=== PATIENT | female | born 1945 | race Caucasian/White ===

== ENCOUNTER → 2019-12-22 | Outpatient (CLI) | payer MEDICARE, OTHER, SELFPAY ==
[2019-12-15 10:25] VITALS: BMI 43.4
[2019-12-22 12:20] LABS: Albumin, Serum 3.8 g/dL (3.2-5.0); BUN 42 mg/dL (7-18); Calcium,Total 9.7 mg/dL (8.5-10.1); Chloride 101 mmol/L (98-107); Creatinine, Serum 1.45 mg/dL (0.55-1.02); EST Glomerular Filtration Rate 38 mL/min (>60); Est Glom Filt Rate - Afr Amer 46 mL/min (>60); Glucose 180 mg/dL (74-106); Phosphorus 2.7 mg/dL (2.5-4.9); Potassium 4.8 mmol/L (3.5-5.1); Sodium Level 133 mmol/L (136-145)
[2019-12-22 12:22] LABS: Vitamin D,25 Hydroxy 38.3 ng/mL
[2019-12-22 13:29] LABS: Microalbumin,Random Urine 14.3 mg/L (NO RANGE EST.); Microalbumin:Creatinine Ratio 23.9 mg/g CRE (<30 mg/g CRE)
[2019-12-26 16:21] LABS: Vitamin D 1,25-Dihydroxy 30.6 pg/mL (19.9-79.3)
== END | disposition home or self-care (01) ==
PROVIDERS: PCP Family Medicine; Visit Provider Internal Medicine Nephrology
DX: E83.52 Hypercalcemia (principal); N17.9 Acute kidney failure, unspecified; E11.9 Type 2 diabetes mellitus without complications
CPT/HCPCS: 36415; 80069; 82043; 82306; 82570; 82652

== ENCOUNTER → 2020-01-02 | Outpatient (CLI) | payer MEDICARE, OTHER, SELFPAY ==
[2019-12-15 10:25] VITALS: BMI 43.4
--- NOTE | 2020-01-02 10:55 | US_ITS ---
STUDY: RENAL ULTRASOUND - COMPLETE REASON FOR EXAM: Female, 74 years old. KATHY TECHNIQUE: Ultrasound evaluation of the kidneys was performed with real-time and static mena-scale imaging. COMPARISON: None. FINDINGS: RIGHT KIDNEY: Normal location of the right kidney, which is normal in size. The right kidney measures 10.9 cm. There is a normal cortex of the right kidney. The renal cortex measures 1.8 cm. There is no right renal mass or cyst. There are no right renal calculi. There is no right hydronephrosis. DISTAL RIGHT URETER: There is non-visualization of the distal right ureter. There is no demonstrated right ureterovesical junction calculus. There is a visualized right ureteral jet. LEFT KIDNEY: Normal location of the left kidney, which is normal in size. The left kidney measures 10.1 cm. There is a normal cortex of the left kidney. The renal cortex measures 1.8 cm. There is no left renal mass or cyst. There are no left renal calculi. There is no left hydronephrosis. DISTAL LEFT URETER: There is non-visualization of the distal left ureter. There is no demonstrated left ureterovesical junction calculus. There is a visualized left ureteral jet. BLADDER: The distended urinary bladder has a volume of 102 ml. The empty urinary bladder has a volume of ml. There is a normal wall thickness of the distended urinary bladder. There is no demonstrated mass within the urinary bladder. There are no demonstrated bladder calculi. US/Kidney and Bladder IMPRESSION: Normal ultrasound of the kidneys and urinary bladder. Electronically Signed: Ishan London MD at 13:25 EDT Tel , Service support ,
== END | disposition home or self-care (01) ==
LOC: OPUS 10:53
PROVIDERS: PCP Family Medicine; Visit Provider Internal Medicine Nephrology
DX: N17.9 Acute kidney failure, unspecified (principal)
CPT/HCPCS: 76770

== ENCOUNTER 2020-08-16 07:12 | Outpatient (RCR) | payer MEDICARE, OTHER, SELFPAY ==
[2020-04-18 14:42] VITALS: BMI 41.8
[2020-08-16] MEDS: COVID-19 VACC, MRNA(PFIZER)/PF 30 MCG/0.3 ML SYRINGE IM (13:43)
[2020-09-06] MEDS: COVID-19 VACC, MRNA(PFIZER)/PF 30 MCG/0.3 ML SYRINGE IM (13:39)
== END 2020-11-13 23:59 ==
LOC: IMMUN 07:12
PROVIDERS: PCP Family Medicine; Visit Provider Family Medicine
DX: Z23 Encounter for immunization (principal)
CPT/HCPCS: 0001A; 0002A; 91300

== ENCOUNTER → 2020-11-27 13:26 | Outpatient (CLI) | payer MEDICARE, OTHER, SELFPAY ==
[2020-09-25 10:21] VITALS: BMI 43.0
== END ==
PROVIDERS: PCP Family Medicine; Referring Provider Internal Medicine Nephrology; Visit Provider Internal Medicine Nephrology
DX: Z00.00 Encounter for general adult medical examination without abnormal findings (principal)

== ENCOUNTER 2021-08-14 10:21 | Outpatient (CLI) | payer MEDICARE, OTHER, SELFPAY ==
--- NOTE | 2021-08-14 10:25 | BI_ITS ---
MAMMOGRAPHY - BILATERAL SCREENING REASON FOR EXAM: Female, 75 years old. Routine annual screening examination. PERTINENT HISTORY: Non-contributory. TECHNIQUE: Digital bilateral breast gilberto (3D mammographic acquisition) in the CC and MLO projections. 2-D mediolateral oblique (MLO) and craniocaudad (CC) views of both breasts were obtained. CAD: Full Field Digital Mammography with Computer Added Detection was performed. COMPARISON: Comparison is made with prior outside examination dated 12/20/2018. FINDINGS: Breast Composition: The breasts are heterogeneously dense, which may obscure small masses. There are no dominant masses or suspicious calcifications. Stable scattered calcifications in both breasts. No other significant abnormalities are identified. There has been no significant change since the prior study. BI/SCRN MAMM (CAD)W/GILBERTO BILAT IMPRESSION: Stable bilateral screening mammogram. Yearly follow-up mammogram recommended. (A) ASSESSMENT CATEGORY: BIRADS Category 2: Benign. A letter regarding these results will be sent to the patient by the facility within 30 days. Approximately 10% of breast cancers are not detected by mammography. A normal mammogram should not delay biopsy of a clinically suspicious abnormality. [id number] Electronically Signed: Fabio Hunter MD at 12:01 EST ,
== END 2021-08-14 23:59 | disposition home or self-care (01) ==
LOC: OPBI 10:22
PROVIDERS: PCP Family Medicine; Visit Provider Internal Medicine Hematology & Oncology
DX: Z12.31 Encounter for screening mammogram for malignant neoplasm of breast (principal)
CPT/HCPCS: 77063; 77067

== ENCOUNTER 2021-09-21 16:04 | Inpatient (IN) | payer MEDICARE, OTHER, SELFPAY ==
[2021-09-21] VITALS (12 sets, daily range): BP systolic 92–155; BP diastolic 63–99; PULSE 86–134; RESP 16–22; TEMP 36.4–37.3; O2SAT 93–98; BMI 43.5; BMI 37.3
--- NOTE | 2021-09-21 16:09 | EKG12_ITS ---
Test Reason : STROKE TEAM Blood Pressure : / mmHG Vent. Rate : 119 BPM Atrial Rate : 375 BPM P-R Int : 000 ms QRS Dur : 086 ms QT Int : 310 ms P-R-T Axes : 000 -18 099 degrees QTc Int : 436 ms Atrial fibrillation Nonspecific ST and T wave abnormality Abnormal ECG Confirmed by ZACKARY KAUFMAN, WALLY ([id number]), fan mail editor DIAN PAN ([id number]) on 09/23/2021 12:50:15 PM Referred By: DAVDIE Confirmed By:WALLY RAYMUNDO MD
--- NOTE | 2021-09-21 16:09 | CT_ITS ---
We are attempting to reach an attending provider to discuss findings. An addendum with communication details will be sent when the communication is complete. STUDY: CT HEAD STROKE PROTOCOL W/O CONTRAST INJECTION REASON FOR EXAM: Female, 76 years old. Neuro deficit, acute, stroke suspected RADIATION DOSAGE (If Supplied By Facility): CTDIvol = ( ) mGy, DLP = ( ) mGycm TECHNIQUE: Transaxial CT imaging of the brain was performed without administration of intravenous contrast material. Individualized dose optimization techniques were used for this CT. COMPARISON: No relevant priors. FINDINGS: Normal soft tissue structures. Normal calvarium. Central parenchymal volume loss. White matter changes that are nonspecific but most commonly associated with chronic small vessel ischemic disease. Normal basal ganglia and thalami. Normal brainstem. Normal cerebellum. There is no intracranial hemorrhage. There are no findings of an acute ischemic infarction. Normal visualized paranasal sinuses. ASPECT score: 10 CT/STROKE Brain/Head without Cont IMPRESSION: No acute intracranial hemorrhage or mass effect. Electronically Signed: Rolan Tsang MD (Brooks) at 16:36 EDT Reading Location ID and State: [facility] / [place] , Service support ,
--- NOTE | 2021-09-21 16:10 | CT_ITS ---
EXAM: CT ANGIOGRAPHY HEAD AND NECK WITH INTRAVENOUS CONTRAST CLINICAL INDICATION: Neuro deficit, acute, stroke suspected TECHNIQUE: [facility]/head and neck CT angiography protocol performed with intravenous contrast. This CT exam was performed using one or more of the following dose reduction techniques: automated exposure control, adjustment of the mA and/or kV according to patient size, and/or use of iterative reconstruction technique. This report was created using [employer] report generation technology. MIP reconstructed images were created and reviewed. CONTRAST: IV 100mL [id number] RADIATION DOSE: CTDIvol = 42.62 mGy, DLP = 670.68 mGy-cm COMPARISON: PET scan 12/13/201901/2020 FINDINGS: HEAD: RIGHT ANTERIOR CEREBRAL ARTERY: Unremarkable. No significant stenosis at the visualized segments. Anterior communicating artery is present. No aneurysm. RIGHT MIDDLE CEREBRAL ARTERY: Unremarkable. No significant stenosis at the visualized segments. No aneurysm. RIGHT POSTERIOR CEREBRAL ARTERY: Unremarkable. No occlusion or significant stenosis. No aneurysm. RIGHT INTRACRANIAL INTERNAL CAROTID ARTERY: See below. RIGHT INTRACRANIAL VERTEBRAL ARTERY: Unremarkable. No significant stenosis. No dissection or occlusion. LEFT ANTERIOR CEREBRAL ARTERY: Unremarkable. No significant stenosis at the visualized segments. No aneurysm. LEFT MIDDLE CEREBRAL ARTERY: Unremarkable. No significant stenosis at the visualized segments. No aneurysm. LEFT POSTERIOR CEREBRAL ARTERY: Unremarkable. No occlusion or significant stenosis. No aneurysm. LEFT INTRACRANIAL INTERNAL CAROTID ARTERY: See below. LEFT INTRACRANIAL VERTEBRAL ARTERY: Unremarkable. No significant stenosis. No dissection or occlusion. BASILAR ARTERY: Unremarkable. No significant stenosis. No aneurysm. GREAT VESSELS OF AORTIC ARCH: Atherosclerosis of the aortic arch. OTHER VASCULATURE: Calcific atherosclerosis of the left proximal ICA (30% stenosis). Calcific atherosclerosis of the right proximal ICA (20% stenosis). No vascular malformation. NECK: RIGHT COMMON CAROTID ARTERY: Unremarkable. No significant stenosis. No dissection or occlusion. RIGHT EXTRACRANIAL INTERNAL CAROTID ARTERY: See above. RIGHT EXTERNAL CAROTID ARTERY: Unremarkable. No occlusion. RIGHT EXTRACRANIAL VERTEBRAL ARTERY: Unremarkable. No significant stenosis. No dissection or occlusion. LEFT COMMON CAROTID ARTERY: Unremarkable. No significant stenosis. No dissection or occlusion. LEFT EXTRACRANIAL INTERNAL CAROTID ARTERY: See above. LEFT EXTERNAL CAROTID ARTERY: Unremarkable. No occlusion. LEFT EXTRACRANIAL VERTEBRAL ARTERY: Unremarkable. No significant stenosis. No dissection or occlusion. LUNG APICES: Unremarkable as visualized. MEDIASTINUM: There are enlarged lymph nodes of the upper mediastinum which are partially visualized. For instance, paratracheal lymph node on the first image measures 1.0 x 1.9 cm. The azygos vein appears to be unopacified. HEAD and NECK: BONES/JOINTS: Unremarkable. No discrete lytic or blastic abnormalities. SOFT TISSUES: Unremarkable. TUBES, LINES AND DEVICES: Sternal wires are present. CAROTID STENOSIS REFERENCE USING NASCET CRITERIA: % ICA stenosis = (1 - narrowest ICA diameter/diameter of distal cervical ICA) x 100. Mild - <50% stenosis. Moderate - 50-69% stenosis. Severe - 70-94% stenosis. Near occlusion - 95-99% stenosis. Occluded - 100% stenosis. CT/STROKE CTA Head AND Neck W/Con IMPRESSION: 1. No large vessel occlusion or intracranial aneurysm. No carotid or vertebral artery dissection. 2. Mediastinal adenopathy, incompletely visualized. N.B. : The above Results were Read Back by Rolan Tsang MD (Brooks) to Pacheco Lua and understanding confirmed on 09/21/2021 17:02:52 (ET). Electronically Signed: Rolan Tsang MD (Brooks) at 17:06 EDT ,
--- NOTE | 2021-09-21 16:12 | NURSING ---
NO OLD EKGS
[2021-09-21 16:21] LABS: Absolute Lymphocyte Count 1.69 X10^3/uL (0.83-4.51); Absolute Neutrophil Count 7.2 X10^3/uL (2.0-7.7); Basophil# 0.09 X10^3/uL; Basophil% 0.8 % (0-1); Eosinophil# 0.24 X10^3/uL; Eosinophils% 2.2 % (0-5); Hematocrit 40.7 % (37-47); Hemoglobin 13.3 g/dL (12.0-15.0); Lymphocyte # 1.69 X10^3/ul (0.83-4.51); Lymphocyte % 15.7 % (19-41); Mean Corp Hgb Conc 32.7 g/dL (32-36); Mean Corpuscular Hgb 30.2 pg (27.0-32.0); Mean Corpuscular Volume 92.3 fL (81-99); Mean Platelet Vol. 11.6 fl (6.2-12.0); Monocyte# 1.44 X10^3/uL; Monocyte% 13.4 % (0-10); NRBC Flagged by Analyzer 0 % (0-5); Neutrophil # 7.24 X10^3/uL (2.7-7.7); Neutrophil % 67.4 % (47-70); Platelet Count 192 K/mm3 (150-450); RBC Distribution Width CV 14.8 % (11.6-14.6); RBC Distribution Width SD 50.5 fl (35.1-43.9); Red Blood Count 4.41 M/mm3 (4.2-5.4); White Blood Count 10.8 K/mm3 (4.4-11.0)
[2021-09-21 16:29] LABS: International Normalized Ratio 1.2; Prothrombin Time (Protime)PT. 14.9 SECONDS (11.7-14.9)
[2021-09-21 16:30] LABS: Partial Thromboplast Time 27.3 Seconds (24.1-36.2)
--- NOTE | 2021-09-21 16:33 | ED.VIS.STROK ---
HPI History of Present Illness Chief Complaint: Neuro S/Sx Informant: EMS Limited: other (Aphasia) Onset/Context/Timing Onset: Today Context: Sudden Onset Timing: Continuous Quality and Location: Positive for Left Arm Weakness, Right Leg Weakness, Left Leg Weakness, Expressive Aphasia and Receptive Aphasia Onset: Last known well was 9 AM today, approximately 7 hours prior to arrival Narrative Narrative: Patient presents with stroke symptoms that was noticed today. Patient's last known well was 9 AM today. This was approximately 7 hours prior to arrival. Patient has difficulty speaking and following commands. EMS reports that the patient's left side appears to be weaker than her right. EMS reports the patient continues to fall asleep but will awaken easily during their transport. Patient does not give me any history herself. Patient is nonverbal. [facility] Medical History Acute combined systolic (congestive) and diastolic (congestive) heart failure Diabetes mellitus type II, controlled Essential hypertension Fibromyalgia GERD (gastroesophageal reflux disease) HFrEF (heart failure with reduced ejection fraction) Hypercalcemia Hyperlipidemia Lipoma of left upper extremity Lupus Monoclonal gammopathy Morbid obesity Non-ischemic cardiomyopathy Nonalcoholic fatty liver disease Nonrheumatic mitral valve stenosis with insufficiency KAROLINA (obstructive sleep apnea) Osteoarthritis Osteoporosis Rheumatoid arthritis Home Medications apixaban 5 mg PO BID 05/24/19 [History Last Taken Unknown] aspirin 81 mg PO DAILY 05/24/19 [History Last Taken Unknown] metoprolol succinate 100 mg PO BID 05/24/19 [History Last Taken Unknown] ropinirole 0.5 mg PO DAILY 05/24/19 [History Last Taken Unknown] loratadine 10 mg PO DAILY 06/02/19 [History Last Taken Unknown] atorvastatin 40 mg PO QHS 06/22/19 [History Last Taken Unknown] cyanocobalamin (vitamin B-12) 1,000 mcg PO DAILY 06/22/19 [History Last Taken Unknown] vitamin E 400 unit PO DAILY 06/22/19 [History Last Taken Unknown] sacubitril 24 mg-valsartan 26 mg tablet 1 tab PO BID 07/16/21 [History Last Taken Unknown] acetaminophen 325 mg tablet 650 mg PO Q6H PRN tab 09/04/21 [History Last Taken Unknown] albuterol sulfate 90 mcg/actuation aerosol inhaler 2 puff INHALATION .QID PRN g 09/04/21 [History Last Taken Unknown] diltiazem HCl 120 mg capsule,extended release 24 hr 120 mg PO DAILY 09/04/21 [History Last Taken Unknown] dulaglutide 1.5 mg/0.5 mL subcutaneous pen injector 1.5 mg SUBCUT QWEEK 09/04/21 [History Last Taken Unknown] gabapentin 100 mg capsule 200 mg PO TID cap 09/04/21 [History Last Taken Unknown] insulin aspart U-100 100 unit/mL (3 mL) subcutaneous pen 25 unit SUBCUT .COMPLEX ml 09/04/21 [History Last Taken Unknown] insulin degludec 200 unit/mL (3 mL) subcutaneous pen 68 unit SUBCUT QHS ml 09/04/21 [History Last Taken Unknown] leflunomide 10 mg tablet 20 mg PO DAILY tab 09/04/21 [History Last Taken Unknown] levothyroxine 100 mcg tablet 100 mcg PO .COMPLEX 09/04/21 [History Last Taken Unknown] melatonin 3 mg tablet 3 mg PO HS PRN 09/04/21 [History Last Taken Unknown] miconazole nitrate 2 % topical powder 1 applic TOPICAL BID 09/04/21 [History Last Taken Unknown] pantoprazole 40 mg tablet,delayed release 40 mg PO DAILY 09/04/21 [History Last Taken Unknown] prednisone 5 mg tablet 5 mg PO DAILY tab 09/18/21 [History Last Taken Unknown] torsemide 20 mg tablet 20 mg PO BID tab 09/18/21 [History Last Taken Unknown] Allergy/AdvReac Type Severity Reaction Status Date / Time hydroxychloroquine Allergy Severe Shortness Verified 09/18/21 09:53 of breath metformin AdvReac Severe Diarrhea Verified 09/18/21 09:53 methotrexate AdvReac Severe Other Verified 09/18/21 09:53 Sulfa (Sulfonamide AdvReac Intermediate Other Verified 09/18/21 09:53 Antibiotics) Family History Father Diabetes Heart disease Hypertension CVA (cerebral vascular accident) Hyperlipidemia CAD (coronary artery disease) Brother Hypertension Hyperlipidemia Sister THYROID Mother Uterine cancer Surgical History History of appendectomy History of back surgery History of cardioversion (01/15/18) History of left heart catheterization History of mitral valve replacement with bioprosthetic valve (04/23/17) History of radiofrequency ablation (RFA) for complex left atrial arrhythmia (04/25/17) History of right and left heart catheterization (02/25/17) History of total left knee replacement History of total right knee replacement History of transesophageal echocardiography (NEELA) (01/15/18) Social History Smoking Status: Smoker, status unknown tobacco type: cigarettes ROS ROS ED Review of Systems ROS Unobtainable: due to mental status EXAM Physical Exam Const Vital Signs: 09/21/21 16:05 09/21/21 16:09 09/21/21 16:39 Temperature 97.6 F L 97.8 F 98.4 F Temperature Source Temporal Temporal Temporal Pulse Rate 128 H 127 H 124 H Respiratory Rate 18 22 H 18 Blood Pressure 116/66 112/99 H 124/63 H Blood Pressure Mean 82 103 83 Pulse Ox 93 98 98 Oxygen Delivery Method Room Air Nasal Cannula Nasal Cannula Oxygen Flow Rate (L/min) 2 2 09/21/21 17:09 09/21/21 17:30 Temperature 97.9 F 98.4 F Temperature Source Temporal Temporal Pulse Rate 112 H 124 H Respiratory Rate 18 18 Blood Pressure 145/94 H 137/91 H Blood Pressure Mean 111 106 Pulse Ox 97 98 Oxygen Delivery Method Nasal Cannula Room Air Oxygen Flow Rate (L/min) 2 Positive well nourished, well developed and obese General Appearance ED: well developed and NAD Nutritional Appearance: obese HEENT Reports moist mucous membranes Neck supple and no JVD Resp normal respiratory effort and clear to auscultation bilaterally Cardio Rate: regular rate Rhythm: abnormal rhythm irregularly irregular GI soft to palpation and non-tender Extremity General Extremety ED: Negative for deformity or tenderness General Extremity: Negative for deformity Neuro [place] Coma Scale: document GCS findings Spontaneous Localizes to Pain None 10 Motor Exam: strength abnormal flexion STROKE Vital Signs/Narrative: Vital Signs Temp Pulse Resp BP Pulse Ox 09/21/21 17:30 98.4 F 124 H 18 137/91 H 98 09/21/21 17:09 97.9 F 112 H 18 145/94 H 97 09/21/21 16:39 98.4 F 124 H 18 124/63 H 98 09/21/21 16:09 97.8 F 127 H 22 H 112/99 H 98 09/21/21 16:05 97.6 F L 128 H 18 116/66 93 Inital Vital Signs reviewed: Yes NIHSS Initial: 1a Level of Consciousness: 1 1b LOC Questions (Score 2 if aphasic/stupor): 2 2 Best Gaze (If aphasic, use reflexive mvmts.): 0 4 Facial Palsy: 0 5 Motor Arm Right (UN = amputation/fusion): 1 5 Motor Arm Left: 2 6 Motor Leg Right: 3 6 Motor Leg Left: 3 8 Sensory (Aphasia/stupor=0 or 1, coma=2): 1 9 Best Language: 2 10 Dysarthria (mute, coma=2, intubated=UN): 2 Total Score: 17 MDM MDM MDM Narrative Medical decision making narrative: CT scan of the brain was obtained. There is no acute intracranial abnormality. This was interpreted by the radiologist and reviewed by myself. CTA of the head and neck was obtained. There is no evidence of large vessel occlusion. This was also interpreted by the radiologist and reviewed by myself. EKG was obtained. On my interpretation it shows atrial fibrillation with a rate of 119. There are nonspecific ST-T wave changes. There are no acute changes. QRS interval, QTc interval, and axis are within normal limits. CBC was within normal limits. PT with INR and PTT were essentially within normal limits. Basic metabolic profile showed a glucose of 200. The remainder was within normal limits. High-sensitivity troponin was normal at 14. Case was discussed with the stroke neurologist at [facility]. Patient is not a candidate for thrombolytics therapy at this time. Patient is on Eliquis and her last known well was 7 hours prior to arrival. On reevaluation, the patient is more awake and alert but still having some difficulty speaking. Patient is able to hold both arms out in front of her for 10 seconds. Patient is able to lift her right leg off of the bed but is unable to hold it for 5 seconds. Patient is unable to lift her left leg off of the bed. Case was discussed with the hospitalist. She will admit the patient to her service. Family understood and was agreeable with the plan. All questions were answered. Lab Data Attestation: I reviewed the patient's lab results. Labs: Laboratory Results - last 24 hr 09/21/21 09/21/21 09/21/21 16:12 16:12 16:12 WBC 10.8 RBC 4.41 Hgb 13.3 Hct 40.7 MCV 92.3 MCH 30.2 MCHC 32.7 RDW Std Deviation 50.5 H RDW Coeff of Gisela 14.8 H Plt Count 192 MPV 11.6 Immature Gran % (Auto) 0.500 Neut % (Auto) 67.4 Lymph % (Auto) 15.7 L [place] % (Auto) 13.4 H Eos % (Auto) 2.2 Baso % (Auto) 0.8 Absolute Neuts (auto) 7.2 Absolute Lymphs (auto) 1.69 Nucleated RBC % 0 PT 14.9 INR 1.2 APTT 27.3 Sodium 137 Potassium 3.6 Chloride 101 Carbon Dioxide 30.0 Anion Gap 6 BUN 13 Creatinine 0.94 Estim Creat Clear Calc 37.71 Est GFR (MDRD) Af Amer 74 Est GFR (MDRD) Non-Af 62 BUN/Creatinine Ratio 13.8 Glucose 200 H Calcium 10.0 Troponin I High Sens 14 Radiography Diagnostic Testing: Clinical Impression(s) from Imaging Studies Brain CT 09/21/21 16:09 IMPRESSION: No acute intracranial hemorrhage or mass effect. Electronically Signed: Rolan Tsang MD (Brooks) at 16:36 EDT , ADDENDUM: 09/21/21 1649 IMPRESSION: No acute intracranial hemorrhage or mass effect. N.B. : The above Results were Read Back by Rolan Tsang MD (Brooks) to Dr. Chanell MD, and understanding confirmed on 09/21/2021 16:42:12 (ET). Electronically Signed: Rolan Tsang MD (Brooks) at 16:36 EDT , Head/Neck CTA 09/21/21 16:10 IMPRESSION: 1. No large vessel occlusion or intracranial aneurysm. No carotid or vertebral artery dissection. 2. Mediastinal adenopathy, incompletely visualized. N.B. : The above Results were Read Back by Rolan Tsang MD (Brooks) to Pacheco Lua and understanding confirmed on 09/21/2021 17:02:52 (ET). Electronically Signed: Rolan Tsang MD (Brooks) at 17:06 EDT , ADDENDUM: 09/21/21 1713 IMPRESSION: 1. No large vessel occlusion or intracranial aneurysm. No carotid or vertebral artery dissection. 2. Mediastinal adenopathy, incompletely visualized. N.B. : The above Results were Read Back by Rolan Tsang MD (Brooks) to Pacheco Lua and understanding confirmed on 09/21/2021 17:02:52 (ET). Electronically Signed: Rolan Tsang MD (Brooks) at 17:06 EDT , Chest X-Ray 09/21/21 17:01 IMPRESSION: Nonacute portable x-ray examination of the chest. Electronically Signed: Rolan Tsang MD (Brooks) at 17:32 EDT , EKG Initial EKG: Attestation: I personally reviewed and interpreted this EKG as follows: Interpretation: Atrial Fibrillation (119) and Non-Specific ST Changes Prior EKG tracings: not available for review Stroke Documentation Questions Stroke Team Activated: Yes Reviewed Inclusion/Exclusion criteria: Yes Was Patient considered for Endovascular Intervention?: No-CTA negative, determined not to be an endovascular candidate IV Alteplase (t-PA) Administered: No No contraindications for IV Alteplase (t-PA) administration.: No Discharge Plan Dx/Rx/DC Orders Clinical Impression: Stroke, Expressive aphasia Disposition Disposition: Acute Care [facility]
[2021-09-21 16:38] LABS: Anion Gap 6 (5-15); BUN 13 mg/dL (7-18); BUN/Creat Ratio 13.8 RATIO (10-20); Chloride 101 mmol/L (98-107); Creatinine, Serum 0.94 mg/dL (0.55-1.02); EST Glomerular Filtration Rate 62 mL/min (>60); Est Glom Filt Rate - Afr Amer 74 mL/min (>60); Estimated Creatinine Clearance 37.71 ml/min; Glucose 200 mg/dL (74-106); Potassium 3.6 mmol/L (3.5-5.1); Sodium Level 137 mmol/L (136-145); Troponin-I HS 14 pg/mL (3.0-54.0)
--- NOTE | 2021-09-21 16:38 | NURSING ---
STROKE ALERT CALLED 340, PRIOR TO ARRIVAL
--- NOTE | 2021-09-21 17:01 | RAD_ITS ---
STUDY: X-RAY CHEST REASON FOR EXAM: Female, 76 years old. squad called for hypoglycemia. when arrived pt. had left sided weakness. blood sugar 173. squad states pt. was sleepy but arousable. last known well 0900 TECHNIQUE: AP COMPARISON: None. FINDINGS: Sternal wires. The lungs are clear and expanded. There is no demonstrated pleural abnormality. There is mild cardiac enlargement. Normal mediastinum and blanca. Normal visualized pulmonary arteries. Normal visualized aortic arch and descending thoracic aorta. Normal visualized thoracic spine. Normal visualized ribs, clavicles, and shoulders. There is no demonstrated abnormality of the visualized soft tissue structures of the upper abdomen. RAD/Chest 1 View IMPRESSION: Nonacute portable x-ray examination of the chest. Electronically Signed: Rolan Tsang MD (Brooks) at 17:32 EDT ,
--- NOTE | 2021-09-21 17:50 | NURSING ---
PCU OBS NAUMAH STROKE, EXPRESSIVE APHASIA
--- NOTE | 2021-09-21 17:51 | PCM.HP.STD ---
HPI - General General Date of Admission: 09/21/21 Date of Service: 09/21/21 Chief Complaint: Altered mental status - 1 day HPI Narrative MARIA ISABEL LOPEZ, is a 76 F who presents with the above. Patient was last known normal at around 9 AM. His son had called her on phone and she was able to speak and converse normally. They arrived to pick her up around 3 PM and found her to be very confused, unable to speak. She had trouble finding her words. She was helped to also arouse. She continues to fall asleep easily. The EMS reported the patient's left side appeared to be weaker than her right. Patient has history of chronic atrial fibrillation, status post left atrial appendage clipping as well as radiofrequency ablation, status post DC cardioversion. Patient is on Eliquis. Patient has chronic back pain and is not mobile at baseline. CT of the brain was negative for any acute intracranial hemorrhage. CTA of th. e her head and neck was unremarkable for any large vessel occlusion. Her admitting EKG shows atrial fibrillation, heart rate of 119. WBC is 10.8, hemoglobin 13.3, platelet count is 192, INR is 1.2, BMP is unremarkable, blood sugar is 200 [facility] Medical History Acute combined systolic (congestive) and diastolic (congestive) heart failure Diabetes mellitus type II, controlled Essential hypertension Fibromyalgia GERD (gastroesophageal reflux disease) HFrEF (heart failure with reduced ejection fraction) Hypercalcemia Hyperlipidemia Lipoma of left upper extremity Lupus Monoclonal gammopathy Morbid obesity Non-ischemic cardiomyopathy Nonalcoholic fatty liver disease Nonrheumatic mitral valve stenosis with insufficiency KAROLINA (obstructive sleep apnea) Osteoarthritis Osteoporosis Rheumatoid arthritis Home Medications apixaban 5 mg PO BID 05/24/19 [History Last Taken Unknown] aspirin 81 mg PO DAILY 05/24/19 [History Last Taken Unknown] metoprolol succinate 100 mg PO BID 05/24/19 [History Last Taken Unknown] ropinirole 0.5 mg PO DAILY 05/24/19 [History Last Taken Unknown] loratadine 10 mg PO DAILY 06/02/19 [History Last Taken Unknown] atorvastatin 40 mg PO QHS 06/22/19 [History Last Taken Unknown] cyanocobalamin (vitamin B-12) 1,000 mcg PO DAILY 06/22/19 [History Last Taken Unknown] vitamin E 400 unit PO DAILY 06/22/19 [History Last Taken Unknown] sacubitril 24 mg-valsartan 26 mg tablet 1 tab PO BID 07/16/21 [History Last Taken Unknown] acetaminophen 325 mg tablet 650 mg PO Q6H PRN tab 09/04/21 [History Last Taken Unknown] albuterol sulfate 90 mcg/actuation aerosol inhaler 2 puff INHALATION .QID PRN g 09/04/21 [History Last Taken Unknown] diltiazem HCl 120 mg capsule,extended release 24 hr 120 mg PO DAILY 09/04/21 [History Last Taken Unknown] dulaglutide 1.5 mg/0.5 mL subcutaneous pen injector 1.5 mg SUBCUT QWEEK 09/04/21 [History Last Taken Unknown] gabapentin 100 mg capsule 200 mg PO TID cap 09/04/21 [History Last Taken Unknown] insulin aspart U-100 100 unit/mL (3 mL) subcutaneous pen 25 unit SUBCUT .COMPLEX ml 09/04/21 [History Last Taken Unknown] insulin degludec 200 unit/mL (3 mL) subcutaneous pen 68 unit SUBCUT QHS ml 09/04/21 [History Last Taken Unknown] leflunomide 10 mg tablet 20 mg PO DAILY tab 09/04/21 [History Last Taken Unknown] levothyroxine 100 mcg tablet 100 mcg PO .COMPLEX 09/04/21 [History Last Taken Unknown] melatonin 3 mg tablet 3 mg PO HS PRN 09/04/21 [History Last Taken Unknown] miconazole nitrate 2 % topical powder 1 applic TOPICAL BID 09/04/21 [History Last Taken Unknown] pantoprazole 40 mg tablet,delayed release 40 mg PO DAILY 09/04/21 [History Last Taken Unknown] prednisone 5 mg tablet 5 mg PO DAILY tab 09/18/21 [History Last Taken Unknown] torsemide 20 mg tablet 20 mg PO BID tab 09/18/21 [History Last Taken Unknown] Allergy/AdvReac Type Severity Reaction Status Date / Time hydroxychloroquine Allergy Severe Shortness Verified 09/18/21 09:53 of breath metformin AdvReac Severe Diarrhea Verified 09/18/21 09:53 methotrexate AdvReac Severe Other Verified 09/18/21 09:53 Sulfa (Sulfonamide AdvReac Intermediate Other Verified 09/18/21 09:53 Antibiotics) Family History Father Diabetes Heart disease Hypertension CVA (cerebral vascular accident) Hyperlipidemia CAD (coronary artery disease) Brother Hypertension Hyperlipidemia Sister THYROID Mother Uterine cancer Surgical History History of appendectomy History of back surgery History of cardioversion (01/15/18) History of left heart catheterization History of mitral valve replacement with bioprosthetic valve (04/23/17) History of radiofrequency ablation (RFA) for complex left atrial arrhythmia (04/25/17) History of right and left heart catheterization (02/25/17) History of total left knee replacement History of total right knee replacement History of transesophageal echocardiography (NEELA) (01/15/18) Social History (Updated 09/21/21 @ 18:[address] Candis Bull MD) Smoking Status: Smoker, status unknown tobacco type: cigarettes alcohol intake: never substance use type: does not use ROS Review of Systems ROS Unobtainable: due to encephalopathy Vital Signs Vital Signs Vital Signs: 09/21/21 16:05 09/21/21 16:09 09/21/21 16:39 Temperature 97.6 F L 97.8 F 98.4 F Temperature Source Temporal Temporal Temporal Pulse Rate 128 H 127 H 124 H Respiratory Rate 18 22 H 18 Blood Pressure 116/66 112/99 H 124/63 H Blood Pressure Mean 82 103 83 Pulse Ox 93 98 98 Oxygen Delivery Method Room Air Nasal Cannula Nasal Cannula Oxygen Flow Rate (L/min) 2 2 09/21/21 17:09 09/21/21 17:30 Temperature 97.9 F 98.4 F Temperature Source Temporal Temporal Pulse Rate 112 H 124 H Respiratory Rate 18 18 Blood Pressure 145/94 H 137/91 H Blood Pressure Mean 111 106 Pulse Ox 97 98 Oxygen Delivery Method Nasal Cannula Room Air Oxygen Flow Rate (L/min) 2 Weight Weight: 101.1 kg Body Mass Index (BMI) 43.5 Physical Exam Narrative Physical exam: General: Alert, appears confused, cooperative, no apparent distress HEENT: Atraumatic Oral: Moist Mucosa Neck: Supple Lungs: Diminished to auscultation Cardiovascular: HS I+II, regular, no murmurs Abdomen: Bowel Sounds Present, Soft, Non Tender Extremities: Bilateral leg edema +1 Skin: No rashes, No breakdown Neurological: Alert, expressive aphasia, no facial droop, unable to fully extend upper extremities or legs on account of pain Psych/Mental Status:confused Results Lab / Micro Data Result Diagrams: 09/21/21 16:12 09/21/21 16:12 Labs: Laboratory Results - last 24 hr 09/21/21 16:12: WBC 10.8, RBC 4.41, Hgb 13.3, Hct 40.7, MCV 92.3, MCH 30.2, MCHC 32.7, RDW Std Deviation 50.5 H, RDW Coeff of Gisela 14.8 H, Plt Count 192, MPV 11.6, Immature Gran % (Auto) 0.500, Neut % (Auto) 67.4, Lymph % (Auto) 15.7 L, [place] % (Auto) 13.4 H, Eos % (Auto) 2.2, Baso % (Auto) 0.8, Absolute Neuts (auto) 7.2, Absolute Lymphs (auto) 1.69, Nucleated RBC % 0 09/21/21 16:12: PT 14.9, INR 1.2, APTT 27.3 09/21/21 16:12: Sodium 137, Potassium 3.6, Chloride 101, Carbon Dioxide 30.0, Anion Gap 6, BUN 13, Creatinine 0.94, Estim Creat Clear Calc 37.71, Est GFR (MDRD) Af Amer 74, Est GFR (MDRD) Non-Af 62, BUN/Creatinine Ratio 13.8, Glucose 200 H, Calcium 10.0, Troponin I High Sens [address] 09/21/21 16:09 IMPRESSION: No acute intracranial hemorrhage or mass effect. Electronically Signed: oRlan Tsang MD (Brooks) at 16:36 EDT Reading Location ID and State: [facility] / [place] , Service support , ADDENDUM: 09/21/21 1132 IMPRESSION: No acute intracranial hemorrhage or mass effect. N.B. : The above Results were Read Back by Rolan Tsang MD (Brooks) to Dr. Chanell MD, and understanding confirmed on 09/21/2021 16:42:12 (ET). Electronically Signed: Rolan Tsang MD (Brooks) at 16:36 EDT , Head/Neck CTA 09/21/21 16:10 IMPRESSION: 1. No large vessel occlusion or intracranial aneurysm. No carotid or vertebral artery dissection. 2. Mediastinal adenopathy, incompletely visualized. N.B. : The above Results were Read Back by Rolan Tsang MD (Brooks) to Pacheco Lua and understanding confirmed on 09/21/2021 17:02:52 (ET). Electronically Signed: Rolan Tsang MD (Brooks) at 17:06 EDT , ADDENDUM: 09/21/21 1713 IMPRESSION: 1. No large vessel occlusion or intracranial aneurysm. No carotid or vertebral artery dissection. 2. Mediastinal adenopathy, incompletely visualized. N.B. : The above Results were Read Back by Rolan Tsang MD (Brooks) to Pacheco Lua and understanding confirmed on 09/21/2021 17:02:52 (ET). Electronically Signed: Rolan Tsang MD (Brooks) at 17:06 EDT , Chest X-Ray 09/21/21 17:01 IMPRESSION: Nonacute portable x-ray examination of the chest. Electronically Signed: Rolan Tsang MD (Brooks) at 17:32 EDT , Assessment & Plan Assessment/Plan (1) Stroke: QUALIFIERS: CVA mechanism: unspecified Qualified Code(s): I63.9 - Cerebral infarction, unspecified (2) Expressive aphasia: (3) HFrEF (heart failure with reduced ejection fraction): PLAN: 1. Acute metabolic encephalopathy likely secondary to acute stroke Patient has expressive aphasia History of multiple comorbidities including chronic atrial fibrillation, on Eliquis We will continue to monitor 2. Acute stroke, patient noted with expressive aphasia, admitting NIHSS score was 5 Patient is not a TPA candidate; on Eliquis also Admit to PCU, monitor on telemetry, Per son, patient has history of plating to the right upper extremities, and rods in her back She however stated she has had a recent MRI done in an outside hospital We will obtain records 2D echo, neurology consult after MRI brain Lipid profile in am, HbA1c 3. A. fib with RVR, heart rate slightly elevated Patient with chronic atrial fibrillation, status post left atrial appendage clipping, status post radiofrequency ablation status post cardioversion Resume on patient's home Cardizem, metoprolol, continue Eliquis 4. Type II DM, on insulin, Continue with insulin sliding scale with blood glucose checks 5. Acute combined CHF, recent EF of 29% Continue with Entresto, torsemide 6. Hypothyroidism, continue Synthroid 7. DVT prophylaxis?on Eliquis 8. I discussed and explained in details the various types of CODE STATUS-full code, DNR CCA, DNR CC. Per patient's son, patient had always voiced that she wants to be full code. Patient appeared to be not in agreement. Time spent discussing CODE STATUS 17 minutes Charges/Coding Visit Charges Inpatient E&M: 81323 Init Hosp L3 Procedures Hospitalists Procedures: 58389 Advncd Care Plan 30 Min
[2021-09-21] MEDS: dilTIAZem 60 MG Tablet PO (18:48)
--- NOTE | 2021-09-21 19:09 | ECHOD_ITS ---
Reason For Study: TIA/CVA Procedure This was a 2D Doppler, Color Flow transthoracic echocardiogram. The exam was of adequate technical quality. Exam performed portable in patient room. Left Ventricle Normal LV size. Mild global left ventricular systolic dysfunction. The estimated ejection fraction is 40 %. There is evidence of diastolic dysfunction. Right Ventricle Normal RV size. Normal systolic function. Atria The left atrium is moderately enlarged. The right atrium is mildly enlarged. No doppler evidence for ASD. Bubble contrast study negative for right to left interatrial shunt. Mitral Valve Stable appearing bioprosthetic mitral valve apparatus. MIld (1+) transvalvular insufficiency of the mitral valve. Tricuspid Valve Normal tricuspid valve. Moderate (2+) tricuspid valve insufficiency. Right ventricular systolic pressure estimated to be 34 mmHg. Aortic Valve Trisinus/trileaflet aortic valve. Mild focal aortic valve calcification. Pulmonic Valve The pulmonic valve is not well visualized. Trivial pulmonic valve insufficiency. Great Vessels Normal sized aortic root. Pericardium/Pleural No pericardial effusion. Medication Performed a rapid injection of agitated mix of 9 cc saline and 1cc air to assess for atrial septal defect. MMode/2D Measurements & Calculations LVIDd: 3.7 cm IVSd: 1.2 cm Ao root diam: 3.6 cm LVIDs: 3.3 cm LVPWd: 1.2 cm RVDd: 4.4 cm FS: 12.0 % LAV(MOD-sp4): 94.0 ml LVAd ap4: 24.4 cm2 LVAd ap2: 25.3 cm2 LVLd ap4: 7.6 cm LVLd ap2: 6.6 cm EDV(MOD-sp4): 66.7 ml EDV(MOD-sp2): 80.3 ml EDV(sp4-el): 66.2 ml EDV(sp2-el): 81.9 ml LVAs ap4: 18.4 cm2 LVAs ap2: 18.0 cm2 LVLs ap4: 7.3 cm LVLs ap2: 5.9 cm ESV(MOD-sp4): 40.9 ml ESV(MOD-sp2): 44.4 ml ESV(sp4-el): 39.5 ml ESV(sp2-el): 46.9 ml EF(MOD-sp4): 38.7 % EF(MOD-sp2): 44.8 % EF(sp4-el): 40.4 % SV(MOD-sp4): 25.8 ml SV(MOD-sp2): 35.9 ml SV(sp4-el): 26.8 ml LA A4 area: 27.8 cm2 LA dimension(2D): 5.2 cm RA A4 area: 17.9 cm2 Doppler Measurements & Calculations MV E max dileep: 206.8 cm/sec Lat Peak E' Dileep: 7.3 cm/sec Med Peak E' Dileep: 5.1 cm/sec E/E' lat: 28.4 E/E' med: 40.6 Ao V2 max: 188.9 cm/sec LV V1 max: 104.1 cm/sec PA V2 max: 111.5 cm/sec Ao max P.3 mmHg LV V1 max P.4 mmHg Ao V2 mean: 130.9 cm/sec LV V1 mean P.3 mmHg Ao mean P.7 mmHg LV V1 mean: 68.8 cm/sec Ao V2 VTI: 33.9 cm LV V1 VTI: 18.5 cm TR max dileep: 278.7 cm/sec TR max P.1 mmHg ECHO/Echo Complete Interpretation Summary Mild global left ventricular systolic dysfunction. The estimated ejection fraction is 40 %. The left atrium is moderately enlarged. The right atrium is mildly enlarged. Stable appearing bioprosthetic mitral valve apparatus. MIld (1+) transvalvular insufficiency of the mitral valve. Moderate (2+) tricuspid valve insufficiency. Mild focal aortic valve calcification. Trivial pulmonic valve insufficiency. Right ventricular systolic pressure estimated to be 34 mmHg. There is evidence of diastolic dysfunction. Bubble contrast study negative for right to left interatrial shunt. Ordering Physician: Candis Bull Performed By: Leticia Whaley RCS
[2021-09-21] MEDS: 0.9% Normal Saline 1,000 ML 75 ML IV (19:33)
[2021-09-21 19:54] LABS: Hemoglobin A1c 10.2 % (3.8-5.6)
[2021-09-21 20:18] LABS: Troponin-I HS 17 pg/mL (3.0-54.0)
--- NOTE | 2021-09-21 21:19 | ED.RN ---
laura uriarte son of the patient.
[2021-09-21] MEDS: Insulin Lispro 100 UNIT/ML INSULN.PEN SC (22:25)
[2021-09-21] MEDS: Pramipexole Di-HCl 0.25 MG Tablet PO (22:25)
[2021-09-21] MEDS: Insulin Glargine-YFGN 100 UNIT/ML Pen 68 UNIT SC (22:25)
[2021-09-21] MEDS: Atorvastatin Calcium 80 MG Tablet PO (22:25)
[2021-09-21] MEDS: APIXABAN 5 MG TABLET PO (22:25)
[2021-09-21] MEDS: Nystatin Powder 15gm Bottle 1 APPLIC TOPICAL (22:27)
[2021-09-21 22:46] LABS: Bedside Glucose 200 mg/dL (74-106)
[2021-09-21 23:07] LABS: Troponin-I HS 16 pg/mL (3.0-54.0)
[2021-09-22] VITALS (14 sets, daily range): BP systolic 106–141; BP diastolic 59–99; PULSE 79–130; RESP 12–18; TEMP 36.4–37; O2SAT 94–97; BMI 37.3
[2021-09-22] MEDS: Acetaminophen 325 MG Tablet 650 MG PO ×2 (03:17→14:32)
[2021-09-22 03:26] LABS: Bedside Glucose 168 mg/dL (74-106)
[2021-09-22 05:48] LABS: Absolute Lymphocyte Count 1.73 X10^3/uL (0.83-4.51); Absolute Neutrophil Count 5.6 X10^3/uL (2.0-7.7); Basophil# 0.07 X10^3/uL; Basophil% 0.8 % (0-1); Eosinophil# 0.19 X10^3/uL; Eosinophils% 2.2 % (0-5); Hematocrit 32.1 % (37-47); Hemoglobin 10.6 g/dL (12.0-15.0); Lymphocyte # 1.73 X10^3/ul (0.83-4.51); Lymphocyte % 19.6 % (19-41); Mean Corpuscular Hgb 29.9 pg (27.0-32.0); Mean Corpuscular Volume 90.7 fL (81-99); Mean Platelet Vol. 11.5 fl (6.2-12.0); Monocyte# 1.17 X10^3/uL; Monocyte% 13.3 % (0-10); NRBC Flagged by Analyzer 0 % (0-5); Neutrophil # 5.63 X10^3/uL (2.7-7.7); Neutrophil % 63.6 % (47-70); Platelet Count 146 K/mm3 (150-450); RBC Distribution Width CV 14.9 % (11.6-14.6); RBC Distribution Width SD 49.5 fl (35.1-43.9); Red Blood Count 3.54 M/mm3 (4.2-5.4); White Blood Count 8.8 K/mm3 (4.4-11.0)
[2021-09-22] MEDS: Levothyroxine 150 MCG Tablet PO (05:52)
[2021-09-22 06:29] LABS: ALB/GLOB Ratio 0.6 RATIO (0.9-2.4); AST(SGOT) 24 U/L (15-37); Alanine Aminotransfer ALT/SGPT 22 U/L (13-56); Albumin, Serum 2.2 g/dL (3.2-5.0); Alkaline Phosphatase 96 U/L (45-117); Anion Gap 6 (5-15); BUN 14 mg/dL (7-18); BUN/Creat Ratio 20.1 RATIO (10-20); Calcium,Total 8.8 mg/dL (8.5-10.1); Chloride 103 mmol/L (98-107); Cholesterol 96 mg/dL (200); EST Glomerular Filtration Rate 87 mL/min (>60); Est Glom Filt Rate - Afr Amer 106 mL/min (>60); Estimated Creatinine Clearance 42.62 ml/min; Globulin 3.7 g/dL (2.2-4.2); Glucose 130 mg/dL (74-106); High Density Lipoprotein 31 mg/dL; Potassium 2.9 mmol/L (3.5-5.1); Protein, Total 5.9 g/dL (6.4-8.2); Sodium Level 137 mmol/L (136-145); Triglycerides 133 mg/dL; Very Low Density Lipoprotein 27 mg/dL (5-40)
[2021-09-22 06:51] LABS: Magnesium 1.3 mg/dL (1.6-2.6)
[2021-09-22] MEDS: Potassium Chloride 10mEq/100mL 10 MEQ/100 ML IV.SOLN. 100 MEQ IV BOLUS ×4 (07:04→10:09)
[2021-09-22] MEDS: Magnesium Sulfate 4gm/100mL 4 GM/100 ML IV.SOLN. IV (07:11)
--- NOTE | 2021-09-22 07:30 | PN.HOSP_ITS ---
Subjective Subjective Follow-up on acute metabolic encephalopathy/suspected acute stroke: Patient was seen in his room. She is much awake alert, oriented x3, she is able to converse. She cannot remember what happened yesterday. Objective Data Objective Data Vital Signs: Vital Signs Temp Pulse Resp BP Pulse Ox 98.0 F 90 18 106/79 95 09/22/21 06:20 09/22/21 06:20 09/22/21 06:20 09/22/21 06:20 09/22/21 06:20 Oxygen Flow Rate (L/min) 2 Oxygen Delivery Method Nasal Cannula Weight: 99.3 kg Body Mass Index (BMI) 37.3 Intake & Output: Intake and Output for Last 24 Hours 09/20/21 09/21/21 09/22/21 23:59 23:59 23:59 Intake Total 360 / 360 240 / 240 Output Total 400 / 400 200 / 200 Balance -40 / -40 40 / 40 Lab / Micro Data Result Diagrams: 09/22/21 05:14 09/22/21 05:14 Labs: Laboratory Results - last 24 hr 09/21/21 16:12: WBC 10.8, RBC 4.41, Hgb 13.3, Hct 40.7, MCV 92.3, MCH 30.2, MCHC 32.7, RDW Std Deviation 50.5 H, RDW Coeff of Gisela 14.8 H, Plt Count 192, MPV 11.6, Immature Gran % (Auto) 0.500, Neut % (Auto) 67.4, Lymph % (Auto) 15.7 L, [place] % (Auto) 13.4 H, Eos % (Auto) 2.2, Baso % (Auto) 0.8, Absolute Neuts (auto) 7.2, Absolute Lymphs (auto) 1.69, Nucleated RBC % 0 09/21/21 16:12: PT 14.9, INR 1.2, APTT 27.3 09/21/21 16:12: Sodium 137, Potassium 3.6, Chloride 101, Carbon Dioxide 30.0, Anion Gap 6, BUN 13, Creatinine 0.94, Estim Creat Clear Calc 37.71, Est GFR (MDRD) Af Amer 74, Est GFR (MDRD) Non-Af 62, BUN/Creatinine Ratio 13.8, Glucose 200 H, Calcium 10.0, Troponin I High Sens 14 09/21/21 16:12: Hemoglobin A1c 10.2 H 09/21/21 19:53: Troponin I High Sens 17 09/21/21 22:19: POC Glucose 200 H 09/21/21 22:43: Troponin I High Sens 16 09/22/21 03:06: POC Glucose 168 H 09/22/21 05:14: WBC 8.8, RBC 3.54 L, Hgb 10.6 L, Hct 32.1 L, MCV 90.7, MCH 29.9, MCHC 33.0, RDW Std Deviation 49.5 H, RDW Coeff of Gisela 14.9 H, Plt Count 146 L, MPV 11.5, Immature Gran % (Auto) 0.500, Neut % (Auto) 63.6, Lymph % (Auto) 19.6, [place] % (Auto) 13.3 H, Eos % (Auto) 2.2, Baso % (Auto) 0.8, Absolute Neuts (auto) 5.6, Absolute Lymphs (auto) 1.73, Nucleated RBC % 0 09/22/21 05:14: Sodium 137, Potassium 2.9 L, Chloride 103, Carbon Dioxide 28.0, Anion Gap 6, BUN 14, Creatinine 0.70, Estim Creat Clear Calc 42.62, Est GFR (MDRD) Af Amer 106, Est GFR (MDRD) Non-Af 87, BUN/Creatinine Ratio 20.1 H, Gluco se 130 H, Calcium 8.8, Total Bilirubin 0.70, AST 24, ALT 22, Alkaline Phosphatase 96, Total Protein 5.9 L, Albumin 2.2 L, Globulin 3.7, Albumin/Globulin Ratio 0.6 L, Triglycerides 133, Cholesterol 96, LDL Cholesterol 38, VLDL Cholesterol 27, HDL Cholesterol 31 L 09/22/21 05:14: Magnesium 1.3 L Radiography Diagnostic Testing: Radiology Impression Brain CT 09/21/21 16:09 IMPRESSION: No acute intracranial hemorrhage or mass effect. Electronically Signed: Rolan Tsang MD (Brooks) at 16:36 EDT Reading Location ID and State: [facility] / [place] , Service support , ADDENDUM: 04/16/22 1649 IMPRESSION: No acute intracranial hemorrhage or mass effect. N.B. : The above Results were Read Back by Rolan Tsang MD (Brooks) to Dr. Chanell MD, and understanding confirmed on 09/21/2021 16:42:12 (ET). Electronically Signed: Rolan Tsang MD (Brooks) at 16:36 EDT , Head/Neck CTA 09/21/21 16:10 IMPRESSION: 1. No large vessel occlusion or intracranial aneurysm. No carotid or vertebral artery dissection. 2. Mediastinal adenopathy, incompletely visualized. N.B. : The above Results were Read Back by Rolan Tsang MD (Brooks) to Pacheco Lua and understanding confirmed on 09/21/2021 17:02:52 (ET). Electronically Signed: Rolan sTang MD (Brooks) at 17:06 EDT , ADDENDUM: 09/21/21 1713 IMPRESSION: 1. No large vessel occlusion or intracranial aneurysm. No carotid or vertebral artery dissection. 2. Mediastinal adenopathy, incompletely visualized. N.B. : The above Results were Read Back by Rolan Tsang MD (Brooks) to Pacheco Lua and understanding confirmed on 09/21/2021 17:02:52 (ET). Electronically Signed: Rolan Tsang MD (Brooks) at 17:06 EDT , Chest X-Ray 09/21/21 17:01 IMPRESSION: Nonacute portable x-ray examination of the chest. Electronically Signed: Rolan Tsang MD (Brooks) at 17:32 EDT , Physical Exam Narrative Physical exam: General: Alert, appears confused, cooperative, no apparent distress HEENT: Atraumatic Oral: Moist Mucosa Neck: Supple Lungs: Diminished to auscultation Cardiovascular: HS I+II, regular, no murmurs Abdomen: Bowel Sounds Present, Soft, Non Tender Extremities: Bilateral leg edema +1 Skin: No rashes, No breakdown Neurological: Alert, expressive aphasia, no facial droop, unable to fully extend upper extremities or legs on account of pain Psych/Mental Status:confused Assessment & Plan Assessment/Plan (1) Stroke: QUALIFIERS: CVA mechanism: unspecified Qualified Code(s): I63.9 - Cerebral infarction, unspecified (2) Expressive aphasia: (3) HFrEF (heart failure with reduced ejection fraction): PLAN: 1. Acute metabolic encephalopathy, appears to be resolved Her expressive aphasia has resolved We will continue to monitor 2. Suspected Acute stroke, MRI brain is pending Patient is not a TPA candidate HgbA1c 10.2, triglycerides 133, total cholesterol 96, LDL 38, HDL 31 Continue patient's home statins, Eliquis, aspirin SOC consult after MRI brain 3. A. fib with RVR, rate controlled Home cardizem and metoprolol on hold on account of relative hypotension in the setting of acute stroke workup Patient has chronic atrial fibrillation, status post left atrial appendage clipping, status post radiofrequency ablation status post cardioversion Continue on Eliquis 4. Severe hypokalemia/hypomagnesemia, replaced, recheck in a.m. 5. Type II DM, on insulin, BS are controlled Continue on home insulin, insulin sliding scale with blood glucose checks 6. Chronic combined CHF, recent EF of 29%, not in acute exacerbation. Acute CHF ruled Continue on Lasix Hold Entresto until MRI is ruled out 7. Hypothyroidism, continue Synthroid 8. DVT prophylaxis?on Eliquis Charges/Coding Visit Charges Inpatient E&M: 93247 Subs Hosp L2
[2021-09-22 08:15] LABS: Bedside Glucose 104 mg/dL (74-106)
[2021-09-22] MEDS: Potassium Chloride Oral Tablet 20 MEQ 40 MEQ PO (08:15)
[2021-09-22] MEDS: Aspirin 81 MG TAB.CHEW PO (08:16)
[2021-09-22] MEDS: predniSONE 5 MG Tablet 7.5 MG PO (08:17)
[2021-09-22] MEDS: Pantoprazole Sodium 40 MG Tablet PO (08:18)
[2021-09-22] MEDS: Furosemide 40 MG Tablet PO ×2 (08:18→17:16)
[2021-09-22] MEDS: APIXABAN 5 MG TABLET PO ×2 (08:19→22:02)
[2021-09-22] MEDS: Loratadine 10 MG Tablet PO (08:19)
[2021-09-22] MEDS: Cyanocobalamin 500 MCG Tablet 1000 MCG PO (08:19)
[2021-09-22] MEDS: Vitamin E 400 UNITS Capsule PO (08:20)
[2021-09-22] MEDS: Leflunomide 10 MG TABLET 20 MG PO (08:22)
[2021-09-22] MEDS: 0.9% Normal Saline 1,000 ML 75 ML IV (08:40)
[2021-09-22] MEDS: Insulin Lispro 100 UNIT/ML INSULN.PEN 20 UNIT SC ×3 (09:39→17:15)
[2021-09-22] MEDS: Nystatin Powder 15gm Bottle 1 APPLIC TOPICAL ×2 (09:40→21:58)
--- NOTE | 2021-09-22 10:17 | RAD_ITS ---
STUDY: X-RAY - RIGHT SHOULDER REASON FOR EXAM: Female, 76 years old. Right shoulder pain. TECHNIQUE: 4 view(s) of the shoulder. COMPARISON: None. FINDINGS: Osteopenia. Normal glenohumeral articulation. Mild arthrosis of the AC joint. Normal acromion. Normal humeral head and visualized proximal humerus. The soft tissue structures are unremarkable. Normal visualized pulmonary apex. RAD/Shoulder min 2 Views IMPRESSION: Osteopenia with mild arthrosis of the AC joint. No acute osseous abnormality. Electronically Signed: Tomas Romero MD at 16:45 EDT ,
--- NOTE | 2021-09-22 10:19 | MRI_ITS ---
We are attempting to reach an attending provider to discuss findings. An addendum with communication details will be sent when the communication is complete. STUDY: MRI BRAIN WITHOUT CONTRAST REASON FOR EXAM: Female, 76 years old. Neuro deficit acute stroke TECHNIQUE: Standardized multiplanar fat and water weighted pulse sequences were obtained. COMPARISON: 21 September 2021 FINDINGS: There is an acute 1 cm infarct in the right parietal subcortical white matter and minimal volume of overlying cortex. There is no territorial infarction. Ventricles and extra parenchymal fluid spaces are normal. Major vascular flow structures are preserved. MRI/Brain without Contrast IMPRESSION: 1. Acute right parietal subcortical white matter infarct. Electronically Signed: Priscila Pedraza MD at 13:35 EDT ,
[2021-09-22 11:31] LABS: Bedside Glucose 182 mg/dL (74-106)
--- NOTE | 2021-09-22 13:53 | TELEMED_ITS ---
[facility] Telemed has confirmed receipt of a request for visit. This document confirms receipt of the order initiating the consult. To find the results of the consultation, please view the patient's reports for the scanned Telemed Consult.
[2021-09-22] MEDS: Insulin Lispro 100 UNIT/ML INSULN.PEN SC ×3 (14:14→22:01)
[2021-09-22 14:16] LABS: Bedside Glucose 241 mg/dL (74-106)
[2021-09-22 16:31] LABS: Bedside Glucose 313 mg/dL (74-106)
[2021-09-22] MEDS: dilTIAZem CD 120 MG Capsule PO (17:16)
--- NOTE | 2021-09-22 19:55 | NURSING ---
with student nurse Domenica Gamino with meds and assessment agree with documentation
[2021-09-22] MEDS: Insulin Glargine-YFGN 100 UNIT/ML Pen 68 UNIT SC (21:59)
[2021-09-22] MEDS: MELATONIN 3 MG TABLET PO (22:02)
[2021-09-22] MEDS: Pramipexole Di-HCl 0.25 MG Tablet PO (22:03)
[2021-09-22] MEDS: Atorvastatin Calcium 80 MG Tablet PO (22:03)
[2021-09-22 23:30] LABS: Bedside Glucose 216 mg/dL (74-106)
[2021-09-23] VITALS (16 sets, daily range): BP systolic 107–150; BP diastolic 73–104; PULSE 99–129; RESP 16–18; TEMP 36.6–36.9; O2SAT 93–96; BMI 37.3
[2021-09-23] MEDS: Acetaminophen 325 MG Tablet 650 MG PO ×2 (02:12→10:25)
[2021-09-23] MEDS: 0.9% Saline Lock 10 ML Syringe IV (04:54)
[2021-09-23] MEDS: dilTIAZem CD 120 MG Capsule PO (05:17)
[2021-09-23] MEDS: Metoprolol(XL)Succ 50 MG Tablet PO ×2 (05:17→21:55)
[2021-09-23] MEDS: Levothyroxine 100 MCG Tablet PO (05:20)
[2021-09-23 06:27] LABS: Absolute Lymphocyte Count 1.51 X10^3/uL (0.83-4.51); Absolute Neutrophil Count 4.9 X10^3/uL (2.0-7.7); Basophil# 0.05 X10^3/uL; Basophil% 0.7 % (0-1); Eosinophil# 0.12 X10^3/uL; Eosinophils% 1.6 % (0-5); Hemoglobin 11.4 g/dL (12.0-15.0); Lymphocyte # 1.51 X10^3/ul (0.83-4.51); Lymphocyte % 20.3 % (19-41); Mean Corp Hgb Conc 32.6 g/dL (32-36); Mean Corpuscular Hgb 29.6 pg (27.0-32.0); Mean Corpuscular Volume 90.9 fL (81-99); Mean Platelet Vol. 11.9 fl (6.2-12.0); Monocyte# 0.82 X10^3/uL; NRBC Flagged by Analyzer 0 % (0-5); Neutrophil # 4.91 X10^3/uL (2.7-7.7); Platelet Count 161 K/mm3 (150-450); RBC Distribution Width CV 14.7 % (11.6-14.6); RBC Distribution Width SD 48.8 fl (35.1-43.9); Red Blood Count 3.85 M/mm3 (4.2-5.4); White Blood Count 7.4 K/mm3 (4.4-11.0)
[2021-09-23 06:52] LABS: ALB/GLOB Ratio 0.6 RATIO (0.9-2.4); AST(SGOT) 46 U/L (15-37); Alanine Aminotransfer ALT/SGPT 39 U/L (13-56); Albumin, Serum 2.5 g/dL (3.2-5.0); Alkaline Phosphatase 123 U/L (45-117); Anion Gap 5 (5-15); BUN 10 mg/dL (7-18); BUN/Creat Ratio 14.6 RATIO (10-20); Calcium,Total 9.4 mg/dL (8.5-10.1); Chloride 104 mmol/L (98-107); Creatinine, Serum 0.68 mg/dL (0.55-1.02); EST Glomerular Filtration Rate 89 mL/min (>60); Est Glom Filt Rate - Afr Amer 108 mL/min (>60); Estimated Creatinine Clearance 42.62 ml/min; Globulin 4.1 g/dL (2.2-4.2); Glucose 157 mg/dL (74-106); Potassium 3.1 mmol/L (3.5-5.1); Protein, Total 6.6 g/dL (6.4-8.2); Sodium Level 138 mmol/L (136-145)
[2021-09-23] MEDS: predniSONE 5 MG Tablet 7.5 MG PO (08:31)
[2021-09-23] MEDS: Potassium Chloride Oral Tablet 20 MEQ 40 MEQ PO (08:31)
[2021-09-23] MEDS: Insulin Lispro 100 UNIT/ML INSULN.PEN 20 UNIT SC ×2 (08:31→17:05)
[2021-09-23] MEDS: Aspirin 81 MG TAB.CHEW PO (08:31)
[2021-09-23 08:55] LABS: Bedside Glucose 109 mg/dL (74-106)
[2021-09-23] MEDS: Nystatin Powder 15gm Bottle 1 APPLIC TOPICAL ×2 (10:24→21:55)
[2021-09-23] MEDS: Loratadine 10 MG Tablet PO (10:25)
[2021-09-23] MEDS: Cyanocobalamin 500 MCG Tablet 1000 MCG PO (10:25)
[2021-09-23] MEDS: Vitamin E 400 UNITS Capsule PO (10:25)
[2021-09-23] MEDS: Leflunomide 10 MG TABLET 20 MG PO (10:25)
[2021-09-23] MEDS: Furosemide 40 MG Tablet PO ×2 (10:25→17:07)
[2021-09-23] MEDS: Pantoprazole Sodium 40 MG Tablet PO (10:25)
[2021-09-23] MEDS: APIXABAN 5 MG TABLET PO ×2 (10:25→21:53)
--- NOTE | 2021-09-23 10:53 | CASEMGMT ---
SW met with patient. Introduced self and role at [facility]. SW explained the PHQ 9 to patient and she was agreeable. SW completed the PHQ 9 since patient did have a Stroke. Patient scored a 5 which indicates mild depression. Patient denies being depressed. Patient has always had problems with sleeping which causes her to be tired. Patient also does not feel her lack of appetite is from depression. SW then spoke with patient about going somewhere for rehab. Patient is interested in [facility] 4th floor Rehab Unit. SW let patient know SW will work on referral. Patient also asked that SW talk with her son Denis. SW called Madie and left a message letting her know about referral for Rehab. SW will call patient's son. Karuna FERRARI
--- NOTE | 2021-09-23 11:07 | CASEMGMT ---
Addendum entered by Karuna Banegas 09/23/21 11:15: SW received a return call from patient's son Denis. SW updated him that SW and patient spoke with patient about going to [facility] 4th floor rehab unit. SW let Denis know patient is in agreement with this plan. Denis said that is a great idea and he is definitely on board with the plan. [facility] is awaiting approval from Inpatient Rehab Physician. Karuna FERRARI Original Note: [facility] called patient's son Denis and left him a message requesting a return call. Karuna FERRARI
[2021-09-23 12:05] LABS: Bedside Glucose 108 mg/dL (74-106)
--- NOTE | 2021-09-23 13:36 | PN.HOSP_ITS ---
Subjective Subjective Patient seen and examined. She complained of a headache today. She denied any weakness or numbness. Review of systems is otherwise negative. She is awaiting neurology review. Objective Data Objective Data Vital Signs: Vital Signs Temp Pulse Resp BP Pulse Ox 97.9 F 103 H 16 118/87 H 95 09/23/21 10:16 09/23/21 10:16 09/23/21 10:16 09/23/21 10:16 09/23/21 10:39 Oxygen Flow Rate (L/min) 2 Oxygen Delivery Method Room Air Weight: 214 lb 15.211 oz Body Mass Index (BMI) 37.3 Intake & Output: Intake and Output for Last 24 Hours 09/21/21 09/22/21 09/23/21 23:59 23:59 23:59 Intake Total 360 / 360 3025.00 / 3025.00 723 / 723 Output Total 400 / 400 3100 / 3100 3225 / 3225 Balance -40 / -40 -75.00 / -75.00 -2502 / -2502 Lab / Micro Data Result Diagrams: 09/23/21 05:10 09/23/21 05:10 Labs: Laboratory Results - last 24 hr 09/22/21 14:10: POC Glucose 241 H 09/22/21 16:21: POC Glucose 313 H 09/22/21 21:57: POC Glucose 216 H 09/23/21 05:10: WBC 7.4, RBC 3.85 L, Hgb 11.4 L, Hct 35.0 L, MCV 90.9, MCH 29.6, MCHC 32.6, RDW Std Deviation 48.8 H, RDW Coeff of Gisela 14.7 H, Plt Count 161, MPV 11.9, Immature Gran % (Auto) 0.400, Neut % (Auto) 66.0, Lymph % (Auto) 20.3, [place] % (Auto) 11.0 H, Eos % (Auto) 1.6, Baso % (Auto) 0.7, Absolute Neuts (auto) 4.9, Absolute Lymphs (auto) 1.51, Nucleated RBC % 0 09/23/21 05:10: Sodium 138, Potassium 3.1 L, Chloride 104, Carbon Dioxide 29.0, Anion Gap 5, BUN 10, Creatinine 0.68, Estim Creat Clear Calc 42.62, Est GFR (MDRD) Af Amer 108, Est GFR (MDRD) Non-Af 89, BUN/Creatinine Ratio 14.6, Glucose 157 H, Calcium 9.4, Total Bilirubin 0.60, AST 46 H, ALT 39, Alkaline Phosphatase 123 H, Total Protein 6.6, Albumin 2.5 L, Globulin 4.1, Albumin/Globulin Ratio 0.6 L 09/23/21 08:20: POC Glucose 109 H 09/23/21 12:00: POC Glucose 108 H Radiography Diagnostic Testing: Radiology Impression Echocardiogram 09/21/21 19:09 Interpretation Summary Mild global left ventricular systolic dysfunction. The estimated ejection fraction is 40 %. The left atrium is moderately enlarged. The right atrium is mildly enlarged. Stable appearing bioprosthetic mitral valve apparatus. MIld (1+) transvalvular insufficiency of the mitral valve. Moderate (2+) tricuspid valve insufficiency. Mild focal aortic valve calcification. Trivial pulmonic valve insufficiency. Right ventricular systolic pressure estimated to be 34 mmHg. There is evidence of diastolic dysfunction. Bubble contrast study negative for right to left interatrial shunt. __ Ordering Physician: Candis Bull Performed By: Leticia Whaley RCS Shoulder X-Ray 09/22/21 10:17 IMPRESSION: Osteopenia with mild arthrosis of the AC joint. No acute osseous abnormality. Electronically Signed: Tomas Romero MD at 16:45 EDT , Brain MRI 09/22/21 10:19 IMPRESSION: 1. Acute right parietal subcortical white matter infarct. Electronically Signed: Priscila Pedraza MD at 13:35 EDT , ADDENDUM: 09/22/21 1358 IMPRESSION: 1. Acute right parietal subcortical white matter infarct. N.B. : The above Results were Read Back by Priscila Pedraza MD to Greer Angel RN, and understanding confirmed on 09/22/2021 13:51:27 (ET). Electronically Signed: Priscila Pedraza MD at 13:35 EDT , Physical Exam Const alert, oriented x3 and no apparent distress Exam Limitations: no limitations HEENT head/scalp atraumatic and moist oral mucous membranes Head and Scalp: normocephalic Eyes PERRL, EOMs intact bilaterally and conjunctivae normal Neck no lymphadenopathy, supple and no JVD Resp normal respiratory effort, no retractions, no use of accessory muscles and clear to auscultation bilaterally Cardio regular rate, regular rhythm, S1 normal heart sound, S2 normal heart sound and no murmurs GI normal to inspection, nondistended, normoactive bowel sounds, soft to palpation, non-tender and non-distended Extremity normal to inspection, full ROM and no clubbing, cyanosis or edema Peripheral Pulses: Yes pulses 2+ throughout Skin no rashes or lesions noted Neuro oriented x3, CN's II-XII intact bilaterally and moves all extremities Sensorium / Orientation: awake and alert Psych affect normal Assessment & Plan Assessment/Plan (1) Stroke: QUALIFIERS: CVA mechanism: unspecified Qualified Code(s): I63.9 - Cerebral infarction, unspecified PLAN: #Acute CVA * MRI of the brain showed acute right parietal subcortical white matter infarct * on aspirin. On eliquis for afib * neurology consulted; awaiting rec's * PT.OT on board. Fall precautions * on high intensity statin * #Afib * rate controlled. * cardizem and metoprolol on hold * 2D echo ordered. * s/p left atrial appendage clipping, and s/p radiofrequency ablation s/p cardioversion * on eliquis. * #Severe hypokalemia and hypomagnesemia: resolved #Type 2 diabetes mellitus * on lantus. on ISS. Accuchecks ACHS * #HFrEF * EF is 40%, from 2D echo done on 09/12/21. there is also evidence of diastolic dysfunction. Left atrium moderately enlarged. Bubble study negative. RVSP of 34mmhg. Moderate tricuspid valve insufficiency. Not in acute exacerbation * on lasix. * on entresto * #Type 2 diabetes mellitus * on insulin. ISS. Accuchecks ACHS * A1C is 10.2 * #Hypothyroidism: on synthroid DVT prophylaxis: on eliquis Charges/Coding Visit Charges Inpatient E&M: 68126 Subs Hosp L2
--- NOTE | 2021-09-23 13:48 | CASEMGMT ---
Patient was accepted in the Inpatient Rehab Unit at [facility]. Plan: [facility] 4th floor rehab unit. Karuna FERRARI
[2021-09-23 17:36] LABS: Bedside Glucose 129 mg/dL (74-106)
[2021-09-23] MEDS: Insulin Lispro 100 UNIT/ML INSULN.PEN SC (21:53)
[2021-09-23] MEDS: Insulin Glargine-YFGN 100 UNIT/ML Pen 68 UNIT SC (21:53)
[2021-09-23] MEDS: Atorvastatin Calcium 80 MG Tablet PO (21:54)
[2021-09-23] MEDS: MELATONIN 3 MG TABLET PO (21:54)
[2021-09-23] MEDS: Pramipexole Di-HCl 0.25 MG Tablet PO (21:55)
[2021-09-23 22:10] LABS: Bedside Glucose 235 mg/dL (74-106)
[2021-09-24] VITALS (20 sets, daily range): BP systolic 90–140; BP diastolic 60–112; PULSE 99–138; RESP 16–20; TEMP 36.4–37; O2SAT 92–96; BMI 37.3
[2021-09-24] MEDS: Metoprolol Tartrate 5 MG/5 ML Vial IV (01:06)
[2021-09-24] MEDS: 0.9% Saline Lock 10 ML Syringe IV ×2 (01:07→18:27)
[2021-09-24] MEDS: Acetaminophen 325 MG Tablet 650 MG PO (04:24)
[2021-09-24] MEDS: Levothyroxine 100 MCG Tablet PO (04:25)
[2021-09-24 06:09] LABS: Absolute Lymphocyte Count 2.18 X10^3/uL (0.83-4.51); Absolute Neutrophil Count 5.4 X10^3/uL (2.0-7.7); Basophil# 0.06 X10^3/uL; Basophil% 0.7 % (0-1); Eosinophil# 0.17 X10^3/uL; Eosinophils% 1.9 % (0-5); Hematocrit 35.6 % (37-47); Hemoglobin 11.6 g/dL (12.0-15.0); Lymphocyte # 2.18 X10^3/ul (0.83-4.51); Lymphocyte % 24.7 % (19-41); Mean Corp Hgb Conc 32.6 g/dL (32-36); Mean Corpuscular Hgb 29.6 pg (27.0-32.0); Mean Corpuscular Volume 90.8 fL (81-99); Mean Platelet Vol. 11.8 fl (6.2-12.0); Monocyte# 1.03 X10^3/uL; Monocyte% 11.7 % (0-10); NRBC Flagged by Analyzer 0 % (0-5); Neutrophil # 5.35 X10^3/uL (2.7-7.7); Neutrophil % 60.8 % (47-70); Platelet Count 188 K/mm3 (150-450); RBC Distribution Width CV 14.6 % (11.6-14.6); RBC Distribution Width SD 48.4 fl (35.1-43.9); Red Blood Count 3.92 M/mm3 (4.2-5.4); White Blood Count 8.8 K/mm3 (4.4-11.0)
[2021-09-24 06:47] LABS: Anion Gap 9 (5-15); BUN 10 mg/dL (7-18); BUN/Creat Ratio 15.8 RATIO (10-20); Calcium,Total 9.6 mg/dL (8.5-10.1); Chloride 100 mmol/L (98-107); Creatinine, Serum 0.63 mg/dL (0.55-1.02); EST Glomerular Filtration Rate 98 mL/min (>60); Est Glom Filt Rate - Afr Amer 118 mL/min (>60); Estimated Creatinine Clearance 42.62 ml/min; Glucose 102 mg/dL (74-106); Sodium Level 136 mmol/L (136-145)
[2021-09-24 08:30] LABS: Bedside Glucose 93 mg/dL (74-106)
[2021-09-24] MEDS: Insulin Lispro 100 UNIT/ML INSULN.PEN 20 UNIT SC ×3 (09:02→18:07)
[2021-09-24] MEDS: Pantoprazole Sodium 40 MG Tablet PO (09:05)
[2021-09-24] MEDS: Vitamin E 400 UNITS Capsule PO (09:05)
[2021-09-24] MEDS: Furosemide 40 MG Tablet PO ×2 (09:05→18:08)
[2021-09-24] MEDS: dilTIAZem CD 120 MG Capsule PO (09:06)
[2021-09-24] MEDS: Aspirin 81 MG TAB.CHEW PO (09:06)
[2021-09-24] MEDS: predniSONE 5 MG Tablet 7.5 MG PO (09:06)
[2021-09-24] MEDS: Loratadine 10 MG Tablet PO (09:06)
[2021-09-24] MEDS: Cyanocobalamin 500 MCG Tablet 1000 MCG PO (09:06)
[2021-09-24] MEDS: APIXABAN 5 MG TABLET PO ×2 (09:06→20:54)
[2021-09-24] MEDS: Leflunomide 10 MG TABLET 20 MG PO (09:06)
[2021-09-24] MEDS: Metoprolol(XL)Succ 50 MG Tablet PO ×2 (09:06→11:26)
[2021-09-24] MEDS: Nystatin Powder 15gm Bottle 1 APPLIC TOPICAL ×2 (09:07→21:01)
--- NOTE | 2021-09-24 10:07 | CASEMGMT ---
Per Madie, Dr Cochran will not accept patient today as her Potassium is low and her heart rate is uncontrolled. SW notified physician. Karuna Banegas [employer]
--- NOTE | 2021-09-24 10:29 | PN.HOSP_ITS ---
Subjective Subjective Patient seen and examined. She had an uneventful night and had no active complaints. She is still awaiting review by teleneurology. Her heart rate has remained poorly controlled and she received a bolus of amiodarone overnight. Potassium is also low at 3 today. Objective Data Objective Data Vital Signs: Vital Signs Temp Pulse Resp BP Pulse Ox 97.5 F L 111 H 18 107/87 H 95 09/24/21 10:10 09/24/21 10:10 09/24/21 10:10 09/24/21 10:10 09/24/21 10:10 Oxygen Flow Rate (L/min) 95 Oxygen Delivery Method Room Air Weight: 212 lb 15.465 oz Body Mass Index (BMI) 37.3 Intake & Output: Intake and Output for Last 24 Hours 09/22/21 09/23/21 09/24/21 23:59 23:59 23:59 Intake Total 3025.00 / 3025.00 1443 / 1683 583 / 583 Output Total 3100 / 3100 4625 / 5575 1999 Balance -75.00 / -75.00 -3182 / -3892 -1417 / -1417 Lab / Micro Data Result Diagrams: 09/24/21 05:25 09/24/21 05:25 Labs: Laboratory Results - last 24 hr 09/23/21 12:00: POC Glucose 108 H 09/23/21 17:04: POC Glucose 129 H 09/23/21 21:52: POC Glucose 235 H 09/24/21 05:25: WBC 8.8, RBC 3.92 L, Hgb 11.6 L, Hct 35.6 L, MCV 90.8, MCH 29.6, MCHC 32.6, RDW Std Deviation 48.4 H, RDW Coeff of Gisela 14.6, Plt Count 188, MPV 11.8, Immature Gran % (Auto) 0.200, Neut % (Auto) 60.8, Lymph % (Auto) 24.7, [place] % (Auto) 11.7 H, Eos % (Auto) 1.9, Baso % (Auto) 0.7, Absolute Neuts (auto) 5.4, Absolute Lymphs (auto) 2.18, Nucleated RBC % 0 09/24/21 05:25: Sodium 136, Potassium 3.0 L, Chloride 100, Carbon Dioxide 27.0, Anion Gap 9, BUN 10, Creatinine 0.63, Estim Creat Clear Calc 42.62, Est GFR (MDRD) Af Amer 118, Est GFR (MDRD) Non-Af 98, BUN/Creatinine Ratio 15.8, Glucose 102, Calcium 9.6 09/24/21 07:45: POC Glucose 93 Radiography Diagnostic Testing: Radiology Impression Echocardiogram 09/21/21 19:09 Interpretation Summary Mild global left ventricular systolic dysfunction. The estimated ejection fraction is 40 %. The left atrium is moderately enlarged. The right atrium is mildly enlarged. Stable appearing bioprosthetic mitral valve apparatus. MIld (1+) transvalvular insufficiency of the mitral valve. Moderate (2+) tricuspid valve insufficiency. Mild focal aortic valve calcification. Trivial pulmonic valve insufficiency. Right ventricular systolic pressure estimated to be 34 mmHg. There is evidence of diastolic dysfunction. Bubble contrast study negative for right to left interatrial shunt. Ordering Physician: Candis Bull Performed By: Leticia Whaley RCS Physical Exam Const alert, oriented x3 and no apparent distress Exam Limitations: no limitations HEENT head/scalp atraumatic and moist oral mucous membranes Head and Scalp: normocephalic Eyes PERRL, EOMs intact bilaterally and conjunctivae normal Neck no lymphadenopathy, supple and no JVD Resp normal respiratory effort, no retractions, no use of accessory muscles and clear to auscultation bilaterally Cardio S1 normal heart sound, S2 normal heart sound and no murmurs Cardio Narrative: afib, rate poorly controlled. GI normal to inspection, nondistended, normoactive bowel sounds, soft to palpation, non-tender and non-distended Extremity normal to inspection, full ROM and no clubbing, cyanosis or edema Peripheral Pulses: Yes pulses 2+ throughout Skin no rashes or lesions noted Neuro oriented x3, CN's II-XII intact bilaterally and moves all extremities Sensorium / Orientation: awake and alert Psych affect normal Assessment & Plan Assessment/Plan (1) Stroke: QUALIFIERS: CVA mechanism: unspecified Qualified Code(s): I63.9 - Cerebral infarction, unspecified PLAN: #Acute CVA * MRI of the brain showed acute right parietal subcortical white matter infarct * on aspirin. On eliquis for afib * neurology consulted; per neurologist, patient admitted to her that she tends to take Eliquis once daily instead of twice daily. Therefore per neurology to continue taking Eliquis twice daily and stressed on importance of compliance with twice daily dosing. * PT.OT on board. Fall precautions * on high intensity statin * #Afib * rate poorly controlled. * on cardizem and metoprolol. Metoprolol increased to 100mg bid today * 2D echo as below * s/p left atrial appendage clipping, and s/p radiofrequency ablation s/p cardioversion * on eliquis * #Hypokalemia; K is 3 today. Will replace and trend. Mg is pending. #Type 2 diabetes mellitus * on lantus 68 units qhs. on ISS. Accuchecks ACHS * A1C is 10.2 * #HFrEF * EF is 40%, from 2D echo done on 09/12/21. there is also evidence of diastolic dysfunction. Left atrium moderately enlarged. Bubble study negative. RVSP of 34mmhg. Moderate tricuspid valve insufficiency. Not in acute exacerbation * on lasix. * on entresto * #Type 2 diabetes mellitus * on insulin. ISS. Accuchecks ACHS * A1C is 10.2 * #Hypothyroidism: on synthroid DVT prophylaxis: on eliquis Disposition: awaiting placement to acute rehab unit once heart rate is better controlled. Charges/Coding Visit Charges Inpatient E&M: 66786 Subs Hosp L2
[2021-09-24 10:33] LABS: Magnesium 1.7 mg/dL (1.6-2.6)
[2021-09-24 11:26] LABS: Bedside Glucose 160 mg/dL (74-106)
[2021-09-24] MEDS: Potassium Chloride Oral Tablet 20 MEQ 60 MEQ PO (11:26)
[2021-09-24 12:40] LABS: Bedside Glucose 132 mg/dL (74-106)
[2021-09-24 17:01] LABS: Bedside Glucose 120 mg/dL (74-106)
[2021-09-24] MEDS: Insulin Lispro 100 UNIT/ML INSULN.PEN SC (20:56)
[2021-09-24] MEDS: Insulin Glargine-YFGN 100 UNIT/ML Pen 68 UNIT SC (20:57)
[2021-09-24] MEDS: MELATONIN 3 MG TABLET PO (21:00)
[2021-09-24] MEDS: Atorvastatin Calcium 80 MG Tablet PO (21:00)
[2021-09-24] MEDS: Pramipexole Di-HCl 0.25 MG Tablet PO (21:01)
[2021-09-24] MEDS: Metoprolol(XL)Succ 100 MG Tablet PO (21:02)
[2021-09-24 22:55] LABS: Bedside Glucose 163 mg/dL (74-106)
[2021-09-25] VITALS (10 sets, daily range): BP systolic 118–149; BP diastolic 84–108; PULSE 108–114; RESP 16–18; TEMP 36.5–36.8; O2SAT 94–98
[2021-09-25 05:10] LABS: Absolute Lymphocyte Count 2.31 X10^3/uL (0.83-4.51); Absolute Neutrophil Count 4.4 X10^3/uL (2.0-7.7); Basophil# 0.07 X10^3/uL; Basophil% 0.9 % (0-1); Eosinophils% 2.5 % (0-5); Hematocrit 41.2 % (37-47); Hemoglobin 13.1 g/dL (12.0-15.0); Lymphocyte # 2.31 X10^3/ul (0.83-4.51); Mean Corp Hgb Conc 31.8 g/dL (32-36); Mean Corpuscular Hgb 30.3 pg (27.0-32.0); Mean Corpuscular Volume 95.2 fL (81-99); Mean Platelet Vol. 11.1 fl (6.2-12.0); Monocyte# 0.91 X10^3/uL; Monocyte% 11.4 % (0-10); NRBC Flagged by Analyzer 0 % (0-5); Neutrophil # 4.42 X10^3/uL (2.7-7.7); Neutrophil % 55.6 % (47-70); Platelet Count 189 K/mm3 (150-450); RBC Distribution Width CV 14.7 % (11.6-14.6); RBC Distribution Width SD 51.9 fl (35.1-43.9); Red Blood Count 4.33 M/mm3 (4.2-5.4)
[2021-09-25] MEDS: Acetaminophen 325 MG Tablet 650 MG PO (05:26)
[2021-09-25 05:27] LABS: Anion Gap 6 (5-15); BUN 13 mg/dL (7-18); BUN/Creat Ratio 19.9 RATIO (10-20); Chloride 102 mmol/L (98-107); Creatinine, Serum 0.65 mg/dL (0.55-1.02); EST Glomerular Filtration Rate 94 mL/min (>60); Est Glom Filt Rate - Afr Amer 114 mL/min (>60); Estimated Creatinine Clearance 42.62 ml/min; Glucose 86 mg/dL (74-106); Potassium 3.6 mmol/L (3.5-5.1); Sodium Level 136 mmol/L (136-145)
[2021-09-25] MEDS: Levothyroxine 100 MCG Tablet PO (05:27)
[2021-09-25 08:01] LABS: Bedside Glucose 114 mg/dL (74-106)
[2021-09-25] MEDS: predniSONE 5 MG Tablet 7.5 MG PO (09:11)
[2021-09-25] MEDS: Metoprolol(XL)Succ 50 MG Tablet PO (09:13)
[2021-09-25] MEDS: APIXABAN 5 MG TABLET PO (09:13)
[2021-09-25] MEDS: Pantoprazole Sodium 40 MG Tablet PO (09:13)
[2021-09-25] MEDS: Leflunomide 10 MG TABLET 20 MG PO (09:14)
[2021-09-25] MEDS: Metoprolol(XL)Succ 100 MG Tablet PO (09:14)
[2021-09-25] MEDS: Furosemide 40 MG Tablet PO (09:14)
[2021-09-25] MEDS: Aspirin 81 MG TAB.CHEW PO (09:14)
[2021-09-25] MEDS: Vitamin E 400 UNITS Capsule PO (09:14)
[2021-09-25] MEDS: Cyanocobalamin 500 MCG Tablet 1000 MCG PO (09:14)
[2021-09-25] MEDS: Loratadine 10 MG Tablet PO (09:14)
[2021-09-25] MEDS: Insulin Lispro 100 UNIT/ML INSULN.PEN 20 UNIT SC ×2 (09:15→12:25)
[2021-09-25] MEDS: dilTIAZem CD 120 MG Capsule PO (09:15)
[2021-09-25] MEDS: Nystatin Powder 15gm Bottle 1 APPLIC TOPICAL (09:20)
--- NOTE | 2021-09-25 10:32 | CASEMGMT ---
Patient can go to [facility] 4th floor rehab unit today. SW notified physician. Karuna FERRARI
[2021-09-25 10:51] LABS: Bedside Glucose 174 mg/dL (74-106)
--- NOTE | 2021-09-25 11:32 | DS.PCM_ITS ---
Providers Date of Admission: 09/22/21 Primary Care Physician: Ssuanna Heath Reason For Visit: AMS Diagnosis Discharge Diagnosis (1) Stroke: Status: Acute Code(s): I63.9 - Cerebral infarction, unspecified Qualifiers: CVA mechanism: unspecified Qualified Code(s): I63.9 - Cerebral infarction, unspecified Medications at Discharge Home Medications apixaban 5 mg PO BID 05/24/19 aspirin 81 mg PO DAILY 05/24/19 ropinirole 0.5 mg PO DAILY 05/24/19 loratadine 10 mg PO DAILY 06/02/19 atorvastatin 40 mg PO QHS 06/22/19 vitamin E 400 unit PO DAILY 06/22/19 acetaminophen 325 mg tablet 650 mg PO Q6H PRN tab 09/04/21 albuterol sulfate 90 mcg/actuation aerosol inhaler 2 puff INHALATION .QID PRN g 09/04/21 diltiazem HCl 120 mg capsule,extended release 24 hr 120 mg PO DAILY 09/04/21 dulaglutide 1.5 mg/0.5 mL subcutaneous pen injector 1.5 mg SUBCUT QWEEK 09/04/21 insulin aspart U-100 100 unit/mL (3 mL) subcutaneous pen 25 unit SUBCUT TIDCM ml 09/04/21 insulin degludec 200 unit/mL (3 mL) subcutaneous pen 68 unit SUBCUT QHS ml 09/04/21 leflunomide 10 mg tablet 20 mg PO DAILY tab 09/04/21 levothyroxine 100 mcg tablet 100 mcg PO .COMPLEX 09/04/21 melatonin 3 mg tablet 3 mg PO HS 09/04/21 pantoprazole 40 mg tablet,delayed release 40 mg PO DAILY 09/04/21 prednisone 5 mg tablet 7.5 mg PO DAILY tab 09/18/21 torsemide 20 mg tablet 20 mg PO DAILY tab 09/18/21 coenzyme Q10 [CoQ-10] 100 mg PO DAILY 09/21/21 cyanocobalamin (vitamin B-12) 1,000 mcg PO DAILY 09/21/21 gabapentin 300 mg PO TID 09/21/21 hydrocodone-acetaminophen 1 tab PO Q6H PRN PRN 09/21/21 lisinopril 10 mg PO BID 09/21/21 zinc 50 mg PO DAILY 09/21/21 metoprolol succinate 100 mg PO BID #60 tab 09/25/21 Hospital Course Operations None Procedures 2-D Echocardiogram Summary of Care Provided Minutes Spent on Discharge: 45 Hospital Course: Patient is a 76-year-old female with past medical history as outlined who was admitted through the ED on 09/21/2021 for altered mental status. Her last known well was about 9 AM on the day of presentation. She had been able to talk to her son on the phone. Family arrived at her house around 3 PM and found her to be very confused and unable to speak. She was also quite lethargic and she was noted to have mild weakness on her left side relative to the right. CT of the brain was negative for any acute intracranial pathology and CTA of the head and neck was negative for any large vessel occlusion. EKG showed atrial fibrillation. She was admitted and managed for acute metabolic encephalopathy to rule out a stroke. She was not deemed a tPA candidate. She had an MRI of the brain which showed acute right parietal subcortical white matter infarct. Patient initially says she had been taking her Eliquis as scheduled vitals reviewed by [facility] neurology, patient admitted to not being very compliant with her Eliquis and sometimes taking Eliquis only once daily. Her stroke was therefore thought to be likely due to an embolic stroke from noncompliance with Eliquis. She was counseled about the importance of compliant with Eliquis as prescribed. She had a 2D echo which showed EF of 40% and moder ately enlarged left atrium with mild global left ventricular systolic dysfunction and stable appearing bioprosthetic mitral valve apparatus with bubble study negative for [id number] interatrial shunt. She was discharged to the acute rehab unit on 09/25/2021. Of note, her heart rate had not been very well controlled during admission so her metoprolol was increased 200 mg twice daily from 50 mg twice daily. Patient seen and examined prior to discharge. She had no active complaints and had an uneventful night. Review of systems otherwise negative. Labs and vitals reviewed. Home medication reviewed and reconciled. Physical Exam Narrative Const alert, oriented x3 and no apparent distress General Appearance: cooperative, comfortable and well kempt Exam Limitations: no limitations HEENT normocephalic, head/scalp atraumatic and moist oral mucous membranes Eyes PERRL, EOMs intact bilaterally and conjunctivae normal Neck no lymphadenopathy, supple and no JVD Resp normal respiratory effort, no retractions, no use of accessory muscles and clear to auscultation bilaterally Cardio S1 normal heart sound, S2 normal heart sound and no murmurs Cardio Narrative: afib, rate poorly controlled. GI normal to inspection, nondistended, normoactive bowel sounds, soft to palpation, non-tender and non-distended Extremity normal to inspection, full ROM and no clubbing, cyanosis or edema Skin no rashes or lesions noted Neuro oriented x3, CN's II-XII intact bilaterally and moves all extremities Sensorium / Orientation: awake and alert Psych affect normal Weight / BMI Weight Weight: 206 lb 2.115 oz Body Mass Index (BMI) 37.3 ABG / Lab / Microbiology Data Result Diagrams: 09/25/21 05:05 09/25/21 05:05 Laboratory: Laboratory Results - last 24 hr 09/21/21 16:06: POC Glucose 174 H 09/24/21 11:30: POC Glucose 132 H 09/24/21 16:52: POC Glucose 120 H 09/24/21 20:53: POC Glucose 163 H 09/25/21 05:05: WBC 8.0, RBC 4.33, Hgb 13.1, Hct 41.2, MCV 95.2, MCH 30.3, MCHC 31.8 L, RDW Std Deviation 51.9 H, RDW Coeff of Gisela 14.7 H, Plt Count 189, MPV 11.1, Immature Gran % (Auto) 0.600, Neut % (Auto) 55.6, Lymph % (Auto) 29.0, [place] % (Auto) 11.4 H, Eos % (Auto) 2.5, Baso % (Auto) 0.9, Absolute Neuts (auto) 4.4, Absolute Lymphs (auto) 2.31, Nucleated RBC % 0 09/25/21 05:05: Sodium 136, Potassium 3.6, Chloride 102, Carbon Dioxide 28.0, Anion Gap 6, BUN 13, Creatinine 0.65, Estim Creat Clear Calc 42.62, Est GFR (MDRD) Af Amer 114, Est GFR (MDRD) Non-Af 94, BUN/Creatinine Ratio 19.9, Glucose 86, Calcium 10.0 09/25/21 07:48: POC Glucose 114 H D/C Instructions Discharge Diet: Low fat / Low cholesterol Discharge Activity: Return to Normal Activity Weight Bearing Status: Weight bearing as tolerated Call your doctor if you observe: Fever of 101 or Higher, Shortness of breath, Dizziness, Fainting spells, Swelling in the ankles, Chest pain and Increased pal pitations (irregular heartbeat) Meaningful Use Info Meaningful Use Diagnoses (Choose all that apply): None applicable Discharge Plan Admission Admit Date/Time: 09/22/21 21:36 Primary Reason for Your Visit: acute CVA Attending Provider: Zarina Stringer Primary Care Provider: Susanna Heath Instructions Patient Instructions: Discharge Instructions for Stroke Discharge Orders/Prescriptions Prescriptions: New metoprolol succinate 100 mg Tablet Extended Release 24 Hr 100 mg PO BID Qty: 60 RF: 2 Continued acetaminophen 325 mg tablet 650 mg PO Q6H PRN (Reason: Pain) RF: 0 pantoprazole 40 mg tablet,delayed release (DR/EC) 40 mg PO DAILY RF: 0 diltiazem HCl 120 mg capsule,extended release 24hr 120 mg PO DAILY RF: 0 levothyroxine 100 mcg tablet 100 mcg PO .COMPLEX RF: 0 albuterol sulfate 90 mcg/actuation HFA aerosol inhaler 2 puff inhalation .QID PRN (Reason: Shortness Of Breath) RF: 0 dulaglutide 1.5 mg/0.5 mL pen injector 1.5 mg subcut QWEEK RF: 0 melatonin 3 mg tablet 3 mg PO HS RF: 0 torsemide 20 mg tablet 20 mg PO DAILY RF: 0 aspirin 81 MG tablet,delayed release (DR/EC) 81 mg PO DAILY RF: 0 ropinirole 0.5 MG tablet 0.5 mg PO DAILY RF: 0 apixaban 5 MG tablet 5 mg PO BID RF: 0 loratadine 10 MG tablet 10 mg PO DAILY RF: 0 atorvastatin 40 MG tablet 40 mg PO QHS RF: 0 vitamin E 400 UNIT capsule 400 unit PO DAILY RF: 0 insulin degludec 200 unit/mL (3 mL) insulin pen 68 unit subcut QHS RF: 0 insulin aspart U-100 100 unit/mL (3 mL) insulin pen 25 unit subcut TIDCM RF: 0 leflunomide 10 mg tablet 20 mg PO DAILY RF: 0 prednisone 5 mg tablet 7.5 mg PO DAILY RF: 0 cyanocobalamin (vitamin B-12) 1,000 mcg Tablet 1,000 mcg PO DAILY RF: 0 gabapentin 300 mg Capsule 300 mg PO TID RF: 0 lisinopril 10 mg Tablet 10 mg PO BID RF: 0 coenzyme Q10 [CoQ-10] 100 mg Capsule 100 mg PO DAILY RF: 0 zinc 50 mg Tablet 50 mg PO DAILY RF: 0 hydrocodone-acetaminophen 5-325 mg tablet 1 tab PO Q6H PRN PRN (Reason: Pain) RF: 0 Discontinued metoprolol succinate 100 MG tablet extended release 24 hr 100 mg PO BID RF: 0 Referrals / Follow Up: Anthony Belcher MD [STAFF PHYSICIAN] - Within 2 Weeks Susanna Heath [Primary Care Provider] - Within 2 Weeks Disposition Disposition (needs filled in before D/C Order can be placed): [facility] Charges/Coding Visit Charges Inpatient E&M: 67032 Disch Hosp
--- NOTE | 2021-09-25 11:41 | PCM.TXEXTCAR ---
Diet 09/22/21 12:09 Diet: Consistent Carb - Calorie Controlled Dietary Modifications:: Cardiac / Heart Healthy Sodium Restricted Is pt able to select menu?: Yes How many daily calories?: 1800 calorie Routine Orders/Code Status Enema Type: Fleetz Enema Frequency: Daily PRN Suppository Type: Dulcolax 10mg Suppository Frequency: Daily PRN O2 Frequency: PRN Keep PO Greater than or Equal to (%): 90 Therapies Weight Bearing: Weight bearing as tolerated Physical Therapy: Eval and Treat Occupational Therapy: Eval and Treat Problem/Diagnosis (1) Stroke: Status: Acute Allergies/Procedures Done in Hospital Allergies hydroxychloroquine Allergy (Severe, Verified 09/18/21 09:53) Shortness of breath metformin Adverse Reaction (Severe, Verified 09/18/21 09:53) Diarrhea methotrexate Adverse Reaction (Severe, Verified 09/18/21 09:53) Other PASSES OUT Sulfa (Sulfonamide Antibiotics) Adverse Reaction (Intermediate, Verified 09/18/21 09:53) Other BLISTERS Type of Care/Length of Stay Estimated LOS: Convalescent Care Less Than 30 days Type of Care Needed: Skilled Rehab Potential: Fair Prognosis: Fair Additional Orders/Day of Discharge Day of Discharge: 09/25/21 Dietary and Speech Recommendations Dietitian Recommendations/Changes: Will adjust diet to 1800 calorie/consistent carbohydrate; cardiac/sodium-restricted with fluid restriction as per physician order. ONS if PO fails at meals, will defer for now. Diet education as needed prior to d/c. Speech Linguistic Eval Summary: Pt fully oriented to self, , date, location, and reason for hospital admission. Pt admits to having difficulty with speaking yesterday and claimed that her name was [place] when talking with the EMT. Pt reports symptoms have resolved. Speech is 100% intelligible. Pt able to name 19 animals in 1 minute. Pt followed all 1 and 2 step directions. Pt recalled facts from short story read to her unprompted with 100% accuracy. Pt demonstrated appropriate problem solving skills with use of call button and phone in her room. Pt it believed to have returned to her cognitive-linguistic baseline. Discharge Plan Admission Admit Date/Time: 09/22/21 21:36 Primary Reason for Your Visit: acute CVA Attending Provider: Zarina Stringer Primary Care Provider: Susanna Heath Instructions Patient Instructions: Discharge Instructions for Stroke Discharge Orders/Prescriptions Prescriptions: New metoprolol succinate 100 mg Tablet Extended Release 24 Hr 100 mg PO BID Qty: 60 RF: 2 Continued acetaminophen 325 mg tablet 650 mg PO Q6H PRN (Reason: Pain) RF: 0 pantoprazole 40 mg tablet,delayed release (DR/EC) 40 mg PO DAILY RF: 0 diltiazem HCl 120 mg capsule,extended release 24hr 120 mg PO DAILY RF: 0 levothyroxine 100 mcg tablet 100 mcg PO .COMPLEX RF: 0 albuterol sulfate 90 mcg/actuation HFA aerosol inhaler 2 puff inhalation .QID PRN (Reason: Shortness Of Breath) RF: 0 dulaglutide 1.5 mg/0.5 mL pen injector 1.5 mg subcut QWEEK RF: 0 melatonin 3 mg tablet 3 mg PO HS RF: 0 torsemide 20 mg tablet 20 mg PO DAILY RF: 0 aspirin 81 MG tablet,delayed release (DR/EC) 81 mg PO DAILY RF: 0 ropinirole 0.5 MG tablet 0.5 mg PO DAILY RF: 0 apixaban 5 MG tablet 5 mg PO BID RF: 0 loratadine 10 MG tablet 10 mg PO DAILY RF: 0 atorvastatin 40 MG tablet 40 mg PO QHS RF: 0 vitamin E 400 UNIT capsule 400 unit PO DAILY RF: 0 insulin degludec 200 unit/mL (3 mL) insulin pen 68 unit subcut QHS RF: 0 insulin aspart U-100 100 unit/mL (3 mL) insulin pen 25 unit subcut TIDCM RF: 0 leflunomide 10 mg tablet 20 mg PO DAILY RF: 0 prednisone 5 mg tablet 7.5 mg PO DAILY RF: 0 cyanocobalamin (vitamin B-12) 1,000 mcg Tablet 1,000 mcg PO DAILY RF: 0 gabapentin 300 mg Capsule 300 mg PO TID RF: 0 lisinopril 10 mg Tablet 10 mg PO BID RF: 0 coenzyme Q10 [CoQ-10] 100 mg Capsule 100 mg PO DAILY RF: 0 zinc 50 mg Tablet 50 mg PO DAILY RF: 0 hydrocodone-acetaminophen 5-325 mg tablet 1 tab PO Q6H PRN PRN (Reason: Pain) RF: 0 Discontinued metoprolol succinate 100 MG tablet extended release 24 hr 100 mg PO BID RF: 0 Referrals / Follow Up: Anthony Belcher MD [STAFF PHYSICIAN] - Within 2 Weeks Susanna Heath [Primary Care Provider] - Within 2 Weeks Disposition Disposition (needs filled in before D/C Order can be placed): Group Home Facility
[2021-09-25 11:51] LABS: Bedside Glucose 153 mg/dL (74-106)
[2021-09-25] MEDS: Insulin Lispro 100 UNIT/ML INSULN.PEN SC (12:26)
--- NOTE | 2021-09-25 13:42 | NURSING ---
Report called to Filipe in rehab, will assume care of pt at this time.
--- NOTE | 2021-09-25 14:12 | NURSING ---
Reviewed charting with Kellie Espino RN
== END 2021-09-25 13:57 | disposition skilled nursing facility (03) | DRG 64 ==
LOC: ED 17:57 → PCU 18:05
PROVIDERS: Hospitalist; Admitting Provider Internal Medicine; Emergency Provider Emergency Medicine; PCP Family Medicine; Visit Provider Student in an Organized Health Care Education/Training Program
DX: I63.411 Cerebral infarction due to embolism of right middle cerebral artery (principal); G93.41 Metabolic encephalopathy; I42.8 Other cardiomyopathies; I48.20 Chronic atrial fibrillation, unspecified; I50.22 Chronic systolic (congestive) heart failure; Z68.41 Body mass index [BMI] 40.0-44.9, adult; R47.01 Aphasia; D47.2 Monoclonal gammopathy; I11.0 Hypertensive heart disease with heart failure; E03.9 Hypothyroidism, unspecified; E11.9 Type 2 diabetes mellitus without complications; Z79.4 Long term (current) use of insulin; E66.01 Morbid (severe) obesity due to excess calories; M32.9 Systemic lupus erythematosus, unspecified; M06.9 Rheumatoid arthritis, unspecified; E87.6 Hypokalemia; M79.7 Fibromyalgia; E78.5 Hyperlipidemia, unspecified; F17.210 Nicotine dependence, cigarettes, uncomplicated; G47.33 Obstructive sleep apnea (adult) (pediatric); Z79.01 Long term (current) use of anticoagulants; Z79.82 Long term (current) use of aspirin; Z79.899 Other long term (current) drug therapy; Z79.52 Long term (current) use of systemic steroids; Z79.890 Hormone replacement therapy; R53.1 Weakness; R29.717 NIHSS score 17
CPT/HCPCS: 36415; 70450; 70496; 70498; 70551; 71045; 73030; 80048; 80053; 80061; 82962; 83036; 83735; 84484; 85025; 85610; 85730; 92523; 92610; 93005; 93306; 94762; 97110; 97162; 97166; 97530; 97535; 97802; 99285; J7030; Q9957; Q9967; A4216

== ENCOUNTER 2021-09-25 14:00 | Inpatient (IN) | payer MEDICARE, OTHER, SELFPAY ==
[2021-09-25 14:25] VITALS: BP 133/103; PULSE 110; RESP 18; TEMP 36.5; O2SAT 96; BMI 35.2
[2021-09-25 16:35] LABS: Bedside Glucose 76 mg/dL (74-106)
[2021-09-25 16:51] LABS: Bedside Glucose 87 mg/dL (74-106)
--- NOTE | 2021-09-25 17:37 | NURSING ---
pt noted to be falling asleep while this RN was talking to patient and pt was signing paperwork for admission. This notes pt to be diaphoretic. blood glucose taken at 1629 and noted to be 76. pt given orange juice. pts blood glucose rechecked per protocol 15 mins later to be 87. pt states that she is no longer sleepy or diaphoretic. snack of PB and crackers given while waiting on dinner to arrive. dr barlow notified at this time and orders obtained for humalog. pt states that her blood glucose drops very fast and she gets very tired with low blood glucose. will continue to monitor for further signs or symptoms of hypoglycemia. call light within reach, pt denies further needs.
--- NOTE | 2021-09-25 18:08 | NURSING ---
per telephone orders from dr barlow, dinner time insulin held since pt did not eat her supper. pts glucose checked and it is 150 at this time.
[2021-09-25 18:21] LABS: Bedside Glucose 150 mg/dL (74-106)
[2021-09-25 19:30] VITALS: BP 90/58; PULSE 98; RESP 18; TEMP 36.5; O2SAT 97
[2021-09-25 21:00] VITALS: BP 136/91; PULSE 99; RESP 20; O2SAT 95
[2021-09-25] MEDS: Atorvastatin Calcium 40 MG Tablet PO (21:51)
[2021-09-25] MEDS: APIXABAN 5 MG TABLET PO (21:51)
[2021-09-25] MEDS: MELATONIN 3 MG TABLET PO (21:52)
[2021-09-25] MEDS: Gabapentin 300 MG Capsule PO (21:52)
[2021-09-25] MEDS: Senna/Docusate Sodium 1 Tablet 2 TABLET PO (21:52)
[2021-09-25 21:53] VITALS: BP 136/91; PULSE 99
[2021-09-25] MEDS: Metoprolol(XL)Succ 100 MG Tablet PO (21:53)
[2021-09-25] MEDS: Lisinopril 10 MG Tablet PO (21:53)
[2021-09-25 22:01] LABS: Bedside Glucose 292 mg/dL (74-106)
[2021-09-25] MEDS: Insulin Glargine-YFGN 100 UNIT/ML Pen 68 UNIT SC (22:13)
[2021-09-25 22:21] VITALS: PULSE 99; RESP 20; O2SAT 97
[2021-09-26 01:01] LABS: Bedside Glucose 232 mg/dL (74-106)
--- NOTE | 2021-09-26 01:12 | NURSING ---
Reviewed and agree with ILLUMINATOR assessment.
[2021-09-26 02:38] VITALS: BMI 35.2
[2021-09-26] MEDS: Gabapentin 300 MG Capsule PO ×3 (06:28→20:46)
[2021-09-26] MEDS: Levothyroxine 100 MCG Tablet PO (06:28)
[2021-09-26 07:01] LABS: Bedside Glucose 147 mg/dL (74-106)
[2021-09-26 07:52] VITALS: BP 126/74; PULSE 89; RESP 18; TEMP 36.6; O2SAT 95
[2021-09-26] MEDS: Insulin Lispro 100 UNIT/ML INSULN.PEN 25 UNIT SC ×2 (08:04→12:04)
[2021-09-26] MEDS: predniSONE 5 MG Tablet 7.5 MG PO (08:05)
[2021-09-26] MEDS: Potassium Chloride Oral Tablet 20 MEQ PO (08:05)
[2021-09-26] MEDS: Aspirin E.C. 81 MG Tablet PO (08:05)
[2021-09-26] MEDS: APIXABAN 5 MG TABLET PO ×2 (08:06→20:46)
[2021-09-26] MEDS: dilTIAZem CD 120 MG Capsule PO (08:06)
[2021-09-26] MEDS: Furosemide 40 MG Tablet PO (08:06)
[2021-09-26] MEDS: Loratadine 10 MG Tablet PO (08:06)
[2021-09-26] MEDS: Vitamin E 400 UNITS Capsule PO (08:06)
[2021-09-26] MEDS: Magnesium Chloride 64 MG Delay Rel.Tablet 128 MG PO (08:07)
[2021-09-26] MEDS: Senna/Docusate Sodium 1 Tablet 2 TABLET PO (08:07)
[2021-09-26] MEDS: Leflunomide 10 MG TABLET 20 MG PO (08:07)
[2021-09-26] MEDS: Pantoprazole Sodium 40 MG Tablet PO (08:07)
[2021-09-26] MEDS: Pramipexole Di-HCl 0.25 MG Tablet PO (08:07)
[2021-09-26 08:08] VITALS: BP 126/74; PULSE 89
[2021-09-26] MEDS: Metoprolol(XL)Succ 100 MG Tablet PO ×2 (08:08→20:43)
[2021-09-26] MEDS: Cyanocobalamin 500 MCG Tablet 1000 MCG PO (08:08)
[2021-09-26] MEDS: Lisinopril 10 MG Tablet PO ×2 (08:08→20:43)
--- NOTE | 2021-09-26 09:16 | EX.PCM.HP.RE ---
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 on 09/21/2021 with L side weakness and aphasia that had been present for approximately 7 hours prior to arriving in the ER. Noncontrast CT brain showed no findings of an acute ischemic infarction and no intracranial hemorrhage. CTA of the head and showed no large vessel occlusion or intracranial aneurysm. There were enlarged lymph nodes in the mediastinum. Significant lab included an elevated calcium of 10.8 when corrected for hypoalbuminemia. Hemoglobin A1c was 10.2. She was admitted to the hospitalist service with a Dx of acute ischemic CVA. She was not a candidate for TPA due to chronic anticoagulation and she was outside the window. Echocardiogram showed global left ventricular systolic dysfunction with an estimated EF of 40%. The left atrium was moderately enlarged and the right atrium was mildly enlarged. The bubble contrast study was negative for right to left interatrial shunt. She has a bioprosthetic mitral valve and it appeared stable. The PA systolic was estimated at 34. MRI showed an acute 1 cm infarct in the right parietal subcortical white matter. She was seen by PT/OT/ST while in the hospital and acute inpatient rehab was recommended. She was transferred to the acute inpt rehab unit at [facility] on 09/25/21 for 3 hours of therapy daily to restore function/independence at or near her prior level of function. At the time she arrived on rehab she was taking 25 medications and she had admitted to taking Eliquis once a day rather than BID. Lab on the day of admission to rehab included an unremarkable CBC, a potassium of 3.6 and a creatinine of 0.65 with a BUN of 13. Magnesium was low on 09/22/2021 at 1.3 but following supplementation magnesium on 09/24/2021 was 1.7. Vital signs are currently temp 97.9, heart rate 89, blood pressure 126/74, respiratory rate of 18 and she is 95 to 97% saturated on room air. 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 She follows with Dr. Cuello for nephrology and with Dr. Middleton for cardiology. PCP is Susanna Heath. She sees Dr. Chavez for rheumatology. I think she sees Dr. Barajas for pain management but, she mangled the name and I am not sure. she tells me that she gets epidurals. She tells me that she checks her blood sugars at home and that the highest is 180 and the lowest is 160 but, her HGBA1c is 10.2? She insists that the stroke has caused weakness on her R side but, the weakness was on the left side. She admits to me that sometimes she forgets to take her medications. She has a pill box and she sets it up. Each day she dumps the pills for the day into 2 bottles, 1 for the AM meds and 1 for the PM meds. She also tells me that she does not like sweets and eats a good diet. She does not wear CPAP but has a CPAP unit.....she thinks her last sleep study was a few years ago and some doctor told her she did not have to wear the CPAP any longer? [facility] Medical History (Updated 09/26/21 @ 17:[address] Cynthia Cochran, ) Chronic combined systolic and diastolic CHF (congestive heart failure) Diabetes mellitus type 2, uncontrolled Essential hypertension Fibromyalgia GERD (gastroesophageal reflux disease) Hypercalcemia Hyperlipidemia Lipoma of left upper extremity Lupus Morbid obesity Non-ischemic cardiomyopathy Nonalcoholic fatty liver disease Nonrheumatic mitral valve stenosis with insufficiency KAROLINA (obstructive sleep apnea) Osteoarthritis Osteoporosis Radicular pain of left lower extremity Rheumatoid arthritis RLS (restless legs syndrome) Stroke Home Medications apixaban 5 mg PO BID 05/24/19 [History Last Taken Unknown] aspirin 81 mg PO DAILY 05/24/19 [History Last Taken Unknown] ropinirole 0.5 mg PO DAILY 05/24/19 [History Last Taken Unknown] loratadine 10 mg PO DAILY 06/02/19 [History Last Taken Unknown] atorvastatin 40 mg PO QHS 06/22/19 [History Last Taken Unknown] vitamin E 400 unit PO DAILY 06/22/19 [History Last Taken Unknown] acetaminophen 325 mg tablet 650 mg PO Q6H PRN tab 09/04/21 [History Last Taken Unknown] albuterol sulfate 90 mcg/actuation aerosol inhaler 2 puff INHALATION .QID PRN g 09/04/21 [History Last Taken Unknown] diltiazem HCl 120 mg capsule,extended release 24 hr 120 mg PO DAILY 09/04/21 [History Last Taken Unknown] dulaglutide 1.5 mg/0.5 mL subcutaneous pen injector 1.5 mg SUBCUT QWEEK 09/04/21 [History Last Taken Unknown] insulin aspart U-100 100 unit/mL (3 mL) subcutaneous pen 20 unit SUBCUT TIDCM ml 09/04/21 [History Last Taken Unknown] insulin degludec 200 unit/mL (3 mL) subcutaneous pen 68 unit SUBCUT QHS ml 09/04/21 [History Last Taken Unknown] leflunomide 10 mg tablet 20 mg PO DAILY tab 09/04/21 [History Last Taken Unknown] levothyroxine 100 mcg tablet 100 mcg PO .COMPLEX 09/04/21 [History Last Taken Unknown] melatonin 3 mg tablet 3 mg PO HS 09/04/21 [History Last Taken Unknown] pantoprazole 40 mg tablet,delayed release 40 mg PO DAILY 09/04/21 [History Last Taken Unknown] prednisone 5 mg tablet 7.5 mg PO DAILY tab 09/18/21 [History Last Taken Unknown] torsemide 20 mg tablet 20 mg PO DAILY tab 09/18/21 [History Last Taken Unknown] coenzyme Q10 [CoQ-10] 100 mg PO DAILY 09/21/21 [History Last Taken Unknown] cyanocobalamin (vitamin B-12) 1,000 mcg PO DAILY 09/21/21 [History Last Taken Unknown] gabapentin 300 mg PO TID 09/21/21 [History Last Taken Unknown] hydrocodone-acetaminophen 1 tab PO Q6H PRN PRN 09/21/21 [History Last Taken Unknown] lisinopril 10 mg PO BID 09/21/21 [History Last Taken Unknown] zinc 50 mg PO DAILY 09/21/21 [History Last Taken Unknown] metoprolol succinate 100 mg PO BID 09/25/21 [History Last Taken Unknown] Allergy/AdvReac Type Severity Reaction Status Date / Time hydroxychloroquine Allergy Severe Shortness Verified 09/18/21 09:53 of breath metformin AdvReac Severe Diarrhea Verified 09/18/21 09:53 methotrexate AdvReac Severe Other Verified 09/18/21 09:53 Sulfa (Sulfonamide AdvReac Intermediate Other Verified 09/18/21 09:53 Antibiotics) Family History Father Diabetes Heart disease Hypertension CVA (cerebral vascular accident) Hyperlipidemia CAD (coronary artery disease) Brother Hypertension Hyperlipidemia Sister THYROID Mother Uterine cancer Surgical History History of appendectomy History of back surgery History of cardioversion (01/15/18) History of left heart catheterization History of mitral valve replacement with bioprosthetic valve (04/23/17) History of radiofrequency ablation (RFA) for complex left atrial arrhythmia (04/25/17) History of right and left heart catheterization (02/25/17) History of total left knee replacement History of total right knee replacement History of transesophageal echocardiography (NEELA) (01/15/18) Social History (Updated 09/26/21 @ 17:[address] Cynthia Cochran DO) adopted: No household members: other details: is in a fdc and she is currently living alone housing: house number of children: 2 current occupational status: retired Smoking Status: Former smoker quit date: 06/08/01 Tobacco: How many years used: 5 how long ago did patient quit smokin years ago- about 2006? alcohol intake: current details: rare occasions substance use type: does not use ROS Review of Systems ROS Unobtainable: other Details: She is confused and I do not know how reliable the hx is because she contradicts herself. Constitutional Constitutional: Reports fatigue and weakness; Denies change in weight, fever(s) or night sweats Eyes Eyes: Denies change in vision, discharge from eye(s) or double vision ENT HEENT: Reports headache(s); Denies abnormal hearing, loss taste/smell, nasal congestion or nasal discharge Cardiovascular Cardiovascular: Reports edema; Denies chest pain, orthopnea, palpitations, paroxysmal nocturnal dyspnea or syncope Respiratory/Chest Respiratory/Chest: Reports shortness of breath with exertion; Denies cough, hemoptysis or shortness of breath at rest Gastrointestinal Gastrointestinal: Denies abdominal pain, constipation, diarrhea, dyspepsia, nausea or vomiting Genitourinary Genitourinary: Denies dysuria Musculoskeletal Musculoskeletal: Reports back pain, extremity pain and joint pain Integumentary Integumentary: Reports dry skin and other Details: She has a lipoma on the L arm distal to the elbow.......she saw a surgeon who she says was going to remove the mass but, she can not recall the name of the surgeon. ; Denies jaundice, rash or wounds Neurologic Neurologic: Reports confusion, focal weakness, headache(s), numbness and other Details: Radicular pain L anterior thigh ; Denies seizures Psychiatric Psychiatric: Denies homicidal ideation or suicidal ideation Endocrine Endocrinology: Denies change in body appearance Hematologic/Lymphatic Hematologic/Lymphatic: Reports easy bleeding and easy bruising Vital Signs Vital Signs Vital Signs: 09/25/21 14:25 09/25/21 19:30 09/25/21 21:00 Temperature 97.7 F L 97.7 F L Temperature Source Oral Oral Pulse Rate 110 H 98 99 Respiratory Rate 18 18 20 H Respiratory Effort Respiratory Depth Respiratory Pattern Blood Pressure 133/103 H 90/58 L 136/91 H Blood Pressure Mean 113 68 106 Blood Pressure Source Monitor Monitor Monitor Blood Pressure Position Sitting Semi-Fowlers Blood Pressure Location Left Arm Left Arm Pulse Ox 96 97 95 Oxygen Delivery Method Room Air Room Air Room Air 09/25/21 21:53 09/25/21 22:21 09/26/21 07:52 Temperature 97.9 F Temperature Source Oral Pulse Rate 99 99 89 Respiratory Rate 20 H 18 Respiratory Effort Normal Non-Labored Respiratory Depth Normal Respiratory Pattern Tachypnea Blood Pressure 136/91 H 126/74 H Blood Pressure Mean 91 Blood Pressure Source Monitor Blood Pressure Position Supine Blood Pressure Location Right Arm Pulse Ox 97 95 Oxygen Delivery Method Room Air Room Air 09/26/21 08:08 09/26/21 08:10 Temperature Temperature Source Pulse Rate 89 Respiratory Rate Respiratory Effort Respiratory Depth Respiratory Pattern Blood Pressure 126/74 H Blood Pressure Mean Blood Pressure Source Blood Pressure Position Blood Pressure Location Pulse Ox Oxygen Delivery Method Room Air Weight Weight: 206 lb 2.115 oz Body Mass Index (BMI) 35.2 Indicators for Scoring Admitted with or Primary Diagnosis of CVA/Stroke: Yes Hx of CVA/Stroke: Yes Modified Orange Score MRS Score at time of Evaluation: 4-Moderate/severe disability NIHSS NIHSS 1a. Level of Consciousness: Alert; keenly responsive 1b. LOC Questions: Answers one question correctly. (told me that she was 66 and she is 76. She did get the month correct. ) 1c. LOC Commands: Performs both tasks correctly. 2. Best Gaze: Normal 3. Visual: No visual loss 4. Facial Palsy: Normal symmetrical movements 5a. Left Arm: Drift; arm drifts downward but doesn?t hit the bed 5b. Right Arm: No drift; arm holds 90 (or 45) degrees for full 10 seconds 6a. Left Leg: No drift; leg holds 30-degree position for full 5 seconds 6b. Right Leg: No drift; leg holds 30-degree position for full 5 seconds 7. Limb Ataxia: Absent 8. Sensory: [id number] sensory loss; (she has a loss of sensation in the Left leg.......I do not know if this is due to the stroke or to the neuropathy from the back ) 9. Best Language: No aphasia; normal 10. Dysarthria: Normal 11. Extinction and Inattention: Visual, tactile, auditory, spatial, or personal inattention (neglect of the left leg with simultaneous touching of both lower legs at the same time) Total: 4 Stroke Questions Stroke Team Activated: No Physical Exam Const alert and oriented x3 Constitutional Narrative: obese General Appearance: cooperative Orientation / Consciousness: confused HEENT normocephalic, head/scalp atraumatic and oropharynx normal HEENT Narrative: hearing is grossly intact Mouth: dry mucous membranes Neck supple and no carotid bruits General: trachea midline; Negative for lymphadenopathy Lymph Lymphatic: no lymphedema noted Chest Chest Narrative: Pendulous breasts. She has a triangular shaped mass in the upper left chest adjacent to the manubrium that she tells me is the xiphoid? She says it broke off and migrated to that spot and has stayed there? Resp normal respiratory effort Resp Narrative: She has crackles in both bases that persist after several deep breaths. Good air exchange. Able to speak in complete sentences. No tachypneic and no conversational dyspnea. Cardio regular rate, regular rhythm, S1 normal heart sound, S2 normal heart sound, no murmurs and no gallops Cardio Narrative: Heart sounds are distant and this may be on the basis of her body habitus and pendulous breasts. Symmetrical chest rise. GI normal to inspection, nondistended, normoactive bowel sounds and soft to palpation GI Narrative: obese, no guarding with palpation. Back/Spine Back/Spine Narrative: localized tenderness to palpation along the R iliac crest. No erythema, no openings in the skin, no masses and no swelling. General Back: Negative for CVA tenderness Extremity Extremity Narrative: She has some pitting edema of the R leg distal to the knee and the R leg is bigger than the left and she tells me this is her normal. The left is soft distal to the knee with no pitting edema. Skin Skin Narrative: Lipoma of the L arm just distal to the elbow on the extensor surface. General Skin Exam: no breakdown Rashes: no rashes Neuro oriented x3 and CN's II-XII intact bilaterally Neuro Narrative: Weak on the left side, confusion and contradictory statements being made by the patient. Psych cooperative, affect normal and activity/motor behavior normal Appearance: grossly normal and appropriate Attitude: calm Activity / Motor Behavior: appropriate eye contact Speech: normal speech Mood & Affect: euthymic mood; Negative for tearful Thought Process: confused Thought Content: No suicidality, No homicidality, No delusion(s), No hallucination(s) and No depersonalization Attention / Concentration: other easily distracted. Insight: limited Judgement: limited Results Lab / Micro Data Labs: Laboratory Results - last 24 hr 09/25/21 16:29: POC Glucose 76 09/25/21 16:45: POC Glucose 87 09/25/21 18:01: POC Glucose 150 H 09/25/21 21:12: POC Glucose 292 H 09/26/21 00:57: POC Glucose 232 H 09/26/21 06:35: POC Glucose 147 H Assessment & Plan Assessment/Plan (1) Physical debility: (2) Right basal ganglia embolic stroke: (3) Encephalopathy: (4) Hypercalcemia: (5) Non compliance w medication regimen: (6) KAROLINA (obstructive sleep apnea): (7) Non-compliant behavior: (8) Diabetes mellitus type 2, uncontrolled: (9) Non-ischemic cardiomyopathy: (10) Chronic combined systolic and diastolic CHF (congestive heart failure): (11) Longstanding persistent atrial fibrillation: (12) History of mitral valve replacement with bioprosthetic valve: (13) Rheumatoid arthritis: (14) Essential hypertension: (15) Hyperlipidemia: (16) Morbid obesity: (17) Smoldering multiple myeloma (SMM): (18) Radicular pain of left lower extremity: (19) GERD (gastroesophageal reflux disease): (20) Lupus: (21) RLS (restless legs syndrome): (22) Hypothyroidism: PLAN: PLAN PT for gait stability OT for ADL's ST for evaluation Analgesics as needed Bowel protocol Fall precautions Assess for Anxiety/Depression GI prophylaxis with pantoprazole DVT prophylaxis-she is on full dose Eliquis for atrial fibrillation with history of recent stroke Follow up with Neurology, Dr. Chavez, Dr. Middleton, Dr. Dockery, Dr. Heath following DC from IP Rehab AM lab including BMP, MAG, Vitamin D, PTH she has been started on a magnesium and potassium supplement....maintain the K at 4 or greater and the mag a 2 or greater. HR is normal today.....continue the current doses of Metoprolol and Cardizem. Orthostatic VS's in the AM Adjust the insulin regimen to get all BS's less than 180 with no hypoglycemia Consult with the materials management manager Obtain records from Dr. Heath, Dr. Chavez and Dr. Barajas Follow up with Dr. Stratton post DC. The encephalopathy is likely multifactorial.....due to stroke, hypercalcemia, polypharmacy, untreated sleep apnea, Gabapentin 300 mg TID. At this point in time I dod not see her being able to go home without 24/7 supervision. Overnight trending pulse ox Get the report from the most recent sleep study Eliminate Zinc, Vitamin B12, Mirapex, Claritin, melatonin, Vitamin E and decrease the dose of the Gabapentin during the day time hours to 100 mg. Need to simplify this drug regimen and eliminate what is not necessary. Use neuropathic cream TID to the Left anterior thigh Charges/Coding Visit Charges Inpatient E&M: 63896 Init Hosp L3
--- NOTE | 2021-09-26 10:44 | REHABEVAL_ITS ---
Admission Information Primary Diagnosis:: Post stroke debility. Status Changes from Prescreening?: No changes Identified Actual Problem List:: Pain, ALteration in Cmfrt, Cognitve Impr/Memory Loss, Bladder Incontinence, Alteration in Sleep, Mobility Impaired, Self Care Deficit, Know.Dfct/Disease Process, Know.Dfct of Medicaitons, Diabetes, Hypoglycemia, BP, Hypertension and Alteration-Leisure Activ. Potential Problem List:: DVT, Bleeding, Infection, UTI, Aspiration, Falls, Skin Integrity and Depression Risk of Complications DVT: LIZ Hose and - (Eliquis 5 mg p.o. twice daily for atrial fibrillation) Bleeding: Monitor Lab Values, Nursing to Teach Precautions for anti-coagulation therapy., Wound, if applicable, to be assessed every shift. and Stroke patients assessed for lethargy or change in status. Infection: Clinical Staff to Monitor for S/S of infection: and S/S of infection include fever, redness, warmth, etc. Urinary Tract Infection: Monitor for frequency, burning, discomfort, or incontinence. and Nursing will obtain urine sample for urinalysis and C&S when ordered. Aspiration: Clinical staff will monitor for coughing, drooling, congestion., Speech will evaluate swallowing and dsyphasia. and Nursing will monitor patient swallowing during meals. Falls: Patient will be evaluated for Fall Precautions and Patient will be placed on Fall Precautions as indicated per protocol. Skin Breakdown: Nursing will assess skin daily using assessment tool. and Nursing will place on Skin Breakdown Precautions as indicated. Pain: Clinical staff will assess patient's pain level per protocol., Medications will be given, if needed, and the pain level reassessed. and Other methods: Massage, distraction, decrease stimulus, etc. used PRN. Plan of Care Patient requires physician specializing in physical medicine and rehab oversight to provide close medical supervision of rehab issues including: Pain Management, Sleep Problems, Bowel and Bladder, Medical and co-morbidity Management, DVT prophylaxis, Rehabilitation Leadership and Coordination of treatment team Patient needs Physical Therapy: For a minimum of 1 hour and At least 5 out of 7 days Patient needs Physical Therapy to improve:: Mobility, Strengthening, Transfers, Stretching, ROM, Endurance, Stairs, Gait and Balance Patient needs Occupational Therapy: For a minimum of 1 hour and At least 5 out of 7 days Patient needs Occupational Therapy to improve ADL's incl.: Eating, Grooming, Bathing, Dressing, Toileting, Toilet transfers, Community Reintegration, Higher functioning activities, Household tasks, Adaptive Equipment, Splinting and Other activities as determined Patient requires speech therapy: For a minimum of 1 hour and At least 5 out of 7 days Patient requires speech therapy for: Swallowing, Cognition, Language Skills and Compensatory Strategies Patient requires 24/7 Rehabilitation Nursing for: Pain Issues, Identifying and preventing risk factors, Monitoring and reporting current medical conditions, Assisting with ambulation, transfer, and all ADL's, Teaching patients about disease process and medications, Family teaching, Providing safe environment, Bowel and Bladder Issues, Skin integrity and Medication Management Patient needs Integrity Director/ Case Management for: Discharge Planning, Arranging Home Equipment or Services and Family Interventions Patient needs Dietary and Nutrition Services for: Adequate Nutrition, Nutritional Supplements and Nutritional Education Goals Patient will remain: free from falls and or injury at time of discharge. Patient will perform bed mobility at: MOD I level of assist. Patient will complete transfers from bed to chair at: MOD I level of assist. Patient will ambulate: 100 feet, with LRD and - (100 feet with a wheeled walker and standby assist on various surfaces) Patient will complete upper body dressing at: MOD I level of assist. Patient will complete lower body dressing at: MOD I level of assist. Patient will complete toileting at: MOD I level of assist. Patient will perform bathing at: - (Distant supervision) Patient will complete grooming at: MOD I level of assist. Patient will complete home management skills at: MOD I level of assist. Patient will achieve: - (1 curb step at SBA with a WW) Patient will have pain level of: of 3 or less Patient's skin will: remain intact Patient will receive: adequate nutrition. Discharge Planning Estimated Length of stay (days): 28 Anticipated D/C Destination: TBD (It will be contigent on having 24/7 supervision if she goes home.....and cognition does not significantly improve. ) Was Preadmission Assessment Accurate?: Yes
[2021-09-26 11:06] LABS: Bedside Glucose 122 mg/dL (74-106)
[2021-09-26 14:09] VITALS: BMI 35.2
--- NOTE | 2021-09-26 16:44 | CASEMGMT ---
Addendum entered by Malissa Bell 09/27/21 10:08: Left message with the phone number provided for son. Left message with phone number provided for sister. SW to continue to follow. Original Note: Social Work Met with patient to complete initial assessment. Introduced self and role. Explained Medicare benefit. Discussed code status. Pt confirmed full code. Inquired about contacts to notify during stay, pt stated her is in [facility] and has been for the last 3 weeks. Pt states her son, Jerel, is the next listed on her HCPOA. Pt attempted to provide his phone number and agreed for SW to speak with him. Pt also agreed to speak with other son Ken and sister Cynthia. Completed assessment, but pt not consistent with answers, inattentive, and was drowsy. SW to attempt to contact son or family to confirm information. SW did complete BIMS () and PHQ-9 (03/04). SW to continue to follow. QUANG JoW
[2021-09-26 16:46] LABS: Bedside Glucose 99 mg/dL (74-106)
[2021-09-26] MEDS: Insulin Lispro 100 UNIT/ML INSULN.PEN 20 UNIT SC (17:08)
[2021-09-26 19:15] VITALS: BP 143/84; PULSE 87; RESP 16; TEMP 36.1; O2SAT 93
[2021-09-26 20:43] VITALS: BP 143/84; PULSE 87
[2021-09-26] MEDS: Atorvastatin Calcium 40 MG Tablet PO (20:44)
[2021-09-26] MEDS: Insulin Glargine-YFGN 100 UNIT/ML Pen 60 UNIT SC (20:44)
[2021-09-26] MEDS: Menthol/Lanolin/Calamine/Znox 113 GM Tube 1 APPLIC TOPICAL (20:53)
[2021-09-26 21:40] LABS: Bedside Glucose 109 mg/dL (74-106)
[2021-09-26 21:43] VITALS: PULSE 79; O2SAT 97
[2021-09-27 05:08] VITALS: BP 103/77; BP 113/79; BP 142/108; PULSE 116; PULSE 82; PULSE 84
[2021-09-27 06:18] LABS: Albumin, Serum 3.1 g/dL (3.2-5.0); BUN 30 mg/dL (7-18); Estimated Creatinine Clearance 47.36 ml/min; Glucose 89 mg/dL (74-106); T4 Free Direct 1.31 ng/dL (0.76-1.46)
[2021-09-27 06:19] LABS: Anion Gap 6 (5-15); BUN/Creat Ratio 33.3 RATIO (10-20); Chloride 102 mmol/L (98-107); EST Glomerular Filtration Rate 65 mL/min (>60); Est Glom Filt Rate - Afr Amer 79 mL/min (>60); Magnesium 2.1 mg/dL (1.6-2.6); Potassium 4.5 mmol/L (3.5-5.1); Sodium Level 135 mmol/L (136-145)
[2021-09-27] MEDS: Levothyroxine 100 MCG Tablet PO (06:20)
[2021-09-27] MEDS: HYDROcodone Bitartrate/Apap 5/325 Tablet PO (06:22)
[2021-09-27 06:46] LABS: Bedside Glucose 99 mg/dL (74-106)
[2021-09-27 06:46] LABS: Bedside Glucose 93 mg/dL (74-106)
[2021-09-27 07:26] VITALS: BP 103/77; PULSE 84; RESP 16; TEMP 35.9; O2SAT 96
[2021-09-27 07:44] LABS: PTHIN 143.6 pg/mL (18.4-80.1)
[2021-09-27 07:48] LABS: Vitamin D,25 Hydroxy 43.4 ng/mL
[2021-09-27 08:01] LABS: Bedside Glucose 116 mg/dL (74-106)
[2021-09-27] MEDS: Potassium Chloride Oral Tablet 20 MEQ PO (08:14)
[2021-09-27] MEDS: Gabapentin 100 MG Capsule PO ×2 (08:14→17:38)
[2021-09-27] MEDS: Aspirin E.C. 81 MG Tablet PO (08:14)
[2021-09-27] MEDS: predniSONE 5 MG Tablet 7.5 MG PO (08:14)
[2021-09-27] MEDS: APIXABAN 5 MG TABLET PO ×2 (08:15→20:47)
[2021-09-27] MEDS: Furosemide 40 MG Tablet PO (08:15)
[2021-09-27] MEDS: Insulin Lispro 100 UNIT/ML INSULN.PEN 15 UNIT SC ×2 (08:15→17:38)
[2021-09-27] MEDS: Leflunomide 10 MG TABLET 20 MG PO (08:15)
[2021-09-27] MEDS: dilTIAZem CD 120 MG Capsule PO (08:15)
[2021-09-27 08:16] VITALS: PULSE 84
[2021-09-27] MEDS: Magnesium Chloride 64 MG Delay Rel.Tablet 128 MG PO (08:16)
[2021-09-27] MEDS: Metoprolol(XL)Succ 100 MG Tablet PO ×2 (08:16→20:45)
[2021-09-27] MEDS: Pantoprazole Sodium 40 MG Tablet PO (08:16)
[2021-09-27] MEDS: Lisinopril 10 MG Tablet PO ×2 (08:17→20:45)
[2021-09-27] MEDS: Menthol/Lanolin/Calamine/Znox 113 GM Tube 1 APPLIC TOPICAL ×2 (08:21→20:47)
[2021-09-27 11:11] LABS: Bedside Glucose 86 mg/dL (74-106)
[2021-09-27 16:11] LABS: Bedside Glucose 232 mg/dL (74-106)
[2021-09-27 16:44] VITALS: BMI 35.2
[2021-09-27 19:27] VITALS: BP 117/68; PULSE 68; RESP 18; TEMP 36.4; O2SAT 97
[2021-09-27 20:45] VITALS: BP 117/68; PULSE 68
[2021-09-27] MEDS: Insulin Glargine-YFGN 100 UNIT/ML Pen 55 UNIT SC (20:45)
[2021-09-27] MEDS: Atorvastatin Calcium 40 MG Tablet PO (20:45)
[2021-09-27] MEDS: Gabapentin 300 MG Capsule PO (20:47)
[2021-09-27 21:55] LABS: Bedside Glucose 217 mg/dL (74-106)
[2021-09-28] VITALS (8 sets, daily range): BP systolic 101–128; BP diastolic 63–74; PULSE 63–80; RESP 14–17; TEMP 36.1–36.6; O2SAT 95–98; BMI 35.2
[2021-09-28] MEDS: Levothyroxine 100 MCG Tablet PO (06:16)
[2021-09-28] MEDS: HYDROcodone Bitartrate/Apap 5/325 Tablet PO (06:26)
[2021-09-28 06:40] LABS: Bedside Glucose 134 mg/dL (74-106)
[2021-09-28] MEDS: Potassium Chloride Oral Tablet 20 MEQ PO (08:10)
[2021-09-28] MEDS: Aspirin E.C. 81 MG Tablet PO (08:10)
[2021-09-28] MEDS: Gabapentin 100 MG Capsule PO ×2 (08:12→17:19)
[2021-09-28] MEDS: predniSONE 5 MG Tablet 7.5 MG PO (08:13)
[2021-09-28] MEDS: Menthol/Lanolin/Calamine/Znox 113 GM Tube 1 APPLIC TOPICAL ×2 (08:16→21:30)
[2021-09-28] MEDS: Nystatin Powder 15gm Bottle 1 APPLIC TOPICAL ×2 (08:18→21:29)
[2021-09-28] MEDS: dilTIAZem CD 120 MG Capsule PO (08:19)
[2021-09-28] MEDS: APIXABAN 5 MG TABLET PO ×2 (08:20→21:17)
[2021-09-28] MEDS: Furosemide 40 MG Tablet PO (08:21)
[2021-09-28] MEDS: Leflunomide 10 MG TABLET 20 MG PO (08:22)
[2021-09-28] MEDS: Magnesium Chloride 64 MG Delay Rel.Tablet 128 MG PO (08:23)
[2021-09-28] MEDS: Pantoprazole Sodium 40 MG Tablet PO (08:25)
[2021-09-28] MEDS: Metoprolol(XL)Succ 100 MG Tablet PO ×2 (08:26→21:21)
[2021-09-28] MEDS: Lisinopril 10 MG Tablet PO ×2 (08:27→21:16)
[2021-09-28] MEDS: Insulin Lispro 100 UNIT/ML INSULN.PEN 20 UNIT SC (08:29)
[2021-09-28 11:20] LABS: Bedside Glucose 122 mg/dL (74-106)
[2021-09-28] MEDS: Insulin Lispro 100 UNIT/ML INSULN.PEN 18 UNIT SC (12:05)
[2021-09-28] MEDS: Insulin Lispro 100 UNIT/ML INSULN.PEN 15 UNIT SC (17:20)
[2021-09-28 18:06] LABS: Bedside Glucose 89 mg/dL (74-106)
[2021-09-28] MEDS: Atorvastatin Calcium 40 MG Tablet PO (21:16)
[2021-09-28] MEDS: Gabapentin 300 MG Capsule PO (21:17)
[2021-09-28] MEDS: Insulin Glargine-YFGN 100 UNIT/ML Pen 55 UNIT SC (21:18)
[2021-09-28 22:05] LABS: Bedside Glucose 205 mg/dL (74-106)
[2021-09-29] MEDS: Levothyroxine 150 MCG Tablet PO (06:03)
[2021-09-29] MEDS: Nystatin Powder 15gm Bottle 1 APPLIC TOPICAL ×2 (06:05→20:48)
[2021-09-29] MEDS: Menthol/Lanolin/Calamine/Znox 113 GM Tube 1 APPLIC TOPICAL ×2 (06:06→20:48)
[2021-09-29 06:20] LABS: Bedside Glucose 127 mg/dL (74-106)
[2021-09-29 07:47] VITALS: PULSE 66
[2021-09-29] MEDS: Furosemide 40 MG Tablet PO (07:47)
[2021-09-29] MEDS: Gabapentin 100 MG Capsule PO ×2 (07:47→17:02)
[2021-09-29] MEDS: APIXABAN 5 MG TABLET PO ×2 (07:47→20:43)
[2021-09-29] MEDS: Magnesium Chloride 64 MG Delay Rel.Tablet 128 MG PO (07:47)
[2021-09-29] MEDS: Metoprolol(XL)Succ 100 MG Tablet PO ×2 (07:47→20:41)
[2021-09-29] MEDS: Lisinopril 10 MG Tablet PO ×2 (07:47→20:43)
[2021-09-29] MEDS: Leflunomide 10 MG TABLET 20 MG PO (07:47)
[2021-09-29] MEDS: predniSONE 5 MG Tablet 7.5 MG PO (07:48)
[2021-09-29] MEDS: Aspirin E.C. 81 MG Tablet PO (07:50)
[2021-09-29] MEDS: Pantoprazole Sodium 40 MG Tablet PO (07:50)
[2021-09-29] MEDS: Potassium Chloride Oral Tablet 20 MEQ PO (07:50)
[2021-09-29] MEDS: dilTIAZem CD 120 MG Capsule PO (07:51)
[2021-09-29] MEDS: Insulin Lispro 100 UNIT/ML INSULN.PEN 20 UNIT SC (07:53)
[2021-09-29 08:00] VITALS: BP 120/79; PULSE 78; RESP 17; TEMP 36.4; O2SAT 97
[2021-09-29] MEDS: DULAGLUTIDE 1.5 MG/0.5 ML PEN.INJCTR SC (10:38)
[2021-09-29] MEDS: Insulin Lispro 100 UNIT/ML INSULN.PEN 18 UNIT SC (12:01)
[2021-09-29 12:05] LABS: Bedside Glucose 107 mg/dL (74-106)
[2021-09-29 15:16] VITALS: BMI 35.2
[2021-09-29] MEDS: Insulin Lispro 100 UNIT/ML INSULN.PEN 15 UNIT SC (17:01)
[2021-09-29 17:11] LABS: Bedside Glucose 148 mg/dL (74-106)
[2021-09-29 19:00] VITALS: BP 112/60; PULSE 65; RESP 17; TEMP 36.1; O2SAT 97
[2021-09-29 20:41] VITALS: BP 112/60; PULSE 80
[2021-09-29] MEDS: Gabapentin 300 MG Capsule PO (20:41)
[2021-09-29] MEDS: Atorvastatin Calcium 40 MG Tablet PO (20:44)
[2021-09-29] MEDS: Insulin Glargine-YFGN 100 UNIT/ML Pen 55 UNIT SC (20:46)
[2021-09-29 21:26] LABS: Bedside Glucose 120 mg/dL (74-106)
[2021-09-29 23:00] VITALS: BMI 35.2
[2021-09-30] MEDS: Levothyroxine 100 MCG Tablet PO (05:33)
[2021-09-30] MEDS: Nystatin Powder 15gm Bottle 1 APPLIC TOPICAL ×2 (05:34→21:06)
[2021-09-30 06:40] LABS: Bedside Glucose 115 mg/dL (74-106)
[2021-09-30 07:15] VITALS: BP 146/91; PULSE 98; RESP 16; TEMP 36.4; O2SAT 96
[2021-09-30] MEDS: Magnesium Chloride 64 MG Delay Rel.Tablet 128 MG PO (08:02)
[2021-09-30] MEDS: Potassium Chloride Oral Tablet 20 MEQ PO (08:02)
[2021-09-30] MEDS: Furosemide 40 MG Tablet PO (08:02)
[2021-09-30] MEDS: Gabapentin 100 MG Capsule PO ×2 (08:02→17:19)
[2021-09-30] MEDS: Pantoprazole Sodium 40 MG Tablet PO (08:02)
[2021-09-30] MEDS: APIXABAN 5 MG TABLET PO ×2 (08:02→21:06)
[2021-09-30] MEDS: Insulin Lispro 100 UNIT/ML INSULN.PEN 20 UNIT SC (08:02)
[2021-09-30 08:03] VITALS: BP 146/91; PULSE 98
[2021-09-30] MEDS: Leflunomide 10 MG TABLET 20 MG PO (08:03)
[2021-09-30] MEDS: Lisinopril 10 MG Tablet PO ×2 (08:03→21:06)
[2021-09-30] MEDS: dilTIAZem CD 120 MG Capsule PO (08:03)
[2021-09-30] MEDS: predniSONE 5 MG Tablet 7.5 MG PO (08:03)
[2021-09-30] MEDS: Metoprolol(XL)Succ 100 MG Tablet PO ×2 (08:03→21:06)
[2021-09-30] MEDS: Aspirin E.C. 81 MG Tablet PO (09:09)
[2021-09-30 10:02] VITALS: BP 132/78
--- NOTE | 2021-09-30 10:44 | PCM.PROGNOTE ---
Subjective Subjective Sharon was seen on team rounds today. No family was present in the room and no one was available to participate in a phone call. Afebrile VSS - BP's have been good however this AM the BP is 146/91? Maintaining appropriate oxygen saturation on RA Oral intake is good Remains incontinent of urine. Bowel movements are regular. Discussed with nursing - no problems that need addressed Reviewed the PT/OT/ST notes Medication list reviewed. The blood sugar record was reviewed. Blood sugars are well controlled with no hypoglycemia. Calcium was high at 11 on 09/27. The albumin was 3.1. Calcium corrected for hypoalbuminemia is 11.8. She is still somewhat confused and I wonder if this was contributing to the medication non-compliance? the PTH is high at 143.6. She sometimes c/o back pain. She has had several back surgeries. Still having some problem with flight of ideas and inattention. She tells me that she was letting her demented manage the bills and the finances and everything is a mess. She apparently has several bills at home that need paid. I told her to have her son bring the bills and the checkbook in and ST can hell her with these tasks as part of her therapy. Objective Data Objective Data Vital Signs: Vital Signs Temp Pulse Resp BP Pulse Ox 97.6 F L 98 16 146/91 H 96 09/30/21 07:15 09/30/21 08:03 09/30/21 07:15 09/30/21 08:03 09/30/21 07:15 Oxygen Delivery Method Room Air Weight: 207 lb 10.807 oz Body Mass Index (BMI) 35.2 Intake & Output: Intake and Output for Last 24 Hours 09/28/21 09/29/21 09/30/21 23:59 23:59 23:59 Intake Total 1260 / 1260 2100 / 2100 560 / 560 Balance 1260 / 1260 2100 / 2100 560 / 560 Lab / Micro Data Result Diagrams: 09/27/21 05:44 09/27/21 05:44 Labs: Laboratory Results - last 24 hr 09/29/21 12:01: POC Glucose 107 H 09/29/21 16:57: POC Glucose 148 H 09/29/21 20:46: POC Glucose 120 H 09/30/21 06:34: POC Glucose 115 H Physical Exam Const alert, oriented x3 and no apparent distress General Appearance: cooperative, well kempt and well developed Eyes conjunctivae normal and no scleral icterus Resp normal respiratory effort and normal air movement Resp Narrative: Persistent crackles in the bases that persist despite several deep breaths. No wheezing. Denies orthopnea. Effort and Inspection: able to speak in complete sentences Cardio regular rate, regular rhythm, S1 normal heart sound, S2 normal heart sound, no murmurs, no rub and no gallops Cardio Narrative: no ectopy GI normal to inspection, nondistended, normoactive bowel sounds, soft to palpation and non-tender Extremity no calf tenderness Extremity Narrative: the legs are wrapped with TAMMIE wraps and I did not unwrap......will try and examine in the AM tomorrow prior to nursing applying the compression. The R ankle appears to be bigger than the left. Skin General Skin Exam: no breakdown Rashes: no rashes Psych cooperative Appearance: grossly normal Attitude: calm Activity / Motor Behavior: appropriate eye contact Speech: excessive and No slurred Mood & Affect: euphoric Thought Process: flight of ideas Thought Content: No delusion(s) and No hallucination(s) Attention / Concentration: attention grossly impaired and concentration grossly impaired Memory / Cognition: cognition impaired Insight: poor Judgement: limited Assessment & Plan Assessment/Plan (1) Right basal ganglia embolic stroke: PLAN: Continue therapy. Continue Eliquis, ASA, Atorvastatin She will likely NOT be able to go home unless she has 24/7 supervision. (2) Non compliance w medication regimen: PLAN: This is likely what lead to the CVA....non-compliance with Eliquis dosing. (3) Encephalopathy: PLAN: Multifactorial. The SW has set up a family meeting for later this week to discuss need for a medical and financial POA and plans for DC. (4) Hypercalcemia: PLAN: She has been placed on a low calcium diet. Zipper Setter Chainstitch was consulted for instruction in a low calcium diet. She needs a bone density study after DC. Aredia today She is already on Lasix. (5) Hyperparathyroidism: PLAN: Will need follow up with endocrinology post DC. Will schedule an appt with Dr. Stratton.....who can also help with diabetic control. We have been having to decrease the insulin due to low blood sugars since she is now on an appropriate diet. (6) KAROLINA (obstructive sleep apnea): PLAN: She is non-compliant with CPAP and this contributes to cognitive dysfunction. (7) Diabetes mellitus type 2, uncontrolled: PLAN: Blood sugar control is very good now that she is on a appropriate carb control diet. We have had to decrease medications. (8) Longstanding persistent atrial fibrillation: PLAN: Good rate control now. She is back in SR since the second day in rehab. Continue dual ties him and metoprolol (9) Steroid dependence: PLAN: She does not have a medic alert bracelet on and she should. Definitely needs someone to help her manage her meds. Charges/Coding Visit Charges Inpatient E&M: 28402 Subs Hosp L2
[2021-09-30 11:00] LABS: Bedside Glucose 170 mg/dL (74-106)
[2021-09-30] MEDS: Insulin Lispro 100 UNIT/ML INSULN.PEN 18 UNIT SC (12:08)
--- NOTE | 2021-09-30 13:18 | CASEMGMT ---
Social Work IDT met with patient for Team meeting. Discussed patient's progress in PT/OT/ST and nursing. Pt making progress. Currently, pt is not safe to DC home alone. Her cognitive deficits require supervision. Pt is inattentive and impulsive and was not taking medications properly prior to stroke. is in a SNF. SW have not received a return phone call from son or sister. Explained Medicare approved 14 days with DC 10/09. Pt will need assistance at home or need short term SNF placement. Will ReTeam next week. IDT agrees family needs to be involved to assist with making decisions. Attempted to contact sister again. Successful. She provided SW with two phone numbers for son, Denis. Entered in chart. Sister states she lives in town and helps pt as needed, but says the son needs to be involved in the DC decisions. Contacted son. Spoke with him about the above information. Inquired about SNF vs assistance at home. Son explains he lives 3 houses down from pt; he, his and dtr visit multiple times a day, cook meals, etc. Extended family is involved and can help out to ensure pt returns home. SW suggested speaking directly with family to make a concrete schedule of whom can assist pt, at least for the first two weeks at home, to ensure she is safe and getting taken care of. Explained skilled and nonskilled HHC. Son explained everyone has jobs, but will talk with family to see what can be done. Offered for son to come in for therapy family training and speak with . Son agreed and can attend 10/02 at 9 am. Encouraged to contact this worker with outcome, questions or concerns. Son appreciative. Notified IDT. SW to continue to follow. QUANG JoW
[2021-09-30 14:07] VITALS: BMI 35.2
[2021-09-30 16:11] LABS: Bedside Glucose 115 mg/dL (74-106)
[2021-09-30] MEDS: Insulin Lispro 100 UNIT/ML INSULN.PEN 15 UNIT SC (17:18)
[2021-09-30 19:10] VITALS: BP 139/82; PULSE 83; RESP 16; TEMP 36.7; O2SAT 98
[2021-09-30 19:57] VITALS: BMI 35.2
[2021-09-30] MEDS: Gabapentin 300 MG Capsule PO (20:12)
[2021-09-30] MEDS: 0.9% Saline Lock 10 ML Syringe IV (20:52)
[2021-09-30 21:06] VITALS: PULSE 60
[2021-09-30] MEDS: Menthol/Lanolin/Calamine/Znox 113 GM Tube 1 APPLIC TOPICAL (21:06)
[2021-09-30] MEDS: Atorvastatin Calcium 40 MG Tablet PO (21:06)
[2021-09-30] MEDS: Insulin Glargine-YFGN 100 UNIT/ML Pen 55 UNIT SC (21:23)
[2021-09-30 21:56] VITALS: PULSE 60; RESP 16; O2SAT 96
[2021-09-30 22:30] LABS: Bedside Glucose 167 mg/dL (74-106)
[2021-10-01] MEDS: Nystatin Powder 15gm Bottle 1 APPLIC TOPICAL ×2 (06:07→21:56)
[2021-10-01] MEDS: Levothyroxine 100 MCG Tablet PO (06:07)
[2021-10-01] MEDS: Menthol/Lanolin/Calamine/Znox 113 GM Tube 1 APPLIC TOPICAL ×2 (06:08→21:52)
[2021-10-01 06:56] LABS: Bedside Glucose 106 mg/dL (74-106)
[2021-10-01 07:16] VITALS: BP 132/69; PULSE 86; RESP 16; TEMP 35.8; O2SAT 97
[2021-10-01] MEDS: Insulin Lispro 100 UNIT/ML INSULN.PEN 20 UNIT SC (07:40)
[2021-10-01] MEDS: Lisinopril 10 MG Tablet PO ×2 (07:41→21:57)
[2021-10-01] MEDS: Potassium Chloride Oral Tablet 20 MEQ PO (07:41)
[2021-10-01 07:42] VITALS: BP 132/69; PULSE 86
[2021-10-01] MEDS: Leflunomide 10 MG TABLET 20 MG PO (07:42)
[2021-10-01] MEDS: Furosemide 40 MG Tablet PO (07:42)
[2021-10-01] MEDS: Metoprolol(XL)Succ 100 MG Tablet PO ×2 (07:42→21:56)
[2021-10-01] MEDS: Magnesium Chloride 64 MG Delay Rel.Tablet 128 MG PO (07:42)
[2021-10-01] MEDS: APIXABAN 5 MG TABLET PO ×2 (07:42→21:52)
[2021-10-01] MEDS: dilTIAZem CD 120 MG Capsule PO (07:43)
[2021-10-01] MEDS: Aspirin E.C. 81 MG Tablet PO (07:43)
[2021-10-01] MEDS: Pantoprazole Sodium 40 MG Tablet PO (07:43)
[2021-10-01] MEDS: Gabapentin 100 MG Capsule PO ×2 (07:43→16:59)
[2021-10-01] MEDS: predniSONE 5 MG Tablet 7.5 MG PO (07:43)
--- NOTE | 2021-10-01 09:43 | PN_ITS ---
Subjective Subjective Afebrile VSS VR is well controlled and the BP is very close to goal of < 130/80 Maintaining appropriate oxygen saturation on RA Oral intake is good She is sometimes incontinent of urine....more so at night and she was incontinent of stool also yesterday. She is having regular BM's with no diarrhea. Discussed with nursing - no problems that need addressed Reviewed the PT/OT/ST notes Medication list reviewed. She received 30 mg of Aredia last night. The blood sugar record was reviewed. At bedtime blood sugar was 167 and the fasting today is 106. Blood sugars are well controlled. No hypoglycemia. I spoke to the clinical resource nurse today and she will be up to rehab today to begin instruction with Sharon on a calcium restricted diet. All previous lab done at [facility] was removed and the calcium has been elevated since June of 2019.......it has been intermittent and I think presumed to be due to smoldering MM. PTH was never checked prior to this visit. She had not been on a calcium restricted diet. Vitamin D level is normal. Denies nephrolithiasis. GFR is 65 but the creatinine clearance is 47.36. She is on Lasix which increases calcium loss in the Kidney. Calcium corrected for hypoalbuminemia recently 11.8. A PET scan in December of 2019 was negative for any identified malignancy. US of the kidneys and bladder in December of 2019 was normal and there were no stones within either kidney. She has not had a DEXA at this facility and in fact she tells me she has never had a bone density test (But she is confused and I do not know how reliable her history is. Objective Data Objective Data Vital Signs: Vital Signs Temp Pulse Resp BP Pulse Ox 96.5 F L 86 16 132/69 H 97 10/01/21 07:16 10/01/21 07:42 10/01/21 07:16 10/01/21 07:42 10/01/21 07:16 Oxygen Delivery Method Room Air Weight: 207 lb 10.807 oz Body Mass Index (BMI) 35.2 Intake & Output: Intake and Output for Last 24 Hours 09/29/21 09/30/21 10/01/21 23:59 23:59 23:59 Intake Total 2099 1540 / 1540 540 / 540 Balance 2099 1540 / 1540 540 / 540 Lab / Micro Data Result Diagrams: 09/27/21 05:44 09/27/21 05:44 Labs: Laboratory Results - last 24 hr 09/30/21 10:55: POC Glucose 170 H 09/30/21 16:02: POC Glucose 115 H 09/30/21 21:20: POC Glucose 167 H 10/01/21 06:46: POC Glucose 106 Physical Exam Const alert, oriented x3 and no apparent distress Constitutional Narrative: slight having flight of ideas and trouble paying attention and focusing. General Appearance: cooperative, well kempt and well developed Eyes PERRL, EOMs intact bilaterally, conjunctivae normal and no scleral icterus Resp normal respiratory effort and clear to auscultation bilaterally Resp Narrative: diminished Effort and Inspection: able to speak in complete sentences Cardio Cardio Narrative: irreg irreg with controlled VR.....HR increases at night when she is sleeping and she does not have her CPAP unit with her.......I suspect the HR goes up because is is obstructing. GI normal to inspection, nondistended, normoactive bowel sounds, soft to palpation and non-tender Extremity no calf tenderness Extremity Narrative: Edema in both distal LE's but, it is non-pitting. Skin no wounds General Skin Exam: no breakdown Rashes: no rashes Neuro Neuro Narrative: Strength is improving with therapy. Assessment & Plan Assessment/Plan (1) Right basal ganglia embolic stroke: PLAN: Continue therapy. Her son Denis is coming in for family training later this week and we will meet with him to discuss plans for DC. continue Eliquis and I stressed the importance of taking her medication as instructed. she actually did very well when doing a pill box with the ST but, had to be reminded to pay attention and focus. ST showed her how to set her alarm on her cell phone so she gets a reminder when she is supposed to be taking her meds. (2) Non compliance w medication regimen: PLAN: I suspect the reason for this is due to encephalopathy which is multifactorial due to hypercalcemia, non-compliance with CPAP, multiple medications, CVA, sedating medications/polypharmacy. (3) Longstanding persistent atrial fibrillation: PLAN: Currently rate controlled with Diltiazem and Metoprolol. I suspect she was not taking the Metoprolol as directed at home and she even admits to missing doses. (4) Encephalopathy: PLAN: Received Aredia last night. Will recheck the calcium later in the week. I suspect normalizing the calcium is going to help with encephalopathy. She has a good memory actually but, she can not focus long enough to actually take her medications and then she moves on to other things. (5) RLS (restless legs syndrome): PLAN: We discontinued the Mirapex and decreased the Gabapentin and she is not c/o RLS. Will continue to try and simplify her drug regimen and get rid of medications she does not actually need. (6) KAROLINA (obstructive sleep apnea): PLAN: Will ask Denis to bring in her CPAP unit so we can try it on her. W ill have the RT work with her to find a Mask she can tolerate. (7) Diabetes mellitus type 2, uncontrolled: PLAN: Continue to adjust the insulin to achieve good BS control without hypoglycemia. Oil Refinery Process Technician is instructing her in a heart healthy diet with con sistent carbs and limited calcium. (8) Radicular pain of left lower extremity: PLAN: No complaints since admission (9) Essential hypertension: PLAN: Systolic is still above goal. Will increase the diltiazem to 180mg daily and continue to monitor BP's and HR. 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 Stratton has agreed to accept Sharon as a pt and will follow up with her post DC. She needs a DEXA if she has has not had one in the past 1-2 years. We have not received any requested records from her PCP. I requested labs and results of sleep study and DEXA. Charges/Coding Visit Charges Inpatient E&M: 79909 Subs Hosp L2
[2021-10-01] MEDS: HYDROcodone Bitartrate/Apap 5/325 Tablet PO (10:31)
[2021-10-01] MEDS: Insulin Lispro 100 UNIT/ML INSULN.PEN 18 UNIT SC (12:05)
[2021-10-01 12:16] LABS: Bedside Glucose 95 mg/dL (74-106)
[2021-10-01 14:10] VITALS: BMI 35.2
[2021-10-01 16:10] LABS: Bedside Glucose 92 mg/dL (74-106)
[2021-10-01] MEDS: Insulin Lispro 100 UNIT/ML INSULN.PEN 12 UNIT SC (18:21)
[2021-10-01 18:26] LABS: Bedside Glucose 195 mg/dL (74-106)
[2021-10-01 19:15] VITALS: BP 122/59; PULSE 56; RESP 16; TEMP 36.9; O2SAT 98
[2021-10-01 21:31] LABS: Bedside Glucose 148 mg/dL (74-106)
[2021-10-01] MEDS: Insulin Glargine-YFGN 100 UNIT/ML Pen 55 UNIT SC (21:53)
[2021-10-01 21:56] VITALS: PULSE 63
[2021-10-01] MEDS: Atorvastatin Calcium 40 MG Tablet PO (21:56)
[2021-10-01] MEDS: Gabapentin 300 MG Capsule PO (21:57)
[2021-10-01 22:00] VITALS: PULSE 63; RESP 17; O2SAT 96
[2021-10-01 22:05] VITALS: BMI 35.2
[2021-10-01] MEDS: 0.9% Saline Lock 10 ML Syringe IV (22:25)
[2021-10-02 06:30] LABS: Phosphorus 3.1 mg/dL (2.5-4.9)
[2021-10-02 06:45] LABS: Bedside Glucose 79 mg/dL (74-106)
[2021-10-02] MEDS: Levothyroxine 100 MCG Tablet PO (07:22)
[2021-10-02 07:23] VITALS: BP 143/60; PULSE 80; RESP 16; TEMP 36.3; O2SAT 99
[2021-10-02] MEDS: Menthol/Lanolin/Calamine/Znox 113 GM Tube 1 APPLIC TOPICAL ×2 (07:23→21:48)
[2021-10-02] MEDS: Nystatin Powder 15gm Bottle 1 APPLIC TOPICAL ×2 (07:23→21:49)
[2021-10-02 08:03] VITALS: BP 143/60; PULSE 80
[2021-10-02] MEDS: Leflunomide 10 MG TABLET 20 MG PO (08:03)
[2021-10-02] MEDS: Metoprolol(XL)Succ 100 MG Tablet PO ×2 (08:03→21:49)
[2021-10-02] MEDS: predniSONE 5 MG Tablet 7.5 MG PO (08:03)
[2021-10-02] MEDS: Magnesium Chloride 64 MG Delay Rel.Tablet 128 MG PO (08:03)
[2021-10-02] MEDS: Furosemide 40 MG Tablet PO (08:03)
[2021-10-02] MEDS: APIXABAN 5 MG TABLET PO ×2 (08:03→21:49)
[2021-10-02] MEDS: Lisinopril 10 MG Tablet PO ×2 (08:03→21:49)
[2021-10-02] MEDS: Pantoprazole Sodium 40 MG Tablet PO (08:03)
[2021-10-02] MEDS: Insulin Lispro 100 UNIT/ML INSULN.PEN 20 UNIT SC (08:04)
[2021-10-02] MEDS: Aspirin E.C. 81 MG Tablet PO (08:04)
[2021-10-02] MEDS: Gabapentin 100 MG Capsule PO ×2 (08:04→17:16)
[2021-10-02] MEDS: Potassium Chloride Oral Tablet 20 MEQ PO (08:04)
[2021-10-02] MEDS: dilTIAZem CD 120 MG Capsule PO (08:04)
[2021-10-02 08:10] LABS: Bedside Glucose 137 mg/dL (74-106)
[2021-10-02 11:05] LABS: Bedside Glucose 98 mg/dL (74-106)
--- NOTE | 2021-10-02 12:59 | PN_ITS ---
Progress Note Afebrile VSS-systolic blood pressure is consistently mildly above goal. Diastolic is at goal. Heart rate is within normal limits. Maintaining appropriate oxygen saturation on RA Oral intake is good Remains incontinent of urine Weight is stable....She lost weight while she was in the hospital due to diuresis. Discussed with nursing - no problems that need addressed Reviewed the PT/OT/ST notes Medication list reviewed. She is c/o some back pain today but, it improves when she gets up and moving. BS was 79 fasting this morning and 98 at lunchtime. She had no hypoglycemic symptoms. The at bedtime blood sugar was 148. We have been steadily decreasing her insulin since she is now on a heart healthy, carbohydrate consistent diet with low calcium. She states she slept well last night. She denies dysuria. She also denies chest pain, shortness of breath, lightheadedness, palpitations. Her son Denis and his Jamee came in today for training and I spent 35 minutes with them and Sharon educating them on why she was likely non-compliant with her medications and what can be done to improve the situation. Denis will be bringing in her CPAP machine and will have the RT find a mask that fits and that she is happy with. She agrees to follow up with pulmonary post NH. She also wants to follow up with Dr. Stratton for the hyperparathyroidism and would like a PCP to follow up with who will be able to coordinate care between the many consultants she sees. She likes the care she is getting here and likes how everything is explained in a way she can understand. She would like to follow up going forward with physicians in [place] and with [facility]. She already sees Dr. Middleton. Denis tells me that he has been managing the bills for his parents for quite some time and he manages their rental properties. He only lives a few houses away and they feel that they will be able to manage the supervision Sharon will need at NH. HE also has noticed this week that the flight of ideas she has had at home for quite a while is better and she is better able to stay on topic. Lab to recheck the calcium has been ordered for Thursday AM. Dr. Stratton has agreed to see her and will make a spot for her in her schedule. Phos was normal today. She is making prgress with therapy and is better able to focus on the instructions given her without having to get multiple voice cues to focus. Physical Exam Const alert, oriented x3 and no apparent distress General Appearance: cooperative, well kempt and well developed HEENT normocephalic Eyes PERRL, EOMs intact bilaterally, conjunctivae normal and no scleral icterus Resp Resp Narrative: persistent crackles in the bases......I suspect she may have fibrosis/ILD related to the RA? Will need PFT's with Pulmonary. Effort and Inspection: able to speak in complete sentences Cardio regular rate, regular rhythm and no gallops Cardio Narrative: Distant heart sounds.....may be due to body habitus. GI normal to inspection, nondistended, normoactive bowel sounds, soft to palpation and non-tender Extremity no calf tenderness General Extremity: edema bilateral (mild) lower extremity; Negative for clubbing or cyanosis Skin Rashes: no rashes Psych Psych Narrative: Pleasant, outgoing, appropriate, upbeat attitude. Making good eye contact. Activity / Motor Behavior: appropriate eye contact Speech: No pressured and other flight of ideas has improved since the Aredia was given Thought Process: flight of ideas Attention / Concentration: attention grossly impaired and concentration grossly impaired Assessment & Plan Assessment/Plan (1) Right basal ganglia embolic stroke: PLAN: Continue therapy. She is on Eliquis BID now and also ASA 81 mg daily. She is also on a Statin. Multifactorial and due to the combined effects of untreated sleep apnea due to non-compliance with CPAP, hypercalcemia, uncontrolled DM (2) Encephalopathy: PLAN: This is better with the decrease in the Gabapentin, discontinuation of the Mirapex and the dose of Aredia to decrease the calcium that she receive on 09/30/21. Her son has noticed this as well. (3) Hypercalcemia: PLAN: recheck later this week (4) Hyperparathyroidism: PLAN: Follow up with Dr. Stratton as an OP (5) RLS (restless legs syndrome): PLAN: no complaints (6) Non-compliant behavior: PLAN: I think this has more to do with encephalopathy than anything else. (7) KAROLINA (obstructive sleep apnea): PLAN: Denis will bring her CPAP unit it tonight or tomorrow. (8) Radicular pain of left lower extremity: PLAN: No complaints of this since admission......she is getting a reduced dose of Gabapentin but she is getting it TID and not missing doses. Will decrease the HS dose of Gabapentin and she how she does. The lower the effective dose the better it will be for her mentation. (9) Diabetes mellitus type 2, uncontrolled: PLAN: we are still needing to decrease the amount of insulin she has been getting. (10) Essential hypertension: PLAN: diltiazem increased to 180mg of CD once a day. Continue to monitor the BP with no additional changes to dosing in the next 4-5 days. (11) Hyperlipidemia: Visit Charges Inpatient E&M: 52791 Subs Hosp L2
[2021-10-02] MEDS: Insulin Lispro 100 UNIT/ML INSULN.PEN 18 UNIT SC (13:04)
[2021-10-02 14:59] VITALS: BMI 35.2
[2021-10-02 16:11] LABS: Bedside Glucose 155 mg/dL (74-106)
[2021-10-02] MEDS: Insulin Lispro 100 UNIT/ML INSULN.PEN 12 UNIT SC (17:16)
[2021-10-02 19:05] VITALS: BP 124/73; PULSE 74; RESP 18; TEMP 36.5; O2SAT 96
[2021-10-02 21:21] LABS: Bedside Glucose 154 mg/dL (74-106)
[2021-10-02 21:49] VITALS: PULSE 78
[2021-10-02] MEDS: Atorvastatin Calcium 40 MG Tablet PO (21:49)
[2021-10-02] MEDS: 0.9% Saline Lock 10 ML Syringe IV (21:58)
[2021-10-02] MEDS: Gabapentin 100 MG Capsule 200 MG PO (21:59)
[2021-10-02 22:00] VITALS: PULSE 74; RESP 17; O2SAT 96
[2021-10-02] MEDS: Insulin Glargine-YFGN 100 UNIT/ML Pen 50 UNIT SC (22:01)
[2021-10-02 22:40] VITALS: BMI 35.2
--- NOTE | 2021-10-02 23:18 | NURSING ---
22:20 RT set up Pt's CPAP at bedside. Distilled water added and mask fit ensured. RT asked Pt about mask fit and if replacement may be needed. Pt stated that she would give the mask a try that was with the CPAP from home. RT said that if needed, RT could try a replacement tomorrow night. CPAP is operating at this time
--- NOTE | 2021-10-03 01:01 | NURSING ---
RT in room to make adjustments to CPAP and mask to ensure compliance. Adjustments rectified noisiness and pt resting comfortably.
[2021-10-03] MEDS: Levothyroxine 100 MCG Tablet PO (06:39)
[2021-10-03] MEDS: Nystatin Powder 15gm Bottle 1 APPLIC TOPICAL ×2 (06:39→21:48)
[2021-10-03] MEDS: Menthol/Lanolin/Calamine/Znox 113 GM Tube 1 APPLIC TOPICAL ×2 (06:42→21:49)
[2021-10-03 07:00] LABS: Bedside Glucose 129 mg/dL (74-106)
[2021-10-03 07:42] VITALS: BP 142/86; PULSE 80; RESP 17; TEMP 35.7; O2SAT 98
[2021-10-03] MEDS: Gabapentin 100 MG Capsule PO ×2 (07:55→17:07)
[2021-10-03] MEDS: dilTIAZem CD 180 MG Capsule PO (07:55)
[2021-10-03] MEDS: Potassium Chloride Oral Tablet 20 MEQ PO (07:55)
[2021-10-03] MEDS: predniSONE 5 MG Tablet 7.5 MG PO (07:55)
[2021-10-03] MEDS: Magnesium Chloride 64 MG Delay Rel.Tablet 128 MG PO (07:56)
[2021-10-03] MEDS: Leflunomide 10 MG TABLET 20 MG PO (07:56)
[2021-10-03] MEDS: Pantoprazole Sodium 40 MG Tablet PO (07:56)
[2021-10-03] MEDS: Insulin Lispro 100 UNIT/ML INSULN.PEN 20 UNIT SC (07:56)
[2021-10-03] MEDS: Furosemide 40 MG Tablet PO (07:56)
[2021-10-03] MEDS: APIXABAN 5 MG TABLET PO ×2 (07:56→21:45)
[2021-10-03] MEDS: Aspirin E.C. 81 MG Tablet PO (07:56)
[2021-10-03 07:59] VITALS: BP 149/121; PULSE 69
[2021-10-03] MEDS: Metoprolol(XL)Succ 100 MG Tablet PO ×2 (07:59→21:47)
[2021-10-03] MEDS: Lisinopril 10 MG Tablet PO ×2 (08:01→21:48)
[2021-10-03 08:27] VITALS: BP 115/65; PULSE 70
[2021-10-03 08:50] VITALS: PULSE 80; RESP 18; O2SAT 98
--- NOTE | 2021-10-03 10:54 | NURSING ---
Left message for Dr. Newton's office to return call to schedule new pt appt within the next month per Dr. Cochran.
[2021-10-03] MEDS: Insulin Lispro 100 UNIT/ML INSULN.PEN 18 UNIT SC (12:10)
[2021-10-03 12:41] LABS: Bedside Glucose 97 mg/dL (74-106)
--- NOTE | 2021-10-03 13:52 | NURSING ---
Spoke with Helen with Dr. Newton's office, pt has appt for October 18 at 9am. Helen to fax new patient paperwork to Rehab.
[2021-10-03] MEDS: Arthritis Pain Compound 60 CLICK TUBE TOPICAL ×2 (13:53→21:45)
--- NOTE | 2021-10-03 14:11 | NURSING ---
Left message for Dr. Startton's office requesting appt.
[2021-10-03 16:45] LABS: Bedside Glucose 98 mg/dL (74-106)
[2021-10-03] MEDS: Insulin Lispro 100 UNIT/ML INSULN.PEN 12 UNIT SC (17:08)
[2021-10-03] MEDS: 0.9% Saline Lock 10 ML Syringe IV (17:09)
[2021-10-03 21:03] VITALS: BP 119/76; PULSE 73; RESP 16; TEMP 36.6; O2SAT 97
[2021-10-03] MEDS: Gabapentin 100 MG Capsule 200 MG PO (21:45)
[2021-10-03] MEDS: Insulin Glargine-YFGN 100 UNIT/ML Pen 50 UNIT SC (21:46)
[2021-10-03 21:47] VITALS: BP 119/76; PULSE 73
[2021-10-03] MEDS: Atorvastatin Calcium 40 MG Tablet PO (21:48)
[2021-10-03 21:50] LABS: Bedside Glucose 175 mg/dL (74-106)
[2021-10-04 02:54] VITALS: BMI 35.2
[2021-10-04] MEDS: Nystatin Powder 15gm Bottle 1 APPLIC TOPICAL ×2 (05:19→22:14)
[2021-10-04] MEDS: Levothyroxine 100 MCG Tablet PO (05:20)
[2021-10-04] MEDS: Arthritis Pain Compound 60 CLICK TUBE TOPICAL ×3 (05:20→22:12)
[2021-10-04] MEDS: 0.9% Saline Lock 10 ML Syringe IV ×3 (05:21→16:01)
[2021-10-04] MEDS: Menthol/Lanolin/Calamine/Znox 113 GM Tube 1 APPLIC TOPICAL ×2 (05:22→22:13)
[2021-10-04 06:00] LABS: Hematocrit 37.3 % (37-47)
[2021-10-04 06:30] LABS: Bedside Glucose 135 mg/dL (74-106)
[2021-10-04 06:59] LABS: Anion Gap 6 (5-15); BUN 35 mg/dL (7-18); Calcium,Total 9.9 mg/dL (8.5-10.1); Chloride 107 mmol/L (98-107); Glucose 132 mg/dL (74-106); Magnesium 1.8 mg/dL (1.6-2.6); Potassium 4.4 mmol/L (3.5-5.1); Sodium Level 136 mmol/L (136-145)
[2021-10-04 07:26] VITALS: BP 142/74; PULSE 71; RESP 20; TEMP 36; O2SAT 97
[2021-10-04] MEDS: Aspirin E.C. 81 MG Tablet PO (09:00)
[2021-10-04] MEDS: Insulin Lispro 100 UNIT/ML INSULN.PEN 20 UNIT SC (09:01)
[2021-10-04] MEDS: Potassium Chloride Oral Tablet 20 MEQ PO (09:02)
[2021-10-04] MEDS: Gabapentin 100 MG Capsule PO ×2 (09:03→17:55)
[2021-10-04] MEDS: predniSONE 5 MG Tablet 7.5 MG PO (09:04)
[2021-10-04] MEDS: dilTIAZem CD 180 MG Capsule PO (09:05)
[2021-10-04] MEDS: Furosemide 40 MG Tablet PO (09:05)
[2021-10-04] MEDS: APIXABAN 5 MG TABLET PO ×2 (09:05→22:13)
[2021-10-04] MEDS: Magnesium Chloride 64 MG Delay Rel.Tablet 128 MG PO (09:06)
[2021-10-04] MEDS: Leflunomide 10 MG TABLET 20 MG PO (09:06)
[2021-10-04 09:07] VITALS: PULSE 71
[2021-10-04] MEDS: Pantoprazole Sodium 40 MG Tablet PO (09:07)
[2021-10-04] MEDS: Metoprolol(XL)Succ 100 MG Tablet PO ×2 (09:07→22:25)
[2021-10-04] MEDS: Lisinopril 10 MG Tablet PO ×2 (09:07→22:14)
[2021-10-04] MEDS: HYDROcodone Bitartrate/Apap 5/325 Tablet PO (09:13)
[2021-10-04 11:16] LABS: Bedside Glucose 181 mg/dL (74-106)
[2021-10-04] MEDS: Insulin Lispro 100 UNIT/ML INSULN.PEN 18 UNIT SC (12:04)
[2021-10-04 13:26] LABS: Albumin, Serum 3.1 g/dL (3.2-5.0)
[2021-10-04 14:31] VITALS: BMI 35.2
[2021-10-04 15:34] LABS: BUN/Creat Ratio 15.1 RATIO (10-20); Creatinine, Serum 2.32 mg/dL (0.55-1.02); EST Glomerular Filtration Rate 22 mL/min (>60); Est Glom Filt Rate - Afr Amer 27 mL/min (>60); Estimated Creatinine Clearance 18.37 ml/min
[2021-10-04 17:16] LABS: Bedside Glucose 194 mg/dL (74-106)
[2021-10-04] MEDS: Insulin Lispro 100 UNIT/ML INSULN.PEN 12 UNIT SC (17:55)
[2021-10-04 22:00] VITALS: BP 121/71; PULSE 66; RESP 17; TEMP 36.2; O2SAT 95
[2021-10-04] MEDS: Gabapentin 100 MG Capsule 200 MG PO (22:10)
[2021-10-04] MEDS: Atorvastatin Calcium 40 MG Tablet PO (22:13)
[2021-10-04 22:25] VITALS: BP 121/71; PULSE 66
[2021-10-04] MEDS: Insulin Glargine-YFGN 100 UNIT/ML Pen 50 UNIT SC (22:26)
[2021-10-04 22:41] LABS: Bedside Glucose 200 mg/dL (74-106)
[2021-10-05] MEDS: 0.9% Saline Lock 10 ML Syringe IV ×2 (01:56→17:03)
[2021-10-05 02:21] VITALS: BMI 35.2
--- NOTE | 2021-10-05 05:21 | NURSING ---
Assisted Pt with CPAP at 2230. Pt wore most of night. CPAP was on at 0400 rounds. When SN checked on Pt at 0500- SN notes CPAP mask laying next to Pt in the bed. Pt woke up at this time and AM care was provided.
[2021-10-05] MEDS: Arthritis Pain Compound 60 CLICK TUBE TOPICAL ×3 (05:43→21:34)
[2021-10-05] MEDS: Nystatin Powder 15gm Bottle 1 APPLIC TOPICAL ×2 (05:44→21:35)
[2021-10-05] MEDS: Levothyroxine 100 MCG Tablet PO (05:44)
[2021-10-05] MEDS: Menthol/Lanolin/Calamine/Znox 113 GM Tube 1 APPLIC TOPICAL ×2 (05:45→21:34)
[2021-10-05 06:46] LABS: Bedside Glucose 137 mg/dL (74-106)
[2021-10-05 08:00] VITALS: BP 136/85; PULSE 88; RESP 19; TEMP 36.6; O2SAT 98
[2021-10-05] MEDS: Aspirin E.C. 81 MG Tablet PO (08:03)
[2021-10-05] MEDS: Potassium Chloride Oral Tablet 20 MEQ PO (08:03)
[2021-10-05] MEDS: APIXABAN 5 MG TABLET PO ×2 (08:03→21:35)
[2021-10-05] MEDS: Gabapentin 100 MG Capsule PO ×2 (08:03→16:56)
[2021-10-05] MEDS: Pantoprazole Sodium 40 MG Tablet PO (08:03)
[2021-10-05] MEDS: Magnesium Chloride 64 MG Delay Rel.Tablet 128 MG PO (08:03)
[2021-10-05 08:04] VITALS: PULSE 66
[2021-10-05] MEDS: Metoprolol(XL)Succ 100 MG Tablet PO ×2 (08:04→21:35)
[2021-10-05] MEDS: Lisinopril 10 MG Tablet PO ×2 (08:04→21:37)
[2021-10-05] MEDS: predniSONE 5 MG Tablet 7.5 MG PO (08:05)
[2021-10-05] MEDS: Furosemide 40 MG Tablet PO (08:07)
[2021-10-05] MEDS: Leflunomide 10 MG TABLET 20 MG PO (08:07)
[2021-10-05] MEDS: dilTIAZem CD 180 MG Capsule PO (08:07)
[2021-10-05] MEDS: Insulin Lispro 100 UNIT/ML INSULN.PEN 20 UNIT SC (08:12)
[2021-10-05] MEDS: Insulin Lispro 100 UNIT/ML INSULN.PEN 18 UNIT SC (12:42)
[2021-10-05 12:46] LABS: Bedside Glucose 132 mg/dL (74-106)
[2021-10-05 15:40] VITALS: BMI 35.2
[2021-10-05] MEDS: Insulin Lispro 100 UNIT/ML INSULN.PEN 12 UNIT SC (16:57)
[2021-10-05 17:11] LABS: Bedside Glucose 162 mg/dL (74-106)
[2021-10-05 21:21] VITALS: BP 140/66; PULSE 56; RESP 14; TEMP 36.6; O2SAT 95
[2021-10-05] MEDS: Gabapentin 100 MG Capsule 200 MG PO (21:31)
[2021-10-05 21:35] VITALS: BP 140/66; PULSE 76
[2021-10-05] MEDS: Atorvastatin Calcium 40 MG Tablet PO (21:35)
[2021-10-05] MEDS: Insulin Glargine-YFGN 100 UNIT/ML Pen 50 UNIT SC (21:48)
[2021-10-05 23:06] LABS: Bedside Glucose 173 mg/dL (74-106)
[2021-10-06 02:43] VITALS: BMI 35.2
--- NOTE | 2021-10-06 04:08 | NURSING ---
REVIEWED AND AGREE WITH STENCIL INSPECTOR' FUNCTIONAL ASSESSMENT AND HANDOFF CHARTING.
[2021-10-06] MEDS: Arthritis Pain Compound 60 CLICK TUBE TOPICAL ×2 (07:05→22:18)
[2021-10-06] MEDS: Menthol/Lanolin/Calamine/Znox 113 GM Tube 1 APPLIC TOPICAL ×2 (07:07→22:19)
[2021-10-06] MEDS: Nystatin Powder 15gm Bottle 1 APPLIC TOPICAL ×2 (07:07→22:21)
[2021-10-06] MEDS: Levothyroxine 100 MCG Tablet PO (07:08)
[2021-10-06] MEDS: 0.9% Saline Lock 10 ML Syringe IV ×2 (07:11→17:25)
[2021-10-06 07:21] LABS: Bedside Glucose 104 mg/dL (74-106)
[2021-10-06 07:38] VITALS: PULSE 66
[2021-10-06] MEDS: Lisinopril 10 MG Tablet PO ×2 (07:38→22:29)
[2021-10-06] MEDS: Gabapentin 100 MG Capsule PO ×2 (07:38→17:24)
[2021-10-06] MEDS: Metoprolol(XL)Succ 100 MG Tablet PO ×2 (07:38→22:22)
[2021-10-06] MEDS: Magnesium Chloride 64 MG Delay Rel.Tablet 128 MG PO (07:38)
[2021-10-06] MEDS: Aspirin E.C. 81 MG Tablet PO (07:38)
[2021-10-06] MEDS: Potassium Chloride Oral Tablet 20 MEQ PO (07:39)
[2021-10-06] MEDS: APIXABAN 5 MG TABLET PO ×2 (07:39→22:19)
[2021-10-06] MEDS: predniSONE 5 MG Tablet 7.5 MG PO (07:39)
[2021-10-06] MEDS: Furosemide 40 MG Tablet PO (07:39)
[2021-10-06] MEDS: Insulin Lispro 100 UNIT/ML INSULN.PEN 20 UNIT SC (07:42)
[2021-10-06] MEDS: Leflunomide 10 MG TABLET 20 MG PO (07:43)
[2021-10-06] MEDS: dilTIAZem CD 180 MG Capsule PO (07:43)
[2021-10-06] MEDS: Pantoprazole Sodium 40 MG Tablet PO (07:44)
[2021-10-06 08:30] VITALS: BP 137/83; PULSE 86; RESP 20; TEMP 36.1; O2SAT 97
[2021-10-06] MEDS: DULAGLUTIDE 1.5 MG/0.5 ML PEN.INJCTR SC (11:58)
[2021-10-06] MEDS: Insulin Lispro 100 UNIT/ML INSULN.PEN 18 UNIT SC (12:00)
[2021-10-06 12:06] LABS: Bedside Glucose 139 mg/dL (74-106)
[2021-10-06 15:08] VITALS: BMI 35.2
[2021-10-06 17:06] LABS: Bedside Glucose 173 mg/dL (74-106)
[2021-10-06] MEDS: Insulin Lispro 100 UNIT/ML INSULN.PEN 12 UNIT SC (17:24)
[2021-10-06 22:10] VITALS: BP 136/48; PULSE 65; RESP 14; TEMP 36.6; O2SAT 97
[2021-10-06] MEDS: Gabapentin 100 MG Capsule 200 MG PO (22:18)
[2021-10-06] MEDS: Atorvastatin Calcium 40 MG Tablet PO (22:21)
[2021-10-06 22:22] VITALS: BP 122/77; PULSE 60
[2021-10-06 22:50] LABS: Bedside Glucose 153 mg/dL (74-106)
[2021-10-06] MEDS: Insulin Glargine-YFGN 100 UNIT/ML Pen 50 UNIT SC ×2 (22:51→22:53)
[2021-10-07] MEDS: Arthritis Pain Compound 60 CLICK TUBE TOPICAL ×3 (06:22→21:33)
[2021-10-07] MEDS: Levothyroxine 100 MCG Tablet PO (06:22)
[2021-10-07] MEDS: Menthol/Lanolin/Calamine/Znox 113 GM Tube 1 APPLIC TOPICAL ×2 (06:22→21:34)
[2021-10-07] MEDS: Nystatin Powder 15gm Bottle 1 APPLIC TOPICAL ×2 (06:23→21:35)
[2021-10-07 06:25] LABS: Bedside Glucose 106 mg/dL (74-106)
[2021-10-07] MEDS: 0.9% Saline Lock 10 ML Syringe IV (06:26)
[2021-10-07 07:30] VITALS: BP 125/71; PULSE 83; RESP 20; TEMP 36.3; O2SAT 94
[2021-10-07] MEDS: Insulin Lispro 100 UNIT/ML INSULN.PEN 20 UNIT SC (07:51)
[2021-10-07] MEDS: Furosemide 40 MG Tablet PO (07:51)
[2021-10-07] MEDS: Gabapentin 100 MG Capsule PO ×2 (07:51→17:38)
[2021-10-07] MEDS: Magnesium Chloride 64 MG Delay Rel.Tablet 128 MG PO (07:51)
[2021-10-07] MEDS: Pantoprazole Sodium 40 MG Tablet PO (07:51)
[2021-10-07] MEDS: Aspirin E.C. 81 MG Tablet PO (07:51)
[2021-10-07] MEDS: dilTIAZem CD 180 MG Capsule PO (07:51)
[2021-10-07] MEDS: Lisinopril 10 MG Tablet PO ×2 (07:51→21:35)
[2021-10-07] MEDS: HYDROcodone Bitartrate/Apap 5/325 Tablet PO ×2 (07:52→15:15)
[2021-10-07 07:53] VITALS: PULSE 68
[2021-10-07] MEDS: Metoprolol(XL)Succ 100 MG Tablet PO ×2 (07:53→21:35)
[2021-10-07] MEDS: Potassium Chloride Oral Tablet 20 MEQ PO (07:53)
[2021-10-07] MEDS: APIXABAN 5 MG TABLET PO ×2 (07:53→21:33)
[2021-10-07] MEDS: predniSONE 5 MG Tablet 7.5 MG PO (07:54)
--- NOTE | 2021-10-07 10:20 | PN_ITS ---
Subjective Subjective Afebrile VSS Maintaining appropriate oxygen saturation on RA Oral intake is good Discussed with nursing - no problems that need addressed Reviewed the PT/OT/ST notes Medication list reviewed. Calcium was 10.7 when corrected for hypoalbuminemia on Thursday and she was given another dose of Aredia 30 mg. The creat was increased at 2.32 (up from 0.9 on the )? BUN was 35, up from 13 on the . She is on Furosemide. Prior to admission for the acute stroke she was on Entresto and now she is on Lisinopril BID and not Entresto. She was also on Torsemide and not Lasix prior to admission to the hospital. Sharon tells me she is sleeping well. Her appetite is good and she has had good oral intake. She is not complaining of pain today. She denies palpitations, lightheadedness, chest pain, shortness of breath, nausea/vomiting/abdominal pain. She is having regular bowel movements. She is still taking 7.5 mg of Prednisone daily. It was increased from 5 mg daily while she was on the acute side of the hospital due to increased stress from the stroke. Will need to start tapering this down to 5 mg daily again. She is still quite talkative but, not as easily distracted. She also tends to r epeat herself and can perseverate at times. Objective Data Objective Data Vital Signs: Vital Signs Temp Pulse Resp BP Pulse Ox 97.3 F L 68 20 H 125/71 H 94 10/07/21 07:30 10/07/21 07:53 10/07/21 07:30 10/07/21 07:30 10/07/21 07:30 Oxygen Delivery Method Room Air Weight: 211 lb 3.245 oz Body Mass Index (BMI) 35.2 Intake & Output: Intake and Output for Last 24 Hours 10/05/21 10/06/21 10/07/21 23:59 23:59 23:59 Intake Total 540 / 540 780 / 780 Balance 540 / 540 780 / 780 Lab / Micro Data Result Diagrams: 10/04/21 05:46 10/07/21 10:56 Labs: Laboratory Results - last 24 hr 10/06/21 12:02: POC Glucose 139 H 10/06/21 16:56: POC Glucose 173 H 10/06/21 22:14: POC Glucose 153 H 10/07/21 06:21: POC Glucose 106 Physical Exam Const alert, oriented x3 and no apparent distress General Appearance: cooperative HEENT normocephalic and moist oral mucous membranes Eyes PERRL and EOMs intact bilaterally Neck supple Cardio no gallops Cardio Narrative: Irreg with controlled VR GI normal to inspection, nondistended, normoactive bowel sounds, soft to palpation and non-tender Extremity no calf tenderness Skin General Skin Exam: no breakdown Wounds: Negative for wounds noted Neuro CN's II-XII intact bilaterally Neuro Narrative: Less drift with the LUE. Still with decreased sensation in the left leg.......this may be due to radiculopathy related to back problems.......she has not been c/o L thigh pain even with tapering the G abapentin dose. Psych denies suicidal ideation Appearance: appropriate Assessment & Plan Assessment/Plan (1) Right basal ganglia embolic stroke: (2) Acute renal failure: PLAN: Stat renal profile and an Albumin UA Hold the Lasix She could be dehydrated but, Aredia can also cause elevated serum creat. Perhaps the combination of the diuretics and the hypercalcemia has lead to the elevated serum CREAT due to increased diuresis? Start an IV of NS. (3) Hyperparathyroidism: (4) Hypercalcemia: (5) Diabetes mellitus type 2, uncontrolled: PLAN: Blood sugars are controlled with no hypoglycemia. Charges/Coding Visit Charges Inpatient E&M: 16468 Subs Hosp L2
[2021-10-07 11:21] LABS: Albumin, Serum 3.1 g/dL (3.2-5.0); BUN 29 mg/dL (7-18); BUN/Creat Ratio 30.8 RATIO (10-20); Chloride 108 mmol/L (98-107); Creatinine, Serum 0.94 mg/dL (0.55-1.02); EST Glomerular Filtration Rate 62 mL/min (>60); Est Glom Filt Rate - Afr Amer 75 mL/min (>60); Estimated Creatinine Clearance 45.34 ml/min; Glucose 121 mg/dL (74-106); Phosphorus 2.8 mg/dL (2.5-4.9); Potassium 4.6 mmol/L (3.5-5.1); Sodium Level 137 mmol/L (136-145)
[2021-10-07] MEDS: Leflunomide 10 MG TABLET 20 MG PO (11:37)
[2021-10-07 11:40] LABS: Bedside Glucose 101 mg/dL (74-106)
[2021-10-07 11:56] LABS: Albumin, Serum 3.1 g/dL (3.2-5.0)
[2021-10-07] MEDS: Insulin Lispro 100 UNIT/ML INSULN.PEN 18 UNIT SC (12:02)
[2021-10-07 13:06] VITALS: BMI 35.2
--- NOTE | 2021-10-07 14:22 | CASEMGMT ---
Social Work IDT met with patient for Team meeting. Discussed patient's progress in PT/OT/ST and nursing. Pt making progress. Per Medicare, pt will DC home 5 alone. However, son and family will be there to assist her and supervise with medications/finances. Pt does need any DME. Pt agreeable to C. Provided skilled HHC list with Medicare and quality resource data. Pt prefers [facility]. Referral made for PT/OT/ST/SN. Son to transport at [place]. Plan: DC home alone 10/09, [facility] PT/OT/ST/SN QUANG JoW
[2021-10-07 16:26] LABS: Bedside Glucose 139 mg/dL (74-106)
[2021-10-07] MEDS: Insulin Lispro 100 UNIT/ML INSULN.PEN 12 UNIT SC (17:38)
[2021-10-07 21:25] VITALS: BMI 35.2
[2021-10-07] MEDS: Gabapentin 100 MG Capsule 200 MG PO (21:33)
[2021-10-07] MEDS: Insulin Glargine-YFGN 100 UNIT/ML Pen 50 UNIT SC (21:34)
[2021-10-07 21:35] VITALS: PULSE 71
[2021-10-07] MEDS: Atorvastatin Calcium 40 MG Tablet PO (21:36)
[2021-10-07 22:11] LABS: Bedside Glucose 142 mg/dL (74-106)
[2021-10-07 22:31] VITALS: BP 106/52; PULSE 62; RESP 15; TEMP 36.5; O2SAT 98
--- NOTE | 2021-10-07 22:56 | NURSING ---
CPAP on at 2100.
[2021-10-08] MEDS: Arthritis Pain Compound 60 CLICK TUBE TOPICAL ×3 (06:00→20:53)
[2021-10-08] MEDS: Levothyroxine 100 MCG Tablet PO (06:00)
[2021-10-08] MEDS: Nystatin Powder 15gm Bottle 1 APPLIC TOPICAL ×2 (06:02→21:01)
[2021-10-08] MEDS: Menthol/Lanolin/Calamine/Znox 113 GM Tube 1 APPLIC TOPICAL ×2 (06:02→20:56)
[2021-10-08 06:51] LABS: Bedside Glucose 99 mg/dL (74-106)
[2021-10-08 07:33] VITALS: BP 134/93; PULSE 71; RESP 16; TEMP 35.9; O2SAT 95
[2021-10-08] MEDS: Insulin Lispro 100 UNIT/ML INSULN.PEN 20 UNIT SC (07:52)
[2021-10-08] MEDS: Potassium Chloride Oral Tablet 20 MEQ PO (07:53)
[2021-10-08] MEDS: predniSONE 5 MG Tablet 7.5 MG PO (07:53)
[2021-10-08] MEDS: Aspirin E.C. 81 MG Tablet PO (07:53)
[2021-10-08] MEDS: Gabapentin 100 MG Capsule PO ×2 (07:53→18:04)
[2021-10-08 07:54] VITALS: BP 134/93; PULSE 71
[2021-10-08] MEDS: dilTIAZem CD 180 MG Capsule PO (07:54)
[2021-10-08] MEDS: Leflunomide 10 MG TABLET 20 MG PO (07:54)
[2021-10-08] MEDS: APIXABAN 5 MG TABLET PO ×2 (07:54→20:55)
[2021-10-08] MEDS: Metoprolol(XL)Succ 100 MG Tablet PO ×2 (07:54→20:54)
[2021-10-08] MEDS: Lisinopril 10 MG Tablet PO ×2 (07:55→20:55)
[2021-10-08] MEDS: Magnesium Chloride 64 MG Delay Rel.Tablet 128 MG PO (07:55)
[2021-10-08] MEDS: Pantoprazole Sodium 40 MG Tablet PO (07:55)
[2021-10-08] MEDS: HYDROcodone Bitartrate/Apap 5/325 Tablet PO ×2 (08:03→20:54)
[2021-10-08 08:13] VITALS: O2SAT 97
[2021-10-08 09:35] VITALS: BMI 35.2
--- NOTE | 2021-10-08 11:21 | NURSING ---
receive a call form sleep lab. they suggest that the patient go home with current CPAP sating and f/u with pulmonary after dc
[2021-10-08 11:36] LABS: Bedside Glucose 99 mg/dL (74-106)
[2021-10-08] MEDS: Insulin Lispro 100 UNIT/ML INSULN.PEN 18 UNIT SC (12:59)
--- NOTE | 2021-10-08 15:38 | PCM.PN.BLA ---
Progress Note Afebrile VSS Maintaining appropriate oxygen saturation on RA Oral intake has picked up over the past 24H due to encouragement from nursing to increase fluid intake. Last BM was 10/05 Discussed with nursing - no problems that need addressed Reviewed the PT/OT/ST notes Medication list reviewed. Blood sugar record was reviewed. Blood sugar at at bedtime was 142 and the blood sugar this morning is 99. No hypoglycemia. Lab from yesterday was personally reviewed. The creat was 0.94? Lab error on the ? Serum bicarb is normal and the potassium is 4.6. BUN is still high at 29. I suspect this will be improving since she has had excellent fluid intake today and we held the Lasix. The urine ordered yesterday was never collected. No complaints today and she does not appear to be in any distress. She denies vaginal DC and vaginal itching and she also denies having a bad taste in her mouth. She is sleeping well. She continues to perseverate about her and even turned her phone off because he was calling every 30 minutes and causing her to be anxious and upset. He has PD and dementia and will likely not be coming home.......she would not be able to care for him at home and she does not want to try. He needs to stay in an ECF. Physical Exam Const alert, oriented x3 and no apparent distress General Appearance: cooperative, comfortable and well kempt Resp clear to auscultation bilaterally Cardio Cardio Narrative: Regular today. Was in AF yesterday. Rate is controlled when she is in AF with diltiazem and Metoprolol. BP is better with the increase in the Diltiazem dose. GI normal to inspection, nondistended, normoactive bowel sounds, soft to palpation and non-tender GI Narrative: no guarding with palaption. Extremity Extremity Narrative: TAMMIE wraps are in place. She has no calf tenderness and the swelling in the feet is minimal.....and there is no pitting. Skin General Skin Exam: no breakdown Rashes: no rashes Assessment & Plan Assessment/Plan (1) Right basal ganglia embolic stroke: PLAN: Plan to DC home tomorrow and family is going to provide 24/7 supervision. They will monitor her when she fills her pill boxes and make sure that she is taking her medications properly. she was not taking Eliquis BID and this is the likely cause of the recent embolic CVA. Will have [facility] for PT/OT/ST/SN. No DME needed at DC. (2) Physical debility: PLAN: She has become much stronger since she has been in rehab and cognitive function has improved. The calcium was still high at 10.7 when corrected for hypoalbuminemia yesterday despite having a total of 60 mg of Aredia IV while in rehab, a low calcium diet and Lasix. (3) Encephalopathy: PLAN: Better but, I suspect she will get even better when the calcium is better controlled........she was dehydrated yesterday with a Increased BUN/CREAT ratio and this is likely contributing to the persistent increase in the calcium. (4) Hypercalcemia: PLAN: recheck a calcium and an albumin in the AM since she will be better hydrated. (5) Hyperparathyroidism: PLAN: She is going to follow up with Dr. Stratton for this post DC. (6) Steroid dependence: PLAN: Start to taper the Prednisone. Decrease the dose to 5 mg in the AM and 1 mg at [address] Stratton can taper back down to 5 mg daily as an OP. She is not wearing a medic alert bracelet and she should be since she is steroid dependent. (7) Rheumatoid arthritis: QUALIFIERS: Rheumatoid arthritis location: multiple sites Rheumatoid factor presence: with rheumatoid factor Qualified Code(s): M05.79 - Rheumatoid arthritis with rheumatoid factor of multiple sites without organ or systems involvement PLAN: Follow up with Dr. Chavez as previously arranged. (8) KAROLINA (obstructive sleep apnea): PLAN: She has been compliant with the CPAP since her son brought it in and will have her continue to wear at home. We never received any records from her PCP and the sleep lab could not locate the results of a previous test so will have her follow up with pulmonary as an OP. I stressed to her son Denis that the CPAP is essential if her mentation is to be good. (9) Radicular pain of left lower extremity: PLAN: The Gabapentin dose was tapered during her stay in rehab because of the encephalopathy and she has not c/o Left anterior thigh pain even once. I would consider tapering this more post DC........she may only need it at bedtime. (10) Diabetes mellitus type 2, uncontrolled: QUALIFIERS: Glycemic state: with hyperglycemia Qualified Code(s): E11.65 - Type 2 diabetes mellitus with hyperglycemia PLAN: Very well controlled now on a diabetic diet and less insulin than she was taking at admission. The FBS was 99 today and I would prefer to avoid BS's < 100 due to risk for hypoglycemia but, I suspect she is not going to be as good with her diet at home and so I am not going to decrease the insulin any further since she is being discharged tomorrow. (11) Non-ischemic cardiomyopathy: PLAN: May need to cut back on the lasix to Q 48H to prevent dehydration for now because that will tend to keep the calcium higher but, What would be ideal is if she commits to 2 liters of fluid a day and takes the Lasix daily since it increases calcium excretion in the urine......will need to discuss this with her son tomorrow. she will take the large mug with her home and she will need to finish at least 1 a day. Will also encourage daily weights since she has a reduced EF. (12) Longstanding persistent atrial fibrillation: PLAN: Continue the current dose of diltiazem and metoprolol. 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 Montes as an OP. the last PET scan was negative for active disease. Visit Charges Inpatient E&M: 05923 Subs Hosp L2
--- NOTE | 2021-10-08 16:27 | DCINST_ITS ---
Discharge Instructions Diet Discharge Diet: - (1600 calorie carb consistent diet with low salt and low fat. MUST drink at least 2 liters of a non-caffeine containing liquid daily.) Activity Discharge Activity: May Not Drive, May Shower and Use Walker Weight Bearing Status: Full weight bearing Lifting Restrictions: 5 - 10 lbs Keep extremity elevated above heart level: Legs Additional Activity Instructions:: Weigh yourself every morning after urinating and keep a record of the weights. If your weight increases by 5 lbs or more in 1 week call your doctor for instructions because you are probably retaining fluid. Dressing / Incision Call your doctor if you observe: Fever of 101 or Higher, Shortness of breath, Dizziness, Fainting spells, Chest pain, Uncontrolled pain and - (If your weight increases by 5 lbs or more in 1 week. If you have shortness of breath when lying flat in bed. ) Follow Up Care Please Follow Up With: Grayson Newton MD When: An appt was made for her prior to DC to see Dr. Newton. She will also follow up with Dr. Stratton for treatment of hyperparathyroidism. She will also need to follow up with cardiology and pulmonary medicine. The stroke was due to non-compliance with medications and it was small so may not need follow up with neurology. Will discuss with her family. Test Results: Test results from this visit will be discussed in further detail at your follow-up appointment, if applicable. Pending Tests Upon Discharge: none Discharge Plan Admission Admit Date/Time: 09/25/21 14:00 Primary Reason for Your Visit: Post stroke debility. Attending Provider: Cynthia Cochran Primary Care Provider: Susanna Heath Instructions Patient Instructions: Hypercalcemia Dc, MyPlate Worksheet: 1,600 Calories, ED Sleep Apnea, Obstructive Additional Instructions / Restrictions: 1. It is very important to wear the CPAP every night so that you are getting good sleep. If you don't wear the CPAP then your brain will wake you up frequently just enough to take a deep breath. You often will not even be aware of this. this is no restful sleep and it will cause sleep deprivation which leads to confusion, depression, atrial fibrillation, strokes, loss of memory and so forth. Wear the CPAP. I recommend you follow up with the pulmonary dept at the hospital here to make sure your on on an appropriate pressure to keep your airways from obstructing while you are sleeping. 2. You have a problem with the parathyroid glands. they are located in your neck and there are 4 of them. The parathyroid glands control calcium metabolism. Your parathyroid glands are overactive and this is causing your calcium in your blood to be elevated which can cause confusion, reflux, osteoporosis and even kidney stones. Currently you are on a low calcium diet and you will need to continue this when you go home. Drinking a lot of water helps to flush the calcium out of your body. Lasix helps this BUT you must drink enough fluid to keep yourself from getting dehydrated. this could be hard to manage for you since you also have a weak heart. You should weigh yourself every morning after using the bathroom with no clothes on and keep a record. If your weight goes up by 5 lbs or more in 1 week then you are likely retaining fluid and you should call your doctor for instructions on what to do. If your weight is going down by 5 lbs or more in a week or your urine is dark yellow or orange then you are getting dehydrated and you should skip 1 days of Lasix and increase your water intake. You will be seeing Dr. Stratton, who is an nuclear weapons specialist (she specializes in diabetes and other gland problems) and she will treat you for the hyperparathyroidism. 3. I think it is always a good idea to follow up with 1 institution if possible for all your health problems. We have scheduled an appt with the cardiology group at the hospital here to manage your AFIB and the weak heart. You will still need to follow up with Dr. Chavez for the arthritis. You are a very complicated lady with many health issues and you need a captain of the ship to coordinate care between all the doctors you see. We have made you an appt to follow up with Dr. Newton as your PCP in the future. this way all your phys icians will have access to your records and be up to speed on your history if you ever have to come to the hospital again. 4. You are NOT physically able to care for your . It is very unfor tunate that he has dementia but, Alzheimer's is a progressive disease and things are not going to get better for him. He is where he should be to get the care he needs. You can visit but, you will never be able to care for him at home again. It is what is best for you and him at this time in your lives. 5. Buy a good digital scale......the numbers are big and easier to read. 6. Exercise helps to decrease calcium. When you are sedentary the calcium increases. Exercise keeps you more functional and helps to maintain independence. It helps to decrease the risk for strokes and heart disease also. USE IT OR LOSE IT MARTI! 7. You were on medications you do not need to be taking. Too many meds leads to drug interactions and adverse side effects. 1 multivitamin a day is all you need. You do not have to take over the counter supplements......just eat a healthy diet. I decreased the dose of the Gabapentin because it causes brain fog and leads to falls. You have not complained about left thigh pain since we decreased the dose.....you may only need it at night. Dr. Newton will probably taper some more of the medications going forward. You also do not need to take Mirapex or ropinirole for restless leg. Gabapentin treats restless leg and restless leg is also caused by sleep apnea so wearing the CPAP has helped. You and your family should go through ALL of the medications you have a home and get rid of the medications you are no longer taking.......that way you will not take them by mistake. Get some pill boxes and you fill them......have your family watch you. Remember to check your work and always pay attention to what you are doing. Don't be talking while you are trying to do this. You need to focus on the task at hand. We encourage you to do as much for yourself as you can so you stay functional and independent. 8. It has been a pleasure meeting you and we all appreciated your great attitude and daily smiles. Take care of yourself. you have a very supportive family....let them help you with your meds and appts. If you or your family has any questions after you leave please call me. Office: [phone] or [phone] Discharge Orders/Prescriptions Prescriptions: New insulin lispro [Humalog KwikPen Insulin] 100 unit/mL Insulin Pen See Rx Instructions .ROUTE .COMPLEX Qty: 15 RF: 0 insulin glargine-yfgn 100 unit/mL (3 mL) Insulin Pen 50 unit subcut QHS Qty: 15 RF: 0 levothyroxine 100 mcg Tablet 100 mcg PO DAILY@0600 Qty: 30 RF: 0 prednisone 5 mg tablet 5 mg PO DAILY Qty: 30 RF: 0 prednisone 1 mg tablet 1 mg PO DAILY Qty: 30 RF: 0 Arthritis Pain Compound 2 click topical TID Qty: 0 RF: 0 gabapentin 100 mg Capsule See Rx Instructions .ROUTE .COMPLEX Qty: 120 RF: 0 potassium chloride [Klor-Con M20] 20 mEq Tablet,Er Particles/Crystals 20 meq PO DAILYCM Qty: 30 RF: 0 Mag 64 64 mg Tablet,Delayed Release (Dr/Ec) 128 mg PO DAILY Qty: 60 RF: 0 diltiazem HCl 120 mg capsule,extended release 24hr 120 mg PO BID Qty: 60 RF: 0 Continued acetaminophen 325 mg tablet 650 mg PO Q6H PRN (Reason: Pain) RF: 0 pantoprazole 40 mg tablet,delayed release (DR/EC) 40 mg PO DAILY RF: 0 albuterol sulfate 90 mcg/actuation HFA aerosol inhaler 2 puff inhalation .QID PRN (Reason: Shortness Of Breath) RF: 0 dulaglutide 1.5 mg/0.5 mL pen injector 1.5 mg subcut QWEEK RF: 0 aspirin 81 MG tablet,delayed release (DR/EC) 81 mg PO DAILY RF: 0 atorvastatin 40 MG tablet 40 mg PO QHS RF: 0 leflunomide 10 mg tablet 20 mg PO DAILY RF: 0 lisinopril 10 mg Tablet 10 mg PO BID RF: 0 hydrocodone-acetaminophen 5-325 mg tablet 1 tab PO Q6H PRN PRN (Reason: Pain) 7 Days Qty: 28 RF: 0 metoprolol succinate 100 mg tablet extended release 24 hr 100 mg PO BID Qty: 60 RF: 0 apixaban 5 MG tablet 5 mg PO BID Qty: 60 RF: 0 Discontinued diltiazem HCl 120 mg capsule,extended release 24hr 120 mg PO DAILY RF: 0 levothyroxine 100 mcg tablet 100 mcg PO .COMPLEX RF: 0 melatonin 3 mg tablet 3 mg PO HS RF: 0 torsemide 20 mg tablet 20 mg PO DAILY RF: 0 ropinirole 0.5 MG tablet 0.5 mg PO DAILY RF: 0 loratadine 10 MG tablet 10 mg PO DAILY RF: 0 vitamin E 400 UNIT capsule 400 unit PO DAILY RF: 0 insulin aspart U-100 100 unit/mL (3 mL) insulin pen 20 unit subcut TIDCM RF: 0 prednisone 5 mg tablet 7.5 mg PO DAILY RF: 0 cyanocobalamin (vitamin B-12) 1,000 mcg Tablet 1,000 mcg PO DAILY RF: 0 gabapentin 300 mg Capsule 300 mg PO TID RF: 0 coenzyme Q10 [CoQ-10] 100 mg Capsule 100 mg PO DAILY RF: 0 zinc 50 mg Tablet 50 mg PO DAILY RF: 0 No Action insulin degludec 200 unit/mL (3 mL) insulin pen 68 unit subcut QHS RF: 0 Other Ambulatory Orders: Renal Profile (Routine) Timeframe: 1 Week Facility: [facility] - Location: Laboratory Ordered By: Dr. Cynthia Cochran Referrals / Follow Up: Mathieu Way MD [STAFF PHYSICIAN] - Gage Middleton MD [STAFF PHYSICIAN] - 01/23/22 9:30 am Grayson Newton MD [STAFF PHYSICIAN] - 10/18/21 9:00 am Kamlesh Stratton MD [STAFF PHYSICIAN] - 10/15/21 1:00 pm Disposition Disposition (needs filled in before D/C Order can be placed): Home Health Service
[2021-10-08 17:30] LABS: Bedside Glucose 76 mg/dL (74-106)
--- NOTE | 2021-10-08 17:50 | EX.DISCHREH ---
Providers Date of Admission: 09/25/21 Date of Discharge: 10/09/21 Primary Care Physician: Dr. Grayson Newton (new PCP) has appt for 10/18/21. Reason For Visit: STROKE Diagnosis Discharge Diagnosis (1) Right basal ganglia embolic stroke: Status: Acute Code(s): I63.9 - Cerebral infarction, unspecified (2) Physical debility: Status: Acute Code(s): R53.81 - Other malaise (3) Encephalopathy: Status: Resolved Code(s): G93.40 - Encephalopathy, unspecified (4) Hypercalcemia: Status: Acute Code(s): E83.52 - Hypercalcemia (5) Hyperparathyroidism: Status: Acute Code(s): E21.3 - Hyperparathyroidism, unspecified (6) Steroid dependence: Status: Acute Code(s): F19.20 - Other psychoactive substance dependence, uncomplicated (7) Rheumatoid arthritis: Status: Acute Code(s): M06.9 - Rheumatoid arthritis, unspecified Qualifiers: Rheumatoid arthritis location: multiple sites Rheumatoid factor presence: with rheumatoid factor Qualified Code(s): M05.79 - Rheumatoid arthritis with rheumatoid factor of multiple sites without organ or systems involvement (8) KAROLINA (obstructive sleep apnea): Status: Chronic Code(s): G47.33 - Obstructive sleep apnea (adult) (pediatric) (9) Radicular pain of left lower extremity: Status: Acute Code(s): M54.10 - Radiculopathy, site unspecified (10) Diabetes mellitus type 2, uncontrolled: Status: Acute Qualifiers: Glycemic state: with hyperglycemia Qualified Code(s): E11.65 - Type 2 diabetes mellitus with hyperglycemia (11) Non-ischemic cardiomyopathy: Status: Chronic Code(s): I42.8 - Other cardiomyopathies (12) Longstanding persistent atrial fibrillation: Status: Chronic Code(s): I48.11 - Longstanding persistent atrial fibrillation (13) Essential hypertension: Status: Acute Code(s): I10 - Essential (primary) hypertension (14) Smoldering multiple myeloma (SMM): Status: Chronic Code(s): C90.00 - Multiple myeloma not having achieved remission Plan: 1. Home with [facility] for PT/OT/ST/SN 2. Follow up with Dr. Newton to establish care 3. Follow up with pulmonary medicine for KAROLINA 4. Follow up with Dr. Gage Middleton to establish care for non-ischemic CM, persistent AF, hx of MV replacement 5. Follow up with Dr. Kamlesh Stratton for Hyperparathyroidism and DM II 6. renal profile in 1 week 7. Follow up with Dr. Sotelo for smoldering MM as previously instructed 8. No DME needed at DC 9. family will provide 29/12 supervision at home Medications at Discharge Home Medications aspirin 81 mg PO DAILY 05/24/19 atorvastatin 40 mg PO QHS 06/22/19 acetaminophen 325 mg tablet 650 mg PO Q6H PRN tab 09/04/21 albuterol sulfate 90 mcg/actuation aerosol inhaler 2 puff INHALATION .QID PRN g 09/04/21 dulaglutide 1.5 mg/0.5 mL subcutaneous pen injector 1.5 mg SUBCUT QWEEK 09/04/21 leflunomide 10 mg tablet 20 mg PO DAILY tab 09/04/21 pantoprazole 40 mg tablet,delayed release 40 mg PO DAILY 09/04/21 lisinopril 10 mg PO BID 09/21/21 Arthritis Pain Compound 2 click TOPICAL TID #0 10/08/21 diltiazem HCl 120 mg PO BID #60 cap 10/09/21 furosemide [Lasix] 40 mg PO DAILY #30 tab 10/09/21 gabapentin See Rx Instructions .ROUTE .COMPLEX #120 cap 10/09/21 hydrocodone-acetaminophen 1 tab PO Q6H PRN 7 Days #28 tab 10/09/21 insulin aspart U-100 [Novolog Flexpen U-100 Insulin] See Rx Instructions .ROUTE .COMPLEX #18 ml 10/09/21 insulin degludec 50 unit SUBCUT QHS #15 ml 10/09/21 levothyroxine [Synthroid] 100 mcg PO DAILY #30 tab 10/09/21 magnesium chloride [Mag 64] 128 mg PO DAILY #60 tab 10/09/21 potassium chloride 20 meq PO BID #60 tab 10/09/21 prednisone 1 mg PO DAILY #14 tab 10/09/21 prednisone 5 mg PO DAILY #30 tab 10/09/21 Hospital Course Operations None Procedures 2-D Echocardiogram (09/22/21Interpretation Summary Mild global left ventricular systolic dysfunction. The estimated ejection fraction is 40 %. The left atrium is moderately enlarged. The right atrium is mildly enlarged. Stable appearing bioprosthetic mitral valve apparatus. 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 Noncontrast CT brain showed no findings of an acute ischemic infarction and no intracranial hemorrhage. CTA of the head and showed no large vessel occlusion or intracranial aneurysm. There were enlarged lymph nodes in the mediastinum. Significant lab included an elevated calcium of 10.8 when corrected for hypoalbuminemia. Hemoglobin A1c was 10.2. She was admitted to the hospitalist service with a Dx of acute ischemic CVA. She was not a candidate for TPA due to chronic anticoagulation and she was outside the window. Echocardiogram showed global left ventricular systolic dysfunction with an estimated EF of 40%. The left atrium was moderately enlarged and the right atrium was mildly enlarged. The bubble contrast study was negative for right to left interatrial shunt. She has a bioprosthetic mitral valve and it appeared stable. The PA systolic was estimated at 34. MRI showed an acute 1 cm infarct in the right parietal subcortical white matter. She was seen by PT/OT/ST while in the hospital and acute inpatient rehab was recommended. She was transferred to the acute inpt rehab unit at [facility] on 09/25/21 for 3 hours of therapy daily to restore function/independence at or near her prior level of function. When she first presented to rehab she had flight of ideas, poor attention, inability to focus and stay on task. There were many reasons for this including but not limited to dehydration, polypharmacy, CVA, hypercalcemia and non-compliance with CPAP with sleep deprivation. She had a CPAP machine at home but, could not recall when or where she had her last sleep study. It turns out she has purchased her last 2 CPAP machines from friends second hand and she does not know what her pressure should be. Because of the aforementioned problems she had not been taking her medications properly and admitted to missing doses of he medications. She was non-compliant with diet and although she had been told in the past to decrease her consumption of calcium containing foods and beverages she was not doing this. Old charts were reviewed and she has had a high PTH in the past. We repeated a PTH and it is still elevated at 143.6. She also has hypothyroidism and the levothyroxine is appropriately dose......if she is taking what is ordered. She was placed on a low calcium diet and the beaming machine operator instructed her in a low calcium diet. She received a total of 60 mg IV of Aredia while in rehab and on the discharge the calcium corrected for hypoalbuminemia was 10.1 which is the highest normal. She is chronically on Lasix for a reduced EF and hx of CHF. It is difficult finding a balance between hydrating her to keep the calcium low and yet keep her out of heart failure. She is going to follow up with Dr. Stratton to address the hyperparathyroidism. Her last PET scan in late 2020 was negative for any active multiple myeloma so this is not the cause of the high calciums at this time. She was on both Gabapentin and ropinirole for restless leg syndrome at admission to rehab. In an attempt to de-escalate her drug regimen ropinirole was discontinued. Gabapentin was changed from 300 mg 3 times daily to 200 mg at bedtime and 100 mg twice daily. Melatonin was discontinued. She is sleeping fine and has not complained of restless legs or radicular pain in her left thigh since admission to rehab. Many of the OTC supplements were discontinued and the medications now are pretty much all essential. While she was on the acute side of the hospital post stroke her daily dose of prednisone was increased from 5 mg to 7.5 mg. Prior to discharge we have decreased the dose to 6 mg daily for the next 2 weeks and then she will go back to 5 mg daily. She was non-compliant with a carb controlled diet as an OP and the HGBA1C at admission was 10.2. We have had to decrease her insulin doses while she has been in rehab on a 1600 calorie carb consistent diet with low salt and low fat. The beaming machine operator instructed her once again on foods to avoid. Marti did well in rehab and is doing much better than at admission. Since the calcium is now controlled and she is hydrated and some of the sedating medications have been discontinued or reduced she is able to focus better and no longer has flight of ideas. Her son noticed a significant difference in her ability to attend when he was speaking to her. she is still verbose but she stays on the same topic. She perseverates on her who has PD and dementia and is currently in an [facility] dementia kimbrough. He wants to go home and she is unable to care for him. At the time of discharge she could do 6 sit to stands in 30 seconds with no assistance. She has done 5 steps of various heights with 2 handrails and 1 curb step using a front wheeled walker at standby assist/contact-guard assist. She has ambulated up to 125 feet with a front wheel walker at standby assist. She is independent with eating, grooming and upper body dressing. She is standby assist for lower body dressing, bathing and tub and shower transfer. She has participated in 2 weeks of skilled speech therapy intervention targeting executive functions including attention and med management. She is progressing toward her goals but is not quite there yet. She is requiring less cues to redirect her to the task at hand. ST recommended family supervision of medications and assistance for management of household finances upon discharge. I was able to meet with her son Denis and his and Denis has been doing the finances and paying the bills for some time now. Family came in for training to learn how best to assist Marti at home and they understand that she needs / supervision and they are agree to provide this supervision. Marti was discharged from in rehab on 10/09/21 and will have [facility] for PT/OT/ST/SN. Marti has decided that the best thing for her to do at this point is to have all her physicians in [place] and use [facility] if she needs to be admitted to the hospital again. She feels this will give her better continuity of care. She is going to follow up with Dr. Newton for primary care, Dr. Stratton for endocrinology, Dr. Dockery to continue follow up for ongoing surveillance for smoldering MM, Dr. Middleton for AF and CM management and she was referred to Dr. Way from pulmonary medicine to address the appropriate tx for KAROLINA. She will consult with Dr. Newton about a REFERRAL to surgery for removal of a Lipoma on the L proximal forearm/elbow. She will need a DEXA to evaluate for osteoporosis. She tells me she has never had a bone density study and she is on chronic steroids and has hyperparathyroidism. She will also need to get a medical alert bracelet stating that she is steroid dependent. Physical Exam Const alert, oriented x3 and no apparent distress Constitutional Narrative: Flight of ideas has resolved but, she is still verbose and repeats herself from day to day. Better able to stay on task but, she needs voice cues at times to pay attention and to check her work. General Appearance: cooperative, comfortable, well kempt and well developed Orientation / Consciousness: oriented to person, oriented to place and oriented to time HEENT normocephalic, head/scalp atraumatic, moist oral mucous membranes and oropharynx normal Head and Scalp: normocephalic and atraumatic Mouth: tongue normal Eyes PERRL, EOMs intact bilaterally, conjunctivae normal and no scleral icterus General Eye: normal appearance of both eyes Neck supple, No nodes and no carotid bruits General: trachea midline; Negative for lymphadenopathy Lymph Lymphatic: no lymphedema noted Chest Chest Narrative: Pendulous breasts. She has a triangular shaped mass in the upper left chest adjacent to the manubrium that she tells me is the xiphoid? She says it broke off and migrated to that spot and has stayed there? Resp normal respiratory effort, normal air movement and clear to auscultation bilaterally Resp Narrative: Diminished, servando in the bases, and this is likely due to body habitus. Effort and Inspection: able to speak in complete sentences Cardio regular rate, regular rhythm, S1 normal heart sound, S2 normal heart sound, no murmurs, no rub and no gallops Cardio Narrative: Regular today. Was in AF yesterday. Rate is controlled when she is in AF with diltiazem and Metoprolol. BP is better with the increase in the Diltiazem dose but is still above goal in the AM and she has had no hypotension or bradycardia. Ciltiazem CD was changed from 180 daily to 120 mg BID at DC to better control the AM BP without end of dose failure. GI normal to inspection, nondistended, normoactive bowel sounds, soft to palpation and non-tender GI Narrative: no guarding with palaption. Back/Spine Back/Spine Narrative: localized tenderness to palpation along the R iliac crest. No erythema, no openings in the skin, no masses and no swelling. General Back: Negative for CVA tenderness Extremity no calf tenderness Extremity Narrative: TAMMIE wraps are in place. She has no calf tenderness and the swelling in the feet is minimal.....and there is no pitting. General Extremity: edema bilateral (mild and non-pitting) lower extremity; Negative for clubbing or cyanosis Skin no wounds Skin Narrative: Lipoma of the L arm just distal to the elbow on the extensor surface. General Skin Exam: no breakdown Rashes: no rashes Wounds: Negative for wounds noted Neuro oriented x3 and CN's II-XII intact bilaterally Neuro Narrative: No drift of the RUE at this time. Still with decreased sensation in the left leg.......this may be due to radiculopathy related to back problems.......she has not been c/o L thigh pain even with tapering the Gabapentin dose. The shoulder limits motion of the L shoulder and this is unchanged since admission. No drift with either leg. No ataxia. No dysarthria. trace of R facial droop. Psych cooperative, affect normal, activity/motor behavior normal and denies suicidal ideation Psych Narrative: Pleasant, outgoing, appropriate, upbeat attitude. Making good eye contact. Appearance: grossly normal and appropriate Attitude: calm Activity / Motor Behavior: appropriate eye contact Speech: normal speech, excessive, No pressured, No slurred and other flight of ideas has improved since the Aredia was given Mood & Affect: euthymic mood and euphoric; Negative for tearful Thought Process: perseverating Thought Content: No suicidality, No homicidality, No delusion(s), No hallucination(s) and No depersonalization Attention / Concentration: other Memory is impaired somewhat and she repeats her stories about her multiple times a day everyday, this may be because this is making her anxious. At one point she even turned off her cell phone so he could not call her. She is actually pretty good with memory when she is able to pay attention and focus. Memory / Cognition: cognition impaired Insight: limited Judgement: limited Weight / BMI Weight Weight: 216 lb 4.375 oz Body Mass Index (BMI) 35.2 ABG / Lab / Microbiology Data Result Diagrams: 10/04/21 05:46 10/09/21 05:34 Laboratory: Laboratory Results - last 24 hr 10/07/21 21:30: POC Glucose 142 H 10/08/21 06:34: POC Glucose 99 10/08/21 11:31: POC Glucose 99 10/08/21 17:07: POC Glucose 76 Indicators for Scoring Admitted with or Primary Diagnosis of CVA/Stroke: Yes Hx of CVA/Stroke: Yes Modified Dundee Score MRS Score at time of Evaluation: 3-Moderate disability NIHSS NIHSS 1a. Level of Consciousness: Alert; keenly responsive 1b. LOC Questions: Answers BOTH questions correctly. 1c. LOC Commands: Performs both tasks correctly. 2. Best Gaze: Normal 3. Visual: No visual loss 4. Facial Palsy: Normal symmetrical movements 5a. Left Arm: Drift; arm drifts downward but doesn?t hit the bed (This is due to the frozen shoulder and not the stroke) 5b. Right Arm: No drift; arm holds 90 (or 45) degrees for full 10 seconds 6a. Left Leg: No drift; leg holds 30-degree position for full 5 seconds 6b. Right Leg: No drift; leg holds 30-degree position for full 5 seconds 7. Limb Ataxia: Absent 8. Sensory: [id number] sensory loss; (left leg....may be due to radiculopathy from prior back surgery and this is not due to the recent stroke) 9. Best Language: No aphasia; normal 10. Dysarthria: Normal 11. Extinction and Inattention: No abnormality Total: 2 Stroke Questions Stroke Team Activated: No D/C Instructions Discharge Diet: - (1600 calorie carb consistent diet with low salt and low fat. MUST drink at least 2 liters of a non-caffeine containing liquid daily.) Weight Bearing Status: Full weight bearing Keep extremity elevated above heart level: Legs Additional Activity Instructions: Weigh yourself every morning after urinating and keep a record of the weights. If your weight increases by 5 lbs or more in 1 week call your doctor for instructions because you are probably retaining fluid. Call your doctor if you observe: Fever of 101 or Higher, Shortness of breath, Dizziness, Fainting spells, Chest pain, Uncontrolled pain and - (If your weight increases by 5 lbs or more in 1 week. If you have shortness of breath when lying flat in bed. ) Pending Tests Upon Discharge: none Please Follow Up With: Grayson Newton MD When: An appt was made for her prior to DC to see Dr. Newton. She will also follow up with Dr. Stratton for treatment of hyperparathyroidism. She will also need to follow up with cardiology and pulmonary medicine. The stroke was due to non-compliance with medications and it was small so may not need follow up with neurology. Will discuss with her family. Meaningful Use Info Meaningful Use Diagnoses (Choose all that apply): Ischemic CVA (embolic due to AF and non-compliance with Eliquis dosing) CVA Therapy Assessed for PT,OT and/or ST?: Yes Ischemic Stroke Antithrombotic order at d/c?: Yes Dx of Atrial fib/flutter?: Yes Anticoagulant at discharge?: Yes Statins at discharge?: Yes Primary Dx Acute Ischemic CVA?: Yes IV tPA ordered during stay?: No Reason IV t-PA not ordered: Treatment not Indicated (she was in rehab after the stroke was completed) Discharge Plan Admission Admit Date/Time: 09/25/21 14:00 Primary Reason for Your Visit: Post stroke debility. Attending Provider: Cynthia Cochran Primary Care Provider: Susanna Heath Instructions Patient Instructions: Hypercalcemia Dc, MyPlate Worksheet: 1,600 Calories, ED Sleep Apnea, Obstructive Additional Instructions / Restrictions: 1. It is very important to wear the CPAP every night so that you are getting good sleep. If you don't wear the CPAP then your brain will wake you up frequently just enough to take a deep breath. You often will not even be aware of this. this is no restful sleep and it will cause sleep deprivation which leads to confusion, depression, atrial fibrillation, strokes, loss of memory and so forth. Wear the CPAP. I recommend you follow up with the pulmonary dept at the hospital here to make sure your on on an appropriate pressure to keep your airways from obstructing while you are sleeping. 2. You have a problem with the parathyroid glands. they are located in your neck and there are 4 of them. The parathyroid glands control calcium metabolism. Your parathyroid glands are overactive and this is causing your calcium in your blood to be elevated which can cause confusion, reflux, osteoporosis and even kidney stones. Currently you are on a low calcium diet and you will need to continue this when you go home. Drinking a lot of water helps to flush the calcium out of your body. Lasix helps this BUT you must drink enough fluid to keep yourself from getting dehydrated. this could be hard to manage for you since you also have a weak heart. You should weigh yourself every morning after using the bathroom with no clothes on and keep a record. If your weight goes up by 5 lbs or more in 1 week then you are likely retaining fluid and you should call your doctor for instructions on what to do. If your weight is going down by 5 lbs or more in a week or your urine is dark yellow or orange then you are getting dehydrated and you should skip 1 days of Lasix and increase your water intake. You will be seeing Dr. Stratton, who is an concrete plant laborer (she specializes in diabetes and other gland problems) and she will treat you for the hyperparathyroidism. 3. I think it is always a good idea to follow up with 1 institution if possible for all your health problems. We have scheduled an appt with the cardiology group at the hospital here to manage your AFIB and the weak heart. You will still need to follow up with Dr. Chavez for the arthritis. You are a very complicated lady with many health issues and you need a captain of the ship to coordinate care between all the doctors you see. We have made you an appt to follow up with Dr. Newton as your PCP in the future. this way all your physicians will have access to your records and be up to speed on your history if you ever have to come to the hospital again. 4. You are NOT physically able to care for your . It is very unfortunate that he has dementia but, Alzheimer's is a progressive disease and things are not going to get better for him. He is where he should be to get the care he needs. You can visit but, you will never be able to care for him at home again. It is what is best for you and him at this time in your lives. 5. Buy a good digital scale......the numbers are big and easier to read. 6. Exercise helps to decrease calcium. When you are sedentary the calcium increases. Exercise keeps you more functional and helps to maintain independence. It helps to decrease the risk for strokes and heart disease also. USE IT OR LOSE IT MARTI! 7. You were on medications you do not need to be taking. Too many meds leads to drug interactions and adverse side effects. 1 multivitamin a day is all you need. You do not have to take over the counter supplements......just eat a healthy diet. I decreased the dose of the Gabapentin because it causes brain fog and leads to falls. You have not complained about left thigh pain since we decreased the dose.....you may only need it at night. Dr. Newton will probably taper some more of the medications going forward. You also do not need to take Mirapex or ropinirole for restless leg. Gabapentin treats restless leg and restless leg is also caused by sleep apnea so wearing the CPAP has helped. You and your family should go through ALL of the medications you have a home and get rid of the medications you are no longer taking.......that way you will not take them by mistake. Get some pill boxes and you fill them......have your family watch you. Remember to check your work and always pay attention to what you are doing. Don't be talking while you are trying to do this. You need to focus on the task at hand. We encourage you to do as much for yourself as you can so you stay functional and independent. 8. It has been a pleasure meeting you and we all appreciated your great attitude and daily smiles. Take care of yourself. you have a very supportive family....let them help you with your meds and appts. If you or your family has any questions after you leave please call me. Office: [phone] or [phone] Discharge Orders/Prescriptions Prescriptions: New Arthritis Pain Compound 2 click topical TID Qty: 0 RF: 0 diltiazem HCl 120 mg capsule,extended release 24hr 120 mg PO BID Qty: 60 RF: 0 insulin aspart U-100 [Novolog Flexpen U-100 Insulin] 100 unit/mL (3 mL) insulin pen See Rx Instructions .ROUTE .COMPLEX Qty: 18 RF: 0 insulin degludec 100 unit/mL (3 mL) insulin pen 50 unit subcut QHS Qty: 15 RF: 0 levothyroxine [Synthroid] 100 mcg tablet 100 mcg PO DAILY Qty: 30 RF: 0 prednisone 5 mg tablet 5 mg PO DAILY Qty: 30 RF: 0 prednisone 1 mg tablet 1 mg PO DAILY Qty: 14 RF: 0 gabapentin 100 mg capsule See Rx Instructions .ROUTE .COMPLEX Qty: 120 RF: 0 potassium chloride 20 mEq tablet,ER particles/crystals 20 meq PO BID Qty: 60 RF: 0 Mag 64 64 mg tablet,delayed release (DR/EC) 128 mg PO DAILY Qty: 60 RF: 0 hydrocodone-acetaminophen 5-325 mg tablet 1 tab PO Q6H PRN (Reason: pain) 7 Days Qty: 28 RF: 0 furosemide [Lasix] 40 mg tablet 40 mg PO DAILY Qty: 30 RF: 0 Continued acetaminophen 325 mg tablet 650 mg PO Q6H PRN (Reason: Pain) RF: 0 pantoprazole 40 mg tablet,delayed release (DR/EC) 40 mg PO DAILY RF: 0 albuterol sulfate 90 mcg/actuation HFA aerosol inhaler 2 puff inhalation .QID PRN (Reason: Shortness Of Breath) RF: 0 dulaglutide 1.5 mg/0.5 mL pen injector 1.5 mg subcut QWEEK RF: 0 aspirin 81 MG tablet,delayed release (DR/EC) 81 mg PO DAILY RF: 0 atorvastatin 40 MG tablet 40 mg PO QHS RF: 0 leflunomide 10 mg tablet 20 mg PO DAILY RF: 0 lisinopril 10 mg Tablet 10 mg PO BID RF: 0 Discontinued diltiazem HCl 120 mg capsule,extended release 24hr 120 mg PO DAILY RF: 0 levothyroxine 100 mcg tablet 100 mcg PO .COMPLEX RF: 0 melatonin 3 mg tablet 3 mg PO HS RF: 0 torsemide 20 mg tablet 20 mg PO DAILY RF: 0 ropinirole 0.5 MG tablet 0.5 mg PO DAILY RF: 0 apixaban 5 MG tablet 5 mg PO BID RF: 0 loratadine 10 MG tablet 10 mg PO DAILY RF: 0 vitamin E 400 UNIT capsule 400 unit PO DAILY RF: 0 insulin degludec 200 unit/mL (3 mL) insulin pen 68 unit subcut QHS RF: 0 insulin aspart U-100 100 unit/mL (3 mL) insulin pen 20 unit subcut TIDCM RF: 0 prednisone 5 mg tablet 7.5 mg PO DAILY RF: 0 cyanocobalamin (vitamin B-12) 1,000 mcg Tablet 1,000 mcg PO DAILY RF: 0 gabapentin 300 mg Capsule 300 mg PO TID RF: 0 coenzyme Q10 [CoQ-10] 100 mg Capsule 100 mg PO DAILY RF: 0 zinc 50 mg Tablet 50 mg PO DAILY RF: 0 hydrocodone-acetaminophen 5-325 mg tablet 1 tab PO Q6H PRN PRN (Reason: Pain) RF: 0 metoprolol succinate 100 mg tablet extended release 24 hr 100 mg PO BID RF: 0 Other Ambulatory Orders: Renal Profile (Routine) Timeframe: 1 Week Facility: [facility] - Location: Laboratory Ordered By: Dr. Cynthia Cochran Referrals / Follow Up: Mathieu Way MD [STAFF PHYSICIAN] - 10/15/21 9:45 am Gage Middleton MD [STAFF PHYSICIAN] - 01/23/22 9:30 am Grayson Newton MD [STAFF PHYSICIAN] - 10/18/21 9:00 am Kamlesh Stratton MD [STAFF PHYSICIAN] - 10/15/21 1:00 pm Disposition Disposition (needs filled in before D/C Order can be placed): Home Health Service Charges/Coding Visit Charges Inpatient E&M: 99304 Disch Hosp
[2021-10-08] MEDS: Insulin Lispro 100 UNIT/ML INSULN.PEN 12 UNIT SC (18:03)
[2021-10-08 20:53] VITALS: BP 111/72; PULSE 66; RESP 18; TEMP 36.5; O2SAT 95
[2021-10-08 20:54] VITALS: BP 111/72; PULSE 66
[2021-10-08] MEDS: Gabapentin 100 MG Capsule 200 MG PO (20:55)
[2021-10-08] MEDS: Insulin Glargine-YFGN 100 UNIT/ML Pen 50 UNIT SC (20:56)
[2021-10-08] MEDS: Atorvastatin Calcium 40 MG Tablet PO (20:56)
[2021-10-08 21:35] LABS: Bedside Glucose 169 mg/dL (74-106)
[2021-10-09] MEDS: Levothyroxine 100 MCG Tablet PO (05:05)
[2021-10-09] MEDS: Arthritis Pain Compound 60 CLICK TUBE TOPICAL (05:06)
[2021-10-09] MEDS: HYDROcodone Bitartrate/Apap 5/325 Tablet PO ×2 (05:06→14:40)
[2021-10-09] MEDS: Menthol/Lanolin/Calamine/Znox 113 GM Tube 1 APPLIC TOPICAL (05:06)
[2021-10-09] MEDS: Nystatin Powder 15gm Bottle 1 APPLIC TOPICAL (05:07)
[2021-10-09 06:26] LABS: Anion Gap 6 (5-15); BUN 29 mg/dL (7-18); BUN/Creat Ratio 32.8 RATIO (10-20); Calcium,Total 9.3 mg/dL (8.5-10.1); Chloride 104 mmol/L (98-107); Creatinine, Serum 0.88 mg/dL (0.55-1.02); EST Glomerular Filtration Rate 67 mL/min (>60); Est Glom Filt Rate - Afr Amer 80 mL/min (>60); Estimated Creatinine Clearance 48.43 ml/min; Glucose 89 mg/dL (74-106); Potassium 4.5 mmol/L (3.5-5.1); Sodium Level 134 mmol/L (136-145)
[2021-10-09 07:21] LABS: Bedside Glucose 94 mg/dL (74-106)
[2021-10-09 08:04] VITALS: BP 145/86; PULSE 75; RESP 18; TEMP 35.7; O2SAT 93
[2021-10-09 08:33] VITALS: BP 145/86; PULSE 75
[2021-10-09] MEDS: Metoprolol(XL)Succ 100 MG Tablet PO (08:33)
[2021-10-09] MEDS: Lisinopril 10 MG Tablet PO (08:33)
[2021-10-09] MEDS: Magnesium Chloride 64 MG Delay Rel.Tablet 128 MG PO (08:34)
[2021-10-09] MEDS: predniSONE 5 MG Tablet 7.5 MG PO (08:34)
[2021-10-09] MEDS: Leflunomide 10 MG TABLET 20 MG PO (08:34)
[2021-10-09] MEDS: Pantoprazole Sodium 40 MG Tablet PO (08:34)
[2021-10-09] MEDS: Potassium Chloride Oral Tablet 20 MEQ PO (08:34)
[2021-10-09] MEDS: APIXABAN 5 MG TABLET PO (08:34)
[2021-10-09] MEDS: dilTIAZem CD 180 MG Capsule PO (08:34)
[2021-10-09] MEDS: Aspirin E.C. 81 MG Tablet PO (08:35)
[2021-10-09] MEDS: Gabapentin 100 MG Capsule PO (08:35)
[2021-10-09] MEDS: Insulin Lispro 100 UNIT/ML INSULN.PEN 20 UNIT SC (08:38)
[2021-10-09 12:01] LABS: Bedside Glucose 111 mg/dL (74-106)
[2021-10-09] MEDS: Insulin Lispro 100 UNIT/ML INSULN.PEN 18 UNIT SC (13:20)
[2021-10-09 14:41] VITALS: BMI 35.2
--- NOTE | 2021-10-09 16:41 | NURSING ---
Discharged home with sister. discharge instruction, medication and appointments reviewed with pt, denies questions or concerns
[2021-10-09 16:44] VITALS: BP 116/70; PULSE 66; RESP 17; TEMP 36.3; O2SAT 96
== END 2021-10-09 16:45 | disposition home health service (06) | DRG 57 ==
PROVIDERS: Admitting Provider Internal Medicine; PCP Family Medicine; Visit Provider Internal Medicine
DX: I69.354 Hemiplegia and hemiparesis following cerebral infarction affecting left non-dominant side (principal); I42.8 Other cardiomyopathies; I48.11 Longstanding persistent atrial fibrillation; C90.00 Multiple myeloma not having achieved remission; I50.42 Chronic combined systolic (congestive) and diastolic (congestive) heart failure; D47.2 Monoclonal gammopathy; K21.9 Gastro-esophageal reflux disease without esophagitis; G25.81 Restless legs syndrome; E03.9 Hypothyroidism, unspecified; I11.0 Hypertensive heart disease with heart failure; E21.3 Hyperparathyroidism, unspecified; E66.01 Morbid (severe) obesity due to excess calories; E11.65 Type 2 diabetes mellitus with hyperglycemia; Z79.4 Long term (current) use of insulin; M32.9 Systemic lupus erythematosus, unspecified; M05.9 Rheumatoid arthritis with rheumatoid factor, unspecified; E78.5 Hyperlipidemia, unspecified; G47.33 Obstructive sleep apnea (adult) (pediatric); M79.7 Fibromyalgia; M54.10 Radiculopathy, site unspecified; I69.320 Aphasia following cerebral infarction; Z91.14 Patient's other noncompliance with medication regimen; Z87.891 Personal history of nicotine dependence; Z95.3 Presence of xenogenic heart valve; Z79.82 Long term (current) use of aspirin; Z79.01 Long term (current) use of anticoagulants; Z79.899 Other long term (current) drug therapy; Z79.52 Long term (current) use of systemic steroids; Z68.35 Body mass index [BMI] 35.0-35.9, adult
CPT/HCPCS: 36415; 80048; 80069; 82040; 82306; 82962; 83735; 83970; 84100; 84439; 85014; 85018; 92507; 92523; 92610; 94762; 96125; 97110; 97116; 97129; 97130; 97162; 97167; 97530; 97535; 97802; 97803; 99251; J2430; J7050; A4216; G0463

== ENCOUNTER → 2021-10-18 | Outpatient (CLI) | payer MEDICARE, OTHER, SELFPAY ==
[2021-10-18 12:34] LABS: ALB/GLOB Ratio 0.7 RATIO (0.9-2.4); AST(SGOT) 37 U/L (15-37); Absolute Lymphocyte Count 1.53 X10^3/uL (0.83-4.51); Absolute Neutrophil Count 4.1 X10^3/uL (2.0-7.7); Alanine Aminotransfer ALT/SGPT 50 U/L (13-56); Alkaline Phosphatase 151 U/L (45-117); Anion Gap 5 (5-15); BUN 23 mg/dL (7-18); BUN/Creat Ratio 26.9 RATIO (10-20); Basophil# 0.09 X10^3/uL; Basophil% 1.2 % (0-1); Chloride 104 mmol/L (98-107); Creatinine, Serum 0.86 mg/dL (0.55-1.02); EST Glomerular Filtration Rate 69 mL/min (>60); Eosinophil# 0.41 X10^3/uL; Eosinophils% 5.7 % (0-5); Est Glom Filt Rate - Afr Amer 84 mL/min (>60); Globulin 4.1 g/dL (2.2-4.2); Glucose 168 mg/dL (74-106); Hematocrit 40.6 % (37-47); Hemoglobin 12.7 g/dL (12.0-15.0); Lymphocyte # 1.53 X10^3/ul (0.83-4.51); Lymphocyte % 21.2 % (19-41); Mean Corp Hgb Conc 31.3 g/dL (32-36); Mean Corpuscular Hgb 30.2 pg (27.0-32.0); Mean Corpuscular Volume 96.4 fL (81-99); Mean Platelet Vol. 11.2 fl (6.2-12.0); Monocyte# 1.05 X10^3/uL; Monocyte% 14.5 % (0-10); NRBC Flagged by Analyzer 0 % (0-5); Neutrophil # 4.08 X10^3/uL (2.7-7.7); Neutrophil % 56.6 % (47-70); Platelet Count 238 K/mm3 (150-450); Potassium 4.8 mmol/L (3.5-5.1); Protein, Total 7.1 g/dL (6.4-8.2); RBC Distribution Width CV 14.7 % (11.6-14.6); RBC Distribution Width SD 52.1 fl (35.1-43.9); Red Blood Count 4.21 M/mm3 (4.2-5.4); Sodium Level 134 mmol/L (136-145); White Blood Count 7.2 K/mm3 (4.4-11.0)
== END | disposition home or self-care (01) ==
LOC: BIMLAB 10:28
PROVIDERS: PCP Internal Medicine; Referring Provider Internal Medicine; Visit Provider Internal Medicine
DX: I10 Essential (primary) hypertension (principal)
CPT/HCPCS: 36415; 80053; 85025

== ENCOUNTER → 2022-01-21 | Outpatient (CLI) | payer MEDICARE, OTHER, SELFPAY ==
[2022-01-21 15:35] LABS: ALB/GLOB Ratio 0.7 RATIO (0.9-2.4); AST(SGOT) 29 U/L (15-37); Alanine Aminotransfer ALT/SGPT 32 U/L (13-56); Albumin, Serum 3.2 g/dL (3.2-5.0); Alkaline Phosphatase 123 U/L (45-117); Anion Gap 7 (5-15); BUN 21 mg/dL (7-18); BUN/Creat Ratio 24.5 RATIO (10-20); Calcium,Total 10.9 mg/dL (8.5-10.1); Chloride 103 mmol/L (98-107); Creatinine, Serum 0.86 mg/dL (0.55-1.02); EST Glomerular Filtration Rate 69 mL/min (>60); Est Glom Filt Rate - Afr Amer 83 mL/min (>60); Globulin 4.5 g/dL (2.2-4.2); Glucose 137 mg/dL (74-106); Potassium 4.4 mmol/L (3.5-5.1); Protein, Total 7.7 g/dL (6.4-8.2); Sodium Level 138 mmol/L (136-145)
[2022-01-22 09:40] LABS: Vitamin D,25 Hydroxy 39.3 ng/mL
== END | disposition home or self-care (01) ==
LOC: BIMLAB 11:51
PROVIDERS: Internal Medicine Endocrinology, Diabetes & Metabolism; PCP Internal Medicine; Referring Provider Internal Medicine; Visit Provider Internal Medicine
DX: I10 Essential (primary) hypertension (principal); E55.9 Vitamin D deficiency, unspecified
CPT/HCPCS: 36415; 80053; 82306

== ENCOUNTER → 2022-01-27 | Outpatient (CLI) | payer MEDICARE, OTHER, SELFPAY ==
--- NOTE | 2022-01-27 13:04 | US_ITS ---
STUDY: SUPERFICIAL ULTRASOUND - FOREARM REASON FOR EXAM: Female, 76 years old. Left Forearm swelling TECHNIQUE: A superficial ultrasound was performed with real-time and static watt-scale imaging. COMPARISON: None. FINDINGS: There is a large complex mass in the inferior aspect of the left elbow measuring 8.9 x 5.9 x 3.9 cm US/Ext Non Vasc Limited/Soft Tiss IMPRESSION: Nonspecific large complex mass in left elbow. MRI would be helpful for further assessment if indicated Electronically Signed: Clemente Joyce MD at 19:39 EDT ,
== END | disposition home or self-care (01) ==
LOC: US 13:02
PROVIDERS: PCP Internal Medicine; Referring Provider Internal Medicine; Visit Provider Internal Medicine
DX: R22.32 Localized swelling, mass and lump, left upper limb (principal)
CPT/HCPCS: 76882

== ENCOUNTER → 2022-02-13 | Outpatient (CLI) | payer MEDICARE, OTHER, SELFPAY ==
--- NOTE | 2022-02-13 15:33 | MRI_ITS ---
STUDY: MRI LEFT ELBOW WITH AND WITHOUT CONTRAST REASON FOR EXAM: Left proximal forearm mass for one year. TECHNIQUE: Standardized fat and water weighted pulse sequences were obtained in all 3 orthogonal planes before and after intravenous administration of 18 mL of Dotarem. COMPARISON: Ultrasound images 01/27/2022. FINDINGS: Normal radio-capitellum articulation. Normal radial collateral ligamentous complex. There is an undersurface partial tear of the common extensor tendon (inversion recovery coronal images 16, 17). Normal ulnotrochlear articulation. Normal ulnar collateral ligamentous complex. Normal common flexor tendon. The cubital tunnel is normal, with a normal ulnar nerve. Normal biceps tendon and distal insertion. Normal lacertus fibrosis. Normal brachialis musculotendinous insertion. Normal triceps tendon and teno-osseous insertion. Normal olecranon process. The visualized distal humerus, proximal radius, and ulna are normal. The visualized muscles of the distal arm and proximal forearm are normal. There is a large soft tissue mass in the subcutis adipose space at the ulnar aspect of the proximal forearm measuring approximately 4.9 x 4.0 x 7.4 cm (AP x transverse x length). The mass is heterogeneous on T2 sequences (T2 sagittal images 22-33) and mildly inhomogeneous on T1 sequences (T1 axial images 9-17). There is contrast enhancement of the mass (postcontrast T1 coronal images 10-19). There is also olecranon bursitis (T2 sagittal images 22-31). There is a joint effusion (T2 sagittal images 18-20). MRI/Upper Ext Joint Only W/WO Cont IMPRESSION: Large soft tissue mass in the subcutis adipose space of the proximal forearm, soft tissue sarcoma is a leading differential consideration. Undersurface partial tear of the common extensor tendon. Olecranon bursitis. Joint effusion. Electronically Signed: Eran Ross MD at 18:32 EDT ,
--- NOTE | 2022-02-13 15:33 | US_ITS ---
STUDY: THYROID ULTRASOUND REASON FOR EXAM: Female, 76 years old. Hyperthyroidism. TECHNIQUE: Ultrasound evaluation of the thyroid was performed with real-time and static watt-scale imaging. COMPARISON: None. FINDINGS: RIGHT LOBE: The right lobe of the thyroid gland measures 4.8 cm x 1.7 cm x 1.8 cm. There is a heterogeneous echotexture. Multiple small cysts are seen. The largest is in the mid pole and measures 5 mm x 5 mm x 3 mm. LEFT LOBE: The left lobe of the thyroid gland measures 3.9 cm x 1.4 cm x 1.9 cm. There is a heterogeneous echotexture. Multiple small cysts are seen. The largest is in the mid pole and measures 4 mm x 3 mm x 2 mm. ISTHMUS: The isthmus measures 7 mm. The regional lymph nodes are normal. US/Thyroid IMPRESSION: Multiple subcentimeter bilateral thyroid cysts. Electronically Signed: Fabio Hunter MD at 12:57 EDT ,
== END | disposition home or self-care (01) ==
PROVIDERS: PCP Internal Medicine; Referring Provider Surgery; Visit Provider Surgery
DX: R22.30 Localized swelling, mass and lump, unspecified upper limb (principal); E21.3 Hyperparathyroidism, unspecified
CPT/HCPCS: 73223; 76536; A9575; A4216

== ENCOUNTER 2022-04-02 20:23 | Inpatient (IN) | payer MEDICARE, OTHER, SELFPAY ==
[2022-04-02 20:24] VITALS: BP 156/92; PULSE 154; RESP 22; TEMP 37.2; O2SAT 93; BMI 35.6
--- NOTE | 2022-04-02 21:03 | EKG12_ITS ---
Test Reason : CONFUSION Blood Pressure : / mmHG Vent. Rate : 142 BPM Atrial Rate : 000 BPM P-R Int : 000 ms QRS Dur : 080 ms QT Int : 276 ms P-R-T Axes : 000 000 114 degrees QTc Int : 424 ms Atrial fibrillation with rapid ventricular response ST & T wave abnormality, consider lateral ischemia Abnormal ECG Confirmed by MARIO ALBERTO KAUFMAN, NICK ([id number]), associate editor DIAN PAN ([id number]) on 04/04/2022 2:12:45 P M Referred By: Confirmed By:NILA LLANES MD
[2022-04-02 21:05] VITALS: O2SAT 94
[2022-04-02 21:14] LABS: Absolute Lymphocyte Count 0.95 X10^3/uL (0.83-4.51); Absolute Neutrophil Count 9.5 X10^3/uL (2.0-7.7); Basophil# 0.06 X10^3/uL; Basophil% 0.5 % (0-1); Eosinophil# 0.13 X10^3/uL; Eosinophils% 1.1 % (0-5); Hematocrit 39.6 % (37-47); Hemoglobin 12.9 g/dL (12.0-15.0); Lymphocyte # 0.95 X10^3/ul (0.83-4.51); Mean Corp Hgb Conc 32.6 g/dL (32-36); Mean Corpuscular Hgb 29.9 pg (27.0-32.0); Mean Corpuscular Volume 91.7 fL (81-99); Mean Platelet Vol. 11.8 fl (6.2-12.0); Monocyte# 1.16 X10^3/uL; Monocyte% 9.8 % (0-10); NRBC Flagged by Analyzer 0 % (0-5); Neutrophil % 80.2 % (47-70); Platelet Count 208 K/mm3 (150-450); RBC Distribution Width CV 13.9 % (11.6-14.6); RBC Distribution Width SD 46.8 fl (35.1-43.9); Red Blood Count 4.32 M/mm3 (4.2-5.4); White Blood Count 11.9 K/mm3 (4.4-11.0)
[2022-04-02 21:22] LABS: International Normalized Ratio 1.1; Prothrombin Time (Protime)PT. 13.9 SECONDS (11.7-14.9)
[2022-04-02 21:23] LABS: Partial Thromboplast Time 29.7 Seconds (24.1-36.2)
[2022-04-02 21:24] VITALS: BP 189/141; PULSE 133; RESP 23; O2SAT 93
--- NOTE | 2022-04-02 21:27 | CT_ITS ---
EXAM: CT HEAD WITHOUT INTRAVENOUS CONTRAST CLINICAL INDICATION: altered mental status TECHNIQUE: Multiple axial images were obtained of the head without intravenous contrast. This CT exam was performed using one or more of the following dose reduction techniques: automated exposure control, adjustment of the mA and/or kV according to patient size, and/or use of iterative reconstruction technique. This report was created using [employer] report generation technology. RADIATION DOSE: CTDIvol = 44.99 mGy, DLP = 762.36 mGy-cm COMPARISON: Report September 21, 2021 was provided, but prior images not yet received. FINDINGS: BRAIN AND EXTRA-AXIAL SPACES: Mild cerebral volume loss and mild low attenuation in the periventricular and subcortical chronic white matter changes. No intra- or extra-axial hemorrhage. No evidence of acute infarct. No intracranial mass or mass effect. There is preservation of the watt/white matter interface. Posterior fossa structures are unremarkable. No hydrocephalus. Basal cisterns are patent. BONES/JOINTS: Unremarkable. No discrete lytic or blastic abnormalities. VASCULATURE: No hyperdense artery sign, hemorrhage, edema, mass or mass effect. SINUSES: Unremarkable as visualized. Clear. MASTOID AIR CELLS: Unremarkable. Clear. ORBITS: Visualized globes, extraocular muscles, optic nerves and retrobulbar fat appear unremarkable. CT/Brain/Head without Contrast IMPRESSION: 1. Mild chronic changes. 2. No acute abnormality. 3. Prior images are being requested, an addendum is pending when received. Electronically Signed: Millicent Black MD at 22:17 EDT ,
[2022-04-02 21:28] LABS: ALB/GLOB Ratio 0.6 RATIO (0.9-2.4); AST(SGOT) 36 U/L (15-37); Alanine Aminotransfer ALT/SGPT 28 U/L (13-56); Albumin, Serum 3.1 g/dL (3.2-5.0); Alkaline Phosphatase 134 U/L (45-117); Anion Gap 8 (5-15); BUN 21 mg/dL (7-18); Calcium,Total 10.4 mg/dL (8.5-10.1); Chloride 101 mmol/L (98-107); EST Glomerular Filtration Rate 58 mL/min (>60); Est Glom Filt Rate - Afr Amer 70 mL/min (>60); Estimated Creatinine Clearance 44.41 ml/min; Globulin 4.9 g/dL (2.2-4.2); Glucose 218 mg/dL (74-106); Potassium 4.3 mmol/L (3.5-5.1); Sodium Level 134 mmol/L (136-145)
--- NOTE | 2022-04-02 21:28 | EDS_ITS ---
HPI History of Present Illness Chief Complaint: Confusion Informant: patient and EMS Onset/Context/Timing Onset: Today Narrative Narrative: Limited history from this patient who arrives alone via EMS confused and fe brrusty, EMS states her temperature was 102. They state that yesterday at [facility], she had surgery on her left arm because of a soft tissue mass, biopsy was sent. Unknown the degree of surgery since she has a long surgical incision and sutures in place. The patient does not recall any details since she is confused and does not know where she is. Alert and oriented x1 according to EMS, we agree. Last known well unknown. She states that her left arm hurts, and it is worse to move. She denies pain elsewhere. [facility] Medical History (Updated 04/02/22 @ 23:[address] Pacheco Robbins, ) Cerebrovascular accident (CVA) Chronic combined systolic and diastolic CHF (congestive heart failure) Chronic pain Diabetes mellitus type 2, uncontrolled Essential hypertension Fibromyalgia GERD (gastroesophageal reflux disease) HFrEF (heart failure with reduced ejection fraction) Hypercalcemia Hyperlipidemia Hypothyroidism Lipoma of left upper extremity Localized swelling of left forearm Longstanding persistent atrial fibrillation Lupus Morbid obesity Non-ischemic cardiomyopathy Nonalcoholic fatty liver disease Nonrheumatic mitral valve stenosis with insufficiency KAROLINA (obstructive sleep apnea) Osteoarthritis Osteoporosis Preoperative evaluation to rule out surgical contraindication Radicular pain of left lower extremity Rheumatoid arthritis RLS (restless legs syndrome) Smoldering multiple myeloma (SMM) Steroid dependence Stroke Home Medications aspirin 81 mg tablet,delayed release 81 mg PO DAILY heart health 05/24/19 [History Last Taken Unknown] leflunomide 10 mg tablet 20 mg PO DAILY arthritis 09/04/21 [History Last Taken Unknown] furosemide 40 mg tablet (Lasix) 40 mg PO DAILY #30 tabs 10/09/21 [Rx Last Taken Unknown] insulin aspart U-100 100 unit/mL (3 mL) subcutaneous pen (Novolog Flexpen U-100 Insulin aspart) See Rx Instructions .Route .COMPLEX #18 mL 10/09/21 [Rx Last Taken Unknown] insulin degludec 100 unit/mL (3 mL) subcutaneous pen 50 unit (0.5 mL) subcut QHS #15 mL 10/09/21 [Rx Last Taken Unknown] loratadine 10 mg tablet (Allergy Relief (loratadine)) 10 mg PO DAILY 10/18/21 [History Last Taken Unknown] apixaban 5 mg tablet (Eliquis) 5 mg PO BID #180 tabs 11/11/21 [Rx Last Taken Unknown] atorvastatin 40 mg tablet 40 mg PO QHS cholesterol #90 tabs 11/11/21 [Rx Last Taken Unknown] metoprolol tartrate 100 mg tablet 100 mg PO BID #180 tabs 11/11/21 [Rx Last Taken Unknown] sacubitril 24 mg-valsartan 26 mg tablet (Entresto) 1 tab PO BID #180 tabs 11/11/21 [Rx Last Taken Unknown] nystatin 100,000 unit/gram topical powder 1 applic topical TID PRN rash #60 grams 01/02/22 [Rx Last Taken Unknown] pantoprazole 40 mg tablet,delayed release 40 mg PO DAILY reflux #90 tabs 01/02/22 [Rx Last Taken Unknown] prednisone 5 mg tablet 7.5 mg PO QAM 01/31/22 [History Last Taken Unknown] dulaglutide 1.5 mg/0.5 mL subcutaneous pen injector 1.5 mg (0.5 mL) subcut QWEEK diabetes #2 mL 03/12/22 [Rx Last Taken Unknown] gabapentin 100 mg capsule 300 mg PO BID 03/28/22 [History Last Taken Unknown] levothyroxine 100 mcg tablet (Synthroid) 100 mcg PO DAILY #60 tabs 04/01/22 [Rx Last Taken Unknown] diltiazem HCl 120 mg capsule,extended release 24 hr 120 mg PO DAILY 04/02/22 [History Last Taken Unknown] hydrocodone-acetaminophen 5-325mg 5mg-325mg 1 tab PO Q8H PRN pain 04/02/22 [History Last Taken Unknown] omega-3 fatty acids 1,000 mg capsule 2,000 mg PO BID 04/02/22 [History Last Taken Unknown] ranitidine HCl 150 mg capsule 150 mg PO DAILY PRN Acid Reflux 04/02/22 [History Last Taken Unknown] torsemide 40 mg tablet 40 mg PO DAILY 04/02/22 [History Last Taken Unknown] Allergy/AdvReac Type Severity Reaction Status Date / Time hydroxychloroquine Allergy Severe Shortness Verified 04/02/22 20:34 of breath metformin AdvReac Severe Diarrhea Verified 04/02/22 20:34 methotrexate AdvReac Severe Other Verified 04/02/22 20:34 Sulfa (Sulfonamide AdvReac Intermediate Other Verified 04/02/22 20:34 Antibiotics) Family History Father Diabetes Heart disease Hypertension CVA (cerebral vascular accident) Hyperlipidemia CAD (coronary artery disease) Brother Hypertension Hyperlipidemia Sister THYROID Mother Uterine cancer Surgical History History of appendectomy History of back surgery History of cardioversion (01/15/18) History of left heart catheterization History of mitral valve replacement with bioprosthetic valve (04/23/17) History of radiofrequency ablation (RFA) for complex left atrial arrhythmia (04/25/17) History of right and left heart catheterization (02/25/17) History of total left knee replacement History of total right knee replacement History of transesophageal echocardiography (NEELA) (01/15/18) Social History adopted: No household members: other details: is in a retirement and she is currently living alone housing: house number of children: 2 current occupational status: retired Smoking Status: Former smoker quit date: 06/08/01 Tobacco: How many years used: 25 how long ago did patient quit smokin years ago- about 2006? alcohol intake: current details: rare occasions substance use type: does not use ROS ROS ED Review of Systems ROS Unobtainable: due to mental status Eyes Eyes: Denies change in vision or diplopia ENT ENT ED: Denies sore throat Cardiovascular Cardiovascular: Denies chest pain Respiratory/Chest Respiratory/Chest: Denies cough or dyspnea Gastrointestinal Gastrointestinal: Denies abdominal pain, diarrhea, nausea or vomiting Musculoskeletal Musculoskeletal: Reports as per HPI and extremity pain; Denies back pain or neck pain Integumentary Reports other Details: Left arm surgical wound ; Denies abscess or rash Neurologic Neurologic: Denies headache(s) Psychiatric Psychiatric: Denies suicidal thoughts EXAM Physical Exam Const Vital Signs: 04/02/22 20:24 04/02/22 21:24 04/02/22 21:05 Temperature 99.0 F Temperature Source Oral Pulse Rate 154 H 133 H Respiratory Rate 22 H 23 H Blood Pressure 156/92 H 189/141 H Blood Pressure Mean 113 157 Pulse Ox 93 93 94 Oxygen Delivery Method Room Air Room Air Room Air 04/02/22 22:00 04/02/22 21:29 04/02/22 23:00 Temperature 103.0 F H 99.0 F 102.8 F H Temperature Source Core Oral Core Pulse Rate 144 H 147 H 139 H Respiratory Rate 23 H 28 H 22 H Blood Pressure 188/173 H 189/144 H 138/98 H Blood Pressure Mean 178 159 111 Pulse Ox 94 94 94 Oxygen Delivery Method Room Air Room Air Room Air Positive well nourished, well developed and obese General Appearance ED: well developed and NAD Nutritional Appearance: obese HEENT Reports moist mucous membranes normocephalic and atraumatic Eyes PERRL and EOMs intact bilaterally Neck full ROM and supple Chest Wall inspection of chest normal and palpation of chest normal Resp normal respiratory effort and clear to auscultation bilaterally Cardio no murmurs Rate: tachycardic Rhythm: abnormal rhythm irregularly irregular GI non-tender and non-distended Auscultation: normoactive bowel sounds Palpation: soft Back/Spine no CVA tenderness General Back: other FROM Extremity Extremity Narrative: boggy postoperative area distal posterior left upper arm, there is an approximately 5 cm surgical wound intact with sutures no discharge, no dehiscence, there is surrounding erythema the whole area is tender, does not radiate away from the wound, no lymphangitis. Moving her left arm at the elbow and shoulder hurts so range of motion is limited due to that but she has excellent short arc range of motion of both joints. General Extremety ED: Yes tenderness; Negative for edema or pulses abnormal General Extremity: Negative for edema or pulses abnormal Neuro no sensory deficits noted Neuro Narrative: Very confused. Not able to follow all commands. Not able to show us lower facial symmetry; no gross asymmetry. Mumbling, at times nonsensical, difficult to discern whether this is aphasia or not. Answers yes or no ROS questions appropriately. Moving all 4 extremities equally, the left upper is limited due to pain, but she has no asymmetry otherwise. Generally weak. Sensorium / Orientation: awake, alert and orientation impaired Skin no rashes or lesions noted and no wounds Sepsis Attestation Sepsis Attestation: Agree w/Sepsis Date exam was performed: 04/02/22 Time exam was performed: 22:30 Possible Source of Sepsis: Genitourinary Sepsis Organ Dysfunction Criteria Present: New/Unexplained change in mental status Supportive Findings: lactate nml; no septic shock; IVF ordered, but 30cc/kg not indicated. MDM MDM MDM Narrative Medical decision making narrative: I saw patient upon EMS arrival since there were no beds available at that time and there was concern for acute confusion and possible stroke. With the patient febrile and confused with nonlateralizing neurologic exam, I felt this was likely not a stroke and more likely sepsis so septic work-up was obtained. The results appear to show very cloudy urine that appears infected. She was pancultured. Her lactate is normal. She maintained having atrial fibrillation with RVR, but her temperature went from 99 to 103, which at that point we treated with Tylenol. Upon evaluating her again, she is speaking cleanly with no aphasia. She is still confused. She is cooperative and pleasant and resting. After having the catheter for an hour and ordering a liter of IV fluids, she has produced about 100 cc of urine, which is greater than 0.5 cc/kg/h. Antibiotics ordered, plan is for admission. Lab Data Attestation: I reviewed the patient's lab results. Labs: Laboratory Results - last 24 hr 04/02/22 04/02/22 04/02/22 20:35 20:35 20:35 WBC 11.9 H RBC 4.32 Hgb 12.9 Hct 39.6 MCV 91.7 MCH 29.9 MCHC 32.6 RDW Std Deviation 46.8 H RDW Coeff of Gisela 13.9 Plt Count 208 MPV 11.8 Immature Gran % (Auto) 0.400 Neut % (Auto) 80.2 H Lymph % (Auto) 8.0 L Ralls % (Auto) 9.8 Eos % (Auto) 1.1 Baso % (Auto) 0.5 Absolute Neuts (auto) 9.5 H Absolute Lymphs (auto) 0.95 Nucleated RBC % 0 PT 13.9 INR 1.1 APTT 29.7 Sodium 134 L Potassium 4.3 Chloride 101 Carbon Dioxide 25.0 Anion Gap 8 BUN 21 H Creatinine 1.00 Estim Creat Clear Calc 44.41 Est GFR (MDRD) Af Amer 70 Est GFR (MDRD) Non-Af 58 L BUN/Creatinine Ratio 21.0 H Glucose 218 H Lactic Acid Calcium 10.4 H Total Bilirubin 0.70 AST 36 ALT 28 Alkaline Phosphatase 134 H Total Protein 8.0 Albumin 3.1 L Globulin 4.9 H Albumin/Globulin Ratio 0.6 L Urine Color Urine Clarity Urine pH Ur Specific [place] Urine Protein Urine Glucose (UA) Urine Ketones Urine Occult Blood Urine Nitrite Urine Bilirubin Urine Urobilinogen Ur Leukocyte Esterase Urine RBC Urine WBC Ur Squamous Epith Cells Urine Bacteria Urine Mucus 04/02/22 04/02/22 20:35 21:35 WBC RBC Hgb Hct MCV MCH MCHC RDW Std Deviation RDW Coeff of Gisela Plt Count MPV Immature Gran % (Auto) Neut % (Auto) Lymph % (Auto) Ralls % (Auto) Eos % (Auto) Baso % (Auto) Absolute Neuts (auto) Absolute Lymphs (auto) Nucleated RBC % PT INR APTT Sodium Potassium Chloride Carbon Dioxide Anion Gap BUN Creatinine Estim Creat Clear Calc Est GFR (MDRD) Af Amer Est GFR (MDRD) Non-Af BUN/Creatinine Ratio Glucose Lactic Acid 1.7 Calcium Total Bilirubin AST ALT Alkaline Phosphatase Total Protein Albumin Globulin Albumin/Globulin Ratio Urine Color Yellow Urine Clarity Cloudy Urine pH 6.0 Ur Specific [place] 1.015 Urine Protein 100 H Urine Glucose (UA) Normal Urine Ketones 5 H Urine Occult Blood 50 H Urine Nitrite Positive H Urine Bilirubin Negative Urine Urobilinogen Normal Ur Leukocyte Esterase 500 H Urine RBC 0 SEEN Urine WBC >100 SEEN Ur Squamous Epith Cells 0 SEEN Urine Bacteria 0 SEEN Urine Mucus 0 SEEN Radiography Chest X-Ray - ED: 1 View, Read by ED Physician, No Acute Disease and No Infiltrates Diagnostic Testing: Clinical Impression(s) from Imaging Studies Brain CT 04/02/22 21:27 IMPRESSION: 1. Mild chronic changes. 2. No acute abnormality. 3. Prior images are being requested, an addendum is pending when received. Electronically Signed: Millicent Black MD at 22:17 EDT , ADDENDUM: 04/02/22 [id number] IMPRESSION: undefined Chest X-Ray 04/02/22 21:50 IMPRESSION: Stable chest. Borderline cardiomegaly and mild pulmonary vascular prominence. Electronically Signed: Millicent Black MD at 22:13 EDT , Rhythm Strip Rhythm Strip: A-fib Rate: 135 Ectopy: None EKG Initial EKG: Attestation: I personally reviewed and interpreted this EKG as follows: Interpretation: No Acute Injury Pattern and Atrial Fibrillation (w/ RVR) Prior EKG tracings: available for review Prior: Unchanged Discharge Plan Dx/Rx/DC Orders Clinical Impression: Acute UTI, Encephalopathy due to infection, Atrial fibrillation with RVR, Sepsis Disposition Disposition: Acute Care Hospital [facility]
[2022-04-02 21:29] VITALS: BP 189/144; PULSE 147; RESP 28; TEMP 37.2; O2SAT 94
[2022-04-02 21:30] LABS: Lactic Acid 1.7 mmol/L (0.4-1.9)
[2022-04-02] MEDS: 0.9% Normal Saline 1,000 ML 999 ML IV (21:44)
--- NOTE | 2022-04-02 21:50 | RAD_ITS ---
EXAM: XR CHEST, 1 VIEW CLINICAL INDICATION: SEPSIS -- SEPSIS R/O TECHNIQUE: Frontal view of the chest. This report was created using [employer] report generation technology. COMPARISON: September 21, 2021. FINDINGS: LUNGS AND PLEURAL SPACES: Minimal perihilar vascular prominence. Stable minimal opacity at the left lateral lung base, probably due to epicardial fat pad. No significant infiltrate or effusion. No pneumothorax. HEART: Borderline to mild cardiomegaly. Postoperative change including atrial appendage clip again noted. MEDIASTINUM: No mediastinal widening. Moderate peripheral calcification of the aortic arch again noted. BONES/JOINTS: Multiple broken or cut median sternotomy wires are again noted. SOFT TISSUES: Unremarkable. RAD/Chest 1 View (Portable) IMPRESSION: Stable chest. Borderline cardiomegaly and mild pulmonary vascular prominence. Electronically Signed: Millicent Black MD at 22:13 EDT ,
[2022-04-02 21:52] LABS: Bacteria 0 SEEN /hpf (None Seen); Mucous, Urine 0 SEEN /hpf (<or=2+); Red Blood Cells-Urine 0 SEEN /hpf (0-5); Squamous Epithelial Cells - UA 0 SEEN /hpf (5-10)
[2022-04-02 22:00] VITALS: BP 188/173; PULSE 144; RESP 23; TEMP 39.4; O2SAT 94
[2022-04-02 22:11] LABS: Color, Urine Yellow (Yellow); Glucose, Dipstick Normal (Normal); Ketone-Dipstick 5 mg/dl (Negative); Leukocyte Esterase-Dipstick 500 /ul (Negative); Nitrite-Dipstick Positive (Negative); Occult Blood-Urine 50 /ul (Negative); Protein-Dipstick 100 mg/dl (Negative); Specific Gravity, Urine 1.015 (1.002-1.030); Urine Bilirubin Dipstick Negative (Negative); Urine Clarity Cloudy (Clear); Urine Urobilinogen Normal (Normal)
[2022-04-02 22:21] LABS: White Blood Cells >100 SEEN /hpf (0-5)
[2022-04-02 23:00] VITALS: BP 138/98; PULSE 139; RESP 22; TEMP 39.3; O2SAT 94
[2022-04-02] MEDS: Acetaminophen 500 MG Tablet 1000 MG PO (23:08)
[2022-04-02] MEDS: Ceftriaxone 1 GM/50 ML BAG IV (23:10)
[2022-04-02] MEDS: dilTIAZem 25 MG/5 ML Vial 20 MG IV BOLUS (23:14)
--- NOTE | 2022-04-02 23:14 | HP.PCM.HOS_ITS ---
HPI - General General Date of Admission: 04/02/22 Date of Service: 04/02/22 Chief Complaint: confusion. HPI Narrative MARIA ISABEL LOPEZ, is a 76 F who presents presents with confusion and fever. Yesterday, patient had surgery on her arm biopsy of some sort. Patient presented to the emergency room with fever and confusion. Patient was also in atrial fibrillation with RVR. In the course of the work-up, patient was found to have urinary tract infection. She received IV fluids, ceftriaxone in the emergency room. Patient was still in A. fib with RVR by time I saw her. I ordered her to receive bolus of diltiazem and then a subsequent drip. Patient is confused and unable to provide any history but is pleasant. [facility]LY [facility] Medical History (Updated 04/02/22 @ 23:[address] Pacheco Robbins, ) Cerebrovascular accident (CVA) Chronic combined systolic and diastolic CHF (congestive heart failure) Chronic pain Diabetes mellitus type 2, uncontrolled Essential hypertension Fibromyalgia GERD (gastroesophageal reflux disease) HFrEF (heart failure with reduced ejection fraction) Hypercalcemia Hyperlipidemia Hypothyroidism Lipoma of left upper extremity Localized swelling of left forearm Longstanding persistent atrial fibrillation Lupus Morbid obesity Non-ischemic cardiomyopathy Nonalcoholic fatty liver disease Nonrheumatic mitral valve stenosis with insufficiency KAROLINA (obstructive sleep apnea) Osteoarthritis Osteoporosis Preoperative evaluation to rule out surgical contraindication Radicular pain of left lower extremity Rheumatoid arthritis RLS (restless legs syndrome) Smoldering multiple myeloma (SMM) Steroid dependence Stroke Home Medications aspirin 81 mg tablet,delayed release 81 mg PO DAILY heart health 05/24/19 [History Last Taken Unknown] leflunomide 10 mg tablet 20 mg PO DAILY arthritis 09/04/21 [History Last Taken Unknown] furosemide 40 mg tablet (Lasix) 40 mg PO DAILY #30 tabs 10/09/21 [Rx Last Taken Unknown] insulin aspart U-100 100 unit/mL (3 mL) subcutaneous pen (Novolog Flexpen U-100 Insulin aspart) See Rx Instructions .Route .COMPLEX #18 mL 10/09/21 [Rx Last Taken Unknown] insulin degludec 100 unit/mL (3 mL) subcutaneous pen 50 unit (0.5 mL) subcut QHS #15 mL 10/09/21 [Rx Last Taken Unknown] loratadine 10 mg tablet (Allergy Relief (loratadine)) 10 mg PO DAILY 10/18/21 [History Last Taken Unknown] apixaban 5 mg tablet (Eliquis) 5 mg PO BID #180 tabs 11/11/21 [Rx Last Taken Unknown] atorvastatin 40 mg tablet 40 mg PO QHS cholesterol #90 tabs 11/11/21 [Rx Last Taken Unknown] metoprolol tartrate 100 mg tablet 100 mg PO BID #180 tabs 11/11/21 [Rx Last Taken Unknown] sacubitril 24 mg-valsartan 26 mg tablet (Entresto) 1 tab PO BID #180 tabs 11/11/21 [Rx Last Taken Unknown] nystatin 100,000 unit/gram topical powder 1 applic topical TID PRN rash #60 grams 01/02/22 [Rx Last Taken Unknown] pantoprazole 40 mg tablet,delayed release 40 mg PO DAILY reflux #90 tabs 01/02/22 [Rx Last Taken Unknown] prednisone 5 mg tablet 7.5 mg PO QAM 01/31/22 [History Last Taken Unknown] dulaglutide 1.5 mg/0.5 mL subcutaneous pen injector 1.5 mg (0.5 mL) subcut QWEEK diabetes #2 mL 03/12/22 [Rx Last Taken Unknown] gabapentin 100 mg capsule 300 mg PO BID 03/28/22 [History Last Taken Unknown] levothyroxine 100 mcg tablet (Synthroid) 100 mcg PO DAILY #60 tabs 04/01/22 [Rx Last Taken Unknown] diltiazem HCl 120 mg capsule,extended release 24 hr 120 mg PO DAILY 04/02/22 [History Last Taken Unknown] hydrocodone-acetaminophen 5-325mg 5mg-325mg 1 tab PO Q8H PRN pain 04/02/22 [History Last Taken Unknown] omega-3 fatty acids 1,000 mg capsule 2,000 mg PO BID 04/02/22 [History Last Taken Unknown] ranitidine HCl 150 mg capsule 150 mg PO DAILY PRN Acid Reflux 04/02/22 [History Last Taken Unknown] torsemide 40 mg tablet 40 mg PO DAILY 04/02/22 [History Last Taken Unknown] Allergy/AdvReac Type Severity Reaction Status Date / Time hydroxychloroquine Allergy Severe Shortness Verified 04/02/22 20:34 of breath metformin AdvReac Severe Diarrhea Verified 04/02/22 20:34 methotrexate AdvReac Severe Other Verified 04/02/22 20:34 Sulfa (Sulfonamide AdvReac Intermediate Other Verified 04/02/22 20:34 Antibiotics) Family History Father Diabetes Heart disease Hypertension CVA (cerebral vascular accident) Hyperlipidemia CAD (coronary artery disease) Brother Hypertension Hyperlipidemia Sister THYROID Mother Uterine cancer Surgical History History of appendectomy History of back surgery History of cardioversion (01/15/18) History of left heart catheterization History of mitral valve replacement with bioprosthetic valve (04/23/17) History of radiofrequency ablation (RFA) for complex left atrial arrhythmia (04/25/17) History of right and left heart catheterization (02/25/17) History of total left knee replacement History of total right knee replacement History of transesophageal echocardiography (NEELA) (01/15/18) Social History adopted: No household members: other details: is in a long term and she is currently living alone housing: house number of children: 2 current occupational status: retired Smoking Status: Former smoker quit date: 06/08/01 Tobacco: How many years used: 25 how long ago did patient quit smokin years ago- about 2006? alcohol intake: current details: rare occasions substance use type: does not use ROS Review of Systems ROS Unobtainable: due to encephalopathy Vital Signs Vital Signs Vital Signs: 04/02/22 20:24 04/02/22 21:24 04/02/22 21:05 Temperature 37.2 C Temperature Source Oral Pulse Rate 154 H 133 H Respiratory Rate 22 H 23 H Blood Pressure 156/92 H 189/141 H Blood Pressure Mean 113 157 Pulse Ox 93 93 94 Oxygen Delivery Method Room Air Room Air Room Air 04/02/22 22:00 04/02/22 21:29 Temperature 39.4 C H 37.2 C Temperature Source Core Oral Pulse Rate 144 H 147 H Respiratory Rate 23 H 28 H Blood Pressure 188/173 H 189/144 H Blood Pressure Mean 178 159 Pulse Ox 94 94 Oxygen Delivery Method Room Air Room Air Weight Weight: 97.1 kg Body Mass Index (BMI) 35.6 Physical Exam Const no apparent distress Constitutional Narrative: Pleasantly confused. Febrile HEENT normocephalic and head/scalp atraumatic HEENT Narrative: Mucous membranes moist Eyes Eyes Narrative: No icterus Neck no lymphadenopathy Resp normal respiratory effort, no retractions, no use of accessory muscles and clear to auscultation bilaterally Cardio regular rate, regular rhythm, S1 normal heart sound and S2 normal heart sound GI normal to inspection, nondistended, normoactive bowel sounds, soft to palpation, non-tender, non-distended and hepatosplenomegaly Extremity normal to inspection and no clubbing, cyanosis or edema Neuro moves all extremities Sensorium / Orientation: awake and oriented to person Psych affect normal Results Lab / Micro Data Attestation: I reviewed the patient's lab results. Result Diagrams: 04/02/22 20:35 04/02/22 20:35 Labs: Laboratory Results - last 24 hr 04/02/22 20:35: WBC 11.9 H, RBC 4.32, Hgb 12.9, Hct 39.6, MCV 91.7, MCH 29.9, MCHC 32.6, RDW Std Deviation 46.8 H, RDW Coeff of Gisela 13.9, Plt Count 208, MPV 11.8, Immature Gran % (Auto) 0.400, Neut % (Auto) 80.2 H, Lymph % (Auto) 8.0 L, [place] % (Auto) 9.8, Eos % (Auto) 1.1, Baso % (Auto) 0.5, Absolute Neuts (auto) 9.5 H, Absolute Lymphs (auto) 0.95, Nucleated RBC % 0 04/02/22 20:35: PT 13.9, INR 1.1, APTT 29.7 04/02/22 20:35: Sodium 134 L, Potassium 4.3, Chloride 101, Carbon Dioxide 25.0, Anion Gap 8, BUN 21 H, Creatinine 1.00, Estim Creat Clear Calc 44.41, Est GFR (MDRD) Af Amer 70, Est GFR (MDRD) Non-Af 58 L, BUN/Creatinine Ratio 21.0 H, Glucose 218 H, Calcium 10.4 H, Total Bilirubin 0.70, AST 36, ALT 28, Alkaline Phosphatase 134 H, Total Protein 8.0, Albumin 3.1 L, Globulin 4.9 H, Albumin/Margaret bulin Ratio 0.6 L 04/02/22 20:35: Lactic Acid 1.7 04/02/22 21:35: Urine Color Yellow, Urine Clarity Cloudy, Urine pH 6.0, Ur Specific [place] 1.015, Urine Protein 100 H, Urine Glucose (UA) Normal, Urine Ketones 5 H, Urine Occult Blood 50 H, Urine Nitrite Positive H, Urine Bilirubin Negative, Urine Urobilinogen Normal, Ur Leukocyte Esterase 500 H, Urine RBC 0 SEEN, Urine WBC >100 SEEN, Ur Squamous Epith Cells 0 SEEN, Urine Bacteria 0 SEEN, Urine Mucus 0 SEEN Rhythm Strip Rhythm Strip: A-fib Rate: 135 Ectopy: None EKG Initial EKG: Attestation: I personally reviewed and interpreted this EKG as follows: Prior EKG tracings: available for review EKG Rhythm Intrepretation: Atrial Fibrillation (With RVR) Radiology Impression Brain CT 04/02/22 21:27 IMPRESSION: 1. Mild chronic changes. 2. No acute abnormality. 3. Prior images are being requested, an addendum is pending when received. Electronically Signed: Millicent Black MD at 22:17 EDT , ADDENDUM: 04/02/22 2251 IMPRESSION: undefined Chest X-Ray 04/02/22 21:50 IMPRESSION: Stable chest. Borderline cardiomegaly and mild pulmonary vascular prominence. Electronically Signed: Millicent Black MD at 22:13 EDT , Assessment & Plan Assessment/Plan (1) Sepsis: PLAN: Secondary to UTI qSOFA score 2 Follow-up cultures No additional IV fluids given patient's history of CHF (2) Acute UTI: PLAN: Received ceftriaxone in the emergency room. We will continue with that on the floor Follow-up urine cultures (3) Encephalopathy due to infection: PLAN: Metabolic encephalopathy secondary to UTI and sepsis Avoid potentiating medications at this time. Will hold off on the patient's gabapentin for now (4) Atrial fibrillation with RVR: PLAN: Likely exacerbated due to the underlying sepsis and UTI Patient received a diltiazem bolus in emergency room and then a drip Hold off on her oral diltiazem and metoprolol for the time being Patient had echocardiogram in September that showed an EF of 40%. I do not feel another echocardiogram is necessary at this time. Patient is anticoagulated on apixaban (5) HFrEF (heart failure with reduced ejection fraction): PLAN: EF 40% from September of this year. Hold diuretics for now in light of sepsis Continue with sacubitril/valsartan (6) Rheumatoid arthritis: QUALIFIERS: Rheumatoid arthritis location: multiple sites Rheumatoid factor presence: with rheumatoid factor Qualified Code(s): M05.79 - Rheumatoid arthritis with rheumatoid factor of multiple sites without organ or systems involvement PLAN: Complicates care Hold leflunomide Continue with prednisone BP is up to the patient has not any adrenal crisis at this time, therefore, hydrocortisone would not be indicated right now (7) Diabetes mellitus type 2, uncontrolled: QUALIFIERS: Glycemic state: with hyperglycemia Qualified Code(s): E11.65 - Type 2 diabetes mellitus with hyperglycemia PLAN: Continue with basal insulin. Add sliding scale. Hold scheduled NovoLog until her mental status improves and patient is confirmed to be eating normally. Hold dulaglutide for now (8) Hyperparathyroidism: PLAN: Corrected calcium is 11.1. I doubt this is the cause of encephalopathy as her calcium has been elevated in the past. Patient has seen Dr. Stratton back in October about this and there was thoughts about starting Prolia. She did have follow-up appointment with [facility] in November but there is no mention of the hyperparathyroidism at that time in the documentation. Follow-up with endocrinology Check a 25-hydroxy vitamin D level PLAN: Plan Chronic conditions * Recent biopsy of arm: Follow back in [facility] * Fibromyalgia: Hold gabapentin * Hyperlipidemia: Continue statin * Hypothyroidism: Continue levothyroxine * Morbid obesity * Obstructive sleep apnea: Unclear if patient uses a CPAP or BiPAP. If confirmed that patient does, that can be brought in. VTE prophylaxis: Not indicated as patient is already anticoagulated. Charges/Coding Visit Charges Inpatient E&M: 52811 Init Hosp L3
[2022-04-03] VITALS (36 sets, daily range): BP systolic 78–148; BP diastolic 49–102; PULSE 69–148; RESP 14–24; TEMP 36.3–39.2; O2SAT 92–97; BMI 35.8
[2022-04-03 01:19] LABS: Lactic Acid 1.2 mmol/L (0.4-1.9); Troponin-I HS 15 pg/mL (3.0-54.0)
[2022-04-03] MEDS: 0.9% Normal Saline 1,000 ML 999 ML IV (01:20)
[2022-04-03] MEDS: Hydrocortisone Sod Succinate 100 MG/2 ML Vial IV (02:56)
[2022-04-03 04:04] LABS: Absolute Lymphocyte Count 1.46 X10^3/uL (0.83-4.51); Absolute Neutrophil Count 9.9 X10^3/uL (2.0-7.7); Basophil# 0.09 X10^3/uL; Basophil% 0.7 % (0-1); Eosinophil# 0.06 X10^3/uL; Eosinophils% 0.5 % (0-5); Hematocrit 32.7 % (37-47); Hemoglobin 10.7 g/dL (12.0-15.0); Lymphocyte # 1.46 X10^3/ul (0.83-4.51); Lymphocyte % 11.3 % (19-41); Mean Corp Hgb Conc 32.7 g/dL (32-36); Mean Corpuscular Volume 94.8 fL (81-99); Mean Platelet Vol. 11.7 fl (6.2-12.0); Monocyte# 1.39 X10^3/uL; Monocyte% 10.8 % (0-10); NRBC Flagged by Analyzer 0 % (0-5); Neutrophil # 9.85 X10^3/uL (2.7-7.7); Neutrophil % 76.2 % (47-70); Platelet Count 161 K/mm3 (150-450); RBC Distribution Width CV 14.3 % (11.6-14.6); RBC Distribution Width SD 49.2 fl (35.1-43.9); Red Blood Count 3.45 M/mm3 (4.2-5.4); White Blood Count 12.9 K/mm3 (4.4-11.0)
[2022-04-03 04:30] LABS: Troponin-I HS 14 pg/mL (3.0-54.0)
[2022-04-03] MEDS: Hydrocortisone Sod Succinate 100 MG/2 ML Vial 50 MG IV ×2 (05:18→11:31)
[2022-04-03] MEDS: Levothyroxine 100 MCG Tablet PO (05:18)
[2022-04-03] MEDS: Insulin Lispro 100 UNIT/ML INSULN.PEN SC ×3 (06:30→16:38)
[2022-04-03 06:50] LABS: Bedside Glucose 254 mg/dL (74-106)
[2022-04-03 07:31] LABS: Anion Gap 7 (5-15); BUN 20 mg/dL (7-18); BUN/Creat Ratio 25.9 RATIO (10-20); Calcium,Total 9.4 mg/dL (8.5-10.1); Chloride 104 mmol/L (98-107); Creatinine, Serum 0.77 mg/dL (0.55-1.02); EST Glomerular Filtration Rate 77 mL/min (>60); Est Glom Filt Rate - Afr Amer 94 mL/min (>60); Estimated Creatinine Clearance 42.62 ml/min; Glucose 253 mg/dL (74-106); Potassium 4.3 mmol/L (3.5-5.1); Sodium Level 134 mmol/L (136-145); Thyroid Stim Hormone (TSH) 1.18 uIU/mL (0.358-3.74); Troponin-I HS 11 pg/mL (3.0-54.0)
[2022-04-03 08:33] LABS: Hemoglobin A1c 7.9 % (3.8-5.6)
[2022-04-03] MEDS: Pantoprazole Sodium 40 MG Tablet PO (09:30)
[2022-04-03] MEDS: SACUBITRIL/VALSARTAN 24/26 MG TABLET 1 EACH PO ×2 (09:30→20:13)
[2022-04-03] MEDS: Aspirin E.C. 81 MG Tablet PO (09:30)
[2022-04-03] MEDS: APIXABAN 5 MG TABLET PO ×2 (09:30→20:14)
[2022-04-03] MEDS: Loratadine 10 MG Tablet PO (09:30)
[2022-04-03] MEDS: Acetaminophen 325 MG Tablet 650 MG PO (09:31)
[2022-04-03 11:05] LABS: Bedside Glucose 385 mg/dL (74-106)
--- NOTE | 2022-04-03 11:45 | PN.HOSP_ITS ---
Subjective Subjective Follow-up on acute metabolic encephalopathy/sepsis/UTI/A. fib with RVR: Patient was seen and examined. She is much awake and oriented x3. She remains in A. fib and on Cardizem drip Objective Data Objective Data Vital Signs: Vital Signs Temp Pulse Resp BP Pulse Ox O2 Del Method 97.4 F L 111 H 18 126/68 H 94 Room Air 04/03/22 09:41 04/03/22 11:21 04/03/22 11:00 04/03/22 11:00 04/03/22 11:00 04/03/22 11:00 Oxygen Delivery Method Room Air Weight: 94.6 kg Body Mass Index (BMI) 35.8 Intake & Output: Intake and Output for Last 24 Hours 04/01/22 04/02/22 04/03/22 23:59 23:59 23:59 Intake Total 1000 / 1000 1400.00 / 1400.00 Output Total 250 / 250 Balance 1000 / 1000 1150.00 / 1150.00 Lab / Micro Data Result Diagrams: 04/03/22 03:44 04/03/22 06:40 Labs: Laboratory Results - last 24 hr 04/02/22 20:35: WBC 11.9 H, RBC 4.32, Hgb 12.9, Hct 39.6, MCV 91.7, MCH 29.9, MCHC 32.6, RDW Std Deviation 46.8 H, RDW Coeff of Gisela 13.9, Plt Count 208, MPV 11.8, Immature Gran % (Auto) 0.400, Neut % (Auto) 80.2 H, Lymph % (Auto) 8.0 L, [place] % (Auto) 9.8, Eos % (Auto) 1.1, Baso % (Auto) 0.5, Absolute Neuts (auto) 9 .5 H, Absolute Lymphs (auto) 0.95, Nucleated RBC % 0 04/02/22 20:35: PT 13.9, INR 1.1, APTT 29.7 04/02/22 20:35: Sodium 134 L, Potassium 4.3, Chloride 101, Carbon Dioxide 25.0, Anion Gap 8, BUN 21 H, Creatinine 1.00, Estim Creat Clear Calc 44.41, Est GFR (MDRD) Af Amer 70, Est GFR (MDRD) Non-Af 58 L, BUN/Creatinine Ratio 21.0 H, Glucose 218 H, Calcium 10.4 H, Total Bilirubin 0.70, AST 36, ALT 28, Alkaline Phosphatase 134 H, Total Protein 8.0, Albumin 3.1 L, Globulin 4.9 H, Albumin/Globulin Ratio 0.6 L 04/02/22 20:35: Lactic Acid 1.7 04/02/22 21:35: Urine Color Yellow, Urine Clarity Cloudy, Urine pH 6.0, Ur Specific [place] 1.015, Urine Protein 100 H, Urine Glucose (UA) Normal, Urine Ketones 5 H, Urine Occult Blood 50 H, Urine Nitrite Positive H, Urine Bilirubin Negative, Urine Urobilinogen Normal, Ur Leukocyte Esterase 500 H, Urine RBC 0 SE EN, Urine WBC >100 SEEN, Ur Squamous Epith Cells 0 SEEN, Urine Bacteria 0 SEEN, Urine Mucus 0 SEEN 04/03/22 00:45: Lactic Acid 1.2 04/03/22 00:45: Troponin I High Sens 15 04/03/22 03:44: WBC 12.9 H, RBC 3.45 L, Hgb 10.7 L, Hct 32.7 L, MCV 94.8, MCH 31.0, MCHC 32.7, RDW Std Deviation 49.2 H, RDW Coeff of Gisela 14.3, Plt Count 161, MPV 11.7, Immature Gran % (Auto) 0.500, Neut % (Auto) 76.2 H, Lymph % (Auto) 11.3 L, [place] % (Auto) 10.8 H, Eos % (Auto) 0.5, Baso % (Auto) 0.7, Absolute Neuts (auto) 9.9 H, Absolute Lymphs (auto) 1.46, Nucleated RBC % 0 04/03/22 03:44: Hemoglobin A1c 7.9 H 04/03/22 03:44: Vitamin D 25-Hydroxy 41.0 04/03/22 03:44: Troponin I High Sens 14 04/03/22 06:26: POC Glucose 254 H 04/03/22 06:40: Sodium 134 L, Potassium 4.3, Chloride 104, Carbon Dioxide 23.0, Anion Gap 7, BUN 20 H, Creatinine 0.77, Estim Creat Clear Calc 42.62, Est GFR (MDRD) Af Amer 94, Est GFR (MDRD) Non-Af 77, BUN/Creatinine Ratio 25.9 H, Glucose 253 H, Calcium 9.4, Troponin I High Sens 11, TSH 1.18 04/03/22 10:45: POC Glucose 385 H Micro: Microbiology 04/02/22 21:35 Urine Catheter - Catheter Urine Culture - 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 Mild chronic changes. 2. No acute abnormality. 3. Prior images are being requested, an addendum is pending when received. Electronically Signed: Millicent Black MD at 22:17 EDT , ADDENDUM: 04/02/222250 IMPRESSION: undefined Chest X-Ray 04/02/22 21:50 IMPRESSION: Stable chest. Borderline cardiomegaly and mild pulmonary vascular prominence. Electronically Signed: Millicent Black MD at 22:13 EDT Reading Location ID and State: [facility] / [place] Tel , Service support , Rhythm Strip Rhythm Strip: A-fib Rate: 135 Ectopy: None Physical Exam Narrative Physical exam: General: Alert, Oriented x3, Cooperative, No apparent distress HEENT: Atraumatic Oral: Moist Mucosa Neck: Supple Lungs: Clear to auscultation Cardiovascular: HS I+II, regular, no murmurs Abdomen: Bowel Sounds Present, Soft, Non Tender Extremities: Bilateral leg edema +1, swelling, sutures over left elbow in place Skin: No rashes, No breakdown Neurological: Grossly intact Psych/Mental Status: Appropriate Assessment & Plan Assessment/Plan (1) Atrial fibrillation with RVR: (2) HFrEF (heart failure with reduced ejection fraction): (3) Encephalopathy due to infection: (4) Acute UTI: (5) Rheumatoid arthritis: QUALIFIERS: Rheumatoid arthritis location: multiple sites Rheumatoid factor presence: with rheumatoid factor Qualified Code(s): M05.79 - Rheumatoid arthritis with rheumatoid factor of multiple sites without organ or systems involvement PLAN: Plan 1. Acute metabolic encephalopathy secondary to UTI, appears resolved Continue to monitor, continue to hold patient's gabapentin 2. Sepsis secondary to acute gram-negative fabricio UTI, slowly improved Patient was tachycardic, febrile, temp more than 103.0F, with source of infection secondary to UTI Continue on IV ceftriaxone, follow urine culture 3. A. fib with RVR secondary to #2, patient remains on Cardizem drip Will resume home regimen of metoprolol, Cardizem, amiodarone Wean off Cardizem drip, continue Eliquis 4. Hypothyroidism, continue Synthroid 5. Hyperlipidemia, continue statin 6. Heart failure with reduced EF, EF 40%, continue on Entresto, Lasix 7. Rheumatoid arthritis, continue leflunomide Will resume prednisone at discharge 8. Type II DM, blood sugars fairly controlled, continue on home insulin regimen 9. Hyperparathyroidism, calcium is improved, needs to follow-up in the outpatient 10. DVT PPx- On apixaban Charges/Coding Visit Charges Inpatient E&M: 01708 Subs Hosp L2
--- NOTE | 2022-04-03 14:36 | CCN.REFER ---
JESUS VALDEZ Assessment: Face to Face with patient for initial transition planning/care coordination assessment. JESUS VALDEZ introduced self and role at [facility], pt voices understanding and consents to assessment. Pt is lying in bed in no distress on room air. Pt is A/Ox4 and answers all questions appropriately.? Care providers, pharmacy,?and demographics verified/updated. ? Presentation: s/p bx of left arm for mass of soft tissue-fever/confusion this evening Admitting dx: Sepsis, UTI PCP: [facility] Specialists: Kane, cardio; Cuate nephro Preferred Pharmacy: [facility] Insurance: [facility] Prescription Benefit:?Yes Living Will/HPOA: Pt has LW/HPOA and is aware that they are not on file at [facility]. Pt states that she is planning on changing her will and AD's. LNOK: Cynthia Gómez, sister; Cristiano Badillo, brother Living Arrangements: Pt lives alone on main level of 2 story home with ramp entrance and states no concerns at home. Pt is independent with ADL's. Transportation: Pt states family(sister/brother/SHAAN) drives and states no transportation concerns. DME/HHC: Pt has the following DME: cane, WW, scooter, raised toilet seat, grab bars, shower stool and 2 lift chairs. Pt would like info on medical alert buttons and this was provided at this time. Pt states no need for any further DME. Pt states has had HHC in past and has been to [facility] IP rehab. Pt states no concerns with going home at time of discharge. Pt is retired. Pt states does not smoke cigarettes or drink ETOH. Pt voices no further concerns/needs. CM to follow for any further discharge planning/needs. Advised pt to ask for CM if any further questions/concerns/needs arise, voices understanding. Pt Goal: Home? Plan: [place] JESUS VALDEZ
[2022-04-03] MEDS: Insulin Lispro 100 UNIT/ML INSULN.PEN 26 UNIT SC (16:38)
[2022-04-03] MEDS: HYDROcodone Bitartrate/Apap 5/325 Tablet PO (16:43)
[2022-04-03] MEDS: Metoprolol Tartrate 100 MG Tablet PO (16:47)
[2022-04-03 17:00] LABS: Bedside Glucose 325 mg/dL (74-106)
--- NOTE | 2022-04-03 18:04 | NURSING ---
1800 bp 144/77 hr 68, cardizem titrated to 5 mcg/hr, volume left in bag but out of volume per MAR
--- NOTE | 2022-04-03 18:15 | NURSING ---
bp 126/89 hr 89 cardizem DCd
[2022-04-03] MEDS: Insulin Glargine-YFGN 100 UNIT/ML Pen 50 UNIT SC (20:16)
[2022-04-03] MEDS: Atorvastatin Calcium 40 MG Tablet PO (20:18)
[2022-04-03] MEDS: Ceftriaxone 1 GM/50 ML BAG IV (20:34)
[2022-04-04] VITALS (16 sets, daily range): BP systolic 100–144; BP diastolic 59–85; PULSE 75–117; RESP 14–19; TEMP 36.4–37.6; O2SAT 96–100
[2022-04-04 01:05] LABS: Bedside Glucose 234 mg/dL (74-106)
[2022-04-04] MEDS: Levothyroxine 100 MCG Tablet PO (06:07)
[2022-04-04 09:00] LABS: Bedside Glucose 131 mg/dL (74-106)
[2022-04-04 09:12] LABS: Absolute Lymphocyte Count 2.18 X10^3/uL (0.83-4.51); Absolute Neutrophil Count 9.3 X10^3/uL (2.0-7.7); Basophil# 0.05 X10^3/uL; Basophil% 0.4 % (0-1); Eosinophil# 0.16 X10^3/uL; Eosinophils% 1.2 % (0-5); Hematocrit 33.4 % (37-47); Hemoglobin 11.1 g/dL (12.0-15.0); Lymphocyte # 2.18 X10^3/ul (0.83-4.51); Lymphocyte % 16.6 % (19-41); Mean Corp Hgb Conc 33.2 g/dL (32-36); Mean Corpuscular Volume 93.3 fL (81-99); Mean Platelet Vol. 11.7 fl (6.2-12.0); Monocyte# 1.36 X10^3/uL; Monocyte% 10.4 % (0-10); NRBC Flagged by Analyzer 0 % (0-5); Neutrophil % 70.7 % (47-70); Platelet Count 186 K/mm3 (150-450); RBC Distribution Width CV 14.1 % (11.6-14.6); RBC Distribution Width SD 48.4 fl (35.1-43.9); Red Blood Count 3.58 M/mm3 (4.2-5.4); White Blood Count 13.1 K/mm3 (4.4-11.0)
[2022-04-04 09:29] LABS: ALB/GLOB Ratio 0.5 RATIO (0.9-2.4); AST(SGOT) 19 U/L (15-37); Alanine Aminotransfer ALT/SGPT 22 U/L (13-56); Albumin, Serum 2.3 g/dL (3.2-5.0); Alkaline Phosphatase 105 U/L (45-117); Anion Gap 6 (5-15); BUN 14 mg/dL (7-18); BUN/Creat Ratio 21.5 RATIO (10-20); Calcium,Total 9.9 mg/dL (8.5-10.1); Chloride 104 mmol/L (98-107); Creatinine, Serum 0.65 mg/dL (0.55-1.02); EST Glomerular Filtration Rate 94 mL/min (>60); Est Glom Filt Rate - Afr Amer 114 mL/min (>60); Estimated Creatinine Clearance 42.62 ml/min; Globulin 4.3 g/dL (2.2-4.2); Glucose 141 mg/dL (74-106); Potassium 3.6 mmol/L (3.5-5.1); Protein, Total 6.6 g/dL (6.4-8.2); Sodium Level 136 mmol/L (136-145)
[2022-04-04] MEDS: Loratadine 10 MG Tablet PO (09:35)
[2022-04-04] MEDS: Pantoprazole Sodium 40 MG Tablet PO (09:35)
[2022-04-04] MEDS: Aspirin E.C. 81 MG Tablet PO (09:35)
[2022-04-04] MEDS: SACUBITRIL/VALSARTAN 24/26 MG TABLET 1 EACH PO ×2 (09:35→20:48)
[2022-04-04] MEDS: APIXABAN 5 MG TABLET PO ×2 (09:35→20:47)
[2022-04-04] MEDS: Insulin Lispro 100 UNIT/ML INSULN.PEN 26 UNIT SC ×2 (09:36→12:43)
[2022-04-04] MEDS: Metoprolol Tartrate 100 MG Tablet PO ×2 (09:41→20:48)
[2022-04-04] MEDS: dilTIAZem CD 120 MG Capsule PO (09:41)
[2022-04-04] MEDS: Acetaminophen 325 MG Tablet 650 MG PO (09:41)
[2022-04-04] MEDS: Amiodarone 200 MG Tablet PO (09:42)
[2022-04-04] MEDS: Furosemide 80 MG Tablet PO (09:42)
--- NOTE | 2022-04-04 11:29 | CASEMGMT ---
EVER reviewed therapy notes and patient did not do well. Therapy is recommending [facility] facility. EVER met with patient. Introduced self and role at [facility]. EVER let patient know that therapy is recommending [facility] facility. EVER gave patient a list of[facility]facility providers including quality and resource use data and consistent with patient?s preferred geographic region, medical needs, and insurance network were provided from the [facility] [facility]. Patient said she has been to the hospital's unit before so she would like to go there if possible. EVER told patient EVER will check on availability. EVER then received a call from Taniya and EVER made referral. Taniya will review patient's chart and get back to EVER. EVER let patient know this information. Plan: TCU pending acceptance [facility]
--- NOTE | 2022-04-04 11:49 | PCM.PN.HOSP ---
Subjective Subjective Follow-up on acute metabolic encephalopathy/sepsis/UTI/A. fib with RVR: Patient was seen and examined. She complains of pain in the left elbow. Patient later had spontaneous discharge of serosanguineous fluid from her left elbow. General surgery was consulted, recommended conservative management. Objective Data Objective Data Vital Signs: Vital Signs Temp Pulse Resp BP Pulse Ox O2 Del Method 97.8 F 117 H 15 111/85 H 97 Room Air 04/04/22 09:29 04/04/22 09:41 04/04/22 09:29 04/04/22 09:41 04/04/22 09:29 04/04/22 09:30 Oxygen Delivery Method Room Air Weight: 94.6 kg Body Mass Index (BMI) 35.8 Intake & Output: Intake and Output for Last 24 Hours 04/02/22 04/03/22 04/04/22 23:59 23:59 23:59 Intake Total 1000 / 1000 1550.00 / 1550.00 Output Total 800 / 1600 1300 / 1300 Balance 1000 / 1000 750.00 / -50.00 -1300 / -1300 Lab / Micro Data Result Diagrams: 04/04/22 08:40 04/04/22 08:40 Labs: Laboratory Results - last 24 hr 04/03/22 16:36: POC Glucose 325 H 04/03/22 20:15: POC Glucose 234 H 04/04/22 08:40: WBC 13.1 H, RBC 3.58 L, Hgb 11.1 L, Hct 33.4 L, MCV 93.3, MCH 31.0, MCHC 33.2, RDW Std Deviation 48.4 H, RDW Coeff of Gisela 14.1, Plt Count 186, MPV 11.7, Immature Gran % (Auto) 0.700, Neut % (Auto) 70.7 H, Lymph % (Auto) 16.6 L, [place] % (Auto) 10.4 H, Eos % (Auto) 1.2, Baso % (Auto) 0.4, Absolute Neuts (auto) 9.3 H, Absolute Lymphs (auto) 2.18, Nucleated RBC % 0 04/04/22 08:40: Sodium 136, Potassium 3.6, Chloride 104, Carbon Dioxide 26.0, Anion Gap 6, BUN 14, Creatinine 0.65, Estim Creat Clear Calc 42.62, Est GFR (MDRD) Af Amer 114, Est GFR (MDRD) Non-Af 94, BUN/Creatinine Ratio 21.5 H, Glucose 141 H, Calcium 9.9, Total Bilirubin 0.50, AST 19, ALT 22, Alkaline Phosphatase 105, Total Protein 6.6, Albumin 2.3 L, Globulin 4.3 H, Albumin/Globulin Ratio 0.5 L 04/04/22 08:44: POC Glucose 131 H Micro: Microbiology 04/02/22 21:35 Urine Catheter - Catheter Urine Culture - Final Escherichia coli Rhythm Strip Rhythm Strip: A-fib Rate: 135 Ectopy: None Physical Exam Narrative Physical exam: General: Alert, Oriented x3, Cooperative, No apparent distress HEENT: Atraumatic Oral: Moist Mucosa Neck: Supple Lungs: Clear to auscultation Cardiovascular: HS I+II, regular, no murmurs Abdomen: Bowel Sounds Present, Soft, Non Tender Extremities: Bilateral leg edema +1, swelling, sutures over left elbow in place Skin: No rashes, No breakdown Neurological: Grossly intact Psych/Mental Status: Appropriate Assessment & Plan Assessment/Plan (1) Atrial fibrillation with RVR: (2) HFrEF (heart failure with reduced ejection fraction): (3) Encephalopathy due to infection: (4) Acute UTI: (5) Rheumatoid arthritis: QUALIFIERS: Rheumatoid arthritis location: multiple sites Rheumatoid factor presence: with rheumatoid factor Qualified Code(s): M05.79 - Rheumatoid arthritis with rheumatoid factor of multiple sites without organ or systems involvement PLAN: Plan 1. Acute metabolic encephalopathy secondary to UTI, appears resolved Continue to monitor, continue to hold patient's gabapentin 2. Sepsis secondary to acute E. coli UTI, pansensitive Continue on IV ceftriaxone 3. A. fib with RVR secondary to #2, rate controlled Continue on home metoprolol, Cardizem, amiodarone, Eliquis 4. Hypothyroidism, continue Synthroid 5. Hyperlipidemia, continue statin 6. Heart failure with reduced EF, EF 40%, continue on Entresto, Lasix 7. Rheumatoid arthritis, continue leflunomide Will resume prednisone at discharge 8. Type II DM, blood sugars fairly controlled, continue on home insulin regimen 9. Hyperparathyroidism, calcium is improved, needs to follow-up in the outpatient 10. DVT PPx- On apixaban Charges/Coding Visit Charges Inpatient E&M: 63773 Subs Hosp L2
[2022-04-04 12:00] LABS: Bedside Glucose 170 mg/dL (74-106)
[2022-04-04] MEDS: Insulin Lispro 100 UNIT/ML INSULN.PEN SC (12:43)
--- NOTE | 2022-04-04 13:32 | CASEMGMT ---
EVER let patient know that [facility] can take her when she is ready. EVER asked patient if she would like SW to call her family and patient declined stating she could do this. Plan: d/c to [facility] when medically ready. Karuna FERRARI
--- NOTE | 2022-04-04 14:21 | CON.PCM.SX_ITS ---
Assessment & Plan Assessment/Plan (1) Mass of soft tissue of left upper extremity: PLAN: Plan Did evaluate patient's left forearm incision. Incision healing well with permanent suture in place, there are 2 areas of thin skin near the elbow which is where the fluid did leak from. Patient does have swelling at that area consistent with a seroma. No current leakage of fluid. No signs of infection. No need for any intervention currently. Please call with any questions. Recommend follow-up with her surgeon as previously scheduled. Blanca Falcon M.D. Pager: [phone] [facility] [address] [place] [address], [facility]patient [facility], [address] [place] [address] Office: [phone] HPI Consult Data Date of Consult: 04/05/22 HPI Narrative HPI Narrative: MARIA ISABEL LOPEZ, is a 76 F who admitted for mental status change/confusion as she came to the ER in the squad. Patient just had an excision of subcutaneous mass of the left forearm at [facility] on 04/02. Per patient that those likely lipoma. Pathology still pending. Patient did have a large amount of serosanguineous fluid from this area, thus I was consulted for evaluation of the incision. Patient states that the subcutaneous mass was larger than a baseball previously before excision. And she noted some light pink drainage coming from that area, that it was redressed by nursing. [facility] Medical History (Updated 04/04/22 @ 14:[address] Blanca Falcon MD) Cerebrovascular accident (CVA) Chronic combined systolic and diastolic CHF (congestive heart failure) Chronic pain Diabetes mellitus type 2, uncontrolled Essential hypertension Fibromyalgia GERD (gastroesophageal reflux disease) HFrEF (heart failure with reduced ejection fraction) Hypercalcemia Hyperlipidemia Hypothyroidism Lipoma of left upper extremity Localized swelling of left forearm Longstanding persistent atrial fibrillation Lupus Morbid obesity Non-ischemic cardiomyopathy Nonalcoholic fatty liver disease Nonrheumatic mitral valve stenosis with insufficiency KAROLINA (obstructive sleep apnea) Osteoarthritis Osteoporosis Preoperative evaluation to rule out surgical contraindication Radicular pain of left lower extremity Rheumatoid arthritis RLS (restless legs syndrome) Smoldering multiple myeloma (SMM) Steroid dependence Stroke Home Medications aspirin 81 mg tablet,delayed release 81 mg PO DAILY heart health 05/24/19 [History Last Taken Unknown] leflunomide 10 mg tablet 20 mg PO DAILY arthritis 09/04/21 [History Last Taken Unknown] insulin degludec 100 unit/mL (3 mL) subcutaneous pen 50 unit (0.5 mL) subcut QHS #15 mL 10/09/21 [Rx Last Taken Unknown] loratadine 10 mg tablet (Allergy Relief (loratadine)) 10 mg PO DAILY 10/18/21 [History Last Taken Unknown] apixaban 5 mg tablet (Eliquis) 5 mg PO BID #180 tabs 11/11/21 [Rx Last Taken Unknown] atorvastatin 40 mg tablet 40 mg PO QHS cholesterol #90 tabs 11/11/21 [Rx Last Taken Unknown] metoprolol tartrate 100 mg tablet 100 mg PO BID #180 tabs 11/11/21 [Rx Last Taken Unknown] nystatin 100,000 unit/gram topical powder 1 applic topical TID PRN rash #60 grams 01/02/22 [Rx Last Taken Unknown] pantoprazole 40 mg tablet,delayed release 40 mg PO DAILY reflux #90 tabs 01/02/22 [Rx Last Taken Unknown] prednisone 5 mg tablet 7.5 mg PO QAM 01/31/22 [History Last Taken Unknown] dulaglutide 1.5 mg/0.5 mL subcutaneous pen injector 1.5 mg (0.5 mL) subcut QWEEK diabetes #2 mL 03/12/22 [Rx Last Taken Unknown] gabapentin 100 mg capsule 300 mg PO BID 03/28/22 [History Last Taken Unknown] levothyroxine 100 mcg tablet (Synthroid) 100 mcg PO DAILY #60 tabs 04/01/22 [Rx Last Taken Unknown] albuterol 90 mcg/actuation aerosol inhaler 90 mcg inhalation Q4H PRN sob 04/02/22 [History Last Taken Unknown] amiodarone 200 mg tablet 200 mg PO DAILY arrythmia 04/02/22 [History Last Taken Unknown] chromium picolinate 400 mcg tablet 800 mcg PO DAILY supplement 04/02/22 [History Last Taken Unknown] diltiazem HCl 120 mg capsule,extended release 24 hr 120 mg PO DAILY 04/02/22 [History Last Taken Unknown] hydrocodone-acetaminophen 5-325mg 5mg-325mg 1 tab PO Q8H PRN pain 04/02/22 [History Last Taken Unknown] insulin aspart U-100 100 unit/mL (3 mL) subcutaneous pen (Novolog Flexpen U-100 Insulin aspart) 26 unit subcut TID insulin 04/02/22 [History Last Taken Unknown] omega-3 fatty acids 1,000 mg capsule 2,000 mg PO BID 04/02/22 [History Last Taken Unknown] ranitidine HCl 150 mg capsule 150 mg PO DAILY PRN Acid Reflux 04/02/22 [History Last Taken Unknown] sacubitril 24 mg-valsartan 26 mg tablet (Entresto) 1 tab PO BID heart failure 04/02/22 [History Last Taken Unknown] torsemide 40 mg tablet 40 mg PO DAILY 04/02/22 [History Last Taken Unknown] cefdinir 300 mg capsule 300 mg PO BID 4 days #8 caps 04/05/22 [Rx Last Taken Unknown] Allergy/AdvReac Type Severity Reaction Status Date / Time hydroxychloroquine Allergy Severe Shortness Verified 04/02/22 20:34 of breath metformin AdvReac Severe Diarrhea Verified 04/02/22 20:34 methotrexate AdvReac Severe Other Verified 04/02/22 20:34 Sulfa (Sulfonamide AdvReac Intermediate Other Verified 04/02/22 20:34 Antibiotics) Family History Father Diabetes Heart disease Hypertension CVA (cerebral vascular accident) Hyperlipidemia CAD (coronary artery disease) Brother Hypertension Hyperlipidemia Sister THYROID Mother Uterine cancer Surgical History History of appendectomy History of back surgery History of cardioversion (01/15/18) History of left heart catheterization History of mitral valve replacement with bioprosthetic valve (04/23/17) History of radiofrequency ablation (RFA) for complex left atrial arrhythmia (04/25/17) History of right and left heart catheterization (02/25/17) History of total left knee replacement History of total right knee replacement History of transesophageal echocardiography (NEELA) (01/15/18) Social History adopted: No household members: other details: is in a correction and she is currently living alone housing: house number of children: 2 current occupational status: retired Smoking Status: Former smoker quit date: 06/08/01 Tobacco: How many years used: 25 how long ago did patient quit smokin years ago- about 2006? alcohol intake: current details: rare occasions substance use type: does not use Physical Exam Const alert, oriented x3 and no apparent distress HEENT normocephalic Neck supple Resp normal respiratory effort Cardio Rate: regular rate GI soft to palpation and non-tender Extremity Extremity Narrative: Left upper extremity incision on the proximal forearm with permanent sutures healing well-incision intact, seroma on exam, no active leakage. There are 2 areas of thinning tissue near the elbow?this is where the fluid had leaked from per patient/nursing. No signs of recurrent infection in either area. Skin no jaundice Skin Narrative: See extremity Neuro CN's II-XII intact bilaterally Psych mental status grossly normal Lab / Micro Data Result Diagrams: 04/05/22 05:22 04/05/22 05:22 Labs: Laboratory Results - last 24 hr 04/03/22 16:36: POC Glucose 325 H 04/03/22 20:15: POC Glucose 234 H 04/04/22 08:40: WBC 13.1 H, RBC 3.58 L, Hgb 11.1 L, Hct 33.4 L, MCV 93.3, MCH 31.0, MCHC 33.2, RDW Std Deviation 48.4 H, RDW Coeff of Gisela 14.1, Plt Count 186, MPV 11.7, Immature Gran % (Auto) 0.700, Neut % (Auto) 70.7 H, Lymph % (Auto) 16.6 L, [place] % (Auto) 10.4 H, Eos % (Auto) 1.2, Baso % (Auto) 0.4, Absolute Neuts (auto) 9.3 H, Absolute Lymphs (auto) 2.18, Nucleated RBC % 0 04/04/22 08:40: Sodium 136, Potassium 3.6, Chloride 104, Carbon Dioxide 26.0, Anion Gap 6, BUN 14, Creatinine 0.65, Estim Creat Clear Calc 42.62, Est GFR (MDRD) Af Amer 114, Est GFR (MDRD) Non-Af 94, BUN/Creatinine Ratio 21.5 H, Glucose 141 H, Calcium 9.9, Total Bilirubin 0.50, AST 19, ALT 22, Alkaline Phosphatase 105, Total Protein 6.6, Albumin 2.3 L, Globulin 4.3 H, Albumin/Globulin Ratio 0.5 L 04/04/22 08:44: POC Glucose 131 H 04/04/22 11:37: POC Glucose 170 H Micro: Microbiology 04/02/22 21:35 Urine Catheter - Catheter Urine Culture - Final Escherichia coli Rhythm Strip Rhythm Strip: A-fib Rate: 135 Ectopy: None Charges/Coding Visit Charges Inpatient E&M: 13736 Init Hosp L3
[2022-04-04 17:55] LABS: Bedside Glucose 50 mg/dL (74-106)
[2022-04-04] MEDS: Ceftriaxone 1 GM/50 ML BAG IV (20:47)
[2022-04-04] MEDS: Atorvastatin Calcium 40 MG Tablet PO (20:48)
[2022-04-04] MEDS: 0.9% Saline Lock 10 ML Syringe IV (20:48)
[2022-04-05] VITALS (8 sets, daily range): BP systolic 124–142; BP diastolic 80–83; PULSE 71–143; RESP 16–18; TEMP 36.6–36.9; O2SAT 95–98
[2022-04-05 00:35] LABS: Bedside Glucose 135 mg/dL (74-106)
[2022-04-05] MEDS: HYDROcodone Bitartrate/Apap 5/325 Tablet PO (02:17)
[2022-04-05 05:59] LABS: Absolute Lymphocyte Count 1.96 X10^3/uL (0.83-4.51); Basophil# 0.07 X10^3/uL; Basophil% 0.8 % (0-1); Eosinophil# 0.37 X10^3/uL; Eosinophils% 4.3 % (0-5); Hematocrit 30.3 % (37-47); Hemoglobin 10.1 g/dL (12.0-15.0); Lymphocyte # 1.96 X10^3/ul (0.83-4.51); Mean Corp Hgb Conc 33.3 g/dL (32-36); Mean Corpuscular Hgb 30.8 pg (27.0-32.0); Mean Corpuscular Volume 92.4 fL (81-99); Mean Platelet Vol. 11.7 fl (6.2-12.0); Monocyte# 1.14 X10^3/uL; Monocyte% 13.4 % (0-10); NRBC Flagged by Analyzer 0 % (0-5); Neutrophil # 4.95 X10^3/uL (2.7-7.7); Neutrophil % 58.1 % (47-70); Platelet Count 175 K/mm3 (150-450); RBC Distribution Width SD 47.5 fl (35.1-43.9); Red Blood Count 3.28 M/mm3 (4.2-5.4); White Blood Count 8.5 K/mm3 (4.4-11.0)
[2022-04-05] MEDS: Levothyroxine 100 MCG Tablet PO (06:27)
[2022-04-05 06:28] LABS: ALB/GLOB Ratio 0.5 RATIO (0.9-2.4); AST(SGOT) 29 U/L (15-37); Alanine Aminotransfer ALT/SGPT 26 U/L (13-56); Albumin, Serum 1.9 g/dL (3.2-5.0); Alkaline Phosphatase 118 U/L (45-117); Anion Gap 6 (5-15); BUN 16 mg/dL (7-18); BUN/Creat Ratio 23.5 RATIO (10-20); Calcium,Total 9.4 mg/dL (8.5-10.1); Chloride 103 mmol/L (98-107); Creatinine, Serum 0.68 mg/dL (0.55-1.02); EST Glomerular Filtration Rate 90 mL/min (>60); Est Glom Filt Rate - Afr Amer 109 mL/min (>60); Estimated Creatinine Clearance 42.62 ml/min; Globulin 3.8 g/dL (2.2-4.2); Glucose 117 mg/dL (74-106); Potassium 3.6 mmol/L (3.5-5.1); Protein, Total 5.7 g/dL (6.4-8.2); Sodium Level 134 mmol/L (136-145)
[2022-04-05 07:01] LABS: Bedside Glucose 123 mg/dL (74-106)
--- NOTE | 2022-04-05 08:25 | PCM.PN.SRG ---
Subjective Subjective Patient did have little additional drainage after I saw her yesterday again it was serosanguineous from one of the thinning areas near the elbow. Patient states that it did relieve some pressure from her arm. Objective Data Objective Data Vital Signs: Vital Signs Temp Pulse Resp BP Pulse Ox O2 Del Method 98.5 F 106 H 16 131/83 H 96 Room Air 04/05/22 06:21 04/05/22 06:44 04/05/22 06:21 04/05/22 06:21 04/05/22 06:21 04/05/22 06:21 Oxygen Delivery Method Room Air Weight: 208 lb 8.917 oz Body Mass Index (BMI) 35.8 Intake & Output: Intake and Output for Last 24 Hours 04/03/22 04/04/22 04/05/22 23:59 23:59 23:59 Intake Total 1550.00 / 1550.00 806188 / 444337 Output Total 800 / 1600 3600 / 3600 1250 / 1250 Balance 750.00 / -50.00 185152 / 847115 -1250 / -1250 Lab / Micro Data Result Diagrams: 04/05/22 05:22 04/05/22 05:22 Labs: Laboratory Results - last 24 hr 04/04/22 08:40: WBC 13.1 H, RBC 3.58 L, Hgb 11.1 L, Hct 33.4 L, MCV 93.3, MCH 31.0, MCHC 33.2, RDW Std Deviation 48.4 H, RDW Coeff of Gisela 14.1, Plt Count 186, MPV 11.7, Immature Gran % (Auto) 0.700, Neut % (Auto) 70.7 H, Lymph % (Auto) 16.6 L, Davis % (Auto) 10.4 H, Eos % (Auto) 1.2, Baso % (Auto) 0.4, Absolute Neuts (auto) 9.3 H, Absolute Lymphs (auto) 2.18, Nucleated RBC % 0 04/04/22 08:40: Sodium 136, Potassium 3.6, Chloride 104, Carbon Dioxide 26.0, Anion Gap 6, BUN 14, Creatinine 0.65, Estim Creat Clear Calc 42.62, Est GFR (MDRD) Af Amer 114, Est GFR (MDRD) Non-Af 94, BUN/Creatinine Ratio 21.5 H, Glucose 141 H, Calcium 9.9, Total Bilirubin 0.50, AST 19, ALT 22, Alkaline Phosphatase 105, Total Protein 6.6, Albumin 2.3 L, Globulin 4.3 H, Albumin/Globulin Ratio 0.5 L 04/04/22 08:44: POC Glucose 131 H 04/04/22 11:37: POC Glucose 170 H 04/04/22 17:30: POC Glucose 50 L 04/04/22 20:43: POC Glucose 135 H 04/05/22 05:22: WBC 8.5, RBC 3.28 L, Hgb 10.1 L, Hct 30.3 L, MCV 92.4, MCH 30.8, MCHC 33.3, RDW Std Deviation 47.5 H, RDW Coeff of Gisela 14.0, Plt Count 175, MPV 11.7, Immature Gran % (Auto) 0.400, Neut % (Auto) 58.1, Lymph % (Auto) 23.0, Davis % (Auto) 13.4 H, Eos % (Auto) 4.3, Baso % (Auto) 0.8, Absolute Neuts (auto) 5.0, Absolute Lymphs (auto) 1.96, Nucleated RBC % 0 04/05/22 05:22: Sodium 134 L, Potassium 3.6, Chloride 103, Carbon Dioxide 25.0, Anion Gap 6, BUN 16, Creatinine 0.68, Estim Creat Clear Calc 42.62, Est GFR (MDRD) Af Amer 109, Est GFR (MDRD) Non-Af 90, BUN/Creatinine Ratio 23.5 H, Glucose 117 H, Calcium 9.4, Total Bilirubin 0.40, AST 29, ALT 26, Alkaline Phosphatase 118 H, Total Protein 5.7 L, Albumin 1.9 L, Globulin 3.8, Albumin/Globulin Ratio 0.5 L 04/05/22 06:26: POC Glucose 123 H Micro: Microbiology 04/02/22 21:35 Urine Catheter - Catheter Urine Culture - Final Escherichia coli Rhythm Strip Rhythm Strip: A-fib Rate: 135 Ectopy: None Physical Exam Const alert, oriented x3 and no apparent distress Extremity Extremity Narrative: Left upper extremity incision on the proximal forearm with permanent sutures healing well-incision intact, seroma on exam, no active leakage. There are 2 areas of thinning tissue near the elbow?this is where the fluid had leaked from per patient/nursing. No signs of current infection in either area. Psych mental status grossly normal Assessment & Plan Assessment/Plan (1) Mass of soft tissue of left upper extremity: PLAN: Plan Incision is still healing well with permanent suture. Patient does have 2 small wounds near the elbow which is where the fluid had been coming from per nursing. Currently no additional fluid is able to be expressed. No signs of infection. Recommend keeping that area well padded does not have extra pressure as she is trying to keep pressure off of the incision. Recommend ABD at the elbow as well as incision. Blanca Falcon M.D. Pager: [phone] [facility] [address] [place] [address], [facility], [address] [place] [address] Office: [phone] Charges/Coding Visit Charges Inpatient E&M: 74523 Subs Hosp L2
[2022-04-05 08:26] LABS: Bedside Glucose 114 mg/dL (74-106)
[2022-04-05] MEDS: Metoprolol Tartrate 100 MG Tablet PO (08:45)
[2022-04-05] MEDS: dilTIAZem CD 120 MG Capsule PO (08:45)
[2022-04-05] MEDS: APIXABAN 5 MG TABLET PO (08:45)
[2022-04-05] MEDS: Amiodarone 200 MG Tablet PO (08:46)
[2022-04-05] MEDS: Furosemide 80 MG Tablet PO (08:46)
[2022-04-05] MEDS: Loratadine 10 MG Tablet PO (08:46)
[2022-04-05] MEDS: SACUBITRIL/VALSARTAN 24/26 MG TABLET 1 EACH PO (08:46)
[2022-04-05] MEDS: Pantoprazole Sodium 40 MG Tablet PO (08:46)
[2022-04-05] MEDS: Aspirin E.C. 81 MG Tablet PO (08:46)
--- NOTE | 2022-04-05 09:51 | TREXTCAR_ITS ---
Diet Diet Order/Speech Therapy: 04/03/22 00:26 Diet: Cardiac: Calorie-Controlled Food consistency:: Regular Liquid Consistency:: Regular/Thin How many daily calories?: 1800 calorie Routine Orders/Code Status Suppository Type: Dulcolax 10mg Suppository Frequency: Daily PRN Keep PO Greater than or Equal to (%): 94 Routine Lab Work: CBC (within 3 days) and - (CMP within 3 days) Code Status: Full Code Wound(s) left elbow: Wound Type: Surgical Incision Therapies Weight Bearing: Weight bearing as tolerated Physical Therapy: Eval and Treat Occupational Therapy: Eval and Treat Problem/Diagnosis (1) Mass of soft tissue of left upper extremity: Status: Acute Code(s): M79.89 - Other specified soft tissue disorders Comment: s/p excision at [facility] by Dr. Wright 04/02/22 Plan 1. Acute metabolic encephalopathy secondary to UTI 2. Sepsis secondary to acute E. coli UTI, pansensitive 3. A. fib with RVR secondary to #2 4. Hypothyroidism 5. Hyperlipidemia 6. Heart failure with reduced EF, EF 40% 7. Rheumatoid arthritis 8. Type II DM 9. Hyperparathyroidism Allergies/Procedures Done in Hospital Allergies hydroxychloroquine Allergy (Severe, Verified 04/02/22 20:34) Shortness of breath metformin Adverse Reaction (Severe, Verified 04/02/22 20:34) Diarrhea methotrexate Adverse Reaction (Severe, Verified 04/02/22 20:34) Other PASSES OUT Sulfa (Sulfonamide Antibiotics) Adverse Reaction (Intermediate, Verified 04/02/22 20:34) Other BLISTERS Procedures: None Type of Care/Length of Stay Estimated LOS: Convalescent Care Less Than 30 days Type of Care Needed: Skilled Rehab Potential: Fair Prognosis: Fair Additional Orders/Day of Discharge Day of Discharge: 04/05/22 Dietary and Speech Recommendations Dietitian Recommendations/Changes: RD will change diet to 1800 CCD, Cardiac diet to manage medical conditions. Discharge Plan Admission Admit Date/Time: 04/02/22 23:04 Primary Reason for Your Visit: Sepsis secondary to Acute E. Coli UTI Attending Provider: Candis Bull Primary Care Provider: Grayson Newton Consulting Providers: Pacheco Robbins ; Blanca Falcon Instructions Additional Instructions / Restrictions: Dry dressing to the left elbow Consider wound consult Follow-up with [facility] general surgeon as previously planned Discharge Orders/Prescriptions Prescriptions: New cefdinir 300 mg capsule 300 mg PO BID 4 Days Qty: 8 0RF Rx Instructions: Last dose 04/11/22 evening Continued prednisone 5 mg tablet 7.5 mg PO QAM loratadine [Allergy Relief (loratadine)] 10 mg tablet 10 mg PO DAILY nystatin 100,000 unit/gram powder 1 applic topical TID PRN (Reason: rash) Qty: 60 1RF pantoprazole 40 mg tablet,delayed release (DR/EC) 40 mg PO DAILY Qty: 90 3RF gabapentin 100 mg capsule 300 mg PO BID aspirin 81 MG tablet,delayed release (DR/EC) 81 mg PO DAILY leflunomide 10 mg tablet 20 mg PO DAILY insulin degludec 100 unit/mL (3 mL) insulin pen 50 unit subcut QHS Qty: 15 0RF hydrocodone-acetaminophen 5-325 mg tablet 1 tab PO Q8H PRN (Reason: pain) diltiazem HCl 120 mg capsule,extended release 24hr 120 mg PO DAILY omega-3 fatty acids 1,000 mg Capsule 2,000 mg PO BID ranitidine HCl 150 mg Capsule 150 mg PO DAILY PRN (Reason: Acid Reflux) torsemide 40 mg Tablet 40 mg PO DAILY Rx Instructions: may take bid for increase in weight gain or edema amiodarone 200 mg Tablet 200 mg PO DAILY chromium picolinate 400 mcg Tablet 800 mcg PO DAILY Entresto 24-26 mg tablet 1 tab PO BID albuterol 90 mcg/actuation Aerosol 90 mcg INHALATION Q4H PRN (Reason: sob) insulin aspart U-100 [Novolog Flexpen U-100 Insulin] 100 unit/mL (3 mL) insulin pen 26 unit subcut TID atorvastatin 40 mg tablet 40 mg PO QHS Qty: 90 3RF Eliquis 5 mg tablet 5 mg PO BID Qty: 180 2RF metoprolol tartrate 100 mg tablet 100 mg PO BID Qty: 180 3RF dulaglutide 1.5 mg/0.5 mL pen injector 1.5 mg subcut QWEEK Qty: 2 3RF levothyroxine [Synthroid] 100 mcg tablet 100 mcg PO DAILY Qty: 60 0RF Discontinued Trulicity 1.5 mg/0.5 mL Pen Injector 1.5 mg SUBCUT QWEEK Referrals / Follow Up: Grayson Newton MD [Primary Care Provider] - Within 1 Week (within 1 week after discharge from rehab ) Disposition Disposition (needs filled in before D/C Order can be placed): Intermediate Facility
--- NOTE | 2022-04-05 10:19 | PCM.TXEXTCAR ---
Diet Diet Order/Speech Therapy: 04/03/22 00:26 Diet: Cardiac: Calorie-Controlled Food consistency:: Regular Liquid Consistency:: Regular/Thin How many daily calories?: 1800 calorie Wound(s) left elbow: Wound Type: Surgical Incision Problem/Diagnosis (1) Mass of soft tissue of left upper extremity: Status: Acute Code(s): M79.89 - Other specified soft tissue disorders Comment: s/p excision at [facility] by Dr. Wright 04/02/22 Plan 1. Acute metabolic encephalopathy secondary to UTI, appears resolved Continue to monitor, continue to hold patient's gabapentin 2. Sepsis secondary to acute E. coli UTI, pansensitive Continue on IV ceftriaxone 3. A. fib with RVR secondary to #2, rate controlled Continue on home metoprolol, Cardizem, amiodarone, Eliquis 4. Hypothyroidism, continue Synthroid 5. Hyperlipidemia, continue statin 6. Heart failure with reduced EF, EF 40%, continue on Entresto, Lasix 7. Rheumatoid arthritis, continue leflunomide Will resume prednisone at discharge 8. Type II DM, blood sugars fairly controlled, continue on home insulin regimen 9. Hyperparathyroidism, calcium is improved, needs to follow-up in the outpatient 10. DVT PPx- On apixaban Allergies/Procedures Done in Hospital Allergies hydroxychloroquine Allergy (Severe, Verified 04/02/22 20:34) Shortness of breath metformin Adverse Reaction (Severe, Verified 04/02/22 20:34) Diarrhea methotrexate Adverse Reaction (Severe, Verified 04/02/22 20:34) Other PASSES OUT Sulfa (Sulfonamide Antibiotics) Adverse Reaction (Intermediate, Verified 04/02/22 20:34) Other BLISTERS Dietary and Speech Recommendations Dietitian Recommendations/Changes: RD will change diet to 1800 CCD, Cardiac diet to manage medical conditions. Discharge Plan Admission Admit Date/Time: 04/02/22 23:04 Attending Provider: Candis Bull Primary Care Provider: Grayson Newton Consulting Providers: Pacheco Robbins ; Blanca Falcon Discharge Orders/Prescriptions Prescriptions: No Action prednisone 5 mg tablet 7.5 mg PO QAM loratadine [Allergy Relief (loratadine)] 10 mg tablet 10 mg PO DAILY nystatin 100,000 unit/gram powder 1 applic topical TID PRN (Reason: rash) Qty: 60 1RF pantoprazole 40 mg tablet,delayed release (DR/EC) 40 mg PO DAILY Qty: 90 3RF gabapentin 100 mg capsule 300 mg PO BID aspirin 81 MG tablet,delayed release (DR/EC) 81 mg PO DAILY leflunomide 10 mg tablet 20 mg PO DAILY insulin degludec 100 unit/mL (3 mL) insulin pen 50 unit subcut QHS Qty: 15 0RF hydrocodone-acetaminophen 5-325 mg tablet 1 tab PO Q8H PRN (Reason: pain) diltiazem HCl 120 mg capsule,extended release 24hr 120 mg PO DAILY omega-3 fatty acids 1,000 mg Capsule 2,000 mg PO BID ranitidine HCl 150 mg Capsule 150 mg PO DAILY PRN (Reason: Acid Reflux) torsemide 40 mg Tablet 40 mg PO DAILY Rx Instructions: may take bid for increase in weight gain or edema amiodarone 200 mg Tablet 200 mg PO DAILY chromium picolinate 400 mcg Tablet 800 mcg PO DAILY Entresto 24-26 mg tablet 1 tab PO BID albuterol 90 mcg/actuation Aerosol 90 mcg INHALATION Q4H PRN (Reason: sob) insulin aspart U-100 [Novolog Flexpen U-100 Insulin] 100 unit/mL (3 mL) insulin pen 26 unit subcut TID Trulicity 1.5 mg/0.5 mL Pen Injector 1.5 mg SUBCUT QWEEK atorvastatin 40 mg tablet 40 mg PO QHS Qty: 90 3RF Eliquis 5 mg tablet 5 mg PO BID Qty: 180 2RF metoprolol tartrate 100 mg tablet 100 mg PO BID Qty: 180 3RF dulaglutide 1.5 mg/0.5 mL pen injector 1.5 mg subcut QWEEK Qty: 2 3RF levothyroxine [Synthroid] 100 mcg tablet 100 mcg PO DAILY Qty: 60 0RF Referrals / Follow Up: Grayson Newton MD [Primary Care Provider] - Disposition Discharge Orders: Discharge Patient (Routine); Ordered 04/05/22 Ordered By: Dr. Candis Bull
--- NOTE | 2022-04-05 10:26 | NURSING ---
I spoke with Anisa on TCU informing her of PT's d/c. I also let her know the RN will call report when they are ready.
[2022-04-05] MEDS: Insulin Lispro 100 UNIT/ML INSULN.PEN 26 UNIT SC (11:37)
[2022-04-05] MEDS: Insulin Lispro 100 UNIT/ML INSULN.PEN SC (11:38)
[2022-04-05 12:00] LABS: Bedside Glucose 181 mg/dL (74-106)
--- NOTE | 2022-04-05 14:12 | PCM.DC.SUM ---
Providers Date of Admission: 04/02/22 Date of Discharge: 04/05/22 Primary Care Physician: Dr. Grayson Newton MD Consultations 04/04/22 13:34 Consult: General Surgery Routine Consulting Provider: Blanca Falcon Reason for Consult: Left elbow swelling and discharge EMERGENT Consult: No MD Notified: Yes Date Notified: 04/04/22 Time Notified: 13:38 Method of Notification: md to md Reason For Visit: SEPSIS, UTI Diagnosis Discharge Diagnosis (1) Mass of soft tissue of left upper extremity: Status: Acute Code(s): M79.89 - Other specified soft tissue disorders Plan 1. Acute metabolic encephalopathy secondary to UTI 2. Sepsis secondary to acute E. coli UTI, pansensitive 3. A. fib with RVR secondary to #2 4. Hypothyroidism 5. Hyperlipidemia 6. Heart failure with reduced EF, EF 40% 7. Rheumatoid arthritis 8. Type II DM 9. Hyperparathyroidism Medications at Discharge Home Medications aspirin 81 mg tablet,delayed release 81 mg PO DAILY heart health 05/24/19 leflunomide 10 mg tablet 20 mg PO DAILY arthritis 09/04/21 insulin degludec 100 unit/mL (3 mL) subcutaneous pen 50 unit (0.5 mL) subcut QHS #15 mL 10/09/21 loratadine 10 mg tablet (Allergy Relief (loratadine)) 10 mg PO DAILY 10/18/21 apixaban 5 mg tablet (Eliquis) 5 mg PO BID #180 tabs 11/11/21 atorvastatin 40 mg tablet 40 mg PO QHS cholesterol #90 tabs 11/11/21 metoprolol tartrate 100 mg tablet 100 mg PO BID #180 tabs 11/11/21 nystatin 100,000 unit/gram topical powder 1 applic topical TID PRN rash #60 grams 01/02/22 pantoprazole 40 mg tablet,delayed release 40 mg PO DAILY reflux #90 tabs 01/02/22 prednisone 5 mg tablet 7.5 mg PO QAM 01/31/22 dulaglutide 1.5 mg/0.5 mL subcutaneous pen injector 1.5 mg (0.5 mL) subcut QWEEK diabetes #2 mL 03/12/22 gabapentin 100 mg capsule 300 mg PO BID 03/28/22 levothyroxine 100 mcg tablet (Synthroid) 100 mcg PO DAILY #60 tabs 04/01/22 albuterol 90 mcg/actuation aerosol inhaler 90 mcg inhalation Q4H PRN sob 04/02/22 amiodarone 200 mg tablet 200 mg PO DAILY arrythmia 04/02/22 chromium picolinate 400 mcg tablet 800 mcg PO DAILY supplement 04/02/22 diltiazem HCl 120 mg capsule,extended release 24 hr 120 mg PO DAILY 04/02/22 hydrocodone-acetaminophen 5-325mg 5mg-325mg 1 tab PO Q8H PRN pain 04/02/22 insulin aspart U-100 100 unit/mL (3 mL) subcutaneous pen (Novolog Flexpen U-100 Insulin aspart) 26 unit subcut TID insulin 04/02/22 omega-3 fatty acids 1,000 mg capsule 2,000 mg PO BID 04/02/22 ranitidine HCl 150 mg capsule 150 mg PO DAILY PRN Acid Reflux 04/02/22 sacubitril 24 mg-valsartan 26 mg tablet (Entresto) 1 tab PO BID heart failure 04/02/22 torsemide 40 mg tablet 40 mg PO DAILY 04/02/22 cefdinir 300 mg capsule 300 mg PO BID 4 days #8 caps 04/05/22 Hospital Course Operations None Procedures None Summary of Care Provided Minutes Spent on Discharge: 40 Hospital Course: All will with multiple comorbidities who recently had excisional biopsy of a mass on her left elbow done in [facility] a day before admission. Patient presented to the emergency room with confusion and fever. She was found to be in A. fib with RVR. Work-up also found her to have acute UTI. She was started on IV antibiotics. Patient was admitted to the progressive care unit, continued on Cardizem drip and her home Eliquis. Her urine cultures grew pansensitive E. coli. She was resumed on her home rate limiting medications. Patient was off Cardizem drip the next morning. She complained of pain at the surgical site. On 04/04/22, patient had copious serosanguineous discharge from her left elbow. General surgery was consulted for second opinion. Recommended conservative treatment. Patient was seen by PT and OT and skilled for discharge to long-term facility. She will follow-up with a general surgeon in [facility] as scheduled. She was discharged on 4 more days of cefdinir making a total of 7 days. Physical Exam Narrative Physical exam: General: Alert, Oriented x3, Cooperative, No apparent distress HEENT: Atraumatic Oral: Moist Mucosa Neck: Supple Lungs: Clear to auscultation Cardiovascular: HS I+II, regular, no murmurs Abdomen: Bowel Sounds Present, Soft, Non Tender Extremities: Bilateral leg edema +1, swelling, sutures over left elbow in place Skin: No rashes, No breakdown Neurological: Grossly intact Psych/Mental Status: Appropriate Weight / BMI Weight Weight: 94.6 kg Body Mass Index (BMI) 35.8 ABG / Lab / Microbiology Data Result Diagrams: 04/05/22 05:22 04/05/22 05:22 Laboratory: Laboratory Results - last 24 hr 04/04/22 17:30: POC Glucose 50 L 04/04/22 20:43: POC Glucose 135 H 04/05/22 05:22: WBC 8.5, RBC 3.28 L, Hgb 10.1 L, Hct 30.3 L, MCV 92.4, MCH 30.8, MCHC 33.3, RDW Std Deviation 47.5 H, RDW Coeff of Gisela 14.0, Plt Count 175, MPV 11.7, Immature Gran % (Auto) 0.400, Neut % (Auto) 58.1, Lymph % (Auto) 23.0, [place] % (Auto) 13.4 H, Eos % (Auto) 4.3, Baso % (Auto) 0.8, Absolute Neuts (auto) 5.0, Absolute Lymphs (auto) 1.96, Nucleated RBC % 0 04/05/22 05:22: Sodium 134 L, Potassium 3.6, Chloride 103, Carbon Dioxide 25.0, Anion Gap 6, BUN 16, Creatinine 0.68, Estim Creat Clear Calc 42.62, Est GFR (MDRD) Af Amer 109, Est GFR (MDRD) Non-Af 90, BUN/Creatinine Ratio 23.5 H, Glucose 117 H, Calcium 9.4, Total Bilirubin 0.40, AST 29, ALT 26, Alkaline Phosphatase 118 H, Total Protein 5.7 L, Albumin 1.9 L, Globulin 3.8, Albumin/Globulin Ratio 0.5 L 04/05/22 06:26: POC Glucose 123 H 04/05/22 07:55: POC Glucose 114 H 04/05/22 11:36: POC Glucose 181 H Microbiology: Microbiology 04/04/22 14:50 Wound - Left Forearm Gram Stain - Final 04/04/22 14:50 Wound - Left Forearm Wound Culture - Preliminary No growth-Final to follow 04/05/22 10:32 Nasal Secretion SARS-CoV-2 Antigen (Rapid) - Final 04/02/22 21:35 Urine Catheter - Catheter Urine Culture - Final Escherichia coli D/C Instructions Discharge Diet: Low fat / Low cholesterol and 2000 mg Sodium Diet Meaningful Use Info Meaningful Use Diagnoses (Choose all that apply): None applicable Discharge Plan Admission Admit Date/Time: 04/02/22 23:04 Primary Reason for Your Visit: Sepsis secondary to Acute E. Coli UTI Attending Provider: Cnadis Bull Primary Care Provider: Grayson Newton Consulting Providers: Pacheco Robbins ; Blanca Falcon Instructions Additional Instructions / Restrictions: Dry dressing to the left elbow Consider wound consult Follow-up with [facility] general surgeon as previously planned Discharge Orders/Prescriptions Prescriptions: New cefdinir 300 mg capsule 300 mg PO BID 4 Days Qty: 8 0RF Rx Instructions: Last dose 04/11/22 evening Continued prednisone 5 mg tablet 7.5 mg PO QAM loratadine [Allergy Relief (loratadine)] 10 mg tablet 10 mg PO DAILY nystatin 100,000 unit/gram powder 1 applic topical TID PRN (Reason: rash) Qty: 60 1RF pantoprazole 40 mg tablet,delayed release (DR/EC) 40 mg PO DAILY Qty: 90 3RF gabapentin 100 mg capsule 300 mg PO BID aspirin 81 MG tablet,delayed release (DR/EC) 81 mg PO DAILY leflunomide 10 mg tablet 20 mg PO DAILY insulin degludec 100 unit/mL (3 mL) insulin pen 50 unit subcut QHS Qty: 15 0RF hydrocodone-acetaminophen 5-325 mg tablet 1 tab PO Q8H PRN (Reason: pain) diltiazem HCl 120 mg capsule,extended release 24hr 120 mg PO DAILY omega-3 fatty acids 1,000 mg Capsule 2,000 mg PO BID ranitidine HCl 150 mg Capsule 150 mg PO DAILY PRN (Reason: Acid Reflux) torsemide 40 mg Tablet 40 mg PO DAILY Rx Instructions: may take bid for increase in weight gain or edema amiodarone 200 mg Tablet 200 mg PO DAILY chromium picolinate 400 mcg Tablet 800 mcg PO DAILY Entresto 24-26 mg tablet 1 tab PO BID albuterol 90 mcg/actuation Aerosol 90 mcg INHALATION Q4H PRN (Reason: sob) insulin aspart U-100 [Novolog Flexpen U-100 Insulin] 100 unit/mL (3 mL) insulin pen 26 unit subcut TID atorvastatin 40 mg tablet 40 mg PO QHS Qty: 90 3RF Eliquis 5 mg tablet 5 mg PO BID Qty: 180 2RF metoprolol tartrate 100 mg tablet 100 mg PO BID Qty: 180 3RF dulaglutide 1.5 mg/0.5 mL pen injector 1.5 mg subcut QWEEK Qty: 2 3RF levothyroxine [Synthroid] 100 mcg tablet 100 mcg PO DAILY Qty: 60 0RF Discontinued Trulicity 1.5 mg/0.5 mL Pen Injector 1.5 mg SUBCUT QWEEK Referrals / Follow Up: Grayson Newton MD [Primary Care Provider] - Within 1 Week (within 1 week after discharge from rehab ) Disposition Disposition (needs filled in before D/C Order can be placed): [facility] Facility Charges/Coding Visit Charges Inpatient E&M: 94844 Disch Hosp
== END 2022-04-05 15:12 | disposition skilled nursing facility (03) | DRG 871 ==
LOC: ED 22:41 → PCU 23:47
PROVIDERS: Emergency Provider Emergency Medicine; PCP Internal Medicine; Visit Provider Internal Medicine
DX: A41.51 Sepsis due to Escherichia coli [E. coli] (principal); G93.41 Metabolic encephalopathy; I42.8 Other cardiomyopathies; I48.11 Longstanding persistent atrial fibrillation; I50.22 Chronic systolic (congestive) heart failure; L76.34 Postprocedural seroma of skin and subcutaneous tissue following other procedure; N39.0 Urinary tract infection, site not specified; I11.0 Hypertensive heart disease with heart failure; Z79.4 Long term (current) use of insulin; E21.3 Hyperparathyroidism, unspecified; E66.01 Morbid (severe) obesity due to excess calories; E11.65 Type 2 diabetes mellitus with hyperglycemia; M05.79 Rheumatoid arthritis with rheumatoid factor of multiple sites without organ or systems involvement; E78.5 Hyperlipidemia, unspecified; M79.7 Fibromyalgia; E03.9 Hypothyroidism, unspecified; K21.9 Gastro-esophageal reflux disease without esophagitis; G47.33 Obstructive sleep apnea (adult) (pediatric); Z79.82 Long term (current) use of aspirin; Z79.01 Long term (current) use of anticoagulants; Z79.52 Long term (current) use of systemic steroids; Z87.891 Personal history of nicotine dependence; Z86.73 Personal history of transient ischemic attack (TIA), and cerebral infarction without residual deficits; G89.29 Other chronic pain; Z96.653 Presence of artificial knee joint, bilateral; Z68.35 Body mass index [BMI] 35.0-35.9, adult
CPT/HCPCS: 36415; 51702; 70450; 71045; 80048; 80053; 81001; 82306; 82962; 83036; 83605; 84443; 84484; 85025; 85610; 85730; 87040; 87070; 87075; 87077; 87086; 87088; 87186; 87205; 87426; 93005; 97162; 97166; 97530; 97535; 99285; J7030; J7040; A4216

== ENCOUNTER 2022-04-05 15:30 | Inpatient (IN) | payer MEDICARE, OTHER, SELFPAY ==
[2022-04-05 15:53] VITALS: BP 122/74; PULSE 94; RESP 18; TEMP 36.2; O2SAT 100; BMI 35.8
--- NOTE | 2022-04-05 16:55 | HP.PCM_ITS ---
[facility] - [facility] General Date of Admission: 04/05/22 Date of Service: 04/07/22 Chief Complaint: Here for rehab. HPI Narrative 04/02/2022 MARIA ISABEL LOPEZ, is a 76 Female who presents to [facility] Emergency Department with confusion. Confused, febrile, Fever 102. Soft tissue mass with biopsy removed from left arm at [facility] yesterday. Long surgical incision, sutures in place. Left arm hurts, worse with movement. Sepsis more likely than stroke. Urinalysis infected, arellano cultured, Lactate okay. Fever 99 to 103, speaking clearly, but still confused. IV fluids, IV antibiotics given. 04/02/2022 Admit to Hospital. Sepsis secondary to urinary tract infection, treat with Ceftriaxone. Hold gabapentin due to confusion. Diltiazem bolus with drip for atrial fibrillation with rapid ventricular response, then Diltiazem. Metoprolol held due to sepsis. Hold diuretics due to sepsis. 04/03/2022 Alert and oriented x 3. Cardizem drip for atrial fibrillation, wean cardizem drip, restart Metoprolol, cardizem amiodarone, continue Eliquis. Confusion resolved. Ceftriaxone IV for urinary tract infection, urine culture pending. 04/04/2022 Left elblow pain. Urine culture 25,000 - 50,000 pansensitive E. Coli. 04/05/2022 Dr. Falcon consulted for left upper extremity mass status post excision. No sign of infection, padded dressing recommended. 04/05/2022 Admit to TCU with debility, here for rehabilitation, strengthening, prior to discharge home alone. [facility] Medical History Cerebrovascular accident (CVA) Chronic combined systolic and diastolic CHF (congestive heart failure) Chronic pain Diabetes mellitus type 2, uncontrolled Essential hypertension Fibromyalgia GERD (gastroesophageal reflux disease) HFrEF (heart failure with reduced ejection fraction) Hypercalcemia Hyperlipidemia Hypothyroidism Lipoma of left upper extremity Localized swelling of left forearm Longstanding persistent atrial fibrillation Lupus Morbid obesity Non-ischemic cardiomyopathy Nonalcoholic fatty liver disease Nonrheumatic mitral valve stenosis with insufficiency K[place]OLINA (obstructive sleep apnea) Osteoarthritis Osteoporosis Preoperative evaluation to rule out surgical contraindication Radicular pain of left lower extremity Rheumatoid arthritis RLS (restless legs syndrome) Smoldering multiple myeloma (SMM) Steroid dependence Stroke Home Medications aspirin 81 mg tablet,delayed release 81 mg PO DAILY heart health 05/24/19 [History Last Taken Unknown] leflunomide 10 mg tablet 20 mg PO DAILY arthritis 09/04/21 [History Last Taken Unknown] loratadine 10 mg tablet (Allergy Relief (loratadine)) 10 mg PO DAILY allergies 10/18/21 [History Last Taken Unknown] atorvastatin 40 mg tablet 40 mg PO QHS cholesterol #90 tabs 11/11/21 [Rx Last Taken Unknown] nystatin 100,000 unit/gram topical powder 1 applic topical TID PRN rash #60 grams 01/02/22 [Rx Last Taken Unknown] pantoprazole 40 mg tablet,delayed release 40 mg PO DAILY reflux #90 tabs 01/02/22 [Rx Last Taken Unknown] prednisone 5 mg tablet 7.5 mg PO QAM steroid 01/31/22 [History Last Taken Unknown] dulaglutide 1.5 mg/0.5 mL subcutaneous pen injector 1.5 mg (0.5 mL) subcut QWEEK diabetes #2 mL 03/12/22 [Rx Last Taken Unknown] gabapentin 100 mg capsule 300 mg PO BID pain 03/28/22 [History Last Taken Unknow n] albuterol 90 mcg/actuation aerosol inhaler 90 mcg inhalation Q4H PRN sob 04/02/22 [History Last Taken Unknown] amiodarone 200 mg tablet 200 mg PO DAILY arrythmia 04/02/22 [History Last Taken Unknown] chromium picolinate 400 mcg tablet 800 mcg PO DAILY supplement 04/02/22 [History Last Taken Unknown] diltiazem HCl 120 mg capsule,extended release 24 hr 120 mg PO DAILY heart 04/02/22 [History Last Taken Unknown] hydrocodone-acetaminophen 5-325mg 5mg-325mg 1 tab PO Q8H PRN pain 04/02/22 [History Last Taken Unknown] insulin aspart U-100 100 unit/mL (3 mL) subcutaneous pen (Novolog Flexpen U-100 Insulin aspart) 26 unit subcut TID insulin 04/02/22 [History Last Taken Unknown] omega-3 fatty acids 1,000 mg capsule 2,000 mg PO BID supplement 04/02/22 [History Last Taken Unknown] ranitidine HCl 150 mg capsule 150 mg PO DAILY PRN Acid Reflux 04/02/22 [History Last Taken Unknown] sacubitril 24 mg-valsartan 26 mg tablet (Entresto) 1 tab PO BID heart failure 04/02/22 [History Last Taken Unknown] torsemide 40 mg tablet 40 mg PO BID PRN Edema 04/02/22 [History Last Taken Unknown] apixaban 5 mg tablet (Eliquis) 5 mg PO BID blood thinner 04/05/22 [History Last Taken Unknown] cefdinir 300 mg capsule 300 mg PO BID antibiotic 04/05/22 [History Last Taken Unknown] insulin degludec 100 unit/mL (3 mL) subcutaneous pen 50 unit subcut QHS diabetes 04/05/22 [History Last Taken Unknown] levothyroxine 100 mcg tablet (Synthroid) 100 mcg PO DAILY supplement 04/05/22 [History Last Taken Unknown] metoprolol tartrate 100 mg tablet 100 mg PO BID heart 04/05/22 [History Last Taken Unknown] Allergy/AdvReac Type Severity Reaction Status Date / Time hydroxychloroquine Allergy Severe Shortness Verified 04/02/22 20:34 of breath metformin AdvReac Severe Diarrhea Verified 04/02/22 20:34 methotrexate AdvReac Severe Other Verified 04/02/22 20:34 Sulfa (Sulfonamide AdvReac Intermediate Other Verified 04/02/22 20:34 Antibiotics) Family History Father Diabetes Heart disease Hypertension CVA (cerebral vascular accident) Hyperlipidemia CAD (coronary artery disease) Brother Hypertension Hyperlipidemia Sister THYROID Mother Uterine cancer Surgical History History of appendectomy History of back surgery History of cardioversion (01/15/18) History of left heart catheterization History of mitral valve replacement with bioprosthetic valve (04/23/17) History of radiofrequency ablation (RFA) for complex left atrial arrhythmia (04/25/17) History of right and left heart catheterization (02/25/17) History of total left knee replacement History of total right knee replacement History of transesophageal echocardiography (NEELA) (01/15/18) Social History adopted: No household members: other details: is in a senior care and she is currently living alone housing: house number of children: 2 current occupational status: retired Smoking Status: Former smoker quit date: 06/08/01 Tobacco: How many years used: 25 how long ago did patient quit smokin years ago- about 2006? alcohol intake: current details: rare occasions substance use type: does not use ROS Constitutional Constitutional: Denies chills, fever(s) or weight gain ENT HEENT: Denies headache(s), nasal congestion or nasal discharge Cardiovascular Cardiovascular: Denies chest pain or palpitations Respiratory/Chest Respiratory/Chest: Denies cough, excessive phlegm production or shortness of ariadna ath with exertion Gastrointestinal Gastrointestinal: Denies abdominal pain, nausea or vomiting Genitourinary Genitourinary: Denies dysuria Musculoskeletal Musculoskeletal: Denies joint pain or joint swelling Integumentary Integumentary: Denies rash or wounds Neurologic Neurologic: Denies focal weakness, numbness or tingling Psychiatric Psychiatric: Denies anxiety, auditory hallucinations, depression, homicidal ideation or suicidal ideation Vital Signs Vital Signs Vital Signs: 04/05/22 15:53 04/05/22 15:53 Temperature 97.1 F L Temperature Source Temporal Pulse Rate 94 Pulse Rhythm Irregular Pulse Strength Normal (2+) Respiratory Rate 18 Respiratory Effort Normal Non-Labored Respiratory Depth Normal Respiratory Pattern Normal Blood Pressure 122/74 H Blood Pressure Mean 90 Blood Pressure Source Monitor Blood Pressure Position Supine Blood Pressure Location Right Forearm Pulse Ox 100 Oxygen Delivery Method Room Air Room Air Weight Weight: 94.574 kg Physical Exam Const alert General Appearance: cooperative HEENT normocephalic Eyes PERRL and EOMs intact bilaterally Neck supple, no JVD and no carotid bruits Resp normal respiratory effort, normal air movement and clear to auscultation bilaterally Cardio regular rate and regular rhythm GI normal to inspection, nondistended, normoactive bowel sounds, non-tender and non-distended Extremity normal capillary refill General Extremity: Negative for edema Skin no rashes or lesions noted General Skin Exam: no breakdown Psych affect normal Appearance: appropriate Results Lab / Micro Data Result Diagrams: 04/06/22 04:25 04/06/22 04:25 Assessment & Plan Assessment/Plan (1) Debility: (2) Encephalopathy due to infection: (3) Acute UTI: (4) Atrial fibrillation with RVR: (5) Stroke: (6) Rheumatoid arthritis: (7) Diabetes mellitus: (8) Allergic rhinitis: (9) Hyperlipidemia: (10) Chronic systolic congestive heart failure: (11) GERD (gastroesophageal reflux disease): (12) Neuropathic pain: (13) Hypothyroidism: PLAN: Plan 76 year old female with below past medical history hospitalized for encephalopathy secondary to E. Coli urinary tract infection, complicated by atrial fibrillation with rapid ventricular response, admitted to TCU with debility, here for rehabilitation, strengthening, prior to discharge home alone. * Debility - PT/OT. * Pain - [place] 1 tablet q8h prn pain (1-10). * Bowel - senna/colace 1 tablet bid, MOM 30ml daily prn. * Adult immunization - Administer pneumonia vaccine, covid vaccine, flu vaccine as appropriate. * DVT prophylaxis - Not necessary, on Eliquis. * Shortness of breath - Albuterol 1 puff q4h prn. * Atrial fibrillation - Metoprolol 100mg bid, Diltiazem 120mg bid, Amiodarone 200mg daily, Eliquis 5mg bid, stop aspirin (Increases risk of bleeding without further cardiovascular benefit) * Hyperlipidemia - Atorvastatin 40mg qhs. * Pansensitive E. Coli urinary tract infection - Cefdinir 300mg bid thru 04/11/2022. * GERD - Pantoprazole 40mg daily, Famotidine 20mg daily prn. * Chronic systolic congestive heart failure - Metoprolol 100mg bid, Entresto 24/26mg bid, Furosemide 80mg daily. * Diabetic polyneuropathy - Gabapentin 300mg bid. * Diabetes Mellitus II - Glargine 50 units qhs, Lispro 26 units tidcm. * Rheumatoid arthritis - Leflunomide 20mg daily, Prednisone 7.5mg daily. * Hypothyroidism - Levothyroxine 100mcg daily. * Allergic rhinitis - Loratadine 10mg daily. * Tinea Corporis - Nystatin powder topical tid prn. * Left hip fracture - KUB showed incidental finding of left femur fracture, order dedicated X-ray left hip.
[2022-04-05] MEDS: APIXABAN 5 MG TABLET PO (17:09)
[2022-04-05 17:10] VITALS: PULSE 94
[2022-04-05] MEDS: Metoprolol Tartrate 100 MG Tablet PO (17:10)
[2022-04-05] MEDS: SACUBITRIL/VALSARTAN 24/26 MG TABLET 1 EACH PO (17:11)
[2022-04-05] MEDS: Gabapentin 300 MG Capsule PO (17:17)
[2022-04-05 17:30] LABS: Bedside Glucose 127 mg/dL (74-106)
[2022-04-05] MEDS: Cefdinir 300 MG Capsule PO (18:04)
[2022-04-05] MEDS: Senna/Docusate Sodium 1 Tablet PO (18:04)
[2022-04-05] MEDS: Insulin Glargine-YFGN 100 UNIT/ML Pen 50 UNIT SC (21:33)
[2022-04-05] MEDS: Atorvastatin Calcium 40 MG Tablet PO (21:35)
[2022-04-05 22:05] LABS: Bedside Glucose 162 mg/dL (74-106)
[2022-04-05] MEDS: HYDROcodone Bitartrate/Apap 5/325 Tablet PO (23:46)
[2022-04-06 05:03] LABS: Absolute Lymphocyte Count 1.83 X10^3/uL (0.83-4.51); Absolute Neutrophil Count 5.5 X10^3/uL (2.0-7.7); Basophil# 0.07 X10^3/uL; Basophil% 0.8 % (0-1); Eosinophil# 0.36 X10^3/uL; Eosinophils% 3.9 % (0-5); Hematocrit 34.8 % (37-47); Hemoglobin 11.5 g/dL (12.0-15.0); Lymphocyte # 1.83 X10^3/ul (0.83-4.51); Lymphocyte % 19.9 % (19-41); Mean Corpuscular Hgb 30.9 pg (27.0-32.0); Mean Corpuscular Volume 93.5 fL (81-99); Mean Platelet Vol. 11.5 fl (6.2-12.0); Monocyte# 1.42 X10^3/uL; Monocyte% 15.4 % (0-10); NRBC Flagged by Analyzer 0 % (0-5); Neutrophil # 5.45 X10^3/uL (2.7-7.7); Neutrophil % 59.1 % (47-70); Platelet Count 211 K/mm3 (150-450); RBC Distribution Width CV 13.9 % (11.6-14.6); RBC Distribution Width SD 47.4 fl (35.1-43.9); Red Blood Count 3.72 M/mm3 (4.2-5.4); White Blood Count 9.2 K/mm3 (4.4-11.0)
[2022-04-06 05:35] LABS: Anion Gap 8 (5-15); BUN 17 mg/dL (7-18); BUN/Creat Ratio 22.3 RATIO (10-20); Calcium,Total 9.5 mg/dL (8.5-10.1); Chloride 102 mmol/L (98-107); Creatinine, Serum 0.76 mg/dL (0.55-1.02); EST Glomerular Filtration Rate 79 mL/min (>60); Est Glom Filt Rate - Afr Amer 95 mL/min (>60); Estimated Creatinine Clearance 42.62 ml/min; Glucose 98 mg/dL (74-106); Potassium 3.4 mmol/L (3.5-5.1); Sodium Level 134 mmol/L (136-145)
[2022-04-06] MEDS: Leflunomide 10 MG TABLET 20 MG PO (06:25)
[2022-04-06] MEDS: Furosemide 80 MG Tablet PO (06:25)
[2022-04-06 06:26] VITALS: BP 119/78; PULSE 68
[2022-04-06] MEDS: Cefdinir 300 MG Capsule PO ×2 (06:26→18:11)
[2022-04-06] MEDS: Metoprolol Tartrate 100 MG Tablet PO ×2 (06:26→18:11)
[2022-04-06] MEDS: Pantoprazole Sodium 40 MG Tablet PO (06:26)
[2022-04-06] MEDS: SACUBITRIL/VALSARTAN 24/26 MG TABLET 1 EACH PO ×2 (06:26→18:10)
[2022-04-06] MEDS: Levothyroxine 100 MCG Tablet PO (06:27)
[2022-04-06] MEDS: dilTIAZem CD 120 MG Capsule PO (06:27)
[2022-04-06] MEDS: APIXABAN 5 MG TABLET PO ×2 (06:27→18:11)
[2022-04-06] MEDS: Loratadine 10 MG Tablet PO (06:27)
[2022-04-06] MEDS: Senna/Docusate Sodium 1 Tablet PO ×2 (06:27→18:11)
[2022-04-06] MEDS: Gabapentin 300 MG Capsule PO ×2 (06:30→18:11)
[2022-04-06 06:35] LABS: Bedside Glucose 113 mg/dL (74-106)
[2022-04-06] MEDS: HYDROcodone Bitartrate/Apap 5/325 Tablet PO (08:50)
[2022-04-06] MEDS: Amiodarone 200 MG Tablet PO (08:51)
[2022-04-06] MEDS: predniSONE 5 MG Tablet 7.5 MG PO (08:51)
[2022-04-06 11:55] LABS: Bedside Glucose 162 mg/dL (74-106)
[2022-04-06] MEDS: Glucerna Shake 120 ML LIQUID PO ×3 (12:04→21:51)
[2022-04-06] MEDS: Tuberculin,Purif.prot.deriv. 50 TU/ML Vial 0.1 ML ID (12:04)
[2022-04-06 14:00] VITALS: BP 99/64; PULSE 128; RESP 18; TEMP 37.6; O2SAT 93
--- NOTE | 2022-04-06 14:02 | NURSING ---
Reviewed morning labwork with Dr. Mistry and updated about blood sugars and poor P.O. intake, N.O. received. K-dur started, recheck BMP 04/08.
[2022-04-06] MEDS: Potassium Chloride Oral Tablet 20 MEQ PO (15:32)
[2022-04-06 16:56] LABS: Bedside Glucose 304 mg/dL (74-106)
[2022-04-06 18:11] VITALS: PULSE 113
--- NOTE | 2022-04-06 18:32 | RAD_ITS ---
EXAM: XR CHEST, 2 VIEWS CLINICAL INDICATION: Fever TECHNIQUE: Frontal and lateral views of the chest. This report was created using [employer] report generation technology. COMPARISON: April 02, 2022, September 21, 2021 FINDINGS: LUNGS AND PLEURAL SPACES: Similar appearance of mild pulmonary vascular congestion with prominent perihilar vessels. Mild increased left retrocardiac atelectasis versus infiltrate compared to recent prior exam. Otherwise stable chest. [place] of mild opacity at one of the posterior costophrenic angles on the lateral view. No pneumothorax. No effusion. HEART: There is similar mild to moderate cardiomegaly. MEDIASTINUM: Central airways and mediastinal contour are unremarkable. BONES/JOINTS: Broken or clipped median sternotomy wires again noted. SOFT TISSUES: Unremarkable. RAD/Chest PA and Lateral IMPRESSION: Mild atelectasis versus infiltrate and small effusion at the left lung base. Otherwise similar findings of cardiomegaly and pulmonary vascular congestion. Electronically Signed: Millicent Black MD at 3:23 EDT ,
--- NOTE | 2022-04-06 18:42 | NURSING ---
Dr. Mistry updated about pt being more lethargic and confused this evening as well as vitals signs of temp 100.7 (oral) and HR 120s and irregular. N.O. received. Updated pt and pt's sister by phone.
[2022-04-06] MEDS: Insulin Lispro 100 UNIT/ML INSULN.PEN 20 UNIT SC (19:03)
[2022-04-06] MEDS: 0.9% Normal Saline 1,000 ML 75 ML IV (19:04)
[2022-04-06] MEDS: Acetaminophen 500 MG Tablet 1000 MG PO (19:04)
[2022-04-06 19:20] LABS: Bacteria 0 SEEN /hpf (None Seen); Mucous, Urine 0 SEEN /hpf (<or=2+); Red Blood Cells-Urine 0 SEEN /hpf (0-5)
[2022-04-06 19:25] LABS: Color, Urine Yellow (Yellow); Glucose, Dipstick Normal (Normal); Ketone-Dipstick Negative (Negative); Leukocyte Esterase-Dipstick 100 /ul (Negative); Nitrite-Dipstick Negative (Negative); Occult Blood-Urine Negative /ul (Negative); Protein-Dipstick 15 mg/dl (Negative); Urine Bilirubin Dipstick Negative (Negative); Urine Clarity Clear (Clear); Urine Urobilinogen Normal (Normal)
[2022-04-06 20:17] LABS: Squamous Epithelial Cells - UA 0-5 SEEN /hpf (5-10); White Blood Cells 0-5 SEEN /hpf (0-5)
--- NOTE | 2022-04-06 20:50 | RAD_ITS ---
EXAM: XR ABDOMEN, 1 VIEW CLINICAL INDICATION: fever TECHNIQUE: Frontal supine view of the abdomen/pelvis. This report was created using [email or web address] report generation technology. COMPARISON: None. FINDINGS: LOWER THORAX: No acute pathology. GASTROINTESTINAL TRACT: Moderate gas in the rectum and sigmoid, mottled stool in the transverse colon. No dilated small bowel. ORGANS: Unremarkable as visualized. No organomegaly. No abnormal calcifications. BONES/JOINTS: There are extensive postoperative changes of the lumbar spine. Patient rotation. Chronic-appearing deformity of the left femoral neck with shortening and suspected fracture. SOFT TISSUES: No acute pathology. OTHER FINDINGS: 4 views. RAD/Abdomen Single View IMPRESSION: 1. Unremarkable bowel gas pattern. 2. Exam somewhat limited due to rotated patient positioning. 3. Short and probably fractured left femoral neck neck, not well evaluated due to positioning. Correlate with any acute left hip pain. Electronically Signed: Millicent Black MD at 3:37 EDT ,
[2022-04-06 21:31] LABS: Bedside Glucose 222 mg/dL (74-106)
[2022-04-06] MEDS: Atorvastatin Calcium 40 MG Tablet PO (21:38)
[2022-04-06] MEDS: Insulin Glargine-YFGN 100 UNIT/ML Pen 50 UNIT SC (21:43)
[2022-04-07 00:08] LABS: M R Staph aureus DNA By PCR Negative (Negative); Probe Check PASS; Specimen Processing Control PASS; Staph aureus DNA By PCR NEGATIVE (Negative)
[2022-04-07] MEDS: Glucerna Shake 120 ML LIQUID PO ×4 (06:18→21:48)
[2022-04-07] MEDS: Senna/Docusate Sodium 1 Tablet PO (06:19)
[2022-04-07] MEDS: Pantoprazole Sodium 40 MG Tablet PO (06:19)
[2022-04-07] MEDS: Levothyroxine 100 MCG Tablet PO (06:19)
[2022-04-07] MEDS: Furosemide 80 MG Tablet PO (06:19)
[2022-04-07] MEDS: SACUBITRIL/VALSARTAN 24/26 MG TABLET 1 EACH PO ×2 (06:19→17:42)
[2022-04-07] MEDS: Cefdinir 300 MG Capsule PO ×2 (06:19→17:42)
[2022-04-07] MEDS: APIXABAN 5 MG TABLET PO ×2 (06:19→17:41)
[2022-04-07] MEDS: Loratadine 10 MG Tablet PO (06:19)
[2022-04-07] MEDS: dilTIAZem CD 120 MG Capsule PO (06:20)
[2022-04-07] MEDS: Leflunomide 10 MG TABLET 20 MG PO (06:22)
[2022-04-07 06:26] VITALS: BP 123/70; PULSE 80
[2022-04-07] MEDS: Gabapentin 300 MG Capsule PO ×2 (06:26→17:42)
[2022-04-07] MEDS: Metoprolol Tartrate 100 MG Tablet PO ×2 (06:26→17:42)
[2022-04-07 06:35] LABS: Bedside Glucose 143 mg/dL (74-106)
[2022-04-07] MEDS: predniSONE 5 MG Tablet 7.5 MG PO (07:47)
[2022-04-07] MEDS: Insulin Lispro 100 UNIT/ML INSULN.PEN 20 UNIT SC ×3 (07:47→17:43)
[2022-04-07] MEDS: Amiodarone 200 MG Tablet PO (07:47)
[2022-04-07] MEDS: Potassium Chloride Oral Tablet 20 MEQ PO (07:47)
--- NOTE | 2022-04-07 07:48 | RAD_ITS ---
STUDY: X-RAY - PELVIS AND LEFT HIP REASON FOR EXAM: Female, 76 years old. Left hip fracture on KUB. TECHNIQUE: 2 views of the pelvis and hip. COMPARISON: None. FINDINGS: There is a non-specific bowel gas pattern. There are atherosclerotic vascular calcifications of the pelvic arteries. Normal bilateral iliac wings, sacroiliac joints and visualized sacrum. Normal bilateral superior and inferior pubic rami. Normal pubic symphysis. Normal bilateral ischial tuberosities. Normal visualized femoral head. Normal acetabulum. Normal hip joint. RAD/HIP, UNI W/ Pelvis 2-3 Views IMPRESSION: No fracture or dislocation. Electronically Signed: Faboi Hunter MD at 9:43 EDT ,
--- NOTE | 2022-04-07 07:56 | NURSING ---
Addendum entered by Cynthia Vides 04/07/22 10:05: no fracture according to rad results. updated pt Addendum entered by Cynthia Vides 04/07/22 09:03: pt off unit to xray via bed Original Note: dr garcia updated on KUB results and CXR. new order for xray of LT hip d/t pain and KUB showing possible fx.
[2022-04-07] MEDS: HYDROcodone Bitartrate/Apap 5/325 Tablet PO (08:03)
[2022-04-07 11:21] LABS: Bedside Glucose 137 mg/dL (74-106)
--- NOTE | 2022-04-07 12:04 | NURSING ---
Addendum entered by Cynthia Vides 04/07/22 12:06: NO SIGNS SYMPTOMS OF INFECTION, INCISION W/OUT ACTIVE DRNG AT THIS TIME. ELEVATED ON PILLOW, ICE IN PLACE WELL. Original Note: DRESSING CHANGED TO LT POSTERIOR ARM, OLD ONE FALLING OFF. MOD AMT OF SEROSANG DRNG NOTED ON OLD DRESSING
--- NOTE | 2022-04-07 12:56 | NURSING ---
Planning Intern Note; Activity Asst: complete
[2022-04-07 13:45] VITALS: BP 116/65; PULSE 74; RESP 16; TEMP 36.3; O2SAT 93
[2022-04-07 16:30] LABS: Bedside Glucose 192 mg/dL (74-106)
[2022-04-07 17:42] VITALS: PULSE 74
[2022-04-07 21:26] LABS: Bedside Glucose 166 mg/dL (74-106)
[2022-04-07] MEDS: Atorvastatin Calcium 40 MG Tablet PO (21:50)
[2022-04-07] MEDS: MELATONIN 10 MG TABLET PO (21:50)
[2022-04-07] MEDS: Insulin Glargine-YFGN 100 UNIT/ML Pen 50 UNIT SC (21:53)
[2022-04-07 21:54] VITALS: PULSE 66; RESP 16; O2SAT 93
[2022-04-08 06:10] LABS: Anion Gap 5 (5-15); BUN 22 mg/dL (7-18); Calcium,Total 9.7 mg/dL (8.5-10.1); Chloride 102 mmol/L (98-107); Creatinine, Serum 0.69 mg/dL (0.55-1.02); EST Glomerular Filtration Rate 89 mL/min (>60); Est Glom Filt Rate - Afr Amer 107 mL/min (>60); Estimated Creatinine Clearance 42.62 ml/min; Glucose 110 mg/dL (74-106); Potassium 3.7 mmol/L (3.5-5.1); Sodium Level 133 mmol/L (136-145)
[2022-04-08] MEDS: Glucerna Shake 120 ML LIQUID PO ×4 (06:21→22:06)
[2022-04-08 06:23] VITALS: BP 113/69; PULSE 82
[2022-04-08] MEDS: Metoprolol Tartrate 100 MG Tablet PO ×2 (06:23→17:12)
[2022-04-08] MEDS: Senna/Docusate Sodium 1 Tablet PO ×2 (06:23→17:13)
[2022-04-08] MEDS: Furosemide 80 MG Tablet PO (06:23)
[2022-04-08] MEDS: Loratadine 10 MG Tablet PO (06:23)
[2022-04-08] MEDS: Leflunomide 10 MG TABLET 20 MG PO (06:24)
[2022-04-08] MEDS: Pantoprazole Sodium 40 MG Tablet PO (06:24)
[2022-04-08] MEDS: Levothyroxine 100 MCG Tablet PO (06:24)
[2022-04-08] MEDS: APIXABAN 5 MG TABLET PO ×2 (06:25→17:12)
[2022-04-08] MEDS: dilTIAZem CD 120 MG Capsule PO (06:25)
[2022-04-08] MEDS: SACUBITRIL/VALSARTAN 24/26 MG TABLET 1 EACH PO ×2 (06:25→17:12)
[2022-04-08 06:31] LABS: Bedside Glucose 106 mg/dL (74-106)
[2022-04-08] MEDS: Gabapentin 300 MG Capsule PO ×2 (06:32→17:12)
[2022-04-08] MEDS: Cefdinir 300 MG Capsule PO ×2 (07:00→17:12)
[2022-04-08] MEDS: Amiodarone 200 MG Tablet PO (07:58)
[2022-04-08] MEDS: predniSONE 5 MG Tablet 7.5 MG PO (07:58)
[2022-04-08] MEDS: Insulin Lispro 100 UNIT/ML INSULN.PEN 20 UNIT SC ×3 (07:59→17:14)
[2022-04-08] MEDS: Nystatin Powder 15gm Bottle 1 APPLIC TOPICAL ×2 (08:00→22:09)
[2022-04-08] MEDS: Potassium Chloride Oral Tablet 20 MEQ PO (08:03)
--- NOTE | 2022-04-08 09:55 | NURSING ---
pt going to therapy, redressed LT elbow/forearm d/t dressing falling off and mod amt of serosang drng. noted a pencil eraser size hole where fluid leaking from. actual incision dry & well approximated. x2 abd's placed and wrapped with sofform and then an TAMMIE wrap to hold in place for movement.
--- NOTE | 2022-04-08 11:04 | CASEMGMT ---
Social Work Met with patient to complete initial assessment. Pt known to this worker from previous stay. Verified contacts. Discussed code status and MOLST form. Pt confirms full code. MOLST placed in Dr. winston. Educated to Medicare benefit. Encouraged to contact secondary insurance to ensure copay coverage. Pts goal is to return home alone with ramp entrance. Pt has supportive siblings and two children. Unsure if anyone can assist physically, if needed. Pt is spontaneous in conversation, unable to get clear details. SW to continue to follow for DC planning assistance. Malissa Bell, BRICK SETTER PRESSURE WASHER
[2022-04-08 11:30] LABS: Bedside Glucose 104 mg/dL (74-106)
[2022-04-08 14:00] VITALS: BP 127/90; PULSE 93; RESP 18; TEMP 37.1; O2SAT 100
--- NOTE | 2022-04-08 15:35 | PCM.PN.DRR ---
TCU RX Drug Regimen Review Subjective: TCU Admission. 76 YOF presented to the ER with confusion. Hospitalized for encephalopathy secondary to E. Coli urinary tract infection, complicated by atrial fibrillation with rapid ventricular response. Admitted to TCU with debility for strengthening and rehabilitation. Objective: Allergies hydroxychloroquine Allergy (Severe, Verified 04/02/22 20:34) Shortness of breath metformin Adverse Reaction (Severe, Verified 04/02/22 20:34) Diarrhea methotrexate Adverse Reaction (Severe, Verified 04/02/22 20:34) Other PASSES OUT Sulfa (Sulfonamide Antibiotics) Adverse Reaction (Intermediate, Verified 04/02/22 20:34) Other BLISTERS Current Medications Generic Name Dose Route Start Last Admin Trade Name Freq PRN Reason Stop Dose Admin Acetaminophen 1,000 mg 04/06/22 18:30 04/06/22 19:04 Acetaminophen 500 Mg Tablet PO 1,000 mg Q8H PRN PRN Administration HEADACHE/FEVER (T>100F) Hydrocodone Bitart/Acetaminophen 1 tablet 04/05/22 16:28 04/07/22 08:03 Hydrocodone Bitartrate/Apap 5/325 Tablet PO 1 tablet Q8H PRN PRN Administration Pain Score 1-10 Albuterol Sulfate 1 puff 04/05/22 17:00 Albuterol Ih (6.7 Gm) 1 Puff Inhaler INHALATION Q4H PRN PRN SHORTNESS OF BREATH Amiodarone HCl 200 mg 04/06/22 08:00 04/08/22 07:58 Amiodarone 200 Mg Tablet PO 200 mg DAILYCM HARITHA Administration Apixaban 5 mg 04/05/22 18:00 04/08/22 06:25 Apixaban 5 Mg Tablet PO 5 mg BID HARITHA Administration Atorvastatin Calcium 40 mg 04/05/22 22:00 04/07/22 21:50 Atorvastatin Calcium 40 Mg Tablet PO 40 mg QHS HARITHA Administration Cefdinir 300 mg 04/05/22 18:00 04/08/22 07:00 Cefdinir 300 Mg Capsule PO 04/11/22 22:00 300 mg BID HARITHA Administration Diltiazem HCl 120 mg 04/06/22 06:00 04/08/22 06:25 Diltiazem Cd 120 Mg Capsule PO 120 mg DAILY HARITHA Administration Famotidine 20 mg 04/05/22 16:48 Famotidine 20 Mg Tablet PO DAILY PRN PRN Acid Reflux Furosemide 80 mg 04/06/22 06:00 04/08/22 06:23 Furosemide 80 Mg Tablet PO 80 mg DAILY HARITHA Administration Gabapentin 300 mg 04/05/22 18:00 04/08/22 06:32 Gabapentin 300 Mg Capsule PO 300 mg BID HARITHA Administration Insulin Glargine 50 unit 04/05/22 22:00 04/07/22 21:53 Insulin Glargine-Yfgn 100 Unit/Ml Pen SC 50 unit QHS HARITHA Administration Insulin Human Lispro 20 unit 04/06/22 18:45 04/08/22 11:52 Insulin Lispro 100 Unit/Ml Insuln.Pen SC 20 u TIDPC HARITHA Administration Leflunomide 20 mg 04/06/22 06:00 04/08/22 06:24 Leflunomide 10 Mg Tablet PO 20 mg DAILY HARITHA Administration Levothyroxine Sodium 100 mcg 04/06/22 06:00 04/08/22 06:24 Levothyroxine 100 Mcg Tablet PO 100 mcg DAILY HARITHA Administration Loratadine 10 mg 04/06/22 06:00 04/08/22 06:23 Loratadine 10 Mg Tablet PO 10 mg DAILY HARITHA Administration Magnesium Hydroxide 30 ml 04/05/22 17:17 Magnesium Hydroxide 30 Ml Udc PO DAILY PRN CONSTIPATION Melatonin 10 mg 04/06/22 22:00 04/07/22 21:50 Melatonin 10 Mg Tablet PO 10 mg QHS [facility] Administration Metoprolol Tartrate 100 mg 04/05/22 18:00 04/08/22 06:23 Metoprolol Tartrate 100 Mg Tablet PO 100 mg BID HARITHA Administration Nutritional Formula (Lactose Free) 120 ml 04/06/22 12:00 04/08/22 11:23 Glucerna Shake 120 Ml Liquid PO 120 ml 4X/DAY HARITHA Administration Nystatin 1 applic 04/08/22 10:00 04/08/22 08:00 Nystatin Powder 15gm Bottle TOPICAL 1 applic 1000,2200 [facility] Administration Protocol Pantoprazole Sodium 40 mg 04/06/22 06:00 04/08/22 06:24 Pantoprazole Sodium 40 Mg Tablet PO 40 mg DAILY HARITHA Administration Potassium Chloride 20 meq 04/07/22 08:00 04/08/22 08:03 Potassium Chloride Oral Tablet 20 Meq PO 20 meq DAILYCM HARITHA Administration Prednisone 7.5 mg 04/06/22 08:00 04/08/22 07:58 Prednisone 5 Mg Tablet PO 7.5 mg BREAKFAST AHRITHA Administration Sacubitril/Valsartan 1 each 04/05/22 18:00 04/08/22 06:25 Sacubitril/Valsartan 24/26 Mg Tablet PO 1 each BID HARITHA Administration Senna/Docusate Sodium 1 tablet 04/05/22 18:00 04/08/22 06:23 Senna/Docusate Sodium 1 Tablet PO 1 tablet BID HARITHA Administration Sodium Chloride 10 - 40 ml 04/05/22 15:54 0.9% Saline Lock 10 Ml Syringe IV UD PRN SALINE FLUSH Tuberculin PPD 0.1 ml 04/13/22 10:00 Tuberculin,Purif.Prot.Deriv. 50 Tu/Ml Vial ID 04/13/22 10:01 X1 ONE Problem List (Last Reviewed 04/05/22 @ 17:[address] Meir Mistry MD) Hypothyroidism (Acute) Neuropathic pain (Acute) GERD (gastroesophageal reflux disease) (Acute) Chronic systolic congestive heart failure (Chronic) Hyperlipidemia (Acute) Allergic rhinitis (Acute) Diabetes mellitus (Acute) Rheumatoid arthritis (Acute) Stroke (Acute) Debility (Acute) Acute UTI (Acute) Encephalopathy due to infection (Acute) Atrial fibrillation with RVR (Acute) Vital Signs Temp Pulse Resp BP Pulse Ox O2 Del Method 98.7 F 93 18 127/90 H 100 Room Air 04/08/22 14:00 04/08/22 14:00 04/08/22 14:00 04/08/22 14:00 04/08/22 14:00 04/08/22 14:00 Oxygen Delivery Method Room Air Weight: 95.164 kg Body Mass Index (BMI) 35.8 Sodium 133 mmol/L (136-145) L 04/08/22 05:12 Potassium 3.7 mmol/L (3.5-5.1) 04/08/22 05:12 Chloride 102 mmol/L (98-107) 04/08/22 05:12 Carbon Dioxide 26.0 mmol/L (21.0-32.0) 04/08/22 05:12 Anion Gap 5 (5-15) 04/08/22 05:12 BUN 22 mg/dL (7-18) H 04/08/22 05:12 Creatinine 0.69 mg/dL (0.55-1.02) 04/08/22 05:12 Est GFR (MDRD) Af Amer 107 mL/min (>60) 04/08/22 05:12 Est GFR (MDRD) Non-Af 89 mL/min (>60) 04/08/22 05:12 BUN/Creatinine Ratio 32.0 RATIO (10-20) H 04/08/22 05:12 Glucose 110 mg/dL (74-106) H 04/08/22 05:12 Assessment/Plan: 1. Pain/fever: acetaminophen 1000mg PO Q8H RPN headache/fever and [place] 5/325mg 1T PO Q8H PRN pain 1-10. Resident has received 1 dose of acetaminophen for fever and 3 doses of [place] for pain 7-8 in hip/arm/back. Please continue to monitor for increased pain, PRN usage, constipation (no documented bowel movement), and respiratory depression. 2. Bowel: senna/docusate 1T PO BID and MOM 30mL PO daily PRN constipation. Please continue to monitor for constipation and PRN usage. Resident has not received any PRN doses and there haven't been any documented bowel movements. 3. E. coli UTI: cefdinir 300mg PO BID thru 04/11/22. Please continue to monitor S/S of infection, urine culture (pansensitive E. coli), diarrhea, renal function and discolored stool. 4. Atrial fibrillation/CHF: metoprolol tartrate 100mg PO BID, diltiazem CD 120mg PO daily, amiodarone 200mg PO DAILYCM, apixaban 5mg PO BID, sacubitril/valsartan 24/26mg PO BID and furosemide 80mg PO daily. Please continue to monitor BP (last 127/90), HR (last 93), potassium (last 3.7mmol/L), sodium (last 133mmol/L), S/S of bleeding, cough, renal function, and hemoglobin (last 11.5g/dL). 5. Shortness of breath: albuterol MDI 1puff Q4H PRN SOB. Please continue to monitor for S/S of SOB and PRN usage. Resident has not used any doses so far. 6. Hyperlipidemia: atorvastatin 40mg PO QHS. Please continue to monitor lipid panel (last 09/12/21), LFTs (last 04/05/22) and muscle pain. 7. GERD: pantoprazole 40mg PO daily and famotidine 20mg PO daily PRN acid reflux. Resident has not used famotidine. Please continue to monitor for S/S of GERD, PRN usage and diarrhea. 8. Diabetes mellitus: insulin glargine 50units SC QHS and insulin lispro 20units SC TIDPC. Please continue to monitor hemoglobin A1c (last 7.9% 04/03/22), glucose (last 104mg/dL) and S/S of hypoglycemia. 9. Rheumatoid arthritis: leflunomide 20mg PO daily and prednisone 7.5mg PO daily. Please continue to monitor for S/S of RA/infection, rash and BP. 10. Hypothyroidism: levothyroxine 100mcg PO daily. Please continue to monitor TSH (last 04/03/22) and S/S of hypo/hyperthyroidism. 11. Allergic rhinitis: loratadine 10mg PO daily. Please continue to monitor for S/S of allergies and renal function. 12. Hypokalemia (level of 3.4mmol/L 04/06): potassium chloride 20mEq PO DAILYCM. Please continue to monitor potassium levels (last 3.7mmol/L). Assessment/Plan for indications treated with psychotropic medications: 1. Diabetic neuropathy: gabapentin 300mg PO BID. Please continue to monitor for S/S of confusion, renal function (BEERs medication, dose appropriate for renal function) and falls/fractures (BEERs medication.) GDR not appropriate as this medication is being used for neuropathy. Medical chart and medication regimen reviewed. The following medication irregularities or issues were identified: *1. Melatonin 10mg PO QHS. I did not see a documented indication for this medication. Please consider adding the indication. Thanks. Please continue to monitor for excessive drowsiness. Date of Note:: 04/08/22
[2022-04-08 15:43] VITALS: PULSE 75; RESP 18; O2SAT 95
[2022-04-08 16:40] LABS: Bedside Glucose 165 mg/dL (74-106)
[2022-04-08 17:12] VITALS: PULSE 75
[2022-04-08 21:36] LABS: Bedside Glucose 143 mg/dL (74-106)
[2022-04-08] MEDS: Atorvastatin Calcium 40 MG Tablet PO (22:09)
[2022-04-08] MEDS: Insulin Glargine-YFGN 100 UNIT/ML Pen 50 UNIT SC (22:09)
[2022-04-08] MEDS: MELATONIN 10 MG TABLET PO (22:09)
[2022-04-09 05:47] VITALS: BP 154/89; PULSE 89
[2022-04-09] MEDS: Acetaminophen 500 MG Tablet 1000 MG PO (05:56)
[2022-04-09] MEDS: Gabapentin 300 MG Capsule PO ×2 (05:57→17:48)
[2022-04-09] MEDS: Levothyroxine 100 MCG Tablet PO (05:57)
[2022-04-09] MEDS: Cefdinir 300 MG Capsule PO ×2 (05:57→17:45)
[2022-04-09] MEDS: Loratadine 10 MG Tablet PO (05:58)
[2022-04-09] MEDS: SACUBITRIL/VALSARTAN 24/26 MG TABLET 1 EACH PO ×2 (05:58→17:46)
[2022-04-09] MEDS: Pantoprazole Sodium 40 MG Tablet PO (05:58)
[2022-04-09] MEDS: dilTIAZem CD 120 MG Capsule PO (05:58)
[2022-04-09] MEDS: Furosemide 80 MG Tablet PO (05:58)
[2022-04-09] MEDS: Leflunomide 10 MG TABLET 20 MG PO (05:58)
[2022-04-09] MEDS: APIXABAN 5 MG TABLET PO ×2 (05:58→17:46)
[2022-04-09 06:04] VITALS: PULSE 89
[2022-04-09] MEDS: Metoprolol Tartrate 100 MG Tablet PO ×2 (06:04→17:45)
[2022-04-09 06:11] LABS: Bedside Glucose 121 mg/dL (74-106)
[2022-04-09] MEDS: Insulin Lispro 100 UNIT/ML INSULN.PEN 20 UNIT SC ×2 (08:18→11:54)
[2022-04-09] MEDS: Potassium Chloride Oral Tablet 20 MEQ PO (08:19)
[2022-04-09] MEDS: predniSONE 5 MG Tablet 7.5 MG PO (08:19)
[2022-04-09] MEDS: Amiodarone 200 MG Tablet PO (08:19)
[2022-04-09] MEDS: Nystatin Powder 15gm Bottle 1 APPLIC TOPICAL ×2 (08:27→20:30)
--- NOTE | 2022-04-09 10:40 | CASEMGMT ---
Social Work IDT met with patient, brother and sister for care plan meeting. Discussed patient's progress in PT/OT/ST/SN. Educated to Medicare benefit. Encouraged to contact secondary insurance to ensure copay coverage. Pts goal is to return home alone. However, IDT unsure pt will be safe returning home alone. Pt states she needs to be independent to return home. SW broached topic of considering alternative DC plan, but pt will continue working with therapy. Then IDT will discuss DC plan with pt. Offered to complete HCPOA again if pt wants them changed prior to meeting with litigation attorney. Sister and brother agreed to be HCPOA and pt wanting to complete during stay. SW to complete. Malissa Bell, GULLET SLITTER NURSE CLINICIAN
[2022-04-09 11:20] LABS: Bedside Glucose 200 mg/dL (74-106)
[2022-04-09] MEDS: Glucerna Shake 120 ML LIQUID PO ×3 (11:52→20:23)
[2022-04-09 14:00] VITALS: BP 120/73; PULSE 79; RESP 14; TEMP 36.4; O2SAT 92
[2022-04-09 16:36] LABS: Bedside Glucose 95 mg/dL (74-106)
[2022-04-09 17:45] VITALS: BP 116/98; PULSE 64
[2022-04-09] MEDS: Senna/Docusate Sodium 1 Tablet PO (17:45)
[2022-04-09 18:55] LABS: Bedside Glucose 127 mg/dL (74-106)
[2022-04-09] MEDS: Insulin Glargine-YFGN 100 UNIT/ML Pen 50 UNIT SC (20:22)
[2022-04-09] MEDS: HYDROcodone Bitartrate/Apap 5/325 Tablet PO (20:24)
[2022-04-09] MEDS: MELATONIN 10 MG TABLET PO (20:25)
[2022-04-09] MEDS: Atorvastatin Calcium 40 MG Tablet PO (20:25)
[2022-04-09 20:51] LABS: Bedside Glucose 176 mg/dL (74-106)
[2022-04-09 22:12] VITALS: O2SAT 95
[2022-04-10] MEDS: Pantoprazole Sodium 40 MG Tablet PO (05:55)
[2022-04-10] MEDS: Levothyroxine 100 MCG Tablet PO (05:55)
[2022-04-10 05:56] VITALS: BP 133/87; PULSE 77
[2022-04-10] MEDS: Leflunomide 10 MG TABLET 20 MG PO (05:56)
[2022-04-10] MEDS: Metoprolol Tartrate 100 MG Tablet PO ×2 (05:56→17:59)
[2022-04-10] MEDS: Senna/Docusate Sodium 1 Tablet PO (05:56)
[2022-04-10] MEDS: Cefdinir 300 MG Capsule PO ×2 (05:56→17:59)
[2022-04-10] MEDS: Furosemide 80 MG Tablet PO (05:57)
[2022-04-10] MEDS: dilTIAZem CD 120 MG Capsule PO (05:57)
[2022-04-10] MEDS: SACUBITRIL/VALSARTAN 24/26 MG TABLET 1 EACH PO ×2 (05:57→18:01)
[2022-04-10] MEDS: Loratadine 10 MG Tablet PO (05:57)
[2022-04-10] MEDS: APIXABAN 5 MG TABLET PO ×2 (05:57→17:58)
[2022-04-10] MEDS: HYDROcodone Bitartrate/Apap 5/325 Tablet PO ×2 (05:58→17:57)
[2022-04-10] MEDS: Gabapentin 300 MG Capsule PO ×2 (05:59→18:46)
--- NOTE | 2022-04-10 06:29 | NURSING ---
Pt c/o pain in her right wrist rated at an 8/10, increasing with movement. States the pain started yesterday (04/08) but does not know the cause, except that she might have hit it against something. Wrist is slightly swollen but not reddened or bruised. Pt grimaces and withdraws limb with palpitation. PRN [place] administered as ordered and ice given. Note left for Dr. Mistry.
[2022-04-10 06:35] LABS: Bedside Glucose 125 mg/dL (74-106)
--- NOTE | 2022-04-10 07:55 | RAD_ITS ---
STUDY: X-RAY - RIGHT WRIST REASON FOR EXAM: Female, 76 years old. Pain and swelling. No known injury. TECHNIQUE: 2 view(s) of the wrist were obtained. COMPARISON: None. FINDINGS: Normal visualized distal radius and ulna. Normal radiocarpal articulation. Normal distal radioulnar articulation. Normal carpal bones. Normal carpal articulations. Normal carpometacarpal articulation of the thumb. Normal second through fifth carpometacarpal articulations. Normal visualized metacarpal bones. Diffuse soft tissue swelling. There are vascular calcifications. RAD/Wrist 2 Views IMPRESSION: Diffuse soft tissue swelling. Vascular calcifications. Calcified phleboliths in the subcutaneous tissue seen in the distal portion of the forearm. Electronically Signed: Fabio Hunter MD at 10:53 EDT ,
[2022-04-10] MEDS: Potassium Chloride Oral Tablet 20 MEQ PO (09:19)
[2022-04-10] MEDS: Amiodarone 200 MG Tablet PO (09:19)
[2022-04-10] MEDS: predniSONE 5 MG Tablet 7.5 MG PO (09:20)
[2022-04-10] MEDS: Insulin Lispro 100 UNIT/ML INSULN.PEN 20 UNIT SC ×3 (09:29→18:02)
[2022-04-10] MEDS: Nystatin Powder 15gm Bottle 1 APPLIC TOPICAL ×2 (09:30→20:48)
[2022-04-10 11:20] LABS: Bedside Glucose 219 mg/dL (74-106)
--- NOTE | 2022-04-10 12:00 | NURSING ---
Patient had xray to right wrist this AM and Dr. Mistry made aware of results. New order for medrol dose pack and arthritis pain cream. Wrist has some swelling, non pitting, elevated on pillow. Patient has full ROM. Slight redness noted to joint in wrist. Patient aware of all new orders.
[2022-04-10] MEDS: MethylPREDNISolone DosePak 4 MG BOX PO ×3 (13:13→20:42)
[2022-04-10 14:00] VITALS: BP 101/64; PULSE 85; RESP 18; TEMP 36.4; O2SAT 93
--- NOTE | 2022-04-10 16:01 | CASEMGMT ---
Social Work Completed advanced directives with patient. Original and copy provided to pt. Copies placed on chart. BIMS () and PHQ-9 (03/22) completed for MDS assessment. Explored positive responses. Pt explains she is not interested in participating in activities during stay, her focus is on improving and returning home. Pt reports to poor appetite r/t not finding many meals she likes here. Pt reports to feeling tired and moving slower r/t medical condition and deconditioning. SW provided active and supportive listening. Offered after care resources. Pt denied stating she is not depressed. SW offered ongoing supportive visits, if needed. Malissa Bell, QUANG ASSISTANT WOMEN'S BASKETBALL COACH
[2022-04-10 17:36] LABS: Bedside Glucose 152 mg/dL (74-106)
[2022-04-10] MEDS: Arthritis Pain Compound 60 CLICK TUBE TOPICAL (17:57)
[2022-04-10] MEDS: Glucerna Shake 120 ML LIQUID PO ×2 (17:57→20:41)
[2022-04-10 17:59] VITALS: PULSE 80
[2022-04-10] MEDS: Insulin Glargine-YFGN 100 UNIT/ML Pen 50 UNIT SC (20:40)
[2022-04-10] MEDS: MELATONIN 10 MG TABLET PO (20:43)
[2022-04-10] MEDS: Atorvastatin Calcium 40 MG Tablet PO (20:43)
[2022-04-10 21:11] LABS: Bedside Glucose 229 mg/dL (74-106)
[2022-04-11] MEDS: dilTIAZem CD 120 MG Capsule PO (05:57)
[2022-04-11] MEDS: Arthritis Pain Compound 60 CLICK TUBE TOPICAL ×2 (05:57→18:42)
[2022-04-11] MEDS: APIXABAN 5 MG TABLET PO ×2 (05:58→18:32)
[2022-04-11] MEDS: Levothyroxine 100 MCG Tablet PO (05:58)
[2022-04-11] MEDS: Leflunomide 10 MG TABLET 20 MG PO (05:58)
[2022-04-11] MEDS: Gabapentin 300 MG Capsule PO ×2 (05:58→18:31)
[2022-04-11 05:59] VITALS: BP 126/89; PULSE 113
[2022-04-11] MEDS: Pantoprazole Sodium 40 MG Tablet PO (05:59)
[2022-04-11] MEDS: Metoprolol Tartrate 100 MG Tablet PO ×2 (05:59→18:33)
[2022-04-11] MEDS: Cefdinir 300 MG Capsule PO ×2 (05:59→18:32)
[2022-04-11] MEDS: Senna/Docusate Sodium 1 Tablet PO ×2 (05:59→18:34)
[2022-04-11] MEDS: Furosemide 80 MG Tablet PO (06:00)
[2022-04-11] MEDS: SACUBITRIL/VALSARTAN 24/26 MG TABLET 1 EACH PO ×2 (06:00→18:32)
[2022-04-11] MEDS: Loratadine 10 MG Tablet PO (06:00)
[2022-04-11 06:30] LABS: Bedside Glucose 231 mg/dL (74-106)
[2022-04-11] MEDS: Potassium Chloride Oral Tablet 20 MEQ PO (08:56)
[2022-04-11] MEDS: Amiodarone 200 MG Tablet PO (08:56)
[2022-04-11] MEDS: MethylPREDNISolone DosePak 4 MG BOX PO ×4 (08:57→21:52)
[2022-04-11] MEDS: Insulin Lispro 100 UNIT/ML INSULN.PEN 20 UNIT SC ×3 (08:57→18:33)
[2022-04-11] MEDS: Glucerna Shake 120 ML LIQUID PO ×4 (09:05→22:00)
[2022-04-11] MEDS: Nystatin Powder 15gm Bottle 1 APPLIC TOPICAL (09:08)
[2022-04-11 11:15] LABS: Bedside Glucose 327 mg/dL (74-106)
[2022-04-11 14:00] VITALS: BP 116/68; PULSE 64; RESP 16; TEMP 36.2; O2SAT 94
--- NOTE | 2022-04-11 14:11 | MDS.RN ---
Pain interview for SHRUTI 04/12/22.
[2022-04-11] MEDS: Insulin Lispro 100 UNIT/ML INSULN.PEN 10 UNIT SC (15:07)
[2022-04-11 16:50] LABS: Bedside Glucose 246 mg/dL (74-106)
[2022-04-11 18:33] VITALS: PULSE 64
[2022-04-11 21:46] LABS: Bedside Glucose 209 mg/dL (74-106)
[2022-04-11] MEDS: Atorvastatin Calcium 40 MG Tablet PO (21:51)
[2022-04-11] MEDS: Insulin Glargine-YFGN 100 UNIT/ML Pen 50 UNIT SC (21:52)
[2022-04-11] MEDS: MELATONIN 10 MG TABLET PO (21:52)
[2022-04-12 05:15] VITALS: BP 145/91; PULSE 89
[2022-04-12] MEDS: Leflunomide 10 MG TABLET 20 MG PO (05:15)
[2022-04-12] MEDS: Metoprolol Tartrate 100 MG Tablet PO ×2 (05:15→17:50)
[2022-04-12] MEDS: APIXABAN 5 MG TABLET PO ×2 (05:15→17:50)
[2022-04-12] MEDS: Levothyroxine 100 MCG Tablet PO (05:15)
[2022-04-12] MEDS: Pantoprazole Sodium 40 MG Tablet PO (05:15)
[2022-04-12] MEDS: Gabapentin 300 MG Capsule PO ×2 (05:15→17:53)
[2022-04-12] MEDS: Senna/Docusate Sodium 1 Tablet PO ×2 (05:15→17:51)
[2022-04-12] MEDS: dilTIAZem CD 120 MG Capsule PO (05:15)
[2022-04-12] MEDS: Loratadine 10 MG Tablet PO (05:16)
[2022-04-12] MEDS: Furosemide 80 MG Tablet PO (05:16)
[2022-04-12] MEDS: SACUBITRIL/VALSARTAN 24/26 MG TABLET 1 EACH PO ×2 (05:16→17:50)
[2022-04-12] MEDS: Glucerna Shake 120 ML LIQUID PO ×2 (05:19→21:55)
[2022-04-12] MEDS: Arthritis Pain Compound 60 CLICK TUBE TOPICAL ×2 (05:21→17:48)
[2022-04-12 05:23] VITALS: RESP 16; TEMP 37.1; O2SAT 94
[2022-04-12 06:31] LABS: Bedside Glucose 242 mg/dL (74-106)
[2022-04-12] MEDS: Potassium Chloride Oral Tablet 20 MEQ PO (09:00)
[2022-04-12] MEDS: Amiodarone 200 MG Tablet PO (09:00)
[2022-04-12] MEDS: MethylPREDNISolone DosePak 4 MG BOX PO ×4 (09:00→21:53)
[2022-04-12] MEDS: Insulin Lispro 100 UNIT/ML INSULN.PEN 20 UNIT SC ×3 (09:01→17:54)
[2022-04-12 09:04] VITALS: BP 121/84; PULSE 98
[2022-04-12] MEDS: HYDROcodone Bitartrate/Apap 5/325 Tablet PO (09:07)
[2022-04-12] MEDS: Nystatin Powder 15gm Bottle 1 APPLIC TOPICAL ×2 (10:39→21:56)
[2022-04-12 11:50] LABS: Bedside Glucose 329 mg/dL (74-106)
[2022-04-12 14:00] VITALS: BP 106/57; PULSE 71; RESP 16; TEMP 36.4; O2SAT 97
[2022-04-12 16:51] LABS: Bedside Glucose 233 mg/dL (74-106)
[2022-04-12 17:50] VITALS: BP 106/57; PULSE 71
[2022-04-12 21:30] LABS: Bedside Glucose 200 mg/dL (74-106)
[2022-04-12] MEDS: MELATONIN 10 MG TABLET PO (21:54)
[2022-04-12] MEDS: Atorvastatin Calcium 40 MG Tablet PO (21:55)
[2022-04-12] MEDS: Insulin Glargine-YFGN 100 UNIT/ML Pen 50 UNIT SC (21:56)
[2022-04-13 05:26] LABS: Absolute Lymphocyte Count 1.44 X10^3/uL (0.83-4.51); Absolute Neutrophil Count 11.7 X10^3/uL (2.0-7.7); Basophil# 0.05 X10^3/uL; Basophil% 0.3 % (0-1); Eosinophil# 0.04 X10^3/uL; Eosinophils% 0.3 % (0-5); Hematocrit 35.5 % (37-47); Hemoglobin 11.5 g/dL (12.0-15.0); Lymphocyte # 1.44 X10^3/ul (0.83-4.51); Mean Corp Hgb Conc 32.4 g/dL (32-36); Mean Corpuscular Hgb 29.9 pg (27.0-32.0); Mean Corpuscular Volume 92.2 fL (81-99); Mean Platelet Vol. 10.3 fl (6.2-12.0); Monocyte# 0.97 X10^3/uL; Monocyte% 6.7 % (0-10); NRBC Flagged by Analyzer 0 % (0-5); Neutrophil # 11.72 X10^3/uL (2.7-7.7); Neutrophil % 81.3 % (47-70); Platelet Count 481 K/mm3 (150-450); RBC Distribution Width CV 13.7 % (11.6-14.6); RBC Distribution Width SD 46.3 fl (35.1-43.9); Red Blood Count 3.85 M/mm3 (4.2-5.4); White Blood Count 14.4 K/mm3 (4.4-11.0)
[2022-04-13 05:40] LABS: Anion Gap 6 (5-15); BUN 37 mg/dL (7-18); BUN/Creat Ratio 51.7 RATIO (10-20); Calcium,Total 10.7 mg/dL (8.5-10.1); Chloride 101 mmol/L (98-107); Creatinine, Serum 0.72 mg/dL (0.55-1.02); EST Glomerular Filtration Rate 85 mL/min (>60); Est Glom Filt Rate - Afr Amer 103 mL/min (>60); Estimated Creatinine Clearance 42.62 ml/min; Glucose 232 mg/dL (74-106); Potassium 4.7 mmol/L (3.5-5.1); Sodium Level 133 mmol/L (136-145)
[2022-04-13] MEDS: Levothyroxine 100 MCG Tablet PO (05:49)
[2022-04-13 05:50] VITALS: BP 137/76; PULSE 99
[2022-04-13] MEDS: Senna/Docusate Sodium 1 Tablet PO (05:50)
[2022-04-13] MEDS: Metoprolol Tartrate 100 MG Tablet PO ×2 (05:50→17:09)
[2022-04-13] MEDS: Pantoprazole Sodium 40 MG Tablet PO (05:50)
[2022-04-13] MEDS: SACUBITRIL/VALSARTAN 24/26 MG TABLET 1 EACH PO ×2 (05:51→17:09)
[2022-04-13] MEDS: APIXABAN 5 MG TABLET PO ×2 (05:51→17:09)
[2022-04-13] MEDS: Furosemide 80 MG Tablet PO (05:51)
[2022-04-13] MEDS: Loratadine 10 MG Tablet PO (05:51)
[2022-04-13] MEDS: dilTIAZem CD 120 MG Capsule PO (05:51)
[2022-04-13] MEDS: Leflunomide 10 MG TABLET 20 MG PO (05:52)
[2022-04-13] MEDS: Arthritis Pain Compound 60 CLICK TUBE TOPICAL ×2 (05:53→17:08)
[2022-04-13] MEDS: Glucerna Shake 120 ML LIQUID PO ×4 (05:59→21:23)
[2022-04-13 06:40] LABS: Bedside Glucose 214 mg/dL (74-106)
[2022-04-13] MEDS: Gabapentin 300 MG Capsule PO ×2 (07:37→17:13)
[2022-04-13] MEDS: Potassium Chloride Oral Tablet 20 MEQ PO (07:40)
[2022-04-13] MEDS: Amiodarone 200 MG Tablet PO (07:40)
[2022-04-13] MEDS: MethylPREDNISolone DosePak 4 MG BOX PO ×3 (07:40→21:25)
[2022-04-13] MEDS: Insulin Lispro 100 UNIT/ML INSULN.PEN 20 UNIT SC ×3 (07:45→18:36)
[2022-04-13 07:47] VITALS: BP 126/74; PULSE 66
[2022-04-13 09:45] VITALS: PULSE 72; RESP 18; O2SAT 95
[2022-04-13] MEDS: Tuberculin,Purif.prot.deriv. 50 TU/ML Vial 0.1 ML ID (09:49)
[2022-04-13] MEDS: Nystatin Powder 15gm Bottle 1 APPLIC TOPICAL ×2 (09:51→21:26)
[2022-04-13 12:00] LABS: Bedside Glucose 271 mg/dL (74-106)
[2022-04-13 14:00] VITALS: BP 95/62; PULSE 61; RESP 12; TEMP 36.7; O2SAT 96
[2022-04-13 17:09] VITALS: BP 126/79; PULSE 75
[2022-04-13 17:16] VITALS: BP 126/79; PULSE 75
[2022-04-13 17:30] LABS: Bedside Glucose 162 mg/dL (74-106)
[2022-04-13] MEDS: Menthol/Lanolin/Calamine/Znox 113 GM Tube 1 APPLIC TOPICAL (21:21)
[2022-04-13] MEDS: Insulin Glargine-YFGN 100 UNIT/ML Pen 60 UNIT SC (21:24)
[2022-04-13] MEDS: Atorvastatin Calcium 40 MG Tablet PO (21:25)
[2022-04-13] MEDS: MELATONIN 10 MG TABLET PO (21:26)
[2022-04-13 21:46] LABS: Bedside Glucose 193 mg/dL (74-106)
[2022-04-14 05:46] VITALS: BP 142/84; PULSE 72
[2022-04-14] MEDS: Senna/Docusate Sodium 1 Tablet PO ×2 (05:46→17:43)
[2022-04-14] MEDS: dilTIAZem CD 120 MG Capsule PO (05:46)
[2022-04-14] MEDS: APIXABAN 5 MG TABLET PO ×2 (05:46→17:46)
[2022-04-14] MEDS: Leflunomide 10 MG TABLET 20 MG PO (05:46)
[2022-04-14] MEDS: SACUBITRIL/VALSARTAN 24/26 MG TABLET 1 EACH PO ×2 (05:46→17:46)
[2022-04-14] MEDS: Loratadine 10 MG Tablet PO (05:46)
[2022-04-14] MEDS: Pantoprazole Sodium 40 MG Tablet PO (05:46)
[2022-04-14] MEDS: Levothyroxine 100 MCG Tablet PO (05:46)
[2022-04-14] MEDS: Metoprolol Tartrate 100 MG Tablet PO ×2 (05:46→17:43)
[2022-04-14] MEDS: Furosemide 80 MG Tablet PO (05:46)
[2022-04-14] MEDS: Arthritis Pain Compound 60 CLICK TUBE TOPICAL ×2 (05:51→17:42)
[2022-04-14] MEDS: Menthol/Lanolin/Calamine/Znox 113 GM Tube 1 APPLIC TOPICAL ×2 (05:52→17:49)
[2022-04-14] MEDS: Glucerna Shake 120 ML LIQUID PO ×3 (06:00→17:42)
[2022-04-14] MEDS: Gabapentin 300 MG Capsule PO ×2 (06:03→17:49)
[2022-04-14 06:30] LABS: Bedside Glucose 151 mg/dL (74-106)
[2022-04-14] MEDS: Potassium Chloride Oral Tablet 20 MEQ PO (08:52)
[2022-04-14] MEDS: MethylPREDNISolone DosePak 4 MG BOX PO ×2 (08:52→21:21)
[2022-04-14] MEDS: Amiodarone 200 MG Tablet PO (08:53)
[2022-04-14] MEDS: Nystatin Powder 15gm Bottle 1 APPLIC TOPICAL ×2 (08:53→21:25)
[2022-04-14] MEDS: Insulin Lispro 100 UNIT/ML INSULN.PEN 20 UNIT SC ×3 (09:11→18:36)
--- NOTE | 2022-04-14 09:39 | NURSING ---
Special Loan Officer Note; MDS for 04/12/22 complete
[2022-04-14 11:05] VITALS: PULSE 72
[2022-04-14 11:30] LABS: Bedside Glucose 260 mg/dL (74-106)
[2022-04-14 14:00] VITALS: BP 120/83; PULSE 66; RESP 16; TEMP 36.2; O2SAT 95
[2022-04-14 16:55] LABS: Bedside Glucose 259 mg/dL (74-106)
[2022-04-14 17:43] VITALS: BP 125/82; PULSE 87
[2022-04-14] MEDS: Atorvastatin Calcium 40 MG Tablet PO (21:21)
[2022-04-14] MEDS: MELATONIN 10 MG TABLET PO (21:21)
[2022-04-14] MEDS: Insulin Glargine-YFGN 100 UNIT/ML Pen 60 UNIT SC (21:22)
[2022-04-14 21:45] LABS: Bedside Glucose 192 mg/dL (74-106)
[2022-04-15 06:35] LABS: Bedside Glucose 99 mg/dL (74-106)
[2022-04-15] MEDS: Loratadine 10 MG Tablet PO (06:37)
[2022-04-15] MEDS: Leflunomide 10 MG TABLET 20 MG PO (06:37)
[2022-04-15] MEDS: SACUBITRIL/VALSARTAN 24/26 MG TABLET 1 EACH PO ×2 (06:37→17:20)
[2022-04-15] MEDS: APIXABAN 5 MG TABLET PO ×2 (06:37→17:20)
[2022-04-15] MEDS: Arthritis Pain Compound 60 CLICK TUBE TOPICAL ×2 (06:38→17:20)
[2022-04-15] MEDS: Levothyroxine 100 MCG Tablet PO (06:38)
[2022-04-15] MEDS: Pantoprazole Sodium 40 MG Tablet PO (06:38)
[2022-04-15] MEDS: Senna/Docusate Sodium 1 Tablet PO ×2 (06:38→17:20)
[2022-04-15 06:48] VITALS: BP 102/72; PULSE 70
--- NOTE | 2022-04-15 08:45 | NURSING ---
Dr. Mistry updated on pt's Blood pressure of 102/[address] Mistry hold only Cardizem and Lasix. Will continue to monitor.
[2022-04-15 08:53] VITALS: PULSE 82
[2022-04-15] MEDS: Metoprolol Tartrate 100 MG Tablet PO ×2 (08:53→17:20)
[2022-04-15] MEDS: Gabapentin 300 MG Capsule PO ×2 (08:53→17:20)
[2022-04-15] MEDS: Potassium Chloride Oral Tablet 20 MEQ PO (08:54)
[2022-04-15] MEDS: Amiodarone 200 MG Tablet PO (08:54)
[2022-04-15] MEDS: Insulin Lispro 100 UNIT/ML INSULN.PEN 20 UNIT SC ×2 (08:55→14:35)
[2022-04-15] MEDS: HYDROcodone Bitartrate/Apap 5/325 Tablet PO (10:41)
[2022-04-15] MEDS: Menthol/Lanolin/Calamine/Znox 113 GM Tube 1 APPLIC TOPICAL ×2 (10:43→22:11)
[2022-04-15] MEDS: Nystatin Powder 15gm Bottle 1 APPLIC TOPICAL ×2 (10:44→22:12)
[2022-04-15 11:11] LABS: Bedside Glucose 210 mg/dL (74-106)
--- NOTE | 2022-04-15 13:55 | WOUNDNOTE ---
wound photo: left elbow
[2022-04-15 14:00] VITALS: BP 116/61; PULSE 60; RESP 18; TEMP 36.1; O2SAT 98
--- NOTE | 2022-04-15 16:48 | NURSING ---
Dinner time blood sugar 86 @ 1645. Offered options of snacks and pt accepted apple juice and pudding. Pt notes she did not care for her lunch selection and did not eat much. Will continue to monitor.
[2022-04-15 17:11] LABS: Bedside Glucose 86 mg/dL (74-106)
[2022-04-15 17:20] VITALS: PULSE 68
[2022-04-15] MEDS: Glucerna Shake 120 ML LIQUID PO ×2 (17:20→22:12)
[2022-04-15 21:35] LABS: Bedside Glucose 115 mg/dL (74-106)
[2022-04-15] MEDS: Insulin Glargine-YFGN 100 UNIT/ML Pen 60 UNIT SC (22:07)
[2022-04-15] MEDS: MELATONIN 10 MG TABLET PO (22:09)
[2022-04-15] MEDS: Atorvastatin Calcium 40 MG Tablet PO (22:10)
[2022-04-16 01:01] LABS: Bedside Glucose 89 mg/dL (74-106)
[2022-04-16] MEDS: Arthritis Pain Compound 60 CLICK TUBE TOPICAL ×2 (06:11→16:52)
[2022-04-16] MEDS: Gabapentin 300 MG Capsule PO ×2 (06:11→16:53)
[2022-04-16 06:12] VITALS: BP 158/101; PULSE 90
[2022-04-16] MEDS: APIXABAN 5 MG TABLET PO ×2 (06:12→16:36)
[2022-04-16] MEDS: SACUBITRIL/VALSARTAN 24/26 MG TABLET 1 EACH PO (06:12)
[2022-04-16] MEDS: Metoprolol Tartrate 100 MG Tablet PO (06:12)
[2022-04-16] MEDS: Loratadine 10 MG Tablet PO (06:12)
[2022-04-16] MEDS: Levothyroxine 100 MCG Tablet PO (06:12)
[2022-04-16] MEDS: Glucerna Shake 120 ML LIQUID PO ×4 (06:12→21:59)
[2022-04-16] MEDS: Pantoprazole Sodium 40 MG Tablet PO (06:12)
[2022-04-16] MEDS: dilTIAZem CD 120 MG Capsule PO (06:12)
[2022-04-16] MEDS: Leflunomide 10 MG TABLET 20 MG PO (06:13)
[2022-04-16] MEDS: Furosemide 80 MG Tablet PO (06:13)
[2022-04-16 06:36] LABS: Bedside Glucose 122 mg/dL (74-106)
--- NOTE | 2022-04-16 07:13 | NURSING ---
22:00 Tried to arouse Pt for HS medication. Pt very sleepy and took a few attempts to awake Pt. Pt falling asleep during conversation with this nurse. Left note for .
[2022-04-16 09:00] VITALS: BP 79/44; PULSE 52; RESP 16; TEMP 36.4; O2SAT 97
[2022-04-16] MEDS: Insulin Lispro 100 UNIT/ML INSULN.PEN 20 UNIT SC ×2 (09:41→13:13)
[2022-04-16] MEDS: Potassium Chloride Oral Tablet 20 MEQ PO (09:41)
[2022-04-16] MEDS: 0.9% Normal Saline 1,000 ML 500 ML IV (09:41)
[2022-04-16] MEDS: Nystatin Powder 15gm Bottle 1 APPLIC TOPICAL ×2 (09:43→22:02)
[2022-04-16] MEDS: Menthol/Lanolin/Calamine/Znox 113 GM Tube 1 APPLIC TOPICAL ×2 (09:44→22:02)
[2022-04-16 10:00] VITALS: PULSE 52; RESP 16; O2SAT 97
[2022-04-16 10:26] LABS: Bacteria 0 SEEN /hpf (None Seen); Mucous, Urine 0 SEEN /hpf (<or=2+); Red Blood Cells-Urine 0 SEEN /hpf (0-5); Squamous Epithelial Cells - UA 0 SEEN /hpf (5-10); White Blood Cells 0 SEEN /hpf (0-5)
[2022-04-16 10:32] LABS: Color, Urine Yellow (Yellow); Glucose, Dipstick Normal (Normal); Ketone-Dipstick Negative (Negative); Leukocyte Esterase-Dipstick Negative /ul (Negative); Nitrite-Dipstick Negative (Negative); Occult Blood-Urine Negative /ul (Negative); Protein-Dipstick Negative (Negative); Urine Bilirubin Dipstick Negative (Negative); Urine Clarity Sl. Cloudy (Clear); Urine Urobilinogen Normal (Normal); Urine pH 6.5 (5.0 - 8.0)
--- NOTE | 2022-04-16 10:59 | NURSING ---
0910-updated Dr. Mistry on low BP, order to hold AM dose of amiodarone and give 1L fluid bolus over 2 hrs. Patient drowsy but will stay awake to answer questions and is appropriate, says she feels tired and has a headache.
[2022-04-16 11:16] LABS: Bedside Glucose 156 mg/dL (74-106)
[2022-04-16 12:30] VITALS: BP 111/59; PULSE 75
--- NOTE | 2022-04-16 13:25 | MDS.RN ---
Information for the mds was obtained from review of the clinical record, interview of resident, staff, and direct observation of resident's care.
[2022-04-16 16:35] LABS: Bedside Glucose 58 mg/dL (74-106)
[2022-04-16 16:38] VITALS: BP 97/44; PULSE 66
[2022-04-16 17:51] LABS: Bedside Glucose 84 mg/dL (74-106)
[2022-04-16 18:14] VITALS: BP 97/44
--- NOTE | 2022-04-16 19:46 | NURSING ---
Blood sugar low before dinner, patient tired but alert and appropriate, snack given. Re-check done and sugar improving. Blood pressure decreased again around the same time. Left note for Dr. Mistry to update him, medications adjusted.
[2022-04-16 21:26] LABS: Bedside Glucose 151 mg/dL (74-106)
[2022-04-16] MEDS: Atorvastatin Calcium 40 MG Tablet PO (21:59)
[2022-04-16] MEDS: MELATONIN 10 MG TABLET PO (21:59)
[2022-04-16] MEDS: HYDROcodone Bitartrate/Apap 5/325 Tablet PO (21:59)
[2022-04-16] MEDS: Insulin Glargine-YFGN 100 UNIT/ML Pen 40 UNIT SC (22:00)
[2022-04-16] MEDS: Acetaminophen 500 MG Tablet 1000 MG PO (23:58)
[2022-04-17] VITALS: BP 113/69; PULSE 94
[2022-04-17 00:16] LABS: Bedside Glucose 166 mg/dL (74-106)
[2022-04-17] MEDS: Arthritis Pain Compound 60 CLICK TUBE TOPICAL ×2 (04:33→17:33)
[2022-04-17] MEDS: SACUBITRIL/VALSARTAN 24/26 MG TABLET 1 EACH PO ×2 (04:33→04:35)
[2022-04-17] MEDS: Leflunomide 10 MG TABLET 20 MG PO (04:34)
[2022-04-17] MEDS: Loratadine 10 MG Tablet PO (04:34)
[2022-04-17] MEDS: Levothyroxine 100 MCG Tablet PO (04:34)
[2022-04-17] MEDS: dilTIAZem CD 120 MG Capsule PO (04:34)
[2022-04-17] MEDS: APIXABAN 5 MG TABLET PO ×2 (04:34→17:34)
[2022-04-17] MEDS: Pantoprazole Sodium 40 MG Tablet PO (04:34)
[2022-04-17] MEDS: Furosemide 40 MG Tablet PO (04:40)
[2022-04-17] MEDS: Glucerna Shake 120 ML LIQUID PO ×4 (04:40→20:36)
[2022-04-17] MEDS: Gabapentin 300 MG Capsule PO ×2 (04:40→18:38)
[2022-04-17 04:41] VITALS: BP 130/77; PULSE 70
[2022-04-17] MEDS: Metoprolol Tartrate 50 MG Tablet PO ×2 (04:41→17:34)
[2022-04-17 06:40] LABS: Bedside Glucose 169 mg/dL (74-106)
[2022-04-17] MEDS: Amiodarone 200 MG Tablet PO (08:09)
[2022-04-17] MEDS: Potassium Chloride Oral Tablet 20 MEQ PO (08:09)
[2022-04-17] MEDS: Insulin Lispro 100 UNIT/ML INSULN.PEN 13 UNIT SC ×2 (08:10→12:50)
[2022-04-17] MEDS: 0.9% Saline Lock 10 ML Syringe IV (09:53)
[2022-04-17] MEDS: Nystatin Powder 15gm Bottle 1 APPLIC TOPICAL ×2 (09:55→20:38)
[2022-04-17] MEDS: Menthol/Lanolin/Calamine/Znox 113 GM Tube 1 APPLIC TOPICAL ×2 (09:57→20:43)
[2022-04-17 10:00] VITALS: PULSE 90; O2SAT 97
[2022-04-17 11:35] LABS: Bedside Glucose 212 mg/dL (74-106)
[2022-04-17 14:00] VITALS: BP 102/62; PULSE 69; RESP 15; TEMP 36.8; O2SAT 98
[2022-04-17 15:16] LABS: Bedside Glucose 53 mg/dL (74-106)
[2022-04-17 15:16] LABS: Bedside Glucose 64 mg/dL (74-106)
[2022-04-17 15:16] LABS: Bedside Glucose 63 mg/dL (74-106)
[2022-04-17 17:10] LABS: Bedside Glucose 92 mg/dL (74-106)
[2022-04-17 17:34] VITALS: BP 149/98; PULSE 94
[2022-04-17] MEDS: Senna/Docusate Sodium 1 Tablet PO (17:34)
[2022-04-17 18:07] VITALS: BP 149/98; PULSE 94
[2022-04-17] MEDS: Insulin Glargine-YFGN 100 UNIT/ML Pen 40 UNIT SC (20:34)
[2022-04-17] MEDS: Atorvastatin Calcium 40 MG Tablet PO (20:37)
[2022-04-17] MEDS: MELATONIN 10 MG TABLET PO (20:37)
[2022-04-17 21:06] LABS: Bedside Glucose 186 mg/dL (74-106)
[2022-04-18] MEDS: Levothyroxine 100 MCG Tablet PO (05:39)
[2022-04-18] MEDS: Senna/Docusate Sodium 1 Tablet PO ×2 (05:39→17:39)
[2022-04-18] MEDS: Arthritis Pain Compound 60 CLICK TUBE TOPICAL ×2 (05:39→17:38)
[2022-04-18] MEDS: dilTIAZem CD 120 MG Capsule PO (05:39)
[2022-04-18 05:40] VITALS: BP 116/60; PULSE 77
[2022-04-18] MEDS: Metoprolol Tartrate 50 MG Tablet PO ×2 (05:40→17:44)
[2022-04-18] MEDS: Leflunomide 10 MG TABLET 20 MG PO (05:40)
[2022-04-18] MEDS: SACUBITRIL/VALSARTAN 24/26 MG TABLET 1 EACH PO ×2 (05:40→17:40)
[2022-04-18] MEDS: Furosemide 40 MG Tablet PO (05:40)
[2022-04-18] MEDS: Pantoprazole Sodium 40 MG Tablet PO (05:40)
[2022-04-18] MEDS: Loratadine 10 MG Tablet PO (05:41)
[2022-04-18] MEDS: Glucerna Shake 120 ML LIQUID PO ×4 (05:41→21:31)
[2022-04-18] MEDS: APIXABAN 5 MG TABLET PO ×2 (05:41→17:40)
[2022-04-18] MEDS: Gabapentin 300 MG Capsule PO ×2 (05:42→17:37)
[2022-04-18] MEDS: HYDROcodone Bitartrate/Apap 5/325 Tablet PO (05:44)
--- NOTE | 2022-04-18 06:10 | NURSING ---
During assessment, mepilex on left elbow noted to be wet with drainage and falling off. Pt states dressing keeps falling off. Pt is having moderate amounts of drainage from this area. Mepilex removed. Area cleansed with NS, patted dry, and ABD and kerlix applied. RN aware.
[2022-04-18 06:40] LABS: Bedside Glucose 147 mg/dL (74-106)
[2022-04-18] MEDS: Amiodarone 200 MG Tablet PO (07:57)
[2022-04-18] MEDS: Potassium Chloride Oral Tablet 20 MEQ PO (07:57)
[2022-04-18] MEDS: 0.9% Saline Lock 10 ML Syringe IV (07:58)
[2022-04-18] MEDS: Insulin Lispro 100 UNIT/ML INSULN.PEN 13 UNIT SC ×3 (08:05→18:39)
[2022-04-18 08:07] VITALS: BP 117/63; PULSE 76
[2022-04-18] MEDS: Menthol/Lanolin/Calamine/Znox 113 GM Tube 1 APPLIC TOPICAL ×2 (09:41→21:32)
[2022-04-18] MEDS: Nystatin Powder 15gm Bottle 1 APPLIC TOPICAL ×2 (09:41→21:32)
[2022-04-18 12:01] LABS: Bedside Glucose 166 mg/dL (74-106)
[2022-04-18 14:00] VITALS: BP 100/54; PULSE 77; RESP 18; TEMP 36.9; O2SAT 100
[2022-04-18 16:45] LABS: Bedside Glucose 124 mg/dL (74-106)
[2022-04-18 17:44] VITALS: BP 117/57; PULSE 98
[2022-04-18 17:49] VITALS: BP 117/57; PULSE 98
[2022-04-18] MEDS: MELATONIN 10 MG TABLET PO (21:31)
[2022-04-18] MEDS: Atorvastatin Calcium 40 MG Tablet PO (21:31)
[2022-04-18] MEDS: Insulin Glargine-YFGN 100 UNIT/ML Pen 40 UNIT SC (21:31)
[2022-04-18 21:45] LABS: Bedside Glucose 223 mg/dL (74-106)
[2022-04-19] MEDS: 0.9% Saline Lock 10 ML Syringe IV (06:32)
[2022-04-19] MEDS: Glucerna Shake 120 ML LIQUID PO ×4 (06:32→22:50)
[2022-04-19] MEDS: Leflunomide 10 MG TABLET 20 MG PO (06:33)
[2022-04-19] MEDS: Loratadine 10 MG Tablet PO (06:33)
[2022-04-19] MEDS: Gabapentin 300 MG Capsule PO ×2 (06:33→18:32)
[2022-04-19] MEDS: Furosemide 40 MG Tablet PO (06:33)
[2022-04-19] MEDS: Senna/Docusate Sodium 1 Tablet PO (06:33)
[2022-04-19] MEDS: dilTIAZem CD 120 MG Capsule PO (06:33)
[2022-04-19] MEDS: Pantoprazole Sodium 40 MG Tablet PO (06:33)
[2022-04-19 06:34] VITALS: PULSE 82
[2022-04-19] MEDS: APIXABAN 5 MG TABLET PO ×2 (06:34→17:12)
[2022-04-19] MEDS: Metoprolol Tartrate 50 MG Tablet PO ×2 (06:34→17:12)
[2022-04-19] MEDS: SACUBITRIL/VALSARTAN 24/26 MG TABLET 1 EACH PO ×2 (06:38→17:12)
[2022-04-19] MEDS: Levothyroxine 100 MCG Tablet PO (06:38)
[2022-04-19] MEDS: Arthritis Pain Compound 60 CLICK TUBE TOPICAL ×2 (06:38→17:15)
[2022-04-19 06:55] LABS: Bedside Glucose 142 mg/dL (74-106)
[2022-04-19] MEDS: Insulin Lispro 100 UNIT/ML INSULN.PEN 13 UNIT SC ×3 (08:19→18:33)
[2022-04-19] MEDS: Amiodarone 200 MG Tablet PO (08:19)
[2022-04-19] MEDS: Potassium Chloride Oral Tablet 20 MEQ PO (08:19)
[2022-04-19 11:20] LABS: Bedside Glucose 202 mg/dL (74-106)
[2022-04-19] MEDS: Menthol/Lanolin/Calamine/Znox 113 GM Tube 1 APPLIC TOPICAL (12:51)
[2022-04-19] MEDS: Nystatin Powder 15gm Bottle 1 APPLIC TOPICAL ×2 (12:51→22:48)
[2022-04-19 14:00] VITALS: BP 110/68; PULSE 62; RESP 16; TEMP 36.8; O2SAT 96
[2022-04-19 16:36] LABS: Bedside Glucose 148 mg/dL (74-106)
[2022-04-19 17:12] VITALS: PULSE 68
[2022-04-19 19:45] VITALS: BP 122/53; PULSE 90; TEMP 34.1; O2SAT 98
--- NOTE | 2022-04-19 19:45 | NURSING ---
Pt lowered to the floor per two ONLINE CONTENT EDITOR assist. Pt reports her right knee buckled. No injuries noted. AROM to bilateral upper and lower extremities is WNL. Vitals obtained and recorded. Assisted off floor x 4 staff into wheeled recliner chair. Transferred into bed per 3 staff and positioned for comfort. Call light w/ in reach. Dr. Mistry and Battery Container Tester Aluminum notified via backline secure text. No new order received per Dr. Mistry. Will continue to monitor.
[2022-04-19 21:25] LABS: Bedside Glucose 184 mg/dL (74-106)
[2022-04-19] MEDS: MELATONIN 10 MG TABLET PO (22:48)
[2022-04-19] MEDS: Atorvastatin Calcium 40 MG Tablet PO (22:48)
[2022-04-19] MEDS: Insulin Glargine-YFGN 100 UNIT/ML Pen 40 UNIT SC (22:49)
[2022-04-20] VITALS (7 sets, daily range): BP systolic 94–122; BP diastolic 52–86; PULSE 82–94; RESP 16–20; TEMP 36.5–38.9; O2SAT 94–98
[2022-04-20] MEDS: Leflunomide 10 MG TABLET 20 MG PO (06:27)
[2022-04-20] MEDS: Levothyroxine 100 MCG Tablet PO (06:27)
[2022-04-20] MEDS: Furosemide 40 MG Tablet PO (06:28)
[2022-04-20] MEDS: dilTIAZem CD 120 MG Capsule PO (06:28)
[2022-04-20] MEDS: Loratadine 10 MG Tablet PO (06:28)
[2022-04-20] MEDS: Metoprolol Tartrate 50 MG Tablet PO ×2 (06:29→17:09)
[2022-04-20] MEDS: SACUBITRIL/VALSARTAN 24/26 MG TABLET 1 EACH PO ×2 (06:29→17:08)
[2022-04-20] MEDS: Pantoprazole Sodium 40 MG Tablet PO (06:29)
[2022-04-20] MEDS: APIXABAN 5 MG TABLET PO ×2 (06:29→17:07)
[2022-04-20 06:30] LABS: Bedside Glucose 154 mg/dL (74-106)
[2022-04-20] MEDS: Gabapentin 300 MG Capsule PO ×2 (06:33→17:12)
--- NOTE | 2022-04-20 06:49 | NURSING ---
Pt requests compound cream be applied after bathing this am. Will report to oncoming nurse.
[2022-04-20 07:11] LABS: Absolute Lymphocyte Count 1.49 X10^3/uL (0.83-4.51); Absolute Neutrophil Count 7.7 X10^3/uL (2.0-7.7); Basophil# 0.06 X10^3/uL; Basophil% 0.5 % (0-1); Eosinophil# 0.26 X10^3/uL; Eosinophils% 2.2 % (0-5); Hematocrit 29.6 % (37-47); Hemoglobin 9.5 g/dL (12.0-15.0); Lymphocyte # 1.49 X10^3/ul (0.83-4.51); Lymphocyte % 12.8 % (19-41); Mean Corp Hgb Conc 32.1 g/dL (32-36); Mean Corpuscular Hgb 29.2 pg (27.0-32.0); Mean Corpuscular Volume 91.1 fL (81-99); Mean Platelet Vol. 11.5 fl (6.2-12.0); Monocyte# 2.03 X10^3/uL; Monocyte% 17.5 % (0-10); NRBC Flagged by Analyzer 0 % (0-5); Neutrophil # 7.66 X10^3/uL (2.7-7.7); Neutrophil % 65.9 % (47-70); POSITIVE DIFFERENTIAL YES; Platelet Count 261 K/mm3 (150-450); RBC Distribution Width CV 14.3 % (11.6-14.6); RBC Distribution Width SD 47.7 fl (35.1-43.9); Red Blood Count 3.25 M/mm3 (4.2-5.4); White Blood Count 11.6 K/mm3 (4.4-11.0)
[2022-04-20 07:20] LABS: Differential Indicated SCAN CRITERIA MET
[2022-04-20 07:32] LABS: Anion Gap 6 (5-15); BUN 30 mg/dL (7-18); BUN/Creat Ratio 36.2 RATIO (10-20); Calcium,Total 9.3 mg/dL (8.5-10.1); Chloride 102 mmol/L (98-107); Creatinine, Serum 0.83 mg/dL (0.55-1.02); EST Glomerular Filtration Rate 71 mL/min (>60); Est Glom Filt Rate - Afr Amer 86 mL/min (>60); Estimated Creatinine Clearance 51.35 ml/min; Glucose 144 mg/dL (74-106); Potassium 4.4 mmol/L (3.5-5.1); Sodium Level 132 mmol/L (136-145)
[2022-04-20 08:11] LABS: Platelet Estimate ADEQUATE (ADEQ); Red Cell Morphology NORM C+C NORMAL (NORM C&C)
[2022-04-20] MEDS: Arthritis Pain Compound 60 CLICK TUBE TOPICAL ×2 (09:12→17:12)
[2022-04-20] MEDS: Amiodarone 200 MG Tablet PO (09:13)
[2022-04-20] MEDS: Nystatin Powder 15gm Bottle 1 APPLIC TOPICAL ×2 (09:14→21:42)
[2022-04-20] MEDS: Potassium Chloride Oral Tablet 20 MEQ PO (09:14)
[2022-04-20] MEDS: Menthol/Lanolin/Calamine/Znox 113 GM Tube 1 APPLIC TOPICAL ×2 (09:15→21:43)
[2022-04-20] MEDS: Insulin Lispro 100 UNIT/ML INSULN.PEN 13 UNIT SC ×3 (09:17→19:32)
[2022-04-20 11:40] LABS: Bedside Glucose 163 mg/dL (74-106)
[2022-04-20] MEDS: Glucerna Shake 120 ML LIQUID PO ×3 (12:44→21:35)
[2022-04-20 16:35] LABS: Bedside Glucose 137 mg/dL (74-106)
[2022-04-20] MEDS: Acetaminophen 500 MG Tablet 1000 MG PO (19:31)
--- NOTE | 2022-04-20 19:45 | NURSING ---
FITNESS CENTER ATTENDANT reports pt w/ altered mental status. Vitals obtained and recorded. Blood sugar 164. Alert and oriented x 1-2. Lungs w/ rhonchi to left base. Poor po intake throughout the day. Drowsy during assessment. Does not fully engage in conversation. Tylenol given per CAMPGROUND CLEANING ATTENDANT. Paged Dr. Mistry w/ immediate return call. Updated on pt condition. New orders received for: UA and C+S, CXR- portable, wound culture, gram stain, and MRSA, blood cultures x 2, NS at 75 ml/hr, Zosyn 3/375 gm IV every 6 hours, Vancomycin IV- pharmacy to dose, respiratory panel, COVID swab, and MRI of the left arm for tomorrow.
[2022-04-20 19:46] LABS: Bedside Glucose 164 mg/dL (74-106)
[2022-04-20] MEDS: 0.9% Normal Saline 1,000 ML 75 ML IV (20:24)
--- NOTE | 2022-04-20 20:57 | RAD_ITS ---
STUDY: X-RAY CHEST REASON FOR EXAM: Female, 76 years old. Fever, Rhonchi to left base TECHNIQUE: Single AP portable view of the chest. COMPARISON: 04/06/2022 FINDINGS: Status post median sternotomy with a left atrial appendage closure device. The lungs are clear and expanded. There is no demonstrated pleural abnormality. There is moderate cardiac enlargement. Normal mediastinum and blanca. Normal visualized pulmonary arteries. Normal visualized aortic arch and descending thoracic aorta. Normal visualized thoracic spine. Normal visualized ribs, clavicles, and shoulders. There is no demonstrated abnormality of the visualized soft tissue structures of the upper abdomen. RAD/Chest 1 View (Portable) IMPRESSION: No active disease. Electronically Signed: Ishan London MD at 21:11 [facility] ,
[2022-04-20 21:07] LABS: Mucous, Urine 0 SEEN /hpf (<or=2+)
[2022-04-20 21:13] LABS: Color, Urine Yellow (Yellow); Glucose, Dipstick Normal (Normal); Ketone-Dipstick Negative (Negative); Leukocyte Esterase-Dipstick 25 /ul (Negative); Nitrite-Dipstick Negative (Negative); Occult Blood-Urine Negative /ul (Negative); Protein-Dipstick 15 mg/dl (Negative); Urine Bilirubin Dipstick Negative (Negative); Urine Clarity Clear (Clear); Urine Urobilinogen Normal (Normal); Urine pH 6.5 (5.0 - 8.0)
[2022-04-20 21:19] LABS: Bacteria RARE /hpf (None Seen); Red Blood Cells-Urine 0-5 SEEN /hpf (0-5); Squamous Epithelial Cells - UA 0-5 SEEN /hpf (5-10); White Blood Cells 0-5 SEEN /hpf (0-5)
[2022-04-20] MEDS: MELATONIN 10 MG TABLET PO (21:36)
[2022-04-20] MEDS: Atorvastatin Calcium 40 MG Tablet PO (21:36)
[2022-04-20 21:50] LABS: Bedside Glucose 100 mg/dL (74-106)
[2022-04-20] MEDS: Insulin Glargine-YFGN 100 UNIT/ML Pen 40 UNIT SC (23:14)
[2022-04-20 23:40] LABS: Bedside Glucose 132 mg/dL (74-106)
--- NOTE | 2022-04-20 23:43 | PCM.RX.CS ---
Consult Pharmacy has been consulted to manage selected antiobiotic: Vancomycin Type of Consult: New start Prior Doses of Antibiotics Received/Current Regimen: Medications Vancomycin HCl 750 mg/ Sodium (Chloride) 265 mls @ 250 mls/hr IV Q12H HARITHA Discontinued Medications Vancomycin HCl 1,500 mg/ (Sodium Chloride) 530 mls @ 250 mls/hr IV X1 ONE Stop: 04/20/22 23:37 Last Admin: 04/20/22 21:37 Dose: 250 mls/hr Labs: Sodium 132 mmol/L (136-145) L 04/20/22 06:43 Potassium 4.4 mmol/L (3.5-5.1) 04/20/22 06:43 Chloride 102 mmol/L (98-107) 04/20/22 06:43 Carbon Dioxide 24.0 mmol/L (21.0-32.0) 04/20/22 06:43 Anion Gap 6 (5-15) 04/20/22 06:43 BUN 30 mg/dL (7-18) H 04/20/22 06:43 Creatinine 0.83 mg/dL (0.55-1.02) 04/20/22 06:43 Est GFR (MDRD) Af Amer 86 mL/min (>60) 04/20/22 06:43 Est GFR (MDRD) Non-Af 71 mL/min (>60) 04/20/22 06:43 BUN/Creatinine Ratio 36.2 RATIO (10-20) H 04/20/22 06:43 Glucose 144 mg/dL (74-106) H 04/20/22 06:43 Microbiology: Microbiology 04/20/22 21:45 Nasal Secretion SARS-CoV-2 Antigen (Rapid) - Final 04/16/22 10:00 Urine, Random Urine Culture - Final Culture exhibits no growth. 04/06/22 18:55 Blood Culture (Wb) - Left Hand Blood Culture - Final No growth in 5 days. 04/06/22 18:45 Blood Culture (Wb) - Arm Right Blood Culture - Final No growth in 5 days. 04/06/22 21:45 Wound - Elbow Gram Stain - Final 04/06/22 21:45 Wound - Elbow Wound Culture - Final No growth aerobically. 04/06/22 19:07 Urine Catheter - Catheter Urine Culture - Final Culture exhibits no growth. 04/06/22 20:05 Mucosa - Nasopharyngeal Respiratory Panel (PCR) - Final 04/06/22 18:40 Nasal Secretion SARS-CoV-2 Antigen (Rapid) - Final Weight used for dosin kg Estimated Creatinine Clearance: 51 Goal Trough: 10-15 mcg/mL Pharmacy Plan for Drug Dosing: Pharmacy Service will continue to monitor and adjust dosing as required. Follow-Up Labs: Trough Vancomycin Labs to be done on [date and time ordered]: 04/22/22 @0900
[2022-04-21] VITALS (8 sets, daily range): BP systolic 84–124; BP diastolic 46–58; PULSE 61–83; RESP 14–18; TEMP 36.2–37.7; O2SAT 92–98
[2022-04-21 01:57] LABS: M R Staph aureus DNA By PCR Negative (Negative); Probe Check PASS; Specimen Processing Control PASS; Staph aureus DNA By PCR NEGATIVE (Negative)
--- NOTE | 2022-04-21 04:59 | NURSING ---
MRI order faxed to Radiology
[2022-04-21] MEDS: HYDROcodone Bitartrate/Apap 5/325 Tablet PO ×2 (06:43→20:50)
[2022-04-21] MEDS: Levothyroxine 100 MCG Tablet PO (06:43)
[2022-04-21] MEDS: Pantoprazole Sodium 40 MG Tablet PO (06:44)
[2022-04-21] MEDS: Furosemide 40 MG Tablet PO (06:44)
[2022-04-21] MEDS: Loratadine 10 MG Tablet PO (06:44)
[2022-04-21] MEDS: SACUBITRIL/VALSARTAN 24/26 MG TABLET 1 EACH PO (06:44)
[2022-04-21] MEDS: APIXABAN 5 MG TABLET PO ×2 (06:45→18:16)
[2022-04-21] MEDS: Leflunomide 10 MG TABLET 20 MG PO (06:45)
[2022-04-21] MEDS: dilTIAZem CD 120 MG Capsule PO (06:45)
[2022-04-21] MEDS: Metoprolol Tartrate 50 MG Tablet PO (06:51)
[2022-04-21] MEDS: Gabapentin 300 MG Capsule PO ×2 (06:51→18:16)
[2022-04-21 06:56] LABS: Bedside Glucose 101 mg/dL (74-106)
[2022-04-21] MEDS: Potassium Chloride Oral Tablet 20 MEQ PO (09:57)
[2022-04-21] MEDS: 0.9% Normal Saline 1,000 ML 75 ML IV ×2 (10:15→21:33)
[2022-04-21] MEDS: Nystatin Powder 15gm Bottle 1 APPLIC TOPICAL ×2 (10:16→20:55)
--- NOTE | 2022-04-21 11:06 | NURSING ---
Updated Dr. Mistry on low BP, patient alert and oriented, does say she feels tired. No new orders at this time.
[2022-04-21 11:20] LABS: Bedside Glucose 132 mg/dL (74-106)
--- NOTE | 2022-04-21 11:22 | WOUNDNOTE ---
wound photo: left elbow
[2022-04-21 12:00] LABS: Bedside Glucose 86 mg/dL (74-106)
[2022-04-21] MEDS: Glucerna Shake 120 ML LIQUID PO ×3 (12:14→20:47)
--- NOTE | 2022-04-21 16:21 | NURSING ---
Addendum entered by Bisi Anders 04/21/22 18:19: Return from MRI around 1800. Original Note: Patient transported to MRI in bed.
[2022-04-21] MEDS: Arthritis Pain Compound 60 CLICK TUBE TOPICAL (18:14)
[2022-04-21] MEDS: Senna/Docusate Sodium 1 Tablet PO (18:16)
[2022-04-21 18:20] LABS: Bedside Glucose 93 mg/dL (74-106)
--- NOTE | 2022-04-21 18:47 | NURSING ---
Patient back from MRI, having tremors. BP low and temp starting to go up again, 99.8 oral. Acting a bit confused. Updated Dr. Mistry, ok to hold BP meds. No other new orders. Also updated Dr. Mistry that blood sugars lower today, no insulin given with meals.
[2022-04-21] MEDS: Insulin Glargine-YFGN 100 UNIT/ML Pen 20 UNIT SC (20:47)
[2022-04-21] MEDS: Atorvastatin Calcium 40 MG Tablet PO (20:48)
[2022-04-21] MEDS: MELATONIN 10 MG TABLET PO (20:48)
[2022-04-21 21:16] LABS: Bedside Glucose 134 mg/dL (74-106)
[2022-04-21] MEDS: Menthol/Lanolin/Calamine/Znox 113 GM Tube 1 APPLIC TOPICAL (21:37)
[2022-04-22] MEDS: Loratadine 10 MG Tablet PO (05:01)
[2022-04-22] MEDS: Leflunomide 10 MG TABLET 20 MG PO (05:01)
[2022-04-22] MEDS: Arthritis Pain Compound 60 CLICK TUBE TOPICAL ×2 (05:01→17:27)
[2022-04-22] MEDS: APIXABAN 5 MG TABLET PO ×2 (05:01→17:27)
[2022-04-22 05:02] VITALS: BP 114/61; PULSE 91
[2022-04-22] MEDS: Metoprolol Tartrate 50 MG Tablet PO ×2 (05:02→17:26)
[2022-04-22] MEDS: Furosemide 40 MG Tablet PO (05:02)
[2022-04-22] MEDS: dilTIAZem CD 120 MG Capsule PO (05:02)
[2022-04-22] MEDS: Levothyroxine 100 MCG Tablet PO (05:02)
[2022-04-22] MEDS: Pantoprazole Sodium 40 MG Tablet PO (05:02)
[2022-04-22] MEDS: SACUBITRIL/VALSARTAN 24/26 MG TABLET 1 EACH PO ×2 (05:03→17:27)
[2022-04-22] MEDS: Glucerna Shake 120 ML LIQUID PO ×4 (05:03→22:01)
[2022-04-22] MEDS: Gabapentin 300 MG Capsule PO ×2 (05:03→17:27)
[2022-04-22 06:56] LABS: Bedside Glucose 84 mg/dL (74-106)
[2022-04-22] MEDS: Potassium Chloride Oral Tablet 20 MEQ PO (07:52)
--- NOTE | 2022-04-22 07:54 | NURSING ---
Dr Marie consulted for LT elbow drng, arm edematous and drng. elevated on pillow, small open area noted to be slightly red and swollen at site. pt updated. dr garcia spoke with pt as well.
[2022-04-22 07:58] LABS: Pathologist Review Reviewed
--- NOTE | 2022-04-22 08:35 | NURSING ---
dr garcia made aware of SE of Leflunomide: unusual growths/lumps, tiredness, & mental mood changes. new order, decreased to 10mg q48hrs at this time. pt updated.
[2022-04-22 09:42] LABS: Hematocrit 28.1 % (37-47); Hemoglobin 9.3 g/dL (12.0-15.0)
--- NOTE | 2022-04-22 10:07 | NURSING ---
I held patients Humalog her blood sugar was low and she did not eat her breakfast Dr. garcia was notified.
[2022-04-22 10:25] LABS: Vancomycin, Trough Level 5.4 ug/mL (5.0-15.0)
[2022-04-22] MEDS: 0.9% Normal Saline 1,000 ML 75 ML IV (10:42)
--- NOTE | 2022-04-22 10:56 | NURSING ---
Addendum entered by Cynthia Vides 04/22/22 11:15: consulted Dr Cummings per Dr garcia order. spoke with alumni secretary at ortho office, awaiting a return call. Original Note: Dr Marie assessed Left elbow/FA, going to consult ortho MD. reports that previous surgeon removed part of elbow bursa and this may be whats causing fluid buildup.
--- NOTE | 2022-04-22 11:26 | EX.PCM.CON.S ---
Assessment & Plan Assessment/Plan (1) Localized swelling of left forearm: PLAN: The patient has swelling of the arm and had an MRI that showed possible seroma. I reviewed the patient's records from [facility]. The patient's mass was noncancerous. During surgery the patient did have an orthopod present who did remove part of the bursa of the elbow due to the proximity of nerve. The operative report and path report of been placed in the chart. Reading the report I am unsure if the drainage will continue or cease given the fact that the bursa has been open. Also concerned that there was a lot of nerve exposure during the case. I would recommend consulting orthopedics for evaluation of this area. I am unsure if this area is infected but I would recommend orthopedics for drainage due to proximity to the joint and the nerves. I would be available to assist. Davi Marie MD Pager: [facility] [address] [place] [address], [address] [place] [address] Office: HPI Consult Data Date of Consult: 04/22/22 HPI Narrative HPI Narrative: MARIA ISABEL LOPEZ, is a 76 F who is currently admitted to the TCU for rehabilitation. She had resection of prior soft tissue mass of the proximal forearm. The patient has been having drainage from an area near her elbow. Patient has been having some fevers and there is concern for infection. [facility] Medical History Cerebrovascular accident (CVA) Chronic combined systolic and diastolic CHF (congestive heart failure) Chronic pain Diabetes mellitus type 2, uncontrolled Essential hypertension Fibromyalgia GERD (gastroesophageal reflux disease) HFrEF (heart failure with reduced ejection fraction) Hypercalcemia Hyperlipidemia Hypothyroidism Lipoma of left upper extremity Localized swelling of left forearm Longstanding persistent atrial fibrillation Lupus Morbid obesity Non-ischemic cardiomyopathy Nonalcoholic fatty liver disease Nonrheumatic mitral valve stenosis with insufficiency KAROLINA (obstructive sleep apnea) Osteoarthritis Osteoporosis Preoperative evaluation to rule out surgical contraindication Radicular pain of left lower extremity Rheumatoid arthritis RLS (restless legs syndrome) Smoldering multiple myeloma (SMM) Steroid dependence Stroke Home Medications aspirin 81 mg tablet,delayed release 81 mg PO DAILY heart health 05/24/19 [History Last Taken Unknown] leflunomide 10 mg tablet 20 mg PO DAILY arthritis 09/04/21 [History Last Taken Unknown] loratadine 10 mg tablet (Allergy Relief (loratadine)) 10 mg PO DAILY allergies 10/18/21 [History Last Taken Unknown] atorvastatin 40 mg tablet 40 mg PO QHS cholesterol #90 tabs 11/11/21 [Rx Last Taken Unknown] nystatin 100,000 unit/gram topical powder 1 applic topical TID PRN rash #60 grams 01/02/22 [Rx Last Taken Unknown] pantoprazole 40 mg tablet,delayed release 40 mg PO DAILY reflux #90 tabs 01/02/22 [Rx Last Taken Unknown] prednisone 5 mg tablet 7.5 mg PO QAM steroid 01/31/22 [History Last Taken Unknown] dulaglutide 1.5 mg/0.5 mL subcutaneous pen injector 1.5 mg (0.5 mL) subcut QWEEK diabetes #2 mL 03/12/22 [Rx Last Taken Unknown] gabapentin 100 mg capsule 300 mg PO BID pain 03/28/22 [History Last Taken Unknown] albuterol 90 mcg/actuation aerosol inhaler 90 mcg inhalation Q4H PRN sob 04/02/22 [History Last Taken Unknown] amiodarone 200 mg tablet 200 mg PO DAILY arrythmia 04/02/22 [History Last Taken Unknown] chromium picolinate 400 mcg tablet 800 mcg PO DAILY supplement 04/02/22 [History Last Taken Unknown] diltiazem HCl 120 mg capsule,extended release 24 hr 120 mg PO DAILY heart 04/02/22 [History Last Taken Unknown] hydrocodone-acetaminophen 5-325mg 5mg-325mg 1 tab PO Q8H PRN pain 04/02/22 [History Last Taken Unknown] insulin aspart U-100 100 unit/mL (3 mL) subcutaneous pen (Novolog Flexpen U-100 Insulin aspart) 26 unit subcut TID insulin 04/02/22 [History Last Taken Unknown] omega-3 fatty acids 1,000 mg capsule 2,000 mg PO BID supplement 04/02/22 [History Last Taken Unknown] ranitidine HCl 150 mg capsule 150 mg PO DAILY PRN Acid Reflux 04/02/22 [History Last Taken Unknown] sacubitril 24 mg-valsartan 26 mg tablet (Entresto) 1 tab PO BID heart failure 04/02/22 [History Last Taken Unknown] torsemide 40 mg tablet 40 mg PO BID PRN Edema 04/02/22 [History Last Taken Unknown] apixaban 5 mg tablet (Eliquis) 5 mg PO BID blood thinner 04/05/22 [History Last Taken Unknown] cefdinir 300 mg capsule 300 mg PO BID antibiotic 04/05/22 [History Last Taken Unknown] insulin degludec 100 unit/mL (3 mL) subcutaneous pen 50 unit subcut QHS diabetes 04/05/22 [History Last Taken Unknown] levothyroxine 100 mcg tablet (Synthroid) 100 mcg PO DAILY supplement 04/05/22 [History Last Taken Unknown] metoprolol tartrate 100 mg tablet 100 mg PO BID heart 04/05/22 [History Last Taken Unknown] Allergy/AdvReac Type Severity Reaction Status Date / Time hydroxychloroquine Allergy Severe Shortness Verified 04/02/22 20:34 of breath metformin AdvReac Severe Diarrhea Verified 04/02/22 20:34 methotrexate AdvReac Severe Other Verified 04/02/22 20:34 Sulfa (Sulfonamide AdvReac Intermediate Other Verified 04/02/22 20:34 Antibiotics) Family History Father Diabetes Heart disease Hypertension CVA (cerebral vascular accident) Hyperlipidemia CAD (coronary artery disease) Brother Hypertension Hyperlipidemia Sister THYROID Mother Uterine cancer Surgical History History of appendectomy History of back surgery History of cardioversion (01/15/18) History of left heart catheterization History of mitral valve replacement with bioprosthetic valve (04/23/17) History of radiofrequency ablation (RFA) for complex left atrial arrhythmia (04/25/17) History of right and left heart catheterization (02/25/17) History of total left knee replacement History of total right knee replacement History of transesophageal echocardiography (NEELA) (01/15/18) Social History adopted: No household members: other details: is in a fpc and she is currently living alone housing: house number of children: 2 current occupational status: retired Smoking Status: Former smoker quit date: 06/08/01 Tobacco: How many years used: 25 how long ago did patient quit smokin years ago- about 2006? alcohol intake: current details: rare occasions substance use type: does not use ROS Constitutional Constitutional: Reports fever(s); Denies anorexia or chills Eyes Eyes: Denies blurry vision ENT HEENT: Denies abnormal hearing Respiratory/Chest Respiratory/Chest: Denies cough Gastrointestinal Gastrointestinal: Denies abdominal pain Genitourinary Genitourinary: Denies change in urinary stream Musculoskeletal Musculoskeletal: Reports other Details: Patient has swelling of her left forearm and hand. Physical Exam Const alert and oriented x3 HEENT normocephalic Eyes PERRL Chest inspection of chest normal Resp normal respiratory effort Cardio Rate: regular rate GI soft to palpation and non-tender Extremity Extremity Narrative: Patient has swelling of her left forearm and hand. There is an area where her prior incision was performed and the skin in this area appears clear. There is no erythema. There is some drainage from an open sore closer to the elbow. Lab / Micro Data Result Diagrams: 04/22/22 09:35 04/20/22 06:43 Labs: Laboratory Results - last 24 hr 04/20/22 06:43: Diff Path Review Reviewed 04/21/22 11:39: POC Glucose 86 04/21/22 17:59: POC Glucose 93 04/21/22 20:46: POC Glucose 134 H 04/22/22 06:31: POC Glucose 84 04/22/22 09:35: Hgb 9.3 L, Hct 28.1 L 04/22/22 09:35: Vancomycin Trough 5.4 Micro: Microbiology 04/20/22 21:20 Wound - Arm Left Gram Stain - Final 04/20/22 21:20 Wound - Arm Left Wound Culture - Final Staphylococcus haemolyticus 04/20/22 20:45 Urine Catheter - Catheter Urine Culture - Preliminary Culture exhibits no growth.
[2022-04-22 11:56] LABS: Bedside Glucose 114 mg/dL (74-106)
[2022-04-22] MEDS: Menthol/Lanolin/Calamine/Znox 113 GM Tube 1 APPLIC TOPICAL ×2 (12:07→22:04)
[2022-04-22] MEDS: Nystatin Powder 15gm Bottle 1 APPLIC TOPICAL ×2 (12:07→22:03)
--- NOTE | 2022-04-22 12:37 | NURSING ---
Dr Cummings here to see pt at this time
--- NOTE | 2022-04-22 13:22 | CONS.ORTHO ---
HPI Consult Data Date of Consult: 04/22/22 HPI Narrative HPI Narrative: MARIA ISABEL LOPEZ, is a 76 F who presents with left elbow drainage after surgery. I was called by Dr. Mistry today to assess this patient in about 11 AM. I returned the page immediately. The call was for the left elbow drainage. Her attending is concerned for an infection. According to the patient as well as Dr. Mistry I do not have the surgical report but piecing together the information from the available sources it appears as though the patient had a chronic left olecranon bursitis. They had a open left olecranon bursectomy performed towards the end of March now about 3 weeks ago. Patient was subsequently admitted to the TCU for sepsis urosepsis. I reviewed the notes there is a previous general surgeon involved in this case even 2 weeks ago the patient has been draining from a sinus tract serous fluid. Patient has been placed on vancomycin as well as Tazocin by Dr. Mistry. Infectious diseases not involved. The patient was seen by also Dr. Marquez today to assess the elbow. Patient has not followed up with her index surgeon who is in [place]. Patient states there is never been any pus or thick fluid coming out of this but it has been draining for quite some time now. She is unsure really of even the operation that was performed. There was pathology report stating that there was a mass removed consistent with the olecranon bursa. [facility] Medical History (Updated 04/22/22 @ 13:29 by Edwar Cummings MD) Cerebrovascular accident (CVA) Chronic combined systolic and diastolic CHF (congestive heart failure) Chronic pain Diabetes mellitus type 2, uncontrolled Draining cutaneous sinus tract Essential hypertension Fibromyalgia GERD (gastroesophageal reflux disease) HFrEF (heart failure with reduced ejection fraction) Hypercalcemia Hyperlipidemia Hypothyroidism Lipoma of left upper extremity Localized swelling of left forearm Longstanding persistent atrial fibrillation Lupus Morbid obesity Non-ischemic cardiomyopathy Nonalcoholic fatty liver disease Nonrheumatic mitral valve stenosis with insufficiency Olecranon bursitis of left elbow KAROLINA (obstructive sleep apnea) Osteoarthritis Osteoporosis Preoperative evaluation to rule out surgical contraindication Radicular pain of left lower extremity Rheumatoid arthritis RLS (restless legs syndrome) Seroma after procedure Seroma after procedure Smoldering multiple myeloma (SMM) Steroid dependence Stroke Home Medications aspirin 81 mg tablet,delayed release 81 mg PO DAILY heart health 05/24/19 [History Last Taken Unknown] leflunomide 10 mg tablet 20 mg PO DAILY arthritis 09/04/21 [History Last Taken Unknown] loratadine 10 mg tablet (Allergy Relief (loratadine)) 10 mg PO DAILY allergies 10/18/21 [History Last Taken Unknown] atorvastatin 40 mg tablet 40 mg PO QHS cholesterol #90 tabs 11/11/21 [Rx Last Taken Unknown] nystatin 100,000 unit/gram topical powder 1 applic topical TID PRN rash #60 grams 01/02/22 [Rx Last Taken Unknown] pantoprazole 40 mg tablet,delayed release 40 mg PO DAILY reflux #90 tabs 01/02/22 [Rx Last Taken Unknown] prednisone 5 mg tablet 7.5 mg PO QAM steroid 01/31/22 [History Last Taken Unknown] dulaglutide 1.5 mg/0.5 mL subcutaneous pen injector 1.5 mg (0.5 mL) subcut QWEEK diabetes #2 mL 03/12/22 [Rx Last Taken Unknown] gabapentin 100 mg capsule 300 mg PO BID pain 03/28/22 [History Last Taken Unknown] albuterol 90 mcg/actuation aerosol inhaler 90 mcg inhalation Q4H PRN sob 04/02/22 [History Last Taken Unknown] amiodarone 200 mg tablet 200 mg PO DAILY arrythmia 04/02/22 [History Last Taken Unknown] chromium picolinate 400 mcg tablet 800 mcg PO DAILY supplement 04/02/22 [History Last Taken Unknown] diltiazem HCl 120 mg capsule,extended release 24 hr 120 mg PO DAILY heart 04/02/22 [History Last Taken Unknown] hydrocodone-acetaminophen 5-325mg 5mg-325mg 1 tab PO Q8H PRN pain 04/02/22 [History Last Taken Unknown] insulin aspart U-100 100 unit/mL (3 mL) subcutaneous pen (Novolog Flexpen U-100 Insulin aspart) 26 unit subcut TID insulin 04/02/22 [History Last Taken Unknown] omega-3 fatty acids 1,000 mg capsule 2,000 mg PO BID supplement 04/02/22 [History Last Taken Unknown] ranitidine HCl 150 mg capsule 150 mg PO DAILY PRN Acid Reflux 04/02/22 [History Last Taken Unknown] sacubitril 24 mg-valsartan 26 mg tablet (Entresto) 1 tab PO BID heart failure 04/02/22 [History Last Taken Unknown] torsemide 40 mg tablet 40 mg PO BID PRN Edema 04/02/22 [History Last Taken Unknown] apixaban 5 mg tablet (Eliquis) 5 mg PO BID blood thinner 04/05/22 [History Last Taken Unknown] cefdinir 300 mg capsule 300 mg PO BID antibiotic 04/05/22 [History Last Taken Unknown] insulin degludec 100 unit/mL (3 mL) subcutaneous pen 50 unit subcut QHS diabetes 04/05/22 [History Last Taken Unknown] levothyroxine 100 mcg tablet (Synthroid) 100 mcg PO DAILY supplement 04/05/22 [History Last Taken Unknown] metoprolol tartrate 100 mg tablet 100 mg PO BID heart 04/05/22 [History Last Taken Unknown] Allergy/AdvReac Type Severity Reaction Status Date / Time hydroxychloroquine Allergy Severe Shortness Verified 04/02/22 20:34 of breath metformin AdvReac Severe Diarrhea Verified 04/02/22 20:34 methotrexate AdvReac Severe Other Verified 04/02/22 20:34 Sulfa (Sulfonamide AdvReac Intermediate Other Verified 04/02/22 20:34 Antibiotics) Family History Father Diabetes Heart disease Hypertension CVA (cerebral vascular accident) Hyperlipidemia CAD (coronary artery disease) Brother Hypertension Hyperlipidemia Sister THYROID Mother Uterine cancer Surgical History History of appendectomy History of back surgery History of cardioversion (01/15/18) History of left heart catheterization History of mitral valve replacement with bioprosthetic valve (04/23/17) History of radiofrequency ablation (RFA) for complex left atrial arrhythmia (04/25/17) History of right and left heart catheterization (02/25/17) History of total left knee replacement History of total right knee replacement History of transesophageal echocardiography (NEELA) (01/15/18) Social History adopted: No household members: other details: is in a snf and she is currently living alone housing: house number of children: 2 current occupational status: retired Smoking Status: Former smoker quit date: 06/08/01 Tobacco: How many years used: 25 how long ago did patient quit smokin years ago- about 2006? alcohol intake: current details: rare occasions substance use type: does not use Vital Signs Vital Signs Vital Signs: 04/21/22 14:00 04/21/22 18:06 04/21/22 18:46 Temperature 97.9 F 99.8 F H Temperature Source Temporal Temporal Pulse Rate 83 63 63 Respiratory Rate 14 18 Blood Pressure 124/58 H 91/46 L Blood Pressure Mean 80 61 Blood Pressure Source Monitor Monitor Blood Pressure Position Semi-Fowlers Semi-Fowlers Blood Pressure Location Right Arm Right Arm Pulse Ox 94 93 Oxygen Delivery Method Room Air Room Air 04/22/22 05:02 Temperature Temperature Source Pulse Rate 91 Respiratory Rate Blood Pressure 114/61 Blood Pressure Mean Blood Pressure Source Blood Pressure Position Blood Pressure Location Pulse Ox Oxygen Delivery Method Weight Weight: 209 lb 12.8 oz Body Mass Index (BMI) 35.8 Physical Exam Narrative Well-appearing 76-year-old female. She is sitting up alert eating lunch. There is a longitudinal incision centered over the posterior aspect of the left elbow just off midline from the tip of the olecranon. This appears well-healed well opposed. There is no obvious drainage from this site. The incision is closed with a running what appears to be 3-0 Monocryl stitch in a baseball running fashion. Some of the suture distally is getting a bit overgrown by the skin. There is very trace warmth no redness. There is a small sinus tract proximal and medial to this that is draining actively serous fluid. No pus or purulent drainage no obvious foul smell. This is draining open onto abdominal pad dressing. Patient has full range of motion of the elbow actively and passively normal sensation to the median radial ulnar nerves however the whole hand is little bit swollen dorsally so she states that there is some diminished sensation there the hand is warm and well-perfused with strong radial pulse. No spreading redness. Lab / Micro Data Result Diagrams: 04/22/22 09:35 04/20/22 06:43 Labs: Laboratory Results - last 24 hr 04/20/22 06:43: Diff Path Review Reviewed 04/21/22 17:59: POC Glucose 93 04/21/22 20:46: POC Glucose 134 H 04/22/22 06:31: POC Glucose 84 04/22/22 09:35: Hgb 9.3 L, Hct 28.1 L 04/22/22 09:35: Vancomycin Trough 5.4 04/22/22 11:36: POC Glucose 114 H Micro: Microbiology 04/20/22 21:20 Wound - Arm Left Gram Stain - Final 04/20/22 21:20 Wound - Arm Left Wound Culture - Final Staphylococcus haemolyticus 04/20/22 20:45 Urine Catheter - Catheter Urine Culture - Preliminary Culture exhibits no growth. MR#:? [id number] Acct: [id number] Name:? MARIA ISABEL LOPEZ Rep #: [id number] :?? 1945 F 76 ? From:? ? Jerson Pearson MD PCP: Dr. Grayson Newton MD ? Status: REG CLI Study: Upper Ext Joint Only W/WO Cont ? Date of Exam: 04/21/22 Exam# [id number] ? Ordering Dr:? Meir Mistry MD INDICATION: LEFT ELBOW LIPOMATOUS OF SKIN,SUBCUTANEOUS -- MASS EXAMINATION: MRI - LEFT MR Elbow WO/W Contrast TECHNIQUE: Multiplanar and multisequence MR images of the left elbow with and without intravenous contrast. COMPARISON: MRI of the left elbow from February 13, 2022. LIMITATIONS: Motion artifact. FINDINGS: There has been interval resection of the mass within the proximal forearm.? At the resection site in the proximal forearm extending to the level of the olecranon, an irregular fluid collection measures approximately 6.5 x 3 x 1.2 cm.? The fluid within the olecranon bursa has largely resolved.? Probable undersurface partial tear of the common extensor tendon as before, although motion artifact limits evaluation.? The small joint effusion has is stable to mildly decreased in size.? No osseous erosion or marrow edema.? No acute fracture. MRI/Upper Ext Joint Only W/WO Cont IMPRESSION: Motion artifact. Interval resection of the soft tissue mass within the proximal left forearm. Subcutaneous irregular fluid collection at the site of resection may represent seroma or resolving hematoma.? Developing abscess is a consideration depending on the clinical scenario. Small joint effusion is stable to mildly decreased in size. ? Electronically Signed: Jerson Pearson MD at 4:55 EST , Last white blood cell count was from 2 days ago 11.6 with neutrophil percentage 65. Wound swab is positive for staph hemolyticus. Assessment & Plan Assessment/Plan (1) Draining cutaneous sinus tract: (2) Seroma after procedure: (3) Olecranon bursitis of left elbow: PLAN: Plan 76-year-old female with a sinus tract formation after left olecranon bursectomy this appears to be serous fluid and a postoperative seroma with sinus tract formation. This is a known complication after this type of operation. I have an overall low suspicion of an infection. I see no obvious purulent fluid or need to perform a formal irrigation and debridement at this time, and this may lead to wound breakdown and further complications. My recommendation at this point would be to get wound care consultation involved to consider negative pressure wound therapy versus packing to try to get this cavity to sclerosis and heal down and to get the wound to heal. I recommend Dr. Mistry to arrange for these things as well as to contact the surgeon the perform the operation as they should be made aware that there is a complication here after the procedure in case there is any other further management they would they would recommend here but I think the most important part is the wound care aspect here to try and get this postoperative sinus tract and seroma to heal and stop draining. I also spoke with he is in agreement with the plan.
[2022-04-22 14:00] VITALS: BP 110/66; PULSE 88; RESP 16; TEMP 36.8; O2SAT 94
[2022-04-22 16:16] LABS: Bedside Glucose 164 mg/dL (74-106)
[2022-04-22 17:26] VITALS: BP 110/66; PULSE 88
[2022-04-22] MEDS: Senna/Docusate Sodium 1 Tablet PO (17:29)
[2022-04-22 21:26] LABS: Bedside Glucose 198 mg/dL (74-106)
[2022-04-22] MEDS: MELATONIN 10 MG TABLET PO (22:02)
[2022-04-22] MEDS: Atorvastatin Calcium 40 MG Tablet PO (22:02)
[2022-04-22 22:04] VITALS: BP 95/65; PULSE 124; PULSE 126; RESP 18; RESP 20; TEMP 38.6; O2SAT 93
--- NOTE | 2022-04-22 22:06 | NURSING ---
Patient continues with on and off altered mental status. Patient hot to touch. Vitals obtained as charted. Alert and oriented x 1-2. Adventitious lung sounds. Left upper extremity elevated on pillow for edema. Patient unable to engage in full conversation.
[2022-04-23 01:39] VITALS: BP 101/56; PULSE 126; RESP 20; TEMP 38.5; O2SAT 93
--- NOTE | 2022-04-23 01:39 | NURSING ---
Addendum entered by Janna Sands 04/23/22 03:27: 02:39 Report called to Sj LEE in ED. Patient transferred via cot to ED. Original Note: In to reassess patient. Patient alert and oriented at this time. Vitals obtained as charted. Adventitious lung sounds. Left upper extremity edema increased since last assessment at 22:04. This Nurse had to cut wrist band off d/t cutting into left wrist and hand. Wound Vac to left elbow discontinued. Swelling has increased significantly since application. Left hand hot to touch, slightly translucent in color and soft when palpated. Patient states pain in left hand is Very intense. Patient also complained of slight chest discomfort. EKD ordered. 02:30: Dr. Mistry paged with immediate return call. New order to send patient to ED for further evaluation.
--- NOTE | 2022-04-23 02:32 | EKG12_ITS ---
Test Reason : DYSRHYTHMIA Blood Pressure : / mmHG Vent. Rate : 126 BPM Atrial Rate : 058 BPM P-R Int : 000 ms QRS Dur : 084 ms QT Int : 310 ms P-R-T Axes : 000 008 109 degrees QTc Int : 448 ms Atrial fibrillation Abnormal ECG Confirmed by ZACKARY KAUFMAN, WALLY ([id number]), purchasing expeditor DIAN PAN ([id number]) on 04/23/2022 1:11:17 PM Referred By: IRMA Confirmed By:WALLY RAYMUNDO MD
--- NOTE | 2022-04-23 03:25 | NURSING ---
Voicemail left for Cynthia, patient's sister to call TCU back.
[2022-04-23] MEDS: Furosemide 40 MG Tablet PO (08:21)
[2022-04-23] MEDS: Pantoprazole Sodium 40 MG Tablet PO (08:21)
[2022-04-23] MEDS: Levothyroxine 100 MCG Tablet PO (08:21)
[2022-04-23] MEDS: SACUBITRIL/VALSARTAN 24/26 MG TABLET 1 EACH PO ×2 (08:22→17:34)
[2022-04-23] MEDS: Nystatin Powder 15gm Bottle 1 APPLIC TOPICAL ×2 (08:23→21:52)
[2022-04-23] MEDS: Potassium Chloride Oral Tablet 20 MEQ PO (08:23)
[2022-04-23] MEDS: Menthol/Lanolin/Calamine/Znox 113 GM Tube 1 APPLIC TOPICAL ×2 (08:23→21:53)
[2022-04-23 08:24] VITALS: PULSE 110
[2022-04-23] MEDS: Metoprolol Tartrate 50 MG Tablet PO ×2 (08:24→17:34)
[2022-04-23] MEDS: Glucerna Shake 120 ML LIQUID PO ×4 (08:26→21:56)
[2022-04-23] MEDS: Loratadine 10 MG Tablet PO (08:27)
[2022-04-23] MEDS: APIXABAN 5 MG TABLET PO ×2 (08:27→17:33)
[2022-04-23] MEDS: dilTIAZem CD 120 MG Capsule PO (08:28)
[2022-04-23] MEDS: Gabapentin 300 MG Capsule PO ×2 (08:28→17:33)
[2022-04-23] MEDS: Arthritis Pain Compound 60 CLICK TUBE TOPICAL ×2 (08:29→17:19)
[2022-04-23 11:51] LABS: Bedside Glucose 229 mg/dL (74-106)
[2022-04-23] MEDS: 0.9% Saline Lock 10 ML Syringe IV (12:04)
[2022-04-23 14:00] VITALS: BP 130/80; PULSE 94; RESP 16; TEMP 36.8; O2SAT 97
[2022-04-23 15:43] LABS: EST Glomerular Filtration Rate 74 mL/min (>60); Est Glom Filt Rate - Afr Amer 90 mL/min (>60); Estimated Creatinine Clearance 53.28 ml/min
--- NOTE | 2022-04-23 16:05 | PCM.RX.CS ---
Consult Pharmacy has been consulted to manage selected antiobiotic: Vancomycin Type of Consult: New start Suspected Infection: Skin/Soft tissue Prior Doses of Antibiotics Received/Current Regimen: Receive loading dose of 2gm iv x 1 on 04.23.22. Labs: Sodium 132 mmol/L (136-145) L 04/20/22 06:43 Potassium 4.4 mmol/L (3.5-5.1) 04/20/22 06:43 Chloride 102 mmol/L (98-107) 04/20/22 06:43 Carbon Dioxide 24.0 mmol/L (21.0-32.0) 04/20/22 06:43 Anion Gap 6 (5-15) 04/20/22 06:43 BUN 30 mg/dL (7-18) H 04/20/22 06:43 Creatinine 0.80 mg/dL (0.55-1.02) 04/23/22 14:45 Est GFR (MDRD) Af Amer 90 mL/min (>60) 04/23/22 14:45 Est GFR (MDRD) Non-Af 74 mL/min (>60) 04/23/22 14:45 BUN/Creatinine Ratio 36.2 RATIO (10-20) H 04/20/22 06:43 Glucose 144 mg/dL (74-106) H 04/20/22 06:43 Vancomycin Trough 5.4 ug/mL (5.0-15.0) 04/22/22 09:35 Microbiology: Microbiology 04/20/22 20:45 Urine Catheter - Catheter Urine Culture - Preliminary GPC Poss Enterococcus sp 04/20/22 21:20 Wound - Arm Left Gram Stain - Final 04/20/22 21:20 Wound - Arm Left Wound Culture - Final Staphylococcus haemolyticus 04/20/22 21:07 Mucosa - Nasopharyngeal Respiratory Panel (PCR) - Final 04/20/22 21:45 Nasal Secretion SARS-CoV-2 Antigen (Rapid) - Final 04/16/22 10:00 Urine, Random Urine Culture - Final Culture exhibits no growth. 04/06/22 18:55 Blood Culture (Wb) - Left Hand Blood Culture - Final No growth in 5 days. 04/06/22 18:45 Blood Culture (Wb) - Arm Right Blood Culture - Final No growth in 5 days. 04/06/22 21:45 Wound - Elbow Gram Stain - Final 04/06/22 21:45 Wound - Elbow Wound Culture - Final No growth aerobically. 04/06/22 19:07 Urine Catheter - Catheter Urine Culture - Final Culture exhibits no growth. 04/06/22 20:05 Mucosa - Nasopharyngeal Respiratory Panel (PCR) - Final 04/06/22 18:40 Nasal Secretion SARS-CoV-2 Antigen (Rapid) - Final Weight used for dosin.1 kg Estimated Creatinine Clearance: 69 ml/min Goal Trough: 15-20 mcg/mL Pharmacy Plan for Drug Dosing: Using an adjusted body weight of 70.8kg, renal function calculated to be a SCrCl of ~69ml/min. Will start 1250mg iv q12h per protocol. Trough level ordered for tomorrow before 4th cumulative dose. Pharmacy Service will continue to monitor and adjust dosing as required. Follow-Up Labs: Trough Vancomycin - 11.17.22 @2330 before 0000 dose
[2022-04-23 17:34] VITALS: BP 130/80; PULSE 94
[2022-04-23] MEDS: Atorvastatin Calcium 40 MG Tablet PO (21:52)
[2022-04-23] MEDS: MELATONIN 10 MG TABLET PO (21:52)
[2022-04-23 22:30] LABS: Bedside Glucose 218 mg/dL (74-106)
[2022-04-24 03:35] VITALS: BP 130/65; PULSE 111; RESP 22; TEMP 37.9; O2SAT 93
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
[2022-04-24 03:51] LABS: Bedside Glucose 208 mg/dL (74-106)
[2022-04-24 06:50] LABS: Bedside Glucose 201 mg/dL (74-106)
--- NOTE | 2022-04-24 07:30 | NURSING ---
PT LEFT FLOOR TO ER AT 0715 PER . CALLED REPORT TO ER. JESUS CASTILLO MDS AWARE.
[2022-04-24 07:40] LABS: Bedside Glucose 266 mg/dL (74-106)
--- NOTE | 2022-04-24 07:49 | NURSING ---
Cynthia, sister updated on pt being sent to ER for evaluation
[2022-04-24 08:54] LABS: Magnesium 1.6 mg/dL (1.6-2.6)
--- NOTE | 2022-04-24 11:51 | DS.PCM_ITS ---
Providers Date of Admission: 04/05/22 Primary Care Physician: Dr. Grayson Newton MD Consultations 04/14/22 12:30 Consult: Onc/Wound/monument letterer Routine Comment: l elbow 04/22/22 07:37 Consult: General Surgery Routine Consulting Provider: Davi Marie Reason for Consult: rule out abscess LT elbow/arm, MRI completed EMERGENT Consult: No MD Notified: Yes Date Notified: 04/22/22 Time Notified: 07:38 Method of Notification: Verbal 04/22/22 11:10 Consult: Orthopedics Routine Consulting Provider: Edwar Cummings Reason for Consult: left arm draining, post surgery, MRI abscess or seroma EMERGENT Consult: No MD Notified: Yes Date Notified: 04/22/22 Time Notified: 11:10 Method of Notification: Verbal 04/22/22 14:13 Consult: Onc/Wound/monument letterer Routine Comment: Reason for Consult:: LT elbow wound draining for wound vac Reason For Visit: SEPSIS AND UTI Diagnosis Discharge Diagnosis (1) Draining cutaneous sinus tract: Status: Acute Code(s): L98.8 - Other specified disorders of the skin and subcutaneous tissue (2) Seroma after procedure: Status: Acute (3) Olecranon bursitis of left elbow: Status: Acute Code(s): M70.22 - Olecranon bursitis, left elbow Plan 76 year old female with below past medical history hospitalized for encephalopathy secondary to E. Coli urinary tract infection, complicated by atrial fibrillation with rapid ventricular response, admitted to TCU with debility, here for rehabilitation, strengthening, prior to discharge home alone. * Debility - PT/OT. * Pain - [place] 1 tablet q8h prn pain (1-10). * Bowel - senna/colace 1 tablet bid, MOM 30ml daily prn. * Adult immunization - Administer pneumonia vaccine, covid vaccine, flu vaccine as appropriate. * DVT prophylaxis - Not necessary, on Eliquis. * Shortness of breath - Albuterol 1 puff q4h prn. * Atrial fibrillation - Metoprolol 100mg bid, Diltiazem 120mg bid, Amiodarone 200mg daily, Eliquis 5mg bid, stop aspirin (Increases risk of bleeding without further cardiovascular benefit) * Hyperlipidemia - Atorvastatin 40mg qhs. * Pansensitive E. Coli urinary tract infection - Cefdinir 300mg bid thru 04/11/2022. * GERD - Pantoprazole 40mg daily, Famotidine 20mg daily prn. * Chronic systolic congestive heart failure - Metoprolol 100mg bid, Entresto 24/26mg bid, Furosemide 80mg daily. * Diabetic polyneuropathy - Gabapentin 300mg bid. * Diabetes Mellitus II - Glargine 50 units qhs, Lispro 26 units tidcm. * Rheumatoid arthritis - Leflunomide 20mg daily, Prednisone 7.5mg daily. * Hypothyroidism - Levothyroxine 100mcg daily. * Allergic rhinitis - Loratadine 10mg daily. * Tinea Corporis - Nystatin powder topical tid prn. * Left hip fracture - KUB showed incidental finding of left femur fracture, order dedicated X-ray left hip. Medications at Discharge Home Medications aspirin 81 mg tablet,delayed release 81 mg PO DAILY heart health 05/24/19 leflunomide 10 mg tablet 10 mg PO QODAY arthritis 09/04/21 loratadine 10 mg tablet (Allergy Relief (loratadine)) 10 mg PO DAILY allergies 10/18/21 atorvastatin 40 mg tablet 40 mg PO QHS cholesterol #90 tabs 11/11/21 nystatin 100,000 unit/gram topical powder 1 applic topical TID PRN rash #60 grams 01/02/22 pantoprazole 40 mg tablet,delayed release 40 mg PO DAILY reflux #90 tabs 01/02/22 prednisone 5 mg tablet 7.5 mg PO QAM steroid 01/31/22 dulaglutide 1.5 mg/0.5 mL subcutaneous pen injector 1.5 mg (0.5 mL) subcut QWEEK diabetes #2 mL 03/12/22 amiodarone 200 mg tablet 200 mg PO DAILY arrythmia 04/02/22 diltiazem HCl 120 mg capsule,extended release 24 hr 120 mg PO DAILY heart 04/02/22 hydrocodone-acetaminophen 5-325mg 5mg-325mg 1 tab PO Q8H PRN Pain 04/02/22 omega-3 fatty acids 1,000 mg capsule 2,000 mg PO BID supplement 04/02/22 sacubitril 24 mg-valsartan 26 mg tablet (Entresto) 1 tab PO BID heart failure 04/02/22 apixaban 5 mg tablet (Eliquis) 5 mg PO BID blood thinner 04/05/22 levothyroxine 100 mcg tablet (Synthroid) 100 mcg PO DAILY supplement 04/05/22 acetaminophen 500 mg tablet 1,000 mg PO Q8H PRN PAIN AND FEVER 04/24/22 gabapentin 300 mg capsule 300 mg PO BID NERVE PAIN 04/24/22 melatonin 10 mg capsule 10 mg PO QHS SLEEP 04/24/22 menthol 0.44 %-zinc oxide 20.6 % topical ointment (Calmoseptine) 1 applic t opical BID 04/24/22 metoprolol tartrate 50 mg tablet 50 mg PO BID HEART 04/24/22 potassium chloride 20 mEq tablet,extended release 20 meq PO DAILY SUPPLEMENT 04/24/22 sennosides 8.6 mg-docusate sodium 50 mg tablet (Senna with Docusate Sodium) 1 tab-cap PO BID 04/24/22 vancomycin 1.25 gram/250 mL in 0.9 % sodium chloride intravenous 1 g IV Q12H INFECTION 04/24/22 Hospital Course Operations None Procedures None Summary of Care Provided Minutes Spent on Discharge: 30 Hospital Course: 76 year old female with below past medical history hospitalized for encephalopathy secondary to E. Coli urinary tract infection, complicated by a trial fibrillation with rapid ventricular response, admitted to TCU with debility, here for rehabilitation, strengthening, prior to discharge home alone. 04/20/2022 Resident developed copious serous drainage from left upper extremity incision. Culture grew staph, she was initially treated with Zosyn IV, Vancomycin IV. 04/21/2022 MRI left upper extremity showed left upper extremity seroma/hematoma, cannot rule out abscess. 04/22/2022 Dr. Cummings, orthopedics consulted, recommend no surgical i ntervention, but application of wound VAC. 04/23/2022 Wound VAC applied but no drainage was suctioned, left upper extremity became swollen. 04/24/2022 Resident with fever, hypoxia, confusion, not stable for TCU. 04/24/2022 Discharge to [facility] ED for evaluation, admission to hospital. Physical Exam Const alert General Appearance: cooperative HEENT normocephalic Eyes PERRL and EOMs intact bilaterally Neck supple, no JVD and no carotid bruits Resp normal respiratory effort, normal air movement and clear to auscultation bilaterally Cardio regular rate and regular rhythm GI normal to inspection, nondistended, normoactive bowel sounds, non-tender and non-distended Extremity normal capillary refill Extremity Narrative: Left upper extremity swelling, incision draining. General Extremity: Negative for edema Skin no rashes or lesions noted General Skin Exam: no breakdown Psych affect normal Appearance: appropriate Weight / BMI Weight Weight: 95.164 kg Body Mass Index (BMI) 35.8 ABG / Lab / Microbiology Data Result Diagrams: 04/22/22 09:35 04/23/22 14:45 Laboratory: Laboratory Results - last 24 hr 04/23/22 11:30: POC Glucose 229 H 04/23/22 14:45: Creatinine 0.80, Estim Creat Clear Calc 53.28, Est GFR (MDRD) Af Amer 90, Est GFR (MDRD) Non-Af 74 04/23/22 16:40: POC Glucose 266 H 04/23/22 22:04: POC Glucose 218 H 04/24/22 03:26: POC Glucose 208 H 04/24/22 06:27: POC Glucose 201 H 04/24/22 08:28: Magnesium 1.6 Microbiology: Microbiology 04/20/22 20:40 Blood Culture (Wb) - Right Hand Blood Culture - Preliminary No growth in 48 hours. 04/20/22 20:25 Blood Culture (Wb) - Left Hand Blood Culture - Preliminary No growth in 48 hours. 04/20/22 20:45 Urine Catheter - Catheter Urine Culture - Final Enterococcus faecalis Presumptive Micrococcus spp. Gram positive fabricio 04/20/22 21:20 Wound - Arm Left Gram Stain - Final 04/20/22 21:20 Wound - Arm Left Wound Culture - Final Staphylococcus haemolyticus 04/20/22 21:07 Mucosa - Nasopharyngeal Respiratory Panel (PCR) - Final 04/20/22 21:45 Nasal Secretion SARS-CoV-2 Antigen (Rapid) - Final 04/16/22 10:00 Urine, Random Urine Culture - Final Culture exhibits no growth. 04/06/22 18:55 Blood Culture (Wb) - Left Hand Blood Culture - Final No growth in 5 days. 04/06/22 18:45 Blood Culture (Wb) - Arm Right Blood Culture - Final No growth in 5 days. 04/06/22 21:45 Wound - Elbow Gram Stain - Final 04/06/22 21:45 Wound - Elbow Wound Culture - Final No growth aerobically. 04/06/22 19:07 Urine Catheter - Catheter Urine Culture - Final Culture exhibits no growth. 04/06/22 20:05 Mucosa - Nasopharyngeal Respiratory Panel (PCR) - Final 04/06/22 18:40 Nasal Secretion SARS-CoV-2 Antigen (Rapid) - Final D/C Instructions Discharge Diet: No restrictions Discharge Activity: Return to Normal Activity, May Shower and Use Walker Weight Bearing Status: Weight bearing as tolerated Call your doctor if you observe: Fever of 101 or Higher, Inability to urinate, Inability to have a bowel movement, Shortness of breath, Dizziness, Fainting spells, Swelling in the ankles, Chest pain and Uncontrolled pain Additional Instructions: Discharge to [facility] 04/24/2022 for evaluation, admission to hospital. Please Follow Up With: Grayson Newton MD Meaningful Use Info Meaningful Use Diagnoses (Choose all that apply): None applicable Discharge Plan Admission Admit Date/Time: 04/05/22 15:30 Primary Reason for Your Visit: Debility. Attending Provider: Meir Mistry Chi Primary Care Provider: Grayson Newton Consulting Providers: Davi Marie ; Edwar Cummings Instructions Additional Instructions / Restrictions: Discharge to [facility] 04/24/2022 for evaluation, admission to hospital. Discharge Orders/Prescriptions Prescriptions: No Action prednisone 5 mg tablet 7.5 mg PO QAM loratadine [Allergy Relief (loratadine)] 10 mg tablet 10 mg PO DAILY nystatin 100,000 unit/gram powder 1 applic topical TID PRN (Reason: rash) Qty: 60 1RF pantoprazole 40 mg tablet,delayed release (DR/EC) 40 mg PO DAILY Qty: 90 3RF aspirin 81 MG tablet,delayed release (DR/EC) 81 mg PO DAILY leflunomide 10 mg tablet 10 mg PO QODAY hydrocodone-acetaminophen 5-325 mg tablet 1 tab PO Q8H PRN (Reason: Pain) diltiazem HCl 120 mg capsule,extended release 24hr 120 mg PO DAILY omega-3 fatty acids 1,000 mg Capsule 2,000 mg PO BID amiodarone 200 mg Tablet 200 mg PO DAILY Entresto 24-26 mg tablet 1 tab PO BID levothyroxine [Synthroid] 100 mcg tablet 100 mcg PO DAILY Eliquis 5 mg tablet 5 mg PO BID acetaminophen 500 mg Tablet 1,000 mg PO Q8H PRN (Reason: PAIN AND FEVER) gabapentin 300 mg Capsule 300 mg PO BID sennosides-docusate sodium [Senna with Docusate Sodium] 8.6-50 mg Tablet 1 tab-cap PO BID metoprolol tartrate 50 mg Tablet 50 mg PO BID menthol-zinc oxide [Calmoseptine] 0.44-20.6 % Ointment 1 applic TOPICAL BID vancomycin in 0.9 % sodium chl 1.25 gram/250 mL Solution 1 g IV Q12H melatonin 10 mg Capsule 10 mg PO QHS potassium chloride 20 mEq Tablet Extended Release 20 meq PO DAILY atorvastatin 40 mg tablet 40 mg PO QHS Qty: 90 3RF dulaglutide 1.5 mg/0.5 mL pen injector 1.5 mg subcut QWEEK Qty: 2 3RF Referrals / Follow Up: Grayson Newton MD [Primary Care Provider] - Disposition Disposition (needs filled in before D/C Order can be placed): Acute Care Hospital
--- NOTE | 2022-04-24 13:31 | PCM.PN.ORT ---
Subjective Subjective She is doing well. She is in the PCU. The incision has stopped draining. She feels like the transfer was necessary her nurses were saying that she was confused but she was stating that this was because they are waking her up at 2 AM. Objective Data Objective Data Patient is sitting up and alert and oriented. They are eating well. They are here with to relatives. The elbow at this point no redness or warmth. The serous drainage has completely stopped in the small area is closed over at this point. Full range of motion of the elbow and painless. The swelling has also gone down but there is still a small amount of olecranon bursal fluid there. Vital Signs: Vital Signs Temp Pulse Resp BP Pulse Ox O2 Del Method O2 Flow Rate 100.2 F H 111 H 22 H 130/65 H 93 Room Air 93 04/24/22 03:35 04/24/22 03:35 04/24/22 03:35 04/24/22 03:35 04/24/22 03:35 04/24/22 03:35 04/22/22 22:04 Oxygen Flow Rate (L/min) 93 Oxygen Delivery Method Room Air Weight: 209 lb 12.8 oz Body Mass Index (BMI) 35.8 Intake & Output: Intake and Output for Last 24 Hours 04/22/22 04/23/22 04/24/22 23:59 23:59 23:59 Intake Total 2438.54 / 2438.54 275 / 275 Balance 2438.54 / 2438.54 275 / 275 Lab / Micro Data Result Diagrams: 04/22/22 09:35 04/23/22 14:45 Labs: Laboratory Results - last 24 hr 04/23/22 14:45: Creatinine 0.80, Estim Creat Clear Calc 53.28, Est GFR (MDRD) Af Amer 90, Est GFR (MDRD) Non-Af 74 04/23/22 16:40: POC Glucose 266 H 04/23/22 22:04: POC Glucose 218 H 04/24/22 03:26: POC Glucose 208 H 04/24/22 06:27: POC Glucose 201 H 04/24/22 08:28: Magnesium 1.6 Micro: Microbiology 04/20/22 20:40 Blood Culture (Wb) - Right Hand Blood Culture - Preliminary No growth in 48 hours. 04/20/22 20:25 Blood Culture (Wb) - Left Hand Blood Culture - Preliminary No growth in 48 hours. 04/20/22 20:45 Urine Catheter - Catheter Urine Culture - Final Enterococcus faecalis Presumptive Micrococcus spp. Gram positive fabricio 04/20/22 21:20 Wound - Arm Left Gram Stain - Final 04/20/22 21:20 Wound - Arm Left Wound Culture - Final Staphylococcus haemolyticus 04/20/22 21:07 Mucosa - Nasopharyngeal Respiratory Panel (PCR) - Final 04/20/22 21:45 Nasal Secretion SARS-CoV-2 Antigen (Rapid) - Final 04/16/22 10:00 Urine, Random Urine Culture - Final Culture exhibits no growth. 04/06/22 18:55 Blood Culture (Wb) - Left Hand Blood Culture - Final No growth in 5 days. 04/06/22 18:45 Blood Culture (Wb) - Arm Right Blood Culture - Final No growth in 5 days. 04/06/22 21:45 Wound - Elbow Gram Stain - Final 04/06/22 21:45 Wound - Elbow Wound Culture - Final No growth aerobically. 04/06/22 19:07 Urine Catheter - Catheter Urine Culture - Final Culture exhibits no growth. 04/06/22 20:05 Mucosa - Nasopharyngeal Respiratory Panel (PCR) - Final 04/06/22 18:40 Nasal Secretion SARS-CoV-2 Antigen (Rapid) - Final Assessment & Plan Assessment/Plan (1) Postoperative seroma: PLAN: 76-year-old female with a postoperative seroma and a draining sinus tract that has stopped I did speak with her nurse on the TCU as well as reviewing the notes. It sounds like they did attempt a vacuum dressing placement for a few hours this was removed perhaps this has helped the patient in some way at this point the drainage is stopped and I would recommend that the patient follow-up with their index surgeon as an outpatient once they are discharged from the hospital. I will not follow and I am signing off.
== END 2022-04-24 07:15 | disposition short-term general hospital (02) | DRG 690 ==
PROVIDERS: Admitting Provider Family Medicine Geriatric Medicine; PCP Internal Medicine; Visit Provider Family Medicine Geriatric Medicine
DX: N39.0 Urinary tract infection, site not specified (principal); I42.8 Other cardiomyopathies; I48.11 Longstanding persistent atrial fibrillation; L76.32 Postprocedural hematoma of skin and subcutaneous tissue following other procedure; I50.42 Chronic combined systolic (congestive) and diastolic (congestive) heart failure; B35.4 Tinea corporis; E11.42 Type 2 diabetes mellitus with diabetic polyneuropathy; B96.20 Unspecified Escherichia coli [E. coli] as the cause of diseases classified elsewhere; I11.0 Hypertensive heart disease with heart failure; Z79.4 Long term (current) use of insulin; E66.01 Morbid (severe) obesity due to excess calories; M06.9 Rheumatoid arthritis, unspecified; M32.9 Systemic lupus erythematosus, unspecified; D47.2 Monoclonal gammopathy; E03.9 Hypothyroidism, unspecified; E78.5 Hyperlipidemia, unspecified; K21.9 Gastro-esophageal reflux disease without esophagitis; M79.7 Fibromyalgia; G47.33 Obstructive sleep apnea (adult) (pediatric); M70.22 Olecranon bursitis, left elbow; S72.002D Fracture of unspecified part of neck of left femur, subsequent encounter for closed fracture with routine healing; Z79.52 Long term (current) use of systemic steroids; Z87.891 Personal history of nicotine dependence; Z79.82 Long term (current) use of aspirin; Z79.899 Other long term (current) drug therapy; Z79.01 Long term (current) use of anticoagulants; Z98.890 Other specified postprocedural states; R09.02 Hypoxemia; Z68.35 Body mass index [BMI] 35.0-35.9, adult
CPT/HCPCS: 36415; 71045; 71046; 73100; 73502; 74018; 80048; 80202; 81001; 82565; 82962; 83735; 85014; 85018; 85025; 87040; 87070; 87077; 87086; 87088; 87186; 87205; 87633; 87640; 87811; 92507; 92523; 93005; 97110; 97116; 97162; 97166; 97530; 97535; 97802; J7030; J7040; J7050; A4216

== ENCOUNTER → 2022-04-21 | Outpatient (CLI) | payer MEDICARE, OTHER, SELFPAY ==
--- NOTE | 2022-04-21 12:02 | MRI_ITS ---
INDICATION: LEFT ELBOW LIPOMATOUS OF SKIN,SUBCUTANEOUS -- MASS EXAMINATION: MRI - LEFT MR Elbow WO/W Contrast TECHNIQUE: Multiplanar and multisequence MR images of the left elbow with and without intravenous contrast. COMPARISON: MRI of the left elbow from February 13, 2022. LIMITATIONS: Motion artifact. FINDINGS: There has been interval resection of the mass within the proximal forearm. At the resection site in the proximal forearm extending to the level of the olecranon, an irregular fluid collection measures approximately 6.5 x 3 x 1.2 cm. The fluid within the olecranon bursa has largely resolved. Probable undersurface partial tear of the common extensor tendon as before, although motion artifact limits evaluation. The small joint effusion has is stable to mildly decreased in size. No osseous erosion or marrow edema. No acute fracture. MRI/Upper Ext Joint Only W/WO Cont IMPRESSION: Motion artifact. Interval resection of the soft tissue mass within the proximal left forearm. Subcutaneous irregular fluid collection at the site of resection may represent seroma or resolving hematoma. Developing abscess is a consideration depending on the clinical scenario. Small joint effusion is stable to mildly decreased in size. Electronically Signed: Jerson Pearson MD at 4:55 EST ,
== END | disposition home or self-care (01) ==
PROVIDERS: PCP Internal Medicine; Visit Provider Family Medicine Geriatric Medicine
DX: D17.22 Benign lipomatous neoplasm of skin and subcutaneous tissue of left arm (principal)
CPT/HCPCS: 73223; A9575

== ENCOUNTER 2022-04-23 02:56 | Emergency (ER) | payer MEDICARE, OTHER, SELFPAY ==
[2022-04-23 02:58] VITALS: BP 108/87; PULSE 120; RESP 17; TEMP 37; O2SAT 94; BMI 37.3
[2022-04-23 04:00] VITALS: BP 109/58; PULSE 131; RESP 23; O2SAT 94
[2022-04-23 04:21] LABS: Absolute Lymphocyte Count 1.49 X10^3/uL (0.83-4.51); Absolute Neutrophil Count 8.9 X10^3/uL (2.0-7.7); Basophil# 0.09 X10^3/uL; Basophil% 0.7 % (0-1); Eosinophil# 0.34 X10^3/uL; Eosinophils% 2.6 % (0-5); Hemoglobin 8.8 g/dL (12.0-15.0); Lymphocyte # 1.49 X10^3/ul (0.83-4.51); Lymphocyte % 11.5 % (19-41); Mean Corp Hgb Conc 32.6 g/dL (32-36); Mean Corpuscular Hgb 30.4 pg (27.0-32.0); Mean Corpuscular Volume 93.4 fL (81-99); Mean Platelet Vol. 10.6 fl (6.2-12.0); Monocyte# 2.11 X10^3/uL; Monocyte% 16.3 % (0-10); NRBC Flagged by Analyzer 0 % (0-5); Neutrophil # 8.89 X10^3/uL (2.7-7.7); Neutrophil % 68.4 % (47-70); POSITIVE DIFFERENTIAL YES; Platelet Count 253 K/mm3 (150-450); RBC Distribution Width CV 14.4 % (11.6-14.6); RBC Distribution Width SD 49.4 fl (35.1-43.9); Red Blood Count 2.89 M/mm3 (4.2-5.4)
[2022-04-23 04:24] LABS: Differential Indicated SCAN CRITERIA MET
[2022-04-23] MEDS: dilTIAZem 25 MG/5 ML Vial 15 MG IV BOLUS (04:25)
[2022-04-23 04:35] VITALS: BP 106/71; PULSE 118; RESP 21; O2SAT 94
[2022-04-23 04:40] LABS: Anion Gap 9 (5-15); BUN 14 mg/dL (7-18); BUN/Creat Ratio 17.9 RATIO (10-20); Calcium,Total 8.5 mg/dL (8.5-10.1); Chloride 104 mmol/L (98-107); Creatinine, Serum 0.78 mg/dL (0.55-1.02); EST Glomerular Filtration Rate 76 mL/min (>60); Est Glom Filt Rate - Afr Amer 92 mL/min (>60); Estimated Creatinine Clearance 42.62 ml/min; Glucose 190 mg/dL (74-106); Magnesium 1.3 mg/dL (1.6-2.6); Sodium Level 134 mmol/L (136-145)
[2022-04-23] MEDS: Digoxin 250 MCG/ML Ampul 500 MCG IV (04:40)
[2022-04-23 05:00] VITALS: BP 101/68; PULSE 95; RESP 22; O2SAT 96
[2022-04-23 05:33] LABS: Lactic Acid 0.9 mmol/L (0.4-1.9)
[2022-04-23 06:17] LABS: Procalcitonin 0.15 ng/mL (0.00-0.09)
--- NOTE | 2022-04-23 06:26 | EDS_ITS ---
HPI History of Present Illness Chief Complaint: Wound Check Narrative Narrative: Patient is a 6-year-old female with past medical history of chronic atrial fibrillation currently on Eliquis as well as hypertension hyperlipidemia and diabetes. She underwent surgery for a left olecranon mass at an outside facility and then was [facility] and further care. The area has been swollen and has been draining and had an MRI obtained which shows changes consistent with seroma. They put a wound VAC on the area and reportedly nursing felt that after the wound VAC went on that the elbow was swelling more and there was concern for infection so she was sent to the ER for evaluation. Upon arrival to the ER patient states she feels perfectly normal and has no complaints. [facility] Medical History (Updated 04/23/22 @ 06:[address] John Slater DO) Cerebrovascular accident (CVA) Chronic combined systolic and diastolic CHF (congestive heart failure) Chronic pain Diabetes mellitus type 2, uncontrolled Draining cutaneous sinus tract Essential hypertension Fibromyalgia GERD (gastroesophageal reflux disease) HFrEF (heart failure with reduced ejection fraction) Hypercalcemia Hyperlipidemia Hypothyroidism Lipoma of left upper extremity Localized swelling of left forearm Longstanding persistent atrial fibrillation Lupus Morbid obesity Non-ischemic cardiomyopathy Nonalcoholic fatty liver disease Nonrheumatic mitral valve stenosis with insufficiency Olecranon bursitis of left elbow [place] (obstructive sleep apnea) Osteoarthritis Osteoporosis Preoperative evaluation to rule out surgical contraindication Radicular pain of left lower extremity Rheumatoid arthritis RLS (restless legs syndrome) Seroma after procedure Seroma after procedure Smoldering multiple myeloma (SMM) Steroid dependence Stroke Home Medications aspirin 81 mg tablet,delayed release 81 mg PO DAILY heart health 05/24/19 [History Last Taken Unknown] leflunomide 10 mg tablet 20 mg PO DAILY arthritis 09/04/21 [History Last Taken Unknown] loratadine 10 mg tablet (Allergy Relief (loratadine)) 10 mg PO DAILY allergies 10/18/21 [History Last Taken Unknown] atorvastatin 40 mg tablet 40 mg PO QHS cholesterol #90 tabs 11/11/21 [Rx Last Taken Unknown] nystatin 100,000 unit/gram topical powder 1 applic topical TID PRN rash #60 grams 01/02/22 [Rx Last Taken Unknown] pantoprazole 40 mg tablet,delayed release 40 mg PO DAILY reflux #90 tabs 01/02/22 [Rx Last Taken Unknown] prednisone 5 mg tablet 7.5 mg PO QAM steroid 01/31/22 [History Last Taken Unknown] dulaglutide 1.5 mg/0.5 mL subcutaneous pen injector 1.5 mg (0.5 mL) subcut QWEEK diabetes #2 mL 03/12/22 [Rx Last Taken Unknown] gabapentin 100 mg capsule 300 mg PO BID pain 03/28/22 [History Last Taken Unknown] albuterol 90 mcg/actuation aerosol inhaler 90 mcg inhalation Q4H PRN sob 04/02/22 [History Last Taken Unknown] amiodarone 200 mg tablet 200 mg PO DAILY arrythmia 04/02/22 [History Last Taken Unknown] chromium picolinate 400 mcg tablet 800 mcg PO DAILY supplement 04/02/22 [History Last Taken Unknown] diltiazem HCl 120 mg capsule,extended release 24 hr 120 mg PO DAILY heart 04/02/22 [History Last Taken Unknown] hydrocodone-acetaminophen 5-325mg 5mg-325mg 1 tab PO Q8H PRN pain 04/02/22 [History Last Taken Unknown] insulin aspart U-100 100 unit/mL (3 mL) subcutaneous pen (Novolog Flexpen U-100 Insulin aspart) 26 unit subcut TID insulin 04/02/22 [History Last Taken Unknown] omega-3 fatty acids 1,000 mg capsule 2,000 mg PO BID supplement 04/02/22 [History Last Taken Unknown] ranitidine HCl 150 mg capsule 150 mg PO DAILY PRN Acid Reflux 04/02/22 [History Last Taken Unknown] sacubitril 24 mg-valsartan 26 mg tablet (Entresto) 1 tab PO BID heart failure 04/02/22 [History Last Taken Unknown] torsemide 40 mg tablet 40 mg PO BID PRN Edema 04/02/22 [History Last Taken Unknown] apixaban 5 mg tablet (Eliquis) 5 mg PO BID blood thinner 04/05/22 [History Last Taken Unknown] cefdinir 300 mg capsule 300 mg PO BID antibiotic 04/05/22 [History Last Taken Unknown] insulin degludec 100 unit/mL (3 mL) subcutaneous pen 50 unit subcut QHS diabetes 04/05/22 [History Last Taken Unknown] levothyroxine 100 mcg tablet (Synthroid) 100 mcg PO DAILY supplement 04/05/22 [History Last Taken Unknown] metoprolol tartrate 100 mg tablet 100 mg PO BID heart 04/05/22 [History Last Taken Unknown] Allergy/AdvReac Type Severity Reaction Status Date / Time hydroxychloroquine Allergy Severe Shortness Verified 04/23/22 03:04 of breath metformin AdvReac Severe Diarrhea Verified 04/23/22 03:04 methotrexate AdvReac Severe Other Verified 04/23/22 03:04 Sulfa (Sulfonamide AdvReac Intermediate Other Verified 04/23/22 03:04 Antibiotics) Family History Father Diabetes Heart disease Hypertension CVA (cerebral vascular accident) Hyperlipidemia CAD (coronary artery disease) Brother Hypertension Hyperlipidemia Sister THYROID Mother Uterine cancer Surgical History History of appendectomy History of back surgery History of cardioversion (01/15/18) History of left heart catheterization History of mitral valve replacement with bioprosthetic valve (04/23/17) History of radiofrequency ablation (RFA) for complex left atrial arrhythmia (04/25/17) History of right and left heart catheterization (02/25/17) History of total left knee replacement History of total right knee replacement History of transesophageal echocardiography (NEELA) (01/15/18) Social History adopted: No household members: other details: is in a longterm and she is currently living alone housing: house number of children: 2 current occupational status: retired Smoking Status: Former smoker quit date: 06/08/01 Tobacco: How many years used: 25 how long ago did patient quit smokin years ago- about 2006? alcohol intake: current details: rare occasions substance use type: does not use ROS ROS ED Constitutional Constitutional ED: Denies chills or fever(s) ENT ENT ED: Denies sore throat Cardiovascular Cardiovascular: Denies chest pain Respiratory/Chest Respiratory/Chest: Denies cough or dyspnea Gastrointestinal Gastrointestinal: Denies abdominal pain, diarrhea, nausea or vomiting Genitourinary Genitourinary ED: Denies dysuria Musculoskeletal Musculoskeletal: Denies myalgias Integumentary Denies rash Neurologic Neurologic: Denies headache(s) Hematologic/Lymphatic Hematologic/Lymphatic: Reports easy bleeding and easy bruising EXAM Physical Exam Const Vital Signs: 04/23/22 02:58 04/23/22 04:00 04/23/22 04:35 Temperature 98.6 F Temperature Source Temporal Pulse Rate 120 H 131 H 118 H Respiratory Rate 17 23 H 21 H Blood Pressure 108/87 H 109/58 L 106/71 Blood Pressure Mean 94 75 82 Pulse Ox 94 94 94 Oxygen Delivery Method Room Air Room Air Room Air 04/23/22 05:00 04/23/22 07:40 Temperature Temperature Source Pulse Rate 95 95 Respiratory Rate 22 H 16 Blood Pressure 101/68 128/66 H Blood Pressure Mean 79 Pulse Ox 96 96 Oxygen Delivery Method Room Air Positive well nourished, well developed and obese General Appearance ED: well developed Nutritional Appearance: obese Eyes PERRL and EOMs intact bilaterally Neck supple and no JVD Resp normal respiratory effort and clear to auscultation bilaterally Cardio regular rhythm Rate: other Other Details: Irregularly irregular rhythm with tachycardic rate consistent with history of atrial fibrillation GI normal to inspection, nondistended, normoactive bowel sounds, non-tender and non-distended Auscultation: normoactive bowel sounds Palpation: soft Extremity Extremity Narrative: Left upper extremity is neurovascular intact. Patient has surgical incision along the left elbow that is clean dry and intact without surrounding erythema warmth lymphangitic streaking or discharge. There is soft tissue swelling and fluctuance most consistent with recent diagnosis of seroma. No obvious secondary infection changes noted Neuro oriented x3 and CN's II-XII intact bilaterally Sensorium / Orientation: alert Psych mental status grossly normal Skin no rashes or lesions noted Skin Narrative: Soft tissue changes to the left elbow as documented above MDM MDM MDM Narrative Medical decision making narrative: Patient presented to the ER afebrile and normotensive. She is in atrial fibrillation but has a chronic history of this and is anticoagulated. The physical exam does not show any obvious signs of infection to the left elbow and chart review reveals she is already had an MRI of the area. Therefore I do not feel there is need for further imaging in the ER. The skin does not show any obvious changes concerning for secondary infection but wound culture which is already been obtained show Staphylococcus haemolyticus which is sensitive to Vanco and patient is already on that medication. Her white count is slightly elevated but her lactic acid and procalcitonin are not significantly changed. This goes against systemic infection. She was given Cardizem and digoxin and her heart rate reduced below 100. Therefore at this time as she is no longer in atrial fibrillation with RVR and she has a chronic history of A. fib and is anticoagulated there is no need for admission. As her labs and physical exam do not suggest sepsis and she is already currently on the proper antibiotic there is no need for further work-up in the ER and she is safe for discharge. Lab Data Attestation: I reviewed the patient's lab results. Labs: Laboratory Results - last 24 hr 04/23/22 04/23/22 04/23/22 04:11 04:11 04:46 WBC 13.0 H RBC 2.89 L Hgb 8.8 L Hct 27.0 L MCV 93.4 MCH 30.4 MCHC 32.6 RDW Std Deviation 49.4 H RDW Coeff of Gisela 14.4 Plt Count 253 MPV 10.6 Immature Gran % (Auto) 0.500 Neut % (Auto) 68.4 Lymph % (Auto) 11.5 L [place] % (Auto) 16.3 H Eos % (Auto) 2.6 Baso % (Auto) 0.7 Absolute Neuts (auto) 8.9 H Absolute Lymphs (auto) 1.49 Nucleated RBC % 0 Diff Path Review May foll Sodium 134 L Potassium 4.0 Chloride 104 Carbon Dioxide 21.0 Anion Gap 9 BUN 14 Creatinine 0.78 Estim Creat Clear Calc 42.62 Est GFR (MDRD) Af Amer 92 Est GFR (MDRD) Non-Af 76 BUN/Creatinine Ratio 17.9 Glucose 190 H Lactic Acid Calcium 8.5 Magnesium 1.3 L Procalcitonin 0.15 H 04/23/22 05:00 WBC RBC Hgb Hct MCV MCH MCHC RDW Std Deviation RDW Coeff of Gisela Plt Count MPV Immature Gran % (Auto) Neut % (Auto) Lymph % (Auto) [place] % (Auto) Eos % (Auto) Baso % (Auto) Absolute Neuts (auto) Absolute Lymphs (auto) Nucleated RBC % Diff Path Review Sodium Potassium Chloride Carbon Dioxide Anion Gap BUN Creatinine Estim Creat Clear Calc Est GFR (MDRD) Af Amer Est GFR (MDRD) Non-Af BUN/Creatinine Ratio Glucose Lactic Acid 0.9 Calcium Magnesium Procalcitonin Discharge Plan Triage Chief Complaint: Wound Check ED Provider: John Slater Dx/Rx/DC Orders Clinical Impression: Postoperative seroma, Chronic atrial fibrillation, Current use of skilled nursing anticoagulation, Hypomagnesemia Instructions: ED Seroma, Postsurgical Prescriptions: No Action prednisone 5 mg tablet 7.5 mg PO QAM loratadine [Allergy Relief (loratadine)] 10 mg tablet 10 mg PO DAILY nystatin 100,000 unit/gram powder 1 applic topical TID PRN (Reason: rash) Qty: 60 1RF pantoprazole 40 mg tablet,delayed release (DR/EC) 40 mg PO DAILY Qty: 90 3RF gabapentin 100 mg capsule 300 mg PO BID aspirin 81 MG tablet,delayed release (DR/EC) 81 mg PO DAILY leflunomide 10 mg tablet 20 mg PO DAILY hydrocodone-acetaminophen 5-325 mg tablet 1 tab PO Q8H PRN (Reason: pain) diltiazem HCl 120 mg capsule,extended release 24hr 120 mg PO DAILY omega-3 fatty acids 1,000 mg Capsule 2,000 mg PO BID ranitidine HCl 150 mg Capsule 150 mg PO DAILY PRN (Reason: Acid Reflux) torsemide 40 mg Tablet 40 mg PO BID PRN (Reason: Edema) Rx Instructions: may take bid for increase in weight gain or edema amiodarone 200 mg Tablet 200 mg PO DAILY chromium picolinate 400 mcg Tablet 800 mcg PO DAILY Entresto 24-26 mg tablet 1 tab PO BID albuterol 90 mcg/actuation Aerosol 90 mcg INHALATION Q4H PRN (Reason: sob) insulin aspart U-100 [Novolog Flexpen U-100 Insulin] 100 unit/mL (3 mL) insulin pen 26 unit subcut TID metoprolol tartrate 100 mg tablet 100 mg PO BID levothyroxine [Synthroid] 100 mcg tablet 100 mcg PO DAILY cefdinir 300 mg capsule 300 mg PO BID Rx Instructions: Last dose 04/11/22 evening Eliquis 5 mg tablet 5 mg PO BID insulin degludec 100 unit/mL (3 mL) insulin pen 50 unit subcut QHS atorvastatin 40 mg tablet 40 mg PO QHS Qty: 90 3RF dulaglutide 1.5 mg/0.5 mL pen injector 1.5 mg subcut QWEEK Qty: 2 3RF Primary Care Provider: Grayson Newton Referrals: Grayson Newton MD [Primary Care Provider] - Activity Restrictions/Additional Instructions: Please continue your vancomycin as the wound culture shows it is effective agai nst the Staphylococcus haemolyticus. Follow-up with orthopedics to discuss need for possible surgical drainage of the seroma and return to the ER should you have any further concerns Disposition Disposition: Home, Self Care
[2022-04-23 07:40] VITALS: BP 128/66; PULSE 95; RESP 16; O2SAT 96
[2022-04-23 11:20] LABS: Pathologist Review Reviewed
== END 2022-04-23 07:46 | disposition skilled nursing facility (03) ==
PROVIDERS: Emergency Provider Emergency Medicine; PCP Internal Medicine; Visit Provider Emergency Medicine
DX: L76.33 Postprocedural seroma of skin and subcutaneous tissue following a dermatologic procedure (principal); I50.42 Chronic combined systolic (congestive) and diastolic (congestive) heart failure; I11.0 Hypertensive heart disease with heart failure; I48.20 Chronic atrial fibrillation, unspecified; E11.9 Type 2 diabetes mellitus without complications; E78.5 Hyperlipidemia, unspecified; E83.42 Hypomagnesemia; Z87.891 Personal history of nicotine dependence; E66.9 Obesity, unspecified; Z79.01 Long term (current) use of anticoagulants
CPT/HCPCS: 99282; 80048; 83605; 83735; 84145; 85025; A4216

== ENCOUNTER 2022-04-24 07:28 | Inpatient (IN) | payer MEDICARE, OTHER, SELFPAY ==
[2022-04-24] VITALS (14 sets, daily range): BP systolic 111–140; BP diastolic 57–79; PULSE 87–106; RESP 15–18; TEMP 36.8–37.6; O2SAT 95–99; BMI 39.2; BMI 37.2
--- NOTE | 2022-04-24 07:53 | CT_ITS ---
STUDY: CT BRAIN WITHOUT CONTRAST REASON FOR EXAM: Female, 76 years old. Confusion RADIATION DOSAGE (If Supplied By Facility): CTDIvol = ( 44.99 ) mGy, DLP = ( 796.11 ) mGycm TECHNIQUE: Transaxial CT imaging of the brain was performed without administration of intravenous contrast material. Individualized dose optimization techniques were used for this CT. COMPARISON: 04/02/2022 FINDINGS: Normal soft tissue structures. Normal calvarium. There is mild cerebral atrophy with widening of the extra-axial spaces and ventricular dilatation. There are areas of decreased attenuation within the white matter tracts of the supratentorial brain, consistent with microvascular disease changes. There are small punctate calcifications of the basal ganglia which are seen in the aging brain as a normal variant. Normal brainstem. There is mild cerebellar atrophy. There are peripheral calcifications of the visualized vertebral and internal carotid arteries. There is no intracranial hemorrhage. There are no findings of an acute ischemic infarction. Normal visualized paranasal sinuses. CT/Brain/Head without Contrast IMPRESSION: Chronic involutional changes of the brain. Small vessel ischemia. Atherosclerosis. Electronically Signed: Charisse Jesus MD at 8:55 EST ,
[2022-04-24 08:35] LABS: Absolute Lymphocyte Count 1.14 X10^3/uL (0.83-4.51); Absolute Neutrophil Count 7.1 X10^3/uL (2.0-7.7); Eosinophil# 0.46 X10^3/uL; Eosinophils% 4.5 % (0-5); Hematocrit 27.7 % (37-47); Hemoglobin 9.2 g/dL (12.0-15.0); Lymphocyte # 1.14 X10^3/ul (0.83-4.51); Lymphocyte % 11.1 % (19-41); Mean Corp Hgb Conc 33.2 g/dL (32-36); Mean Corpuscular Hgb 30.6 pg (27.0-32.0); Monocyte# 1.42 X10^3/uL; Monocyte% 13.8 % (0-10); NRBC Flagged by Analyzer 0 % (0-5); Neutrophil # 7.14 X10^3/uL (2.7-7.7); Neutrophil % 69.1 % (47-70); Platelet Count 274 K/mm3 (150-450); RBC Distribution Width SD 47.8 fl (35.1-43.9); Red Blood Count 3.01 M/mm3 (4.2-5.4); White Blood Count 10.3 K/mm3 (4.4-11.0)
--- NOTE | 2022-04-24 08:45 | RAD_ITS ---
STUDY: X-RAY CHEST REASON FOR EXAM: Female, 76 years old. Dyspnea TECHNIQUE: Single frontal view of the chest. COMPARISON: 04/20/2022 FINDINGS: There is stable perihilar fullness associated prominent interstitial markings. There is no new focal consolidation. There are stable broken sternotomy wires. There is stable cardiomegaly. Normal visualized aortic arch and descending thoracic aorta. Normal visualized thoracic spine. Normal visualized ribs, clavicles, and shoulders. There is no demonstrated abnormality of the visualized soft tissue structures of the upper abdomen. RAD/Chest 1 View (Portable) IMPRESSION: Stable cardiomegaly. Stable pulmonary venous congestion with possible associated interstitial edema. Electronically Signed: Charisse Jesus MD at 9:09 EST ,
[2022-04-24 08:48] LABS: Anion Gap 7 (5-15); BUN 14 mg/dL (7-18); BUN/Creat Ratio 13.5 RATIO (10-20); Calcium,Total 9.1 mg/dL (8.5-10.1); Chloride 104 mmol/L (98-107); Creatinine, Serum 1.04 mg/dL (0.55-1.02); EST Glomerular Filtration Rate 55 mL/min (>60); Est Glom Filt Rate - Afr Amer 67 mL/min (>60); Estimated Creatinine Clearance 40.98 ml/min; Glucose 210 mg/dL (74-106); Potassium 4.1 mmol/L (3.5-5.1); Sodium Level 134 mmol/L (136-145)
--- NOTE | 2022-04-24 08:52 | EX.ED.DYSGE1 ---
HPI History of Present Illness Chief Complaint: Confusion Narrative Narrative: This is a 76-year-old female from the TCU for the second time in 24 hours. Patient reportedly had some confusion overnight however she is alert and oriented x3. She states that she feels fatigued but she has no complaints of pain. She states he is not nauseous. Patient has a history of left olecranon surgery which was at another facility and was transferred to the TCU for rehab. She has had several evaluations for continued fevers while she was in the TCU. She has had an MRI which showed a seroma. She had a wound VAC over this elbow as well. Is currently is not causing her any pain and there is no drainage. It appears to be well-healing per her. She has had consults from general surgery and orthopedics who felt there was no significant source of infection here. Today she does note she has swelling in the right hand. She denies any trauma to this area. [facility] Medical History Cerebrovascular accident (CVA) Chronic combined systolic and diastolic CHF (congestive heart failure) Chronic pain Diabetes mellitus type 2, uncontrolled Draining cutaneous sinus tract Essential hypertension Fibromyalgia GERD (gastroesophageal reflux disease) HFrEF (heart failure with reduced ejection fraction) Hypercalcemia Hyperlipidemia Hypothyroidism Lipoma of left upper extremity Localized swelling of left forearm Longstanding persistent atrial fibrillation Lupus Morbid obesity Non-ischemic cardiomyopathy Nonalcoholic fatty liver disease Nonrheumatic mitral valve stenosis with insufficiency Olecranon bursitis of left elbow [place] (obstructive sleep apnea) Osteoarthritis Osteoporosis Preoperative evaluation to rule out surgical contraindication Radicular pain of left lower extremity Rheumatoid arthritis RLS (restless legs syndrome) Seroma after procedure Seroma after procedure Smoldering multiple myeloma (SMM) Steroid dependence Stroke Home Medications aspirin 81 mg tablet,delayed release 81 mg PO DAILY heart health 05/24/19 [History Last Taken Unknown] leflunomide 10 mg tablet 20 mg PO DAILY arthritis 09/04/21 [History Last Taken Unknown] loratadine 10 mg tablet (Allergy Relief (loratadine)) 10 mg PO DAILY allergies 10/18/21 [History Last Taken Unknown] atorvastatin 40 mg tablet 40 mg PO QHS cholesterol #90 tabs 11/11/21 [Rx Last Taken Unknown] nystatin 100,000 unit/gram topical powder 1 applic topical TID PRN rash #60 grams 01/02/22 [Rx Last Taken Unknown] pantoprazole 40 mg tablet,delayed release 40 mg PO DAILY reflux #90 tabs 01/02/22 [Rx Last Taken Unknown] prednisone 5 mg tablet 7.5 mg PO QAM steroid 01/31/22 [History Last Taken Unknown] dulaglutide 1.5 mg/0.5 mL subcutaneous pen injector 1.5 mg (0.5 mL) subcut QWEEK diabetes #2 mL 03/12/22 [Rx Last Taken Unknown] gabapentin 100 mg capsule 300 mg PO BID pain 03/28/22 [History Last Taken Unknown] albuterol 90 mcg/actuation aerosol inhaler 90 mcg inhalation Q4H PRN sob 04/02/22 [History Last Taken Unknown] amiodarone 200 mg tablet 200 mg PO DAILY arrythmia 04/02/22 [History Last Taken Unknown] chromium picolinate 400 mcg tablet 800 mcg PO DAILY supplement 04/02/22 [History Last Taken Unknown] diltiazem HCl 120 mg capsule,extended release 24 hr 120 mg PO DAILY heart 04/02/22 [History Last Taken Unknown] hydrocodone-acetaminophen 5-325mg 5mg-325mg 1 tab PO Q8H PRN pain 04/02/22 [History Last Taken Unknown] insulin aspart U-100 100 unit/mL (3 mL) subcutaneous pen (Novolog Flexpen U-100 Insulin aspart) 26 unit subcut TID insulin 04/02/22 [History Last Taken Unknown] omega-3 fatty acids 1,000 mg capsule 2,000 mg PO BID supplement 04/02/22 [History Last Taken Unknown] ranitidine HCl 150 mg capsule 150 mg PO DAILY PRN Acid Reflux 04/02/22 [History Last Taken Unknown] sacubitril 24 mg-valsartan 26 mg tablet (Entresto) 1 tab PO BID heart failure 04/02/22 [History Last Taken Unknown] torsemide 40 mg tablet 40 mg PO BID PRN Edema 04/02/22 [History Last Taken Unknown] apixaban 5 mg tablet (Eliquis) 5 mg PO BID blood thinner 04/05/22 [History Last Taken Unknown] cefdinir 300 mg capsule 300 mg PO BID antibiotic 04/05/22 [History Last Taken Unknown] insulin degludec 100 unit/mL (3 mL) subcutaneous pen 50 unit subcut QHS diabetes 04/05/22 [History Last Taken Unknown] levothyroxine 100 mcg tablet (Synthroid) 100 mcg PO DAILY supplement 04/05/22 [History Last Taken Unknown] metoprolol tartrate 100 mg tablet 100 mg PO BID heart 04/05/22 [History Last Taken Unknown] Allergy/AdvReac Type Severity Reaction Status Date / Time hydroxychloroquine Allergy Severe Shortness Verified 04/23/22 03:04 of breath metformin AdvReac Severe Diarrhea Verified 04/23/22 03:04 methotrexate AdvReac Severe Other Verified 04/23/22 03:04 Sulfa (Sulfonamide AdvReac Intermediate Other Verified 04/23/22 03:04 Antibiotics) Family History Father Diabetes Heart disease Hypertension CVA (cerebral vascular accident) Hyperlipidemia CAD (coronary artery disease) Brother Hypertension Hyperlipidemia Sister THYROID Mother Uterine cancer Surgical History History of appendectomy History of back surgery History of cardioversion (01/15/18) History of left heart catheterization History of mitral valve replacement with bioprosthetic valve (04/23/17) History of radiofrequency ablation (RFA) for complex left atrial arrhythmia (04/25/17) History of right and left heart catheterization (02/25/17) History of total left knee replacement History of total right knee replacement History of transesophageal echocardiography (NEELA) (01/15/18) Social History adopted: No household members: other details: is in a half-way and she is currently living alone housing: house number of children: 2 current occupational status: retired Smoking Status: Former smoker quit date: 06/08/01 Tobacco: How many years used: 25 how long ago did patient quit smokin years ago- about 2006? alcohol intake: current details: rare occasions substance use type: does not use ROS ROS ED Constitutional Constitutional ED: Denies chills or fever(s) Eyes Eyes: Denies change in vision or diplopia ENT ENT ED: Denies rhinorrhea or sore throat Cardiovascular Cardiovascular: Denies chest pain or palpitations Respiratory/Chest Respiratory/Chest: Denies cough or dyspnea Gastrointestinal Gastrointestinal: Denies abdominal pain Genitourinary Genitourinary ED: Denies dysuria or hematuria Musculoskeletal Musculoskeletal: Denies arthralgias or back pain Integumentary Denies abscess or Abrasions Neurologic Neurologic: Denies headache(s) EXAM Physical Exam Const Vital Signs: 04/24/22 07:29 Temperature 99.7 F H Temperature Source Temporal Pulse Rate 94 Respiratory Rate 18 Blood Pressure 111/57 L Blood Pressure Mean 75 Pulse Ox 96 Oxygen Delivery Method Nasal Cannula Oxygen Flow Rate (L/min) 2 Positive well nourished General Appearance ED: NAD HEENT Reports moist mucous membranes Negative for trauma Eyes PERRL and EOMs intact bilaterally Chest Wall inspection of chest normal Resp normal respiratory effort Cardio regular rate and regular rhythm GI normal to inspection, nondistended, normoactive bowel sounds Neuro oriented x3 and CN's II-XII intact bilaterally Sensorium / Orientation: alert Psych mental status grossly normal Skin Skin Narrative: Left elbow has a well-appearing wound without drainage and no tenderness to palpation. No erythema surrounding the area. No crepitance. It is noted that she has some edema in the right and left hands without significant pain. These are neurovascular intact brisk cap refill to all 10 fingers. MDM MDM MDM Narrative Medical decision making narrative: Patient was discussed with Dr. Mistry. He felt that she was medically unstable for the TCU due to the intermittent confusion episodes that she is having. He stated that this is a definition of delirium. He also noted that she was requiring oxygen now which is new for her. She is on appropriate antibiotic for her wound which was cultured. The wound appears to be healing well. CT of the brain is negative for acute findings. Obtain basic lab work and her CBC shows no leukocytosis. Hemoglobin hematocrit are stable. Platelets are normal. Creatinine slightly elevated at 1.04. EKG shows atrial fibrillation at a controlled ventricular sponsor at 90 bpm. High-sensitivity troponin is 11. Her BNP is elevated today at 359. Chest x-ray on my interpretation shows pulmonary vascular congestion and interstitial edema. This is likely why the patient is requiring oxygen at this point. Patient does have history of CHF in the past. Urinalysis today is negative for infection. I will have the patient admitted for further treatment. Impression: 1. Hypoxic respiratory failure 2. CHF 3. Intermittent confusion Lab Data Attestation: I reviewed the patient's lab results. Labs: Laboratory Results - last 24 hr 04/24/22 04/24/22 04/24/22 08:28 08:28 08:28 WBC 10.3 RBC 3.01 L Hgb 9.2 L Hct 27.7 L MCV 92.0 MCH 30.6 MCHC 33.2 RDW Std Deviation 47.8 H RDW Coeff of Gisela 14.0 Plt Count 274 MPV 10.0 Immature Gran % (Auto) 0.500 Neut % (Auto) 69.1 Lymph % (Auto) 11.1 L [place] % (Auto) 13.8 H Eos % (Auto) 4.5 Baso % (Auto) 1.0 Absolute Neuts (auto) 7.1 Absolute Lymphs (auto) 1.14 Nucleated RBC % 0 Sodium 134 L Potassium 4.1 Chloride 104 Carbon Dioxide 23.0 Anion Gap 7 BUN 14 Creatinine 1.04 H Estim Creat Clear Calc 40.98 Est GFR (MDRD) Af Amer 67 Est GFR (MDRD) Non-Af 55 L BUN/Creatinine Ratio 13.5 Glucose 210 H Calcium 9.1 Troponin I High Sens 11 B-Natriuretic Peptide Urine Color Urine Clarity Urine pH Ur Specific [place] Urine Protein Urine Glucose (UA) Urine Ketones Urine Occult Blood Urine Nitrite Urine Bilirubin Urine Urobilinogen Ur Leukocyte Esterase Urine RBC Urine WBC Ur Squamous Epith Cells Urine Bacteria Urine Mucus 04/24/22 04/24/22 08:28 09:07 WBC RBC Hgb Hct MCV MCH MCHC RDW Std Deviation RDW Coeff of Gisela Plt Count MPV Immature Gran % (Auto) Neut % (Auto) Lymph % (Auto) [place] % (Auto) Eos % (Auto) Baso % (Auto) Absolute Neuts (auto) Absolute Lymphs (auto) Nucleated RBC % Sodium Potassium Chloride Carbon Dioxide Anion Gap BUN Creatinine Estim Creat Clear Calc Est GFR (MDRD) Af Amer Est GFR (MDRD) Non-Af BUN/Creatinine Ratio Glucose Calcium Troponin I High Sens B-Natriuretic Peptide 359.3 H Urine Color Yellow Urine Clarity Cloudy Urine pH 5.0 Ur Specific [place] 1.015 Urine Protein 30 H Urine Glucose (UA) Normal Urine Ketones 5 H Urine Occult Blood Negative Urine Nitrite Negative Urine Bilirubin Negative Urine Urobilinogen 1 H Ur Leukocyte Esterase 25 H Urine RBC 0 SEEN Urine WBC 5-10 SEEN Ur Squamous Epith Cells 0-5 SEEN Urine Bacteria 1+ Urine Mucus 0 SEEN Radiography Diagnostic Testing: Clinical Impression(s) from Imaging Studies Brain CT 04/24/22 07:53 IMPRESSION: Chronic involutional changes of the brain. Small vessel ischemia. Atherosclerosis. Electronically Signed: Charisse Jesus MD at 8:55 EST , Chest X-Ray 04/24/22 08:45 IMPRESSION: Stable cardiomegaly. Stable pulmonary venous congestion with possible associated interstitial edema. Electronically Signed: Charisse Jesus MD at 9:09 EST , Discharge Plan Triage Chief Complaint: Confusion ED Provider: Jairo Stokes Dx/Rx/DC Orders Prescriptions: No Action prednisone 5 mg tablet 7.5 mg PO QAM loratadine [Allergy Relief (loratadine)] 10 mg tablet 10 mg PO DAILY nystatin 100,000 unit/gram powder 1 applic topical TID PRN (Reason: rash) Qty: 60 1RF pantoprazole 40 mg tablet,delayed release (DR/EC) 40 mg PO DAILY Qty: 90 3RF gabapentin 100 mg capsule 300 mg PO BID aspirin 81 MG tablet,delayed release (DR/EC) 81 mg PO DAILY leflunomide 10 mg tablet 20 mg PO DAILY hydrocodone-acetaminophen 5-325 mg tablet 1 tab PO Q8H PRN (Reason: pain) diltiazem HCl 120 mg capsule,extended release 24hr 120 mg PO DAILY omega-3 fatty acids 1,000 mg Capsule 2,000 mg PO BID ranitidine HCl 150 mg Capsule 150 mg PO DAILY PRN (Reason: Acid Reflux) torsemide 40 mg Tablet 40 mg PO BID PRN (Reason: Edema) Rx Instructions: may take bid for increase in weight gain or edema amiodarone 200 mg Tablet 200 mg PO DAILY chromium picolinate 400 mcg Tablet 800 mcg PO DAILY Entresto 24-26 mg tablet 1 tab PO BID albuterol 90 mcg/actuation Aerosol 90 mcg INHALATION Q4H PRN (Reason: sob) insulin aspart U-100 [Novolog Flexpen U-100 Insulin] 100 unit/mL (3 mL) insulin pen 26 unit subcut TID metoprolol tartrate 100 mg tablet 100 mg PO BID levothyroxine [Synthroid] 100 mcg tablet 100 mcg PO DAILY cefdinir 300 mg capsule 300 mg PO BID Rx Instructions: Last dose 04/11/22 evening Eliquis 5 mg tablet 5 mg PO BID insulin degludec 100 unit/mL (3 mL) insulin pen 50 unit subcut QHS atorvastatin 40 mg tablet 40 mg PO QHS Qty: 90 3RF dulaglutide 1.5 mg/0.5 mL pen injector 1.5 mg subcut QWEEK Qty: 2 3RF Primary Care Provider: Grayson Newton Referrals: Grayson Newton MD [Primary Care Provider] -
[2022-04-24 09:11] LABS: Mucous, Urine 0 SEEN /hpf (<or=2+); Red Blood Cells-Urine 0 SEEN /hpf (0-5)
[2022-04-24 09:18] LABS: Color, Urine Yellow (Yellow); Glucose, Dipstick Normal (Normal); Ketone-Dipstick 5 mg/dl (Negative); Leukocyte Esterase-Dipstick 25 /ul (Negative); Nitrite-Dipstick Negative (Negative); Occult Blood-Urine Negative /ul (Negative); Protein-Dipstick 30 mg/dl (Negative); Specific Gravity, Urine 1.015 (1.002-1.030); Urine Bilirubin Dipstick Negative (Negative); Urine Clarity Cloudy (Clear); Urine Urobilinogen 1 mg/dl (Normal)
[2022-04-24 09:19] LABS: Bacteria 1+ /hpf (None Seen); Squamous Epithelial Cells - UA 0-5 SEEN /hpf (5-10); White Blood Cells 5-10 SEEN /hpf (0-5)
[2022-04-24 09:29] LABS: BNP,B-Type NATRIURETIC PEPTIDE 359.3 pg/mL (0-100); Troponin-I HS 11 pg/mL (3.0-54.0)
--- NOTE | 2022-04-24 11:35 | HP.PCM.HOS_ITS ---
HPI - General General Date of Admission: 04/24/22 Date of Service: 04/24/22 Chief Complaint: Shortness of breath HPI Narrative Ms. Peres is a 76-year-old female with a history of atrial fibrillation, heart failure with reduced ejection fraction, rheumatoid arthritis, left-sided olecranon infection, type 2 diabetes mellitus, and hypothyroidism who presented to [facility] ED 04/24 from TCU where she was admitted on 04/05 after a 3-day hospitalization for confusion and fever. On that admission she had presented after an excisional biopsy of a mass on her left elbow at [facility] the day prior. She presented with confusion and fever and was found to be in A. fib with RVR and also found to have a UTI. Was started on Cardizem drip and IV antibiotics and she grew pansensitive E. coli. She was transitioned to oral medications. General surgery was consulted for second opinion 04/04 and recommended conservative treatment for her elbow. She was then sent to TCU. Per report she was sent to the ED 04/24 for some confusion overnight and shortness of breath. In the ED she appeared to be fluid overloaded clinically and on chest x-ray as well as elevated BNP. Hospitalist called for admission. Upon evaluation she does report she has been short of breath for 1 day and feels like she has been p uffy. Has slight dry cough, no sputum production. Also has had poor appetite and generally feels unwell, felt that she was flushed and had chills last night but no temperature that she had noted. Reported that she was confused when she was woken up in the middle of the night but does not feel confused or out of sorts at this time. Denied other complaints. [facility] Medical History Cerebrovascular accident (CVA) Chronic combined systolic and diastolic CHF (congestive heart failure) Chronic pain Diabetes mellitus type 2, uncontrolled Draining cutaneous sinus tract Essential hypertension Fibromyalgia GERD (gastroesophageal reflux disease) HFrEF (heart failure with reduced ejection fraction) Hypercalcemia Hyperlipidemia Hypothyroidism Lipoma of left upper extremity Localized swelling of left forearm Longstanding persistent atrial fibrillation Lupus Morbid obesity Non-ischemic cardiomyopathy Nonalcoholic fatty liver disease Nonrheumatic mitral valve stenosis with insufficiency Olecranon bursitis of left elbow [place] (obstructive sleep apnea) Osteoarthritis Osteoporosis Preoperative evaluation to rule out surgical contraindication Radicular pain of left lower extremity Rheumatoid arthritis RLS (restless legs syndrome) Seroma after procedure Seroma after procedure Smoldering multiple myeloma (SMM) Steroid dependence Stroke Home Medications aspirin 81 mg tablet,delayed release 81 mg PO DAILY heart health 05/24/19 [History Last Taken Unknown] leflunomide 10 mg tablet 10 mg PO QODAY arthritis 09/04/21 [History Last Taken Unknown] loratadine 10 mg tablet (Allergy Relief (loratadine)) 10 mg PO DAILY allergies 10/18/21 [History Last Taken 04/23/22 08:27] atorvastatin 40 mg tablet 40 mg PO QHS cholesterol #90 tabs 11/11/21 [Rx Last Taken 04/23/22 21:52] nystatin 100,000 unit/gram topical powder 1 applic topical TID PRN rash #60 grams 01/02/22 [Rx Last Taken 04/23/22 21:56] pantoprazole 40 mg tablet,delayed release 40 mg PO DAILY reflux #90 tabs 01/02/22 [Rx Last Taken 04/23/22 08:21] prednisone 5 mg tablet 7.5 mg PO QAM steroid 01/31/22 [History Last Taken 04/10/22 09:20] dulaglutide 1.5 mg/0.5 mL subcutaneous pen injector 1.5 mg (0.5 mL) subcut QWEEK diabetes #2 mL 03/12/22 [Rx Last Taken Unknown] amiodarone 200 mg tablet 200 mg PO DAILY arrythmia 04/02/22 [History Last Taken 04/20/22 09:13] diltiazem HCl 120 mg capsule,extended release 24 hr 120 mg PO DAILY heart 04/02/22 [History Last Taken 04/23/22 08:28] hydrocodone-acetaminophen 5-325mg 5mg-325mg 1 tab PO Q8H PRN Pain 04/02/22 [History Last Taken 04/21/22 20:50] omega-3 fatty acids 1,000 mg capsule 2,000 mg PO BID supplement 04/02/22 [History Last Taken Unknown] sacubitril 24 mg-valsartan 26 mg tablet (Entresto) 1 tab PO BID heart failure 04/02/22 [History Last Taken 04/23/22 17:34] apixaban 5 mg tablet (Eliquis) 5 mg PO BID blood thinner 04/05/22 [History Last Taken 04/23/22 17:33] levothyroxine 100 mcg tablet (Synthroid) 100 mcg PO DAILY supplement 04/05/22 [History Last Taken 04/23/22 08:21] acetaminophen 500 mg tablet 1,000 mg PO Q8H PRN PAIN AND FEVER 04/24/22 [History Last Taken 04/13/22 19:31] gabapentin 300 mg capsule 300 mg PO BID NERVE PAIN 04/24/22 [History Last Taken 04/23/22 17:33] melatonin 10 mg capsule 10 mg PO QHS SLEEP 04/24/22 [History Last Taken 04/23/22 21:52] menthol 0.44 %-zinc oxide 20.6 % topical ointment (Calmoseptine) 1 applic topical BID 04/24/22 [History Last Taken 04/23/22 21:53] metoprolol tartrate 50 mg tablet 50 mg PO BID HEART 04/24/22 [History Last Taken 04/23/22 17:34] potassium chloride 20 mEq tablet,extended release 20 meq PO DAILY SUPPLEMENT 04/24/22 [History Last Taken 04/23/22 08:23] sennosides 8.6 mg-docusate sodium 50 mg tablet (Senna with Docusate Sodium) 1 tab-cap PO BID 04/24/22 [History Last Taken 04/22/22 17:29] vancomycin 1.25 gram/250 mL in 0.9 % sodium chloride intravenous 1 g IV Q12H INFECTION 04/24/22 [History Last Taken 04/24/22 02:13] Allergy/AdvReac Type Severity Reaction Status Date / Time hydroxychloroquine Allergy Severe Shortness Verified 04/23/22 03:04 of breath metformin AdvReac Severe Diarrhea Verified 04/23/22 03:04 methotrexate AdvReac Severe Other Verified 04/23/22 03:04 Sulfa (Sulfonamide AdvReac Intermediate Other Verified 04/23/22 03:04 Antibiotics) Family History Father Diabetes Heart disease Hypertension CVA (cerebral vascular accident) Hyperlipidemia CAD (coronary artery disease) Brother Hypertension Hyperlipidemia Sister THYROID Mother Uterine cancer Surgical History History of appendectomy History of back surgery History of cardioversion (01/15/18) History of left heart catheterization History of mitral valve replacement with bioprosthetic valve (04/23/17) History of radiofrequency ablation (RFA) for complex left atrial arrhythmia (04/25/17) History of right and left heart catheterization (02/25/17) History of total left knee replacement History of total right knee replacement History of transesophageal echocardiography (NEELA) (01/15/18) Social History adopted: No household members: other details: is in a penitent[facility] and she is currently living alone housing: house number of children: 2 current occupational status: retired Smoking Status: Former smoker quit date: 06/08/01 Tobacco: How many years used: 25 how long ago did patient quit smokin years ago- about 2006? alcohol intake: current details: rare occasions substance use type: does not use ROS Constitutional Constitutional: Reports other Details: Decker some chills yesterday Eyes Eyes: Denies change in vision ENT HEENT: Denies nasal congestion or sore throat Cardiovascular Cardiovascular: Denies chest pain or palpitations Respiratory/Chest Respiratory/Chest: Reports other Details: Slight dry cough Gastrointestinal Gastrointestinal: Reports other Details: denies changes in bowel or bladder ; Denies abdominal pain Genitourinary Genitourinary: Reports other Details: denies changes in urination Musculoskeletal Musculoskeletal: Reports other Details: Improving left elbow pain Neurologic Neurologic: Denies dizziness, focal weakness, headache(s), numbness or tingling Psychiatric Psychiatric: Denies anxiety Hematologic/Lymphatic Hematologic/Lymphatic: Denies easy bleeding Allergic/Immunologic Allergic/Immunologic: Reports other Details: denies rashes Vital Signs Vital Signs Vital Signs: 04/24/22 07:29 04/24/22 10:36 04/24/22 10:56 Temperature 99.7 F H 99.7 F H 98.2 F Temperature Source Temporal Temporal Oral Pulse Rate 94 94 104 H Respiratory Rate 18 18 18 Blood Pressure 111/57 L 111/57 L 122/78 H Blood Pressure Mean 75 75 92 Blood Pressure Source Monitor Blood Pressure Position Semi-Fowlers Blood Pressure Location Right Arm Pulse Ox 96 96 96 Oxygen Delivery Method Nasal Cannula Nasal Cannula Nasal Cannula Oxygen Flow Rate (L/min) 2 2 2 04/24/22 10:56 Temperature 98.2 F Temperature Source Oral Pulse Rate 104 H Respiratory Rate 18 Blood Pressure 122/78 H Blood Pressure Mean 92 Blood Pressure Source Blood Pressure Position Blood Pressure Location Pulse Ox 96 Oxygen Delivery Method Nasal Cannula Oxygen Flow Rate (L/min) 2 Weight Weight: 98.3 kg Body Mass Index (BMI) 37.2 Physical Exam Const alert and no apparent distress Constitutional Narrative: Oriented HEENT normocephalic and head/scalp atraumatic HEENT Narrative: Dry oral mucosa Eyes Eyes Narrative: EOM grossly intact, anicteric Neck supple Resp Resp Narrative: Mild increased work of breathing, breath sounds diminished at the bases Cardio Cardio Narrative: Irregularly irregular GI soft to palpation, non-tender and non-distended Extremity Extremity Narrative: Trace pitting edema in all 4 extremities Neuro moves all extremities Neuro Narrative: No overt focal deficits appreciated Psych Psych Narrative: Cooperative Results Lab / Micro Data Result Diagrams: 04/24/22 08:28 04/24/22 08:28 Labs: Laboratory Results - last 24 hr 04/24/22 08:28: WBC 10.3, RBC 3.01 L, Hgb 9.2 L, Hct 27.7 L, MCV 92.0, MCH 30.6, MCHC 33.2, RDW Std Deviation 47.8 H, RDW Coeff of Gisela 14.0, Plt Count 274, MPV 10.0, Immature Gran % (Auto) 0.500, Neut % (Auto) 69.1, Lymph % (Auto) 11.1 L, [place] % (Auto) 13.8 H, Eos % (Auto) 4.5, Baso % (Auto) 1.0, Absolute Neuts (auto) 7.1, Absolute Lymphs (auto) 1.14, Nucleated RBC % 0 04/24/22 08:28: Sodium 134 L, Potassium 4.1, Chloride 104, Carbon Dioxide 23.0, Anion Gap 7, BUN 14, Creatinine 1.04 H, Estim Creat Clear Calc 40.98, Est GFR (MDRD) Af Amer 67, Est GFR (MDRD) Non-Af 55 L, BUN/Creatinine Ratio 13.5, Glucose 210 H, Calcium 9.1 04/24/22 08:28: Troponin I High Sens 11 04/24/22 08:28: B-Natriuretic Peptide 359.3 H 04/24/22 09:07: Urine Color Yellow, Urine Clarity Cloudy, Urine pH 5.0, Ur Specific [place] 1.015, Urine Protein 30 H, Urine Glucose (UA) Normal, Urine Ketones 5 H, Urine Occult Blood Negative, Urine Nitrite Negative, Urine Bilirubin Negative, Urine Urobilinogen 1 H, Ur Leukocyte Esterase 25 H, Urine RBC 0 SEEN, Urine WBC 5-10 SEEN, Ur Squamous Epith Cells 0-5 SEEN, Urine Bacteria 1+, Urine Mucus 0 SEEN Radiology Impression Brain CT 04/24/22 07:53 IMPRESSION: Chronic involutional changes of the brain. Small vessel ischemia. Atherosclerosis. Electronically Signed: Charisse Jesus MD at 8:55 EST , Chest X-Ray 04/24/22 08:45 IMPRESSION: Stable cardiomegaly. Stable pulmonary venous congestion with possible associated interstitial edema. Electronically Signed: Charisse Jesus MD at 9:09 EST , Assessment & Plan Assessment/Plan (1) 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 Will diurese I's and O's Daily weights Troponin 11 2 L fluid restriction #Atrial fibrillation Continue amiodarone Continue Eliquis Continue Cardizem #Olecranon infection, left Has been seen by surgery service and orthopedic surgery. Will continue vancomycin as previously prescribed #Rheumatoid arthritis Continue daily prednisone Continue leflunomide #Type 2 diabetes mellitus Glucose checks, sliding scale insulin #History of CVA Aspirin, statin #Hypothyroidism Continue levothyroxine Last TSH in 06.25 #Normocytic anemia Appears to be at baseline #Acute renal insufficiency Baseline creatinine roughly 0.8 and is 1.04 today Will trend #DVT ppx: On Glenn Kraft MD Charges/Coding Visit Charges Inpatient E&M: 29425 Init Hosp L2
--- NOTE | 2022-04-24 12:56 | PCM.RX.CS ---
Consult Pharmacy has been consulted to manage selected antiobiotic: Vancomycin Type of Consult: New start Suspected Infection: Skin/Soft tissue Labs: Sodium 134 mmol/L (136-145) L 04/24/22 08:28 Potassium 4.1 mmol/L (3.5-5.1) 04/24/22 08:28 Chloride 104 mmol/L (98-107) 04/24/22 08:28 Carbon Dioxide 23.0 mmol/L (21.0-32.0) 04/24/22 08:28 Anion Gap 7 (5-15) 04/24/22 08:28 BUN 14 mg/dL (7-18) 04/24/22 08:28 Creatinine 1.04 mg/dL (0.55-1.02) H 04/24/22 08:28 Est GFR (MDRD) Af Amer 67 mL/min (>60) 04/24/22 08:28 Est GFR (MDRD) Non-Af 55 mL/min (>60) L 04/24/22 08:28 BUN/Creatinine Ratio 13.5 RATIO (10-20) 04/24/22 08:28 Glucose 210 mg/dL (74-106) H 04/24/22 08:28 Microbiology: Microbiology 04/24/22 11:50 Nasal Secretion SARS-CoV-2 & FLU Antigen (Rapid) - Final Goal Trough: 15-20 mcg/mL Pharmacy Plan for Drug Dosing: NEW START IV VANCOMYCIN - CONTINUE FROM TCU Consulting Physician: Dr. Kraft Indication: SSTI Goal Trough: 15-20 SrCr: 1.04 CrCl: 41 mL/min Comments: Patient was previously on vancomycin for SSTI on TCU. last administered dose was 1250mg IV (scheduled Q12h) 04/24 @0034. Will continue dose from TCU and continue trough monitoring including doses received on TCU, as patient can stay relatively on the same administration schedule as when she was on TCU. Vancomycin Dose: 1250mg IV Q12h to start 04/24/22 @1300 Pending Level: 04/25/22 @0030 Pharmacy Service will continue to monitor and adjust dosing as required.
[2022-04-24] MEDS: Metoprolol Tartrate 50 MG Tablet PO ×2 (13:06→20:39)
[2022-04-24] MEDS: Furosemide 20 MG/2 ML VIAL IV (13:06)
[2022-04-24] MEDS: 0.9% Saline Lock 10 ML Syringe IV ×2 (13:07→18:47)
[2022-04-24] MEDS: Pantoprazole Sodium 40 MG Tablet PO (14:18)
--- NOTE | 2022-04-24 14:47 | CASEMGMT ---
EVER reviewed chart and noted patient is from [facility] TCU. SW met with patient. Introduced self and role at [facility]. Patient confirmed her plan is to return to TCU. Patient declined a new list of SNFs. Plan: d/c back to [facility] TCU when ready. Karuna FERRARI
[2022-04-24] MEDS: Insulin Lispro 100 UNIT/ML INSULN.PEN SC ×2 (16:44→22:01)
[2022-04-24 16:50] LABS: Bedside Glucose 242 mg/dL (74-106)
[2022-04-24] MEDS: Atorvastatin Calcium 40 MG Tablet PO (20:38)
[2022-04-24] MEDS: MELATONIN 10 MG TABLET PO (20:38)
[2022-04-24] MEDS: Gabapentin 300 MG Capsule PO (20:38)
[2022-04-24] MEDS: SACUBITRIL/VALSARTAN 24/26 MG TABLET 1 EACH PO (20:38)
[2022-04-24] MEDS: APIXABAN 5 MG TABLET PO (20:38)
[2022-04-25] VITALS (13 sets, daily range): BP systolic 108–122; BP diastolic 60–87; PULSE 77–104; RESP 15–18; TEMP 36.5–37.3; O2SAT 92–95
[2022-04-25 01:01] LABS: Vancomycin, Trough Level 26.6 ug/mL (5.0-15.0)
--- NOTE | 2022-04-25 01:07 | PCM.RX.CS ---
Consult Pharmacy has been consulted to manage selected antiobiotic: Vancomycin Type of Consult: Follow-up Labs: Sodium 134 mmol/L (136-145) L 04/24/22 08:28 Potassium 4.1 mmol/L (3.5-5.1) 04/24/22 08:28 Chloride 104 mmol/L (98-107) 04/24/22 08:28 Carbon Dioxide 23.0 mmol/L (21.0-32.0) 04/24/22 08:28 Anion Gap 7 (5-15) 04/24/22 08:28 BUN 14 mg/dL (7-18) 04/24/22 08:28 Creatinine 1.04 mg/dL (0.55-1.02) H 04/24/22 08:28 Est GFR (MDRD) Af Amer 67 mL/min (>60) 04/24/22 08:28 Est GFR (MDRD) Non-Af 55 mL/min (>60) L 04/24/22 08:28 BUN/Creatinine Ratio 13.5 RATIO (10-20) 04/24/22 08:28 Glucose 210 mg/dL (74-106) H 04/24/22 08:28 Vancomycin Trough 26.6 ug/mL (5.0-15.0) H 04/25/22 00:20 Microbiology: Microbiology 04/24/22 13:25 Mucosa - Nose Respiratory Panel (PCR) - Final 04/24/22 11:50 Nasal Secretion SARS-CoV-2 & FLU Antigen (Rapid) - Final Goal Trough: 15-20 mcg/mL Pharmacy Plan for Drug Dosing: Pharmacy Service will continue to monitor and adjust dosing as required. TROUGH 26.6 @ 9.75 HRS. HOLD CURRENT DOSE AND DRAW RANDOM LEVEL IN 12 HOURS Follow-Up Labs: Trough Vancomycin Labs to be done on [date and time ordered]: 04/25 @ 1230 RANDOM
[2022-04-25 02:00] LABS: Bedside Glucose 239 mg/dL (74-106)
--- NOTE | 2022-04-25 05:20 | RAD_ITS ---
STUDY: X-RAY CHEST REASON FOR EXAM: Female, 76 years old. CHF TECHNIQUE: AP COMPARISON: 04/24/2022 at 8:53 AM FINDINGS: Cardiomegaly with interstitial and vascular prominence bilaterally similar to prior. No apparent pneumothorax. Sternotomy wires and mediastinal surgical clips again demonstrated. RAD/Chest 1 View (Portable) IMPRESSION: No significant change. Electronically Signed: Simone Robledo MD at 6:17 EST ,
[2022-04-25] MEDS: Levothyroxine 100 MCG Tablet PO (06:10)
[2022-04-25] MEDS: Insulin Lispro 100 UNIT/ML INSULN.PEN SC ×4 (06:12→21:53)
[2022-04-25 06:30] LABS: Absolute Lymphocyte Count 1.22 X10^3/uL (0.83-4.51); Absolute Neutrophil Count 6.1 X10^3/uL (2.0-7.7); Basophil# 0.09 X10^3/uL; Eosinophil# 0.62 X10^3/uL; Eosinophils% 6.7 % (0-5); Hematocrit 26.6 % (37-47); Hemoglobin 8.4 g/dL (12.0-15.0); Lymphocyte # 1.22 X10^3/ul (0.83-4.51); Lymphocyte % 13.2 % (19-41); Mean Corp Hgb Conc 31.6 g/dL (32-36); Mean Corpuscular Hgb 29.3 pg (27.0-32.0); Mean Corpuscular Volume 92.7 fL (81-99); Mean Platelet Vol. 10.3 fl (6.2-12.0); Monocyte# 1.16 X10^3/uL; Monocyte% 12.5 % (0-10); NRBC Flagged by Analyzer 0 % (0-5); Platelet Count 275 K/mm3 (150-450); RBC Distribution Width SD 48.5 fl (35.1-43.9); Red Blood Count 2.87 M/mm3 (4.2-5.4); White Blood Count 9.3 K/mm3 (4.4-11.0)
[2022-04-25 06:40] LABS: Bedside Glucose 216 mg/dL (74-106)
[2022-04-25 07:13] LABS: Anion Gap 7 (5-15); BUN 21 mg/dL (7-18); BUN/Creat Ratio 10.3 RATIO (10-20); Calcium,Total 8.6 mg/dL (8.5-10.1); Chloride 102 mmol/L (98-107); Cholesterol 66 mg/dL (200); Creatinine, Serum 2.04 mg/dL (0.55-1.02); EST Glomerular Filtration Rate 25 mL/min (>60); Est Glom Filt Rate - Afr Amer 31 mL/min (>60); Estimated Creatinine Clearance 20.89 ml/min; Glucose 178 mg/dL (74-106); High Density Lipoprotein 21 mg/dL; Magnesium 1.6 mg/dL (1.6-2.6); Potassium 4.2 mmol/L (3.5-5.1); Sodium Level 131 mmol/L (136-145); Triglycerides 99 mg/dL; Very Low Density Lipoprotein 20 mg/dL (5-40)
[2022-04-25] MEDS: Potassium Chloride Oral Tablet 20 MEQ PO (07:56)
[2022-04-25] MEDS: Aspirin E.C. 81 MG Tablet PO (07:56)
--- NOTE | 2022-04-25 08:30 | PCM.PN.HOSP ---
Subjective Subjective Feeling like her breathing is better today, denies chest pain, no nausea. Does continue to complain of bilateral upper extremity swelling, lower seems slightly better Objective Data Objective Data Vital Signs: Vital Signs Temp Pulse Resp BP Pulse Ox O2 Del Method O2 Flow Rate 99.1 F 88 15 108/68 92 Nasal Cannula 1.5 04/25/22 04:08 04/25/22 07:27 04/25/22 04:08 04/25/22 04:08 04/25/22 04:08 04/25/22 04:15 04/25/22 04:15 Oxygen Flow Rate (L/min) 1.5 Oxygen Delivery Method Nasal Cannula Weight: 98.5 kg Body Mass Index (BMI) 37.2 Intake & Output: Intake and Output for Last 24 Hours 04/23/22 04/24/22 04/25/22 23:59 23:59 23:59 Intake Total 495 / 495 Output Total 600 / 600 Balance -105 / -105 Lab / Micro Data Result Diagrams: 04/25/22 06:20 04/25/22 06:20 Labs: Laboratory Results - last 24 hr 04/24/22 08:28: WBC 10.3, RBC 3.01 L, Hgb 9.2 L, Hct 27.7 L, MCV 92.0, MCH 30.6, MCHC 33.2, RDW Std Deviation 47.8 H, RDW Coeff of Gisela 14.0, Plt Count 274, MPV 10.0, Immature Gran % (Auto) 0.500, Neut % (Auto) 69.1, Lymph % (Auto) 11.1 L, [place] % (Auto) 13.8 H, Eos % (Auto) 4.5, Baso % (Auto) 1.0, Absolute Neuts (auto) 7.1, Absolute Lymphs (auto) 1.14, Nucleated RBC % 0 04/24/22 08:28: Sodium 134 L, Potassium 4.1, Chloride 104, Carbon Dioxide 23.0, Anion Gap 7, BUN 14, Creatinine 1.04 H, Estim Creat Clear Calc 40.98, Est GFR (MDRD) Af Amer 67, Est GFR (MDRD) Non-Af 55 L, BUN/Creatinine Ratio 13.5, Glucose 210 H, Calcium 9.1 04/24/22 08:28: Troponin I High Sens 04/24/22 08:28: B-Natriuretic Peptide 359.3 H 04/24/22 09:07: Urine Color Yellow, Urine Clarity Cloudy, Urine pH 5.0, Ur Specific Center [place] 1.015, Urine Protein 30 H, Urine Glucose (UA) Normal, Urine Ketones 5 H, Urine Occult Blood Negative, Urine Nitrite Negative, Urine Bilirubin Negative, Urine Urobilinogen 1 H, Ur Leukocyte Esterase 25 H, Urine RBC 0 SEEN, Urine WBC 5-10 SEEN, Ur Squamous Epith Cells 0-5 SEEN, Urine Bacteria 1+, Urine Mucus 0 SEEN 04/24/22 16:22: POC Glucose 242 H 04/24/22 22:00: POC Glucose 239 H 04/25/22 00:20: Vancomycin Trough 26.6 H 04/25/22 06:12: POC Glucose 216 H 04/25/22 06:20: Sodium 131 L, Potassium 4.2, Chloride 102, Carbon Dioxide 22.0, Anion Gap 7, BUN 21 H, Creatinine 2.04 H, Estim Creat Clear Calc 20.89, Est GFR (MDRD) Af Amer 31 L, Est GFR (MDRD) Non-Af 25 L, BUN/Creatinine Ratio 10.3, Glucose 178 H, Calcium 8.6, Magnesium 1.6, Triglycerides 99, Cholesterol 66, LDL Cholesterol 25, VLDL Cholesterol 20, HDL Cholesterol 21 L 04/25/22 06:20: WBC 9.3, RBC 2.87 L, Hgb 8.4 L, Hct 26.6 L, MCV 92.7, MCH 29.3, MCHC 31.6 L, RDW Std Deviation 48.5 H, RDW Coeff of Gisela 14.0, Plt Count 275, MPV 10.3, Immature Gran % (Auto) 0.600, Neut % (Auto) 66.0, Lymph % (Auto) 13.2 L, [place] % (Auto) 12.5 H, Eos % (Auto) 6.7 H, Baso % (Auto) 1.0, Absolute Neuts (auto) 6.1, Absolute Lymphs (auto) 1.22, Nucleated RBC % 0 Micro: Microbiology 04/24/22 13:25 Mucosa - Nose Respiratory Panel (PCR) - Final 04/24/22 11:50 Nasal Secretion SARS-CoV-2 & FLU Antigen (Rapid) - Final Radiography Diagnostic Testing: Radiology Impression Brain CT 04/24/22 07:53 IMPRESSION: Chronic involutional changes of the brain. Small vessel ischemia. Atherosclerosis. Electronically Signed: Charisse Jesus MD at 8:55 EST , Chest X-Ray 04/24/22 08:45 IMPRESSION: Stable cardiomegaly. Stable pulmonary venous congestion with possible associated interstitial edema. Electronically Signed: Charisse Jesus MD at 9:09 EST , Chest X-Ray 04/25/22 05:20 IMPRESSION: No significant change. Electronically Signed: Simone Robledo MD at 6:17 EST , Physical Exam Const alert and no apparent distress Constitutional Narrative: Oriented HEENT normocephalic and head/scalp atraumatic HEENT Narrative: Dry oral mucosa Eyes Eyes Narrative: EOM grossly intact, anicteric Neck supple Resp Resp Narrative: Improved work of breathing, breath sounds diminished at the bases Cardio Cardio Narrative: Irregularly irregular GI soft to palpation, non-tender and non-distended Extremity Extremity Narrative: Trace pitting edema in hands, legs seem to be improving Neuro moves all extremities Neuro Narrative: No overt focal deficits appreciated Psych Psych Narrative: Cooperative Assessment & Plan Assessment/Plan (1) 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 Will diurese I's and O's Daily weights Troponin 11 2 L fluid restriction 04/25: Breathing does seem to be improving, got small dose of IV Lasix but creatinine doubled. Daily weights. A.m. chest x-ray read as similar yesterday though appears on film to have decrease in interstitial markings #KATHY Creatinine doubled since yesterday Will hold Lasix dose this a.m. and Entresto Will obtain urine studies Additionally decreased gabapentin dose to 100 twice daily given significantly decline in GFR #Atrial fibrillation Continue amiodarone Continue Eliquis Continue Cardizem #Olecranon infection, left Has been seen by surgery service and orthopedic surgery. Will continue vancomycin as previously prescribed, pharmacy dosing #Rheumatoid arthritis Continue leflunomide 04/25: Prednisone had previously been held, likely due to infection. #Type 2 diabetes mellitus Glucose checks, sliding scale insulin 04/25: Persistently elevated, will add long-acting #History of CVA Aspirin, statin #Hypothyroidism Continue levothyroxine Last TSH in 06.25 #Normocytic anemia Appears to be at baseline #DVT ppx: On Eliquis Mary Beth Kraft MD Charges/Coding Visit Charges Inpatient E&M: 83223 Subs Hosp L2
[2022-04-25] MEDS: Pantoprazole Sodium 40 MG Tablet PO (09:14)
[2022-04-25] MEDS: Gabapentin 100 MG Capsule PO ×2 (09:14→21:55)
[2022-04-25] MEDS: Loratadine 10 MG Tablet PO (09:14)
[2022-04-25] MEDS: Metoprolol Tartrate 50 MG Tablet PO ×2 (09:15→21:50)
[2022-04-25] MEDS: APIXABAN 5 MG TABLET PO ×2 (09:15→21:49)
[2022-04-25] MEDS: dilTIAZem CD 120 MG Capsule PO (09:15)
[2022-04-25] MEDS: Amiodarone 200 MG Tablet PO (09:15)
[2022-04-25] MEDS: Insulin Glargine-YFGN 100 UNIT/ML Pen SC (10:24)
[2022-04-25 12:35] LABS: Bedside Glucose 207 mg/dL (74-106)
[2022-04-25 12:59] LABS: Vancomycin, Random Level 23.5 ug/mL (0.0-15.0)
--- NOTE | 2022-04-25 13:59 | PCM.RX.CS ---
Consult Pharmacy has been consulted to manage selected antiobiotic: Vancomycin Type of Consult: Follow-up Suspected Infection: Other - OLECRANON INFECTION Prior Doses of Antibiotics Received/Current Regimen: currently being held due to a high trough Labs: Sodium 131 mmol/L (136-145) L 04/25/22 06:20 Potassium 4.2 mmol/L (3.5-5.1) 04/25/22 06:20 Chloride 102 mmol/L (98-107) 04/25/22 06:20 Carbon Dioxide 22.0 mmol/L (21.0-32.0) 04/25/22 06:20 Anion Gap 7 (5-15) 04/25/22 06:20 BUN 21 mg/dL (7-18) H 04/25/22 06:20 Creatinine 2.04 mg/dL (0.55-1.02) H 04/25/22 06:20 Est GFR (MDRD) Af Amer 31 mL/min (>60) L 04/25/22 06:20 Est GFR (MDRD) Non-Af 25 mL/min (>60) L 04/25/22 06:20 BUN/Creatinine Ratio 10.3 RATIO (10-20) 04/25/22 06:20 Glucose 178 mg/dL (74-106) H 04/25/22 06:20 Vancomycin Trough 26.6 ug/mL (5.0-15.0) H 04/25/22 00:20 Random Vancomycin 23.5 ug/mL (0.0-15.0) H 04/25/22 12:20 Microbiology: Microbiology 04/24/22 13:25 Mucosa - Nose Respiratory Panel (PCR) - Final 04/24/22 11:50 Nasal Secretion SARS-CoV-2 & FLU Antigen (Rapid) - Final Weight used for dosin.5 kg Estimated Creatinine Clearance: 27.6ml/min Goal Trough: 15-20 mcg/mL Pharmacy Plan for Drug Dosing: The vanc random level drawn at 12:20 today (approx 22 hours after the last 1250mg dose) came back as 23.5. This is still high and above 20 so will continue to hold dosing. Will repeat a vanc random level in approximately 18 hours with AM labs tomorrow. It is worth noting that the patient's SCr almost doubled today up to 2.04. Will need to continue to monitor renal function. The patient's CrCl of 27.6ml/min was calculated using an adjusted body weight. Pharmacy Service will continue to monitor and adjust dosing as required. Follow-Up Labs: Trough Vancomycin - random Labs to be done on [date and time ordered]: 04/26/22 0600
[2022-04-25 16:35] LABS: Urine Chloride 66 mmol/L (Not Establ.); Urine Sodium 42 mmol/L (Not Establ.)
[2022-04-25 17:30] LABS: Urea Nitrogen, Urine 382 mg/dL (NO RANGE EST.)
[2022-04-25 18:46] LABS: Bedside Glucose 231 mg/dL (74-106)
[2022-04-25] MEDS: Senna/Docusate Sodium 1 Tablet PO (21:49)
[2022-04-25] MEDS: MELATONIN 10 MG TABLET PO (21:50)
[2022-04-25] MEDS: Atorvastatin Calcium 40 MG Tablet PO (21:51)
[2022-04-26] VITALS (13 sets, daily range): BP systolic 108–138; BP diastolic 62–77; PULSE 75–104; RESP 15–18; TEMP 36.6–37.1; O2SAT 93–98
[2022-04-26 01:11] LABS: Bedside Glucose 242 mg/dL (74-106)
[2022-04-26] MEDS: Levothyroxine 100 MCG Tablet PO (05:19)
[2022-04-26] MEDS: Insulin Lispro 100 UNIT/ML INSULN.PEN SC ×4 (06:17→22:16)
[2022-04-26 06:32] LABS: Absolute Lymphocyte Count 1.21 X10^3/uL (0.83-4.51); Absolute Neutrophil Count 5.4 X10^3/uL (2.0-7.7); Basophil# 0.08 X10^3/uL; Basophil% 0.9 % (0-1); Eosinophil# 0.71 X10^3/uL; Eosinophils% 8.4 % (0-5); Hematocrit 27.2 % (37-47); Hemoglobin 8.7 g/dL (12.0-15.0); Lymphocyte # 1.21 X10^3/ul (0.83-4.51); Lymphocyte % 14.3 % (19-41); Mean Corpuscular Hgb 29.8 pg (27.0-32.0); Mean Corpuscular Volume 93.2 fL (81-99); Monocyte# 1.09 X10^3/uL; Monocyte% 12.8 % (0-10); NRBC Flagged by Analyzer 0 % (0-5); Neutrophil # 5.35 X10^3/uL (2.7-7.7); Platelet Count 287 K/mm3 (150-450); RBC Distribution Width CV 14.1 % (11.6-14.6); RBC Distribution Width SD 47.8 fl (35.1-43.9); Red Blood Count 2.92 M/mm3 (4.2-5.4); White Blood Count 8.5 K/mm3 (4.4-11.0)
[2022-04-26 06:56] LABS: Bedside Glucose 172 mg/dL (74-106)
[2022-04-26 07:02] LABS: Vancomycin, Random Level 22.2 ug/mL (0.0-15.0)
[2022-04-26 07:05] LABS: Anion Gap 9 (5-15); BUN 27 mg/dL (7-18); BUN/Creat Ratio 10.3 RATIO (10-20); Calcium,Total 8.5 mg/dL (8.5-10.1); Chloride 103 mmol/L (98-107); Creatinine, Serum 2.63 mg/dL (0.55-1.02); EST Glomerular Filtration Rate 19 mL/min (>60); Est Glom Filt Rate - Afr Amer 23 mL/min (>60); Estimated Creatinine Clearance 16.21 ml/min; Glucose 159 mg/dL (74-106); Potassium 4.7 mmol/L (3.5-5.1); Sodium Level 132 mmol/L (136-145)
--- NOTE | 2022-04-26 07:53 | PCM.RX.CS ---
Consult Pharmacy has been consulted to manage selected antiobiotic: Vancomycin Type of Consult: Follow-up Suspected Infection: Skin/Soft tissue Prior Doses of Antibiotics Received/Current Regimen: Was on 1250mg iv q12h (last dose 04.24.22 @1446). Currently being held due to levels >20. Labs: Sodium 132 mmol/L (136-145) L 04/26/22 06:07 Potassium 4.7 mmol/L (3.5-5.1) 04/26/22 06:07 Chloride 103 mmol/L (98-107) 04/26/22 06:07 Carbon Dioxide 20.0 mmol/L (21.0-32.0) L 04/26/22 06:07 Anion Gap 9 (5-15) 04/26/22 06:07 BUN 27 mg/dL (7-18) H 04/26/22 06:07 Creatinine 2.63 mg/dL (0.55-1.02) H 04/26/22 06:07 Est GFR (MDRD) Af Amer 23 mL/min (>60) L 04/26/22 06:07 Est GFR (MDRD) Non-Af 19 mL/min (>60) L 04/26/22 06:07 BUN/Creatinine Ratio 10.3 RATIO (10-20) 04/26/22 06:07 Glucose 159 mg/dL (74-106) H 04/26/22 06:07 Vancomycin Trough 26.6 ug/mL (5.0-15.0) H 04/25/22 00:20 Random Vancomycin 22.2 ug/mL (0.0-15.0) H 04/26/22 06:07 Microbiology: Microbiology 04/24/22 13:25 Mucosa - Nose Respiratory Panel (PCR) - Final 04/24/22 11:50 Nasal Secretion SARS-CoV-2 & FLU Antigen (Rapid) - Final Weight used for dosin.5 kg Estimated Creatinine Clearance: 21.5ml/min Goal Trough: 15-20 mcg/mL Pharmacy Plan for Drug Dosing: Renal function has decreased with reported Cr 2.63 (2.04 on 04.25). SCrCl is calculated to be ~22ml/min using adjusted body weight of 72.4kg. Random level this AM (0607) was 22.2 (~39 hrs post last dose). Vancomycin will continue to be held due to level >20 mcg/ml. Another random level is ordered for tomorrow AM. Pharmacy Service will continue to monitor and adjust dosing as required. Follow-Up Labs: Trough Vancomycin - random level 11.19.22@0600
[2022-04-26] MEDS: 0.9% Normal Saline 1,000 ML 250 ML IV ×3 (09:15→22:16)
[2022-04-26] MEDS: dilTIAZem CD 120 MG Capsule PO (09:16)
[2022-04-26] MEDS: Aspirin E.C. 81 MG Tablet PO (09:16)
[2022-04-26] MEDS: Amiodarone 200 MG Tablet PO (09:17)
[2022-04-26] MEDS: Insulin Glargine-YFGN 100 UNIT/ML Pen SC (09:18)
[2022-04-26] MEDS: Loratadine 10 MG Tablet PO (09:18)
[2022-04-26] MEDS: APIXABAN 5 MG TABLET PO ×2 (09:18→21:05)
[2022-04-26] MEDS: Leflunomide 10 MG TABLET PO (09:19)
[2022-04-26] MEDS: Pantoprazole Sodium 40 MG Tablet PO (09:20)
[2022-04-26] MEDS: Metoprolol Tartrate 50 MG Tablet PO ×2 (09:25→21:05)
[2022-04-26] MEDS: Gabapentin 100 MG Capsule PO ×2 (09:29→21:05)
[2022-04-26] MEDS: 0.9% Saline Lock 10 ML Syringe IV (09:33)
--- NOTE | 2022-04-26 10:07 | PN.HOSP_ITS ---
Subjective Subjective Hungry and thirsty, denies nausea, feels swelling is somewhat better. Denies chest pain, breathing improved. Objective Data Objective Data Vital Signs: Vital Signs Temp Pulse Resp BP Pulse Ox O2 Del Method O2 Flow Rate 98.6 F 94 16 129/63 H 93 Room Air 1.5 04/26/22 03:29 04/26/22 09:25 04/26/22 03:29 04/26/22 09:25 04/26/22 07:06 04/26/22 07:06 04/25/22 04:15 Oxygen Flow Rate (L/min) 1.5 Oxygen Delivery Method Room Air Weight: 99.5 kg Body Mass Index (BMI) 37.2 Intake & Output: Intake and Output for Last 24 Hours 04/24/22 04/25/22 04/26/22 23:59 23:59 23:59 Intake Total 495 / 495 640 / 640 Output Total 600 / 600 350 / 350 0 / 0 Balance -105 / -105 290 / 290 0 / 0 Lab / Micro Data Result Diagrams: 04/26/22 06:07 04/26/22 06:07 Labs: Laboratory Results - last 24 hr 04/25/22 12:13: POC Glucose 207 H 04/25/22 12:20: Random Vancomycin 23.5 H 04/25/22 15:30: Urine Urea Nitrogen 382 04/25/22 15:30: Ur Random Sodium 42, Urine Creatinine 111.00, Urine Potassium 52.0, Urine Chloride 66 04/25/22 18:21: POC Glucose 231 H 04/25/22 21:52: POC Glucose 242 H 04/26/22 06:07: WBC 8.5, RBC 2.92 L, Hgb 8.7 L, Hct 27.2 L, MCV 93.2, MCH 29.8, MCHC 32.0, RDW Std Deviation 47.8 H, RDW Coeff of Gisela 14.1, Plt Count 287, MPV 10.0, Immature Gran % (Auto) 0.600, Neut % (Auto) 63.0, Lymph % (Auto) 14.3 L, [place] % (Auto) 12.8 H, Eos % (Auto) 8.4 H, Baso % (Auto) 0.9, Absolute Neuts (auto) 5.4, Absolute Lymphs (auto) 1.21, Nucleated RBC % 0 04/26/22 06:07: Sodium 132 L, Potassium 4.7, Chloride 103, Carbon Dioxide 20.0 L , Anion Gap 9, BUN 27 H, Creatinine 2.63 H, Estim Creat Clear Calc 16.21, Est GFR (MDRD) Af Amer 23 L, Est GFR (MDRD) Non-Af 19 L, BUN/Creatinine Ratio 10.3, Glucose 159 H, Calcium 8.5 04/26/22 06:07: Random Vancomycin 22.2 H 04/26/22 06:17: POC Glucose 172 H Micro: Microbiology 04/24/22 13:25 Mucosa - Nose Respiratory Panel (PCR) - Final 04/24/22 11:50 Nasal Secretion SARS-CoV-2 & FLU Antigen (Rapid) - Final Physical Exam Const alert and no apparent distress Constitutional Narrative: Oriented HEENT normocephalic and head/scalp atraumatic HEENT Narrative: Dry oral mucosa Eyes Eyes Narrative: EOM grossly intact, anicteric Neck supple Resp Resp Narrative: Improved work of breathing, breath sounds diminished at the bases Cardio Cardio Narrative: Irregularly irregular GI soft to palpation, non-tender and non-distended Extremity Extremity Narrative: Edema in hands improving Neuro moves all extremities Neuro Narrative: No overt focal deficits appreciated Psych Psych Narrative: Cooperative Assessment & Plan Assessment/Plan (1) 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: PLAN: Plan #KATHY Creatinine was more than doubled Urine studies suggest prerenal Lasix and Entresto held Gabapentin decreased Very gentle fluid Vancomycin trough elevated, possibly contributor, doses held with plan to repeat level per pharmacy #Acute hypoxemia secondary to acute on chronic exacerbation of heart failure with reduced ejection fraction combined with chronic diastolic heart failure- improving X-ray does appear to have possible interstitial edema and is worse than x-ray 04/20 Echo in September 2021 with EF of 40%, mild global left ventricular systolic dysfunction with left atrium moderate enlargement, 2+ tricuspid valve insuffici ency, evidence of diastolic dysfunction, and RVSP of 34 BNP 359 Will diurese Chest x-ray in the a.m. Will diurese I's and O's Daily weights Troponin 11 2 L fluid restriction 04/25: Breathing does seem to be improving, got small dose of IV Lasix but creatinine doubled. Daily weights. A.m. chest x-ray read as similar yesterday though appears on film to have decrease in interstitial markings 04/26: Appears dry and FeNa low, holding Lasix, very gentle 250 cc. #Atrial fibrillation Continue amiodarone Continue Eliquis Continue Cardizem #Olecranon infection, left Has been seen by surgery service and orthopedic surgery. Will continue vancomycin as previously prescribed, pharmacy dosing #Rheumatoid arthritis Continue leflunomide 04/25: Prednisone had previously been held, likely due to infection. #Type 2 diabetes mellitus Glucose checks, sliding scale insulin 04/25: Persistently elevated, will add long-acting #History of CVA Aspirin, statin #Hypothyroidism Continue levothyroxine Last TSH in 06.25 #Normocytic anemia Appears to be at baseline #DVT ppx: On Eliquis Mary Beth Kraft MD Charges/Coding Visit Charges Inpatient E&M: 22651 Subs Hosp L2
[2022-04-26 12:10] LABS: Bedside Glucose 207 mg/dL (74-106)
[2022-04-26 19:15] LABS: Bedside Glucose 160 mg/dL (74-106)
[2022-04-26] MEDS: Senna/Docusate Sodium 1 Tablet PO (21:05)
[2022-04-26] MEDS: MELATONIN 10 MG TABLET PO (21:05)
[2022-04-26] MEDS: Atorvastatin Calcium 40 MG Tablet PO (21:05)
[2022-04-27] VITALS (14 sets, daily range): BP systolic 123–160; BP diastolic 67–82; PULSE 69–84; RESP 15–20; TEMP 36.9–37.5; O2SAT 94–96
[2022-04-27 00:41] LABS: Bedside Glucose 184 mg/dL (74-106)
[2022-04-27] MEDS: 0.9% Normal Saline 1,000 ML 100 ML IV (02:33)
[2022-04-27] MEDS: Levothyroxine 100 MCG Tablet PO (05:34)
[2022-04-27 06:39] LABS: Absolute Lymphocyte Count 1.14 X10^3/uL (0.83-4.51); Absolute Neutrophil Count 4.9 X10^3/uL (2.0-7.7); Basophil# 0.06 X10^3/uL; Basophil% 0.7 % (0-1); Eosinophil# 0.83 X10^3/uL; Eosinophils% 10.3 % (0-5); Hematocrit 27.5 % (37-47); Hemoglobin 9.1 g/dL (12.0-15.0); Lymphocyte # 1.14 X10^3/ul (0.83-4.51); Lymphocyte % 14.2 % (19-41); Mean Corp Hgb Conc 33.1 g/dL (32-36); Mean Corpuscular Hgb 29.7 pg (27.0-32.0); Mean Corpuscular Volume 89.9 fL (81-99); Mean Platelet Vol. 11.1 fl (6.2-12.0); Monocyte# 0.97 X10^3/uL; Monocyte% 12.1 % (0-10); NRBC Flagged by Analyzer 0 % (0-5); Neutrophil # 4.94 X10^3/uL (2.7-7.7); Neutrophil % 61.6 % (47-70); POSITIVE COUNT YES; RBC Distribution Width SD 45.9 fl (35.1-43.9); Red Blood Count 3.06 M/mm3 (4.2-5.4)
[2022-04-27 06:44] LABS: Differential Indicated SCAN CRITERIA MET
[2022-04-27 07:10] LABS: Platelet Estimate ADEQUATE (ADEQ)
[2022-04-27 07:11] LABS: Bedside Glucose 149 mg/dL (74-106)
[2022-04-27 07:17] LABS: Anion Gap 11 (5-15); BUN 27 mg/dL (7-18); BUN/Creat Ratio 9.8 RATIO (10-20); Calcium,Total 8.5 mg/dL (8.5-10.1); Chloride 110 mmol/L (98-107); Creatinine, Serum 2.76 mg/dL (0.55-1.02); EST Glomerular Filtration Rate 18 mL/min (>60); Est Glom Filt Rate - Afr Amer 22 mL/min (>60); Estimated Creatinine Clearance 15.44 ml/min; Glucose 148 mg/dL (74-106); Potassium 5.3 mmol/L (3.5-5.1); Sodium Level 136 mmol/L (136-145)
[2022-04-27] MEDS: Aspirin E.C. 81 MG Tablet PO (08:13)
--- NOTE | 2022-04-27 08:36 | PCM.RX.CS ---
Consult Pharmacy has been consulted to manage selected antiobiotic: Vancomycin Type of Consult: Follow-up Suspected Infection: Skin/Soft tissue Prior Doses of Antibiotics Received/Current Regimen: Previously on 1250mg iv q12h with last dose on 05.24.22. Has been held since then due to > desired therapeutic range of vancomycin level. Level being monitored daily. Labs: Sodium 136 mmol/L (136-145) 04/27/22 06:01 Potassium 5.3 mmol/L (3.5-5.1) H 04/27/22 06:01 Chloride 110 mmol/L (98-107) H 04/27/22 06:01 Carbon Dioxide 15.0 mmol/L (21.0-32.0) L 04/27/22 06:01 Anion Gap 11 (5-15) 04/27/22 06:01 BUN 27 mg/dL (7-18) H 04/27/22 06:01 Creatinine 2.76 mg/dL (0.55-1.02) H 04/27/22 06:01 Est GFR (MDRD) Af Amer 22 mL/min (>60) L 04/27/22 06:01 Est GFR (MDRD) Non-Af 18 mL/min (>60) L 04/27/22 06:01 BUN/Creatinine Ratio 9.8 RATIO (10-20) L 04/27/22 06:01 Glucose 148 mg/dL (74-106) H 04/27/22 06:01 Vancomycin Trough 26.6 ug/mL (5.0-15.0) H 04/25/22 00:20 Random Vancomycin 19.0 ug/mL (0.0-15.0) H 04/27/22 06:01 Microbiology: Microbiology 04/24/22 13:25 Mucosa - Nose Respiratory Panel (PCR) - Final 04/24/22 11:50 Nasal Secretion SARS-CoV-2 & FLU Antigen (Rapid) - Final Weight used for dosin kg Estimated Creatinine Clearance: 21ml/min Goal Trough: 15-20 mcg/mL Pharmacy Plan for Drug Dosing: Today's random level was 19.0 and in desired therapeutic range. Renal function of Cr 2.76, down from 2.63 on 04.26.22. Using adjusted body weight, SCrCl calculated to be ~21ml/min. Will not give any dosing at this time and will repeat random level in AM 04.28.22. Pharmacy Service will continue to monitor and adjust dosing as required. Follow-Up Labs: Trough Vancomycin - random 04.28.22 @0600
[2022-04-27] MEDS: APIXABAN 5 MG TABLET PO ×2 (10:03→21:36)
[2022-04-27] MEDS: Amiodarone 200 MG Tablet PO (10:03)
[2022-04-27] MEDS: Metoprolol Tartrate 50 MG Tablet PO ×2 (10:03→21:36)
[2022-04-27] MEDS: Pantoprazole Sodium 40 MG Tablet PO (10:03)
[2022-04-27] MEDS: Loratadine 10 MG Tablet PO (10:03)
[2022-04-27] MEDS: dilTIAZem CD 120 MG Capsule PO (10:03)
[2022-04-27] MEDS: Gabapentin 100 MG Capsule PO ×2 (11:14→21:36)
[2022-04-27] MEDS: Insulin Glargine-YFGN 100 UNIT/ML Pen SC (11:18)
[2022-04-27] MEDS: Insulin Lispro 100 UNIT/ML INSULN.PEN SC ×3 (11:19→21:40)
--- NOTE | 2022-04-27 11:38 | PN.HOSP_ITS ---
Subjective Subjective Reports she is thirsty, eating well. Denies problems with her breathing. No chest pain Objective Data Objective Data Vital Signs: Vital Signs Temp Pulse Resp BP Pulse Ox O2 Del Method O2 Flow Rate 98.7 F 84 18 149/77 H 95 Room Air 1.5 04/27/22 11:14 04/27/22 11:14 04/27/22 11:14 04/27/22 11:14 04/27/22 11:14 04/27/22 11:14 04/27/22 11:14 Oxygen Flow Rate (L/min) 1.5 Oxygen Delivery Method Room Air Weight: 101.2 kg Body Mass Index (BMI) 37.2 Intake & Output: Intake and Output for Last 24 Hours 04/25/22 04/26/22 04/27/22 23:59 23:59 23:59 Intake Total 640 / 640 2420 / 2420 1566.67 / 1566.67 Output Total 350 / 350 400 / 400 450 / 450 Balance 290 / 290 2019 / 2019 1116.67 / 1116.67 Lab / Micro Data Result Diagrams: 04/27/22 06:01 04/27/22 06:01 Labs: Laboratory Results - last 24 hr 04/26/22 11:43: POC Glucose 207 H 04/26/22 17:39: POC Glucose 160 H 04/26/22 22:15: POC Glucose 184 H 04/27/22 06:01: Random Vancomycin 19.0 H 04/27/22 06:01: WBC 8.0, RBC 3.06 L, Hgb 9.1 L, Hct 27.5 L, MCV 89.9, MCH 29.7, MCHC 33.1, RDW Std Deviation 45.9 H, RDW Coeff of Gisela 14.0, Plt Count [employer], MPV 11.1, Immature Gran % (Auto) 1.100 H, Neut % (Auto) 61.6, Lymph % (Auto) 14.2 L, [place] % (Auto) 12.1 H, Eos % (Auto) 10.3 H, Baso % (Auto) 0.7, Absolute Neuts (auto) 4.9, Absolute Lymphs (auto) 1.14, Nucleated RBC % 0, Platelet Estimate ADEQUATE 04/27/22 06:01: Sodium 136, Potassium 5.3 H, Chloride 110 H, Carbon Dioxide 15.0 L, Anion Gap 11, BUN 27 H, Creatinine 2.76 H, Estim Creat Clear Calc 15.44, Est GFR (MDRD) Af Amer 22 L, Est GFR (MDRD) Non-Af 18 L, BUN/Creatinine Ratio 9.8 L, Glucose 148 H, Calcium 8.5 04/27/22 06:49: POC Glucose 149 H Micro: Microbiology 04/24/22 13:25 Mucosa - Nose Respiratory Panel (PCR) - Final 04/24/22 11:50 Nasal Secretion SARS-CoV-2 & FLU Antigen (Rapid) - Final Physical Exam Const alert and no apparent distress Constitutional Narrative: Oriented HEENT normocephalic and head/scalp atraumatic HEENT Narrative: Dry oral mucosa Eyes Eyes Narrative: EOM grossly intact, anicteric Neck supple Resp Resp Narrative: Improved work of breathing, breath sounds diminished at the bases Cardio Cardio Narrative: Irregularly irregular GI soft to palpation, non-tender and non-distended Extremity Extremity Narrative: Edema in hands improving Neuro moves all extremities Neuro Narrative: No overt focal deficits appreciated Psych Psych Narrative: Cooperative Assessment & Plan Assessment/Plan (1) 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: PLAN: Plan #KATHY-continues to worsen Creatinine was more than doubled Urine studies suggest prerenal Lasix and Entresto held Gabapentin decreased Very gentle fluid Vancomycin trough elevated, possibly contributor, doses held with plan to repeat level per pharmacy 04/27: Did not respond to fluids, given potassium increase with worsened creatinine, slight acidosis, calcium that down trended we will check CK. If within normal limits will consider consulting nephrology. #Acute hypoxemia secondary to acute on chronic exacerbation of heart failure with reduced ejection fraction combined with chronic diastolic heart failure- improving X-ray does appear to have possible interstitial edema and is worse than x-ray 04/20 Echo in September 2021 with EF of 40%, mild global left ventricular systolic dysfunction with left atrium moderate enlargement, 2+ tricuspid valve insufficiency, evidence of diastolic dysfunction, and RVSP of 34 BNP 359 Will diurese Chest x-ray in the a.m. Will diurese I's and O's Daily weights Troponin 11 2 L fluid restriction 04/25: Breathing does seem to be improving, got small dose of IV Lasix but creatinine doubled. Daily weights. A.m. chest x-ray read as similar yesterday though appears on film to have decrease in interstitial markings 04/26: Appears dry and FeNa low, holding Lasix, fluids 04/27: Breathing well #Atrial fibrillation Continue amiodarone Continue Eliquis Continue Cardizem #Olecranon infection, left Has been seen by surgery service and orthopedic surgery. Will continue vancomycin as previously prescribed, pharmacy dosing #Rheumatoid arthritis Continue leflunomide 04/25: Prednisone had previously been held, likely due to infection. #Type 2 diabetes mellitus Glucose checks, sliding scale insulin 04/25: Persistently elevated, will add long-acting #History of CVA Aspirin, statin #Hypothyroidism Continue levothyroxine Last TSH in 06.25 #Normocytic anemia Appears to be at baseline #DVT ppx: On Eliquis Mary Beth Kraft MD Charges/Coding Visit Charges Inpatient E&M: 34896 Subs Hosp L2
[2022-04-27 11:40] LABS: Bedside Glucose 199 mg/dL (74-106)
[2022-04-27 13:01] LABS: CPK Total, Creatine Kinase 24 U/L (26-192)
[2022-04-27 14:25] LABS: Blood Gas Specimen Type VEN; O2 Delivery Device Room Air; VBG BASE EXCESS -6 mmol/L (-1.0-3.5); VBG Bicarbonate 19 mmol/L (22-26); VBG PO2 47 mmHg (25-40); VBG SO2 84 % (50-70); VBG TCO2 20 mmol/L (23-33); VBG pCO2 30.8 mmHg (41-51)
[2022-04-27 17:00] LABS: Bedside Glucose 193 mg/dL (74-106)
[2022-04-27] MEDS: MELATONIN 10 MG TABLET PO (21:36)
[2022-04-27] MEDS: Atorvastatin Calcium 40 MG Tablet PO (21:37)
[2022-04-28] VITALS (12 sets, daily range): BP systolic 128–143; BP diastolic 71–95; PULSE 71–88; RESP 14–16; TEMP 36.5–37; O2SAT 94–96
[2022-04-28 00:56] LABS: Bedside Glucose 164 mg/dL (74-106)
[2022-04-28] MEDS: Levothyroxine 100 MCG Tablet PO (06:36)
[2022-04-28 06:49] LABS: Vancomycin, Trough Level 17.5 ug/mL (5.0-15.0)
[2022-04-28 07:16] LABS: Bedside Glucose 135 mg/dL (74-106)
--- NOTE | 2022-04-28 07:41 | PCM.RX.CS ---
Consult Pharmacy has been consulted to manage selected antiobiotic: Vancomycin Type of Consult: Follow-up Labs: Sodium 136 mmol/L (136-145) 04/27/22 06:01 Potassium 5.3 mmol/L (3.5-5.1) H 04/27/22 06:01 Chloride 110 mmol/L (98-107) H 04/27/22 06:01 Carbon Dioxide 15.0 mmol/L (21.0-32.0) L 04/27/22 06:01 Anion Gap 11 (5-15) 04/27/22 06:01 BUN 27 mg/dL (7-18) H 04/27/22 06:01 Creatinine 2.76 mg/dL (0.55-1.02) H 04/27/22 06:01 Est GFR (MDRD) Af Amer 22 mL/min (>60) L 04/27/22 06:01 Est GFR (MDRD) Non-Af 18 mL/min (>60) L 04/27/22 06:01 BUN/Creatinine Ratio 9.8 RATIO (10-20) L 04/27/22 06:01 Glucose 148 mg/dL (74-106) H 04/27/22 06:01 Vancomycin Trough 17.5 ug/mL (5.0-15.0) H 04/28/22 05:46 Random Vancomycin 19.0 ug/mL (0.0-15.0) H 04/27/22 06:01 Microbiology: Microbiology 04/24/22 13:25 Mucosa - Nose Respiratory Panel (PCR) - Final 04/24/22 11:50 Nasal Secretion SARS-CoV-2 & FLU Antigen (Rapid) - Final Goal Trough: 15-20 mcg/mL Pharmacy Plan for Drug Dosing: VANCOMYCIN LEVEL RECEIVED Current Vancomycin Dose: on hold due to elevated trough Number of Doses Received: Vancomycin Level: 17.5 (last dose was 1250mg on 04/24 at 1446) Hours Since Last Dose: 87 Renal Function: SrCr 2.76 (last level from 04/27/22) Renal Function Trend: Lab/Micro: Vancomycin Plan/Comments: recommend a one time dose of 1000mg and checking a random level in 24 hours Pending Level: 04/29/22 at 0600 Pharmacy Service will continue to monitor and adjust dosing as required. Follow-Up Labs: Trough Vancomycin - 04/29/22 at 0600 (random level)
[2022-04-28] MEDS: HYDROcodone Bitartrate/Apap 5/325 Tablet PO (09:18)
[2022-04-28] MEDS: Pantoprazole Sodium 40 MG Tablet PO (09:18)
[2022-04-28] MEDS: Vancomycin IV 1,000 MG/200 ML BAG 200 MG IV (09:18)
[2022-04-28] MEDS: Amiodarone 200 MG Tablet PO (09:18)
[2022-04-28] MEDS: Insulin Glargine-YFGN 100 UNIT/ML Pen SC (09:19)
[2022-04-28] MEDS: Leflunomide 10 MG TABLET PO (09:19)
[2022-04-28] MEDS: Metoprolol Tartrate 50 MG Tablet PO ×2 (09:19→21:21)
[2022-04-28] MEDS: dilTIAZem CD 120 MG Capsule PO (09:19)
[2022-04-28] MEDS: Aspirin E.C. 81 MG Tablet PO (09:19)
[2022-04-28] MEDS: Gabapentin 100 MG Capsule PO ×2 (09:19→21:21)
[2022-04-28] MEDS: Loratadine 10 MG Tablet PO (09:19)
[2022-04-28] MEDS: APIXABAN 5 MG TABLET PO ×2 (09:20→21:21)
[2022-04-28] MEDS: 0.9% Saline Lock 10 ML Syringe IV ×2 (09:23→21:21)
--- NOTE | 2022-04-28 09:45 | PN.HOSP_ITS ---
Subjective Subjective Breathing okay. Objective Data Objective Data Vital Signs: Vital Signs Temp Pulse Resp BP Pulse Ox O2 Del Method O2 Flow Rate 36.8 C 88 16 143/95 H 96 Room Air 1.5 04/28/22 09:17 04/28/22 09:19 04/28/22 09:17 04/28/22 09:17 04/28/22 09:17 04/28/22 09:17 04/27/22 11:14 Oxygen Flow Rate (L/min) 1.5 Oxygen Delivery Method Room Air Weight: 100.5 kg Body Mass Index (BMI) 37.2 Intake & Output: Intake and Output for Last 24 Hours 04/26/22 04/27/22 04/28/22 23:59 23:59 23:59 Intake Total 2420 / 2420 2706.67 / 2706.67 Output Total 400 / 400 930 / 1205 525 / 525 Balance 2019 1776.67 / 1501.67 -525 / -525 Lab / Micro Data Result Diagrams: 04/27/22 06:01 04/28/22 05:46 Labs: Laboratory Results - last 24 hr 04/27/22 08:36: Total Creatine Kinase 24 L 04/27/22 11:18: POC Glucose 199 H 04/27/22 16:36: POC Glucose 193 H 04/27/22 21:39: POC Glucose 164 H 04/28/22 05:46: Vancomycin Trough 17.5 H 04/28/22 06:33: POC Glucose 135 H Micro: Microbiology 04/24/22 13:25 Mucosa - Nose Respiratory Panel (PCR) - Final 04/24/22 11:50 Nasal Secretion SARS-CoV-2 & FLU Antigen (Rapid) - Final ABG Data ABG results: ABG 04/27/22 14:19 Specimen Type CHIVO VBG pH 7.40 VBG pO2 47 H VBG HCO3 19 L VBG Total CO2 20 L VBG O2 Sat (Calc) 84 H VBG Base Excess -6 L POC Mix VBG pCO2 Pt Tmp 30.8 L O2 Delivery Device Room Air Physical Exam Const alert and no apparent distress Resp normal respiratory effort, no retractions and no use of accessory muscles Assessment & Plan Assessment/Plan (1) 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: PLAN: #Acute hypoxemia secondary to acute on chronic exacerbation of heart failure with reduced ejection fraction combined with chronic diastolic heart failure-improving X-ray does appear to have possible interstitial edema and is worse than x-ray 04/20 Echo in September 2021 with EF of 40%, mild global left ventricular systolic dy sfunction with left atrium moderate enlargement, 2+ tricuspid valve insufficiency, evidence of diastolic dysfunction, and RVSP of 34 BNP 359 Will diurese Chest x-ray in the a.m. Will diurese I's and O's Daily weights Troponin 11 2 L fluid restriction 04/25: Breathing does seem to be improving, got small dose of IV Lasix but creatinine doubled. Daily weights. A.m. chest x-ray read as similar yesterday though appears on film to have decrease in interstitial markings 04/26: Appears dry and FeNa low, holding Lasix, fluids 04/27: Breathing well (2) KATHY (acute kidney injury): PLAN: #KATHY-continues to worsen Creatinine was more than doubled Urine studies suggest prerenal Lasix and Entresto held Gabapentin decreased Very gentle fluid Vancomycin trough elevated, possibly contributor, doses held with plan to repeat level per pharmacy 04/27: Did not respond to fluids, given potassium increase with worsened creatinine, slight acidosis, calcium that down trended we will check CK. If within normal limits will consider consulting nephrology. 04/28: again worse. Did discuss with nephrology fellow is likely a culmination of hypertension, furosemide and vancomycin. PLAN: Plan chronic conditions: * Atrial fibrillation: Continue amiodarone, Eliquis, Cardizem * Olecranon infection, left: Has been seen by surgery service and orthopedic surgery. Will continue vancomycin as previously prescribed, pharmacy dosing * Rheumatoid arthritis Continue leflunomide. 04/25: Prednisone had previously been held, likely due to infection. * Type 2 diabetes mellitus. Glucose checks, sliding scale insulin. 04/25: Persistently elevated, will add long-acting * History of CVA. aspirin, statin * Hypothyroidism: Continue levothyroxine. Last TSH in 06.25 * Normocytic anemia Appears to be at baseline #DVT ppx: On Eliquis Charges/Coding Visit Charges Inpatient E&M: 42553 Subs Hosp L2
--- NOTE | 2022-04-28 10:36 | CON.PCM.RE_ITS ---
Documented by User: OLGA Hernandez 04/28/22 11:15 Assessment & Plan Assessment/Plan (1) KATHY (acute kidney injury): (2) Olecranon bursitis of left elbow: (3) Postoperative seroma: (4) 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: PLAN: Plan We were consulted for acute kidney injury. Patient has normal baseline creatinine level of around 0.8 mg/dL. On April 24 creatinine 1.04 mg/dL, April 25 creatinine 2.04 mg/dL, on April 27 creatinine 2.76 mg/dL and K+ 5.3. Labs are pending today. Patient has been receiving IV antibiotics for left olecranon infection, vancomycin 1250mg IV BID. Vancomycin trough level elevated at 26.6 on April 25, random Vanco level also elevated on April 25. Vanco trough level slightly improved to 17.5 today. UA was negative for blood. CK 24. Entresto and furosemide discontinued on 04/25 and patient received small fluid bolus challenge on 04/26. KATHY likely prerenal possibly from antibiotics, volume depletion from diarrhea with concurrent diuretic and ARB use. Patient is nonoliguric and appears near euvolemic. At this time there is no acute indication for [employer]. Will hold off on any IVF today. BPs acceptable but to note BPs were low on April 25 which may have contributed to decrease effective renal perfusion. Please continue holding lasix/entresto. Labs are pending today but yesterday her potassium was 5.3 and bicarb was 15. If bicarb again low today can start oral sodium bicarbonate. If Potassium remains elevated can add low potassium diet restrictions; if K+>5.5 can give SPS. Will check renal ultrasound. Recommend holding vancomycin for now. Further orders forthco teodoro as hospitalization evolves. HPI Consult Data Date of Consult: 04/28/22 HPI Narrative HPI Narrative: MARIA ISABEL LOPEZ, is a 76 F who presented to the emergency room on April 02 with confusion and fever, found to have UTI and also noted to be in A. fib with RVR therefore admitted for further evaluation and treatment. Patient was seen by surgery during her hospital stay she had undergone excision of subcutaneous mass of left forearm at [facility] April 02. Patient has history of diabetes mellitus type 2, rheumatoid arthritis, heart failure with reduced EF, EF 40%. During her hospitalization patient was treated with antibiotics for E. coli UTI. She was then discharged to TCU for therapy on April 05. During her stay in TCU, patient developed drainage from her left arm incision which grew staph, she was being treated with Zosyn and vancomycin IV. She had MRI of left upper extremity. She was seen by orthopedics who recommended no surgical intervention but did have wound VAC applied. Patient was then transferred to the emergency room for evaluation after she developed fever, hypoxia and confusion while in TCU. We were consulted for acute kidney injury. Patient is alert and oriented to name and place but has a difficult time recalling recent events. Patient denies any nausea or vomiting but does state over the weekend she has been having loose bowel movements. FOR[facility]LY [facility] Medical History Cerebrovascular accident (CVA) Chronic combined systolic and diastolic CHF (congestive heart failure) Chronic pain Diabetes mellitus type 2, uncontrolled Draining cutaneous sinus tract Essential hypertension Fibromyalgia GERD (gastroesophageal reflux disease) HFrEF (heart failure with reduced ejection fraction) Hypercalcemia Hyperlipidemia Hypothyroidism Lipoma of left upper extremity Localized swelling of left forearm Longstanding persistent atrial fibrillation Lupus Morbid obesity Non-ischemic cardiomyopathy Nonalcoholic fatty liver disease Nonrheumatic mitral valve stenosis with insufficiency Olecranon bursitis of left elbow KAROLINA (obstructive sleep apnea) Osteoarthritis Osteoporosis Preoperative evaluation to rule out surgical contraindication Radicular pain of left lower extremity Rheumatoid arthritis RLS (restless legs syndrome) Seroma after procedure Seroma after procedure Smoldering multiple myeloma (SMM) Steroid dependence Stroke Home Medications aspirin 81 mg tablet,delayed release 81 mg PO DAILY heart health 05/24/19 [History Last Taken Unknown] leflunomide 10 mg tablet 10 mg PO QODAY arthritis 09/04/21 [History Last Taken Unknown] loratadine 10 mg tablet (Allergy Relief (loratadine)) 10 mg PO DAILY allergies 10/18/21 [History Last Taken 04/23/22 08:27] atorvastatin 40 mg tablet 40 mg PO QHS cholesterol #90 tabs 11/11/21 [Rx Last Ta fern 04/23/22 21:52] nystatin 100,000 unit/gram topical powder 1 applic topical TID PRN rash #60 gram s 01/02/22 [Rx Last Taken 04/23/22 21:56] pantoprazole 40 mg tablet,delayed release 40 mg PO DAILY reflux #90 tabs 01/02/22 [Rx Last Taken 04/23/22 08:21] prednisone 5 mg tablet 7.5 mg PO QAM steroid 01/31/22 [History Last Taken 04/10/22 09:20] dulaglutide 1.5 mg/0.5 mL subcutaneous pen injector 1.5 mg (0.5 mL) subcut QWEEK diabetes #2 mL 03/12/22 [Rx Last Taken Unknown] amiodarone 200 mg tablet 200 mg PO DAILY arrythmia 04/02/22 [History Last Taken 04/20/22 09:13] diltiazem HCl 120 mg capsule,extended release 24 hr 120 mg PO DAILY heart 04/02/22 [History Last Taken 04/23/22 08:28] hydrocodone-acetaminophen 5-325mg 5mg-325mg 1 tab PO Q8H PRN Pain 04/02/22 [History Last Taken 04/21/22 20:50] omega-3 fatty acids 1,000 mg capsule 2,000 mg PO BID supplement 04/02/22 [History Last Taken Unknown] sacubitril 24 mg-valsartan 26 mg tablet (Entresto) 1 tab PO BID heart failure 04/02/22 [History Last Taken 04/23/22 17:34] apixaban 5 mg tablet (Eliquis) 5 mg PO BID blood thinner 04/05/22 [History Last Taken 04/23/22 17:33] levothyroxine 100 mcg tablet (Synthroid) 100 mcg PO DAILY supplement 04/05/22 [History Last Taken 04/23/22 08:21] acetaminophen 500 mg tablet 1,000 mg PO Q8H PRN PAIN AND FEVER 04/24/22 [History Last Taken 04/13/22 19:31] gabapentin 300 mg capsule 300 mg PO BID NERVE PAIN 04/24/22 [History Last Taken 04/23/22 17:33] melatonin 10 mg capsule 10 mg PO QHS SLEEP 04/24/22 [History Last Taken 04/23/22 21:52] menthol 0.44 %-zinc oxide 20.6 % topical ointment (Calmoseptine) 1 applic topical BID 04/24/22 [History Last Taken 04/23/22 21:53] metoprolol tartrate 50 mg tablet 50 mg PO BID HEART 04/24/22 [History Last Taken 04/23/22 17:34] potassium chloride 20 mEq tablet,extended release 20 meq PO DAILY SUPPLEMENT 04/24/22 [History Last Taken 04/23/22 08:23] sennosides 8.6 mg-docusate sodium 50 mg tablet (Senna with Docusate Sodium) 1 tab-cap PO BID 04/24/22 [History Last Taken 04/22/22 17:29] vancomycin 1.25 gram/250 mL in 0.9 % sodium chloride intravenous 1 g IV Q12H IN FECTION 04/24/22 [History Last Taken 04/24/22 02:13] Allergy/AdvReac Type Severity Reaction Status Date / Time hydroxychloroquine Allergy Severe Shortness Verified 04/23/22 03:04 of breath metformin AdvReac Severe Diarrhea Verified 04/23/22 03:04 methotrexate AdvReac Severe Other Verified 04/23/22 03:04 Sulfa (Sulfonamide AdvReac Intermediate Other Verified 04/23/22 03:04 Antibiotics) Family History Father Diabetes Heart disease Hypertension CVA (cerebral vascular accident) Hyperlipidemia CAD (coronary artery disease) Brother Hypertension Hyperlipidemia Sister THYROID Mother Uterine cancer Surgical History History of appendectomy History of back surgery History of cardioversion (01/15/18) History of left heart catheterization History of mitral valve replacement with bioprosthetic valve (04/23/17) History of radiofrequency ablation (RFA) for complex left atrial arrhythmia (04/25/17) History of right and left heart catheterization (02/25/17) History of total left knee replacement History of total right knee replacement History of transesophageal echocardiography (NEELA) (01/15/18) Social History adopted: No household members: other details: is in a residential and she is cur rently living alone housing: house number of children: 2 current occupational status: retired Smoking Status: Former smoker quit date: 06/08/01 Tobacco: How many years used: 25 how long ago did patient quit smokin years ago- about 2006? alcohol intake: current details: rare occasions substance use type: does not use ROS ROS Narrative As in HPI and past medical history Physical Exam Narrative Const: Alert and oriented x3, no apparent distress Cardio: S1, S2, rhythm irregular, rate controlled Respiratory: Lung sounds clear anteriorly and posteriorly. No wheezes, rhonchi or rales noted Extremities: No pitting edema noted bilateral lower legs or feet pure-wic in place with clear yellow urine in catheter Lab / Micro Data Result Diagrams: 04/27/22 06:01 04/29/22 06:01 Labs: Laboratory Results - last 24 hr 04/27/22 08:36: Total Creatine Kinase 24 L 04/27/22 11:18: POC Glucose 199 H 04/27/22 16:36: POC Glucose 193 H 04/27/22 21:39: POC Glucose 164 H 04/28/22 05:46: Vancomycin Trough 17.5 H 04/28/22 06:33: POC Glucose 135 H ABG Data ABG results: ABG 04/27/22 14:19 Specimen Type CHIVO VBG pH 7.40 VBG pO2 47 H VBG HCO3 19 L VBG Total CO2 20 L VBG O2 Sat (Calc) 84 H VBG Base Excess -6 L POC Mix VBG pCO2 Pt Tmp 30.8 L O2 Delivery Device Room Air Documented by User: Dr. Filipe Fontanez MD 04/29/22 18:46 Assessment & Plan Assessment/Plan (1) KATHY (acute kidney injury): (2) Olecranon bursitis of left elbow: (3) Postoperative seroma: (4) 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: HPI Consult Data Date of Consult: 04/29/22 [facility] Medical History Cerebrovascular accident (CVA) Chronic combined systolic and diastolic CHF (congestive heart failure) Chronic pain Diabetes mellitus type 2, uncontrolled Draining cutaneous sinus tract Essential hypertension Fibromyalgia GERD (gastroesophageal reflux disease) HFrEF (heart failure with reduced ejection fraction) Hypercalcemia Hyperlipidemia Hypothyroidism Lipoma of left upper extremity Localized swelling of left forearm Longstanding persistent atrial fibrillation Lupus Morbid obesity Non-ischemic cardiomyopathy Nonalcoholic fatty liver disease Nonrheumatic mitral valve stenosis with insufficiency Olecranon bursitis of left elbow KAROLINA (obstructive sleep apnea) Osteoarthritis Osteoporosis Preoperative evaluation to rule out surgical contraindication Radicular pain of left lower extremity Rheumatoid arthritis RLS (restless legs syndrome) Seroma after procedure Seroma after procedure Smoldering multiple myeloma (SMM) Steroid dependence Stroke Home Medications aspirin 81 mg tablet,delayed release 81 mg PO DAILY heart health 05/24/19 [History Last Taken Unknown] leflunomide 10 mg tablet 10 mg PO QODAY arthritis 09/04/21 [History Last Taken Unknown] loratadine 10 mg tablet (Allergy Relief (loratadine)) 10 mg PO DAILY allergies 10/18/21 [History Last Taken 04/23/22 08:27] atorvastatin 40 mg tablet 40 mg PO QHS cholesterol #90 tabs 11/11/21 [Rx Last Taken 04/23/22 21:52] nystatin 100,000 unit/gram topical powder 1 applic topical TID PRN rash #60 grams 01/02/22 [Rx Last Taken 04/23/22 21:56] pantoprazole 40 mg tablet,delayed release 40 mg PO DAILY reflux #90 tabs 01/02/22 [Rx Last Taken 04/23/22 08:21] prednisone 5 mg tablet 7.5 mg PO QAM steroid 01/31/22 [History Last Taken 09:20] dulaglutide 1.5 mg/0.5 mL subcutaneous pen injector 1.5 mg (0.5 mL) subcut QWEEK diabetes #2 mL 03/12/22 [Rx Last Taken Unknown] amiodarone 200 mg tablet 200 mg PO DAILY arrythmia 04/02/22 [History Last Taken 04/20/22 09:13] diltiazem HCl 120 mg capsule,extended release 24 hr 120 mg PO DAILY heart 04/02/22 [History Last Taken 04/23/22 08:28] hydrocodone-acetaminophen 5-325mg 5mg-325mg 1 tab PO Q8H PRN Pain 04/02/22 [History Last Taken 04/21/22 20:50] omega-3 fatty acids 1,000 mg capsule 2,000 mg PO BID supplement 10/26/22 [History Last Taken Unknown] sacubitril 24 mg-valsartan 26 mg tablet (Entresto) 1 tab PO BID heart failure 04/02/22 [History Last Taken 04/23/22 17:34] apixaban 5 mg tablet (Eliquis) 5 mg PO BID blood thinner 04/05/22 [History Last Taken 04/23/22 17:33] levothyroxine 100 mcg tablet (Synthroid) 100 mcg PO DAILY supplement 04/05/22 [History Last Taken 04/23/22 08:21] acetaminophen 500 mg tablet 1,000 mg PO Q8H PRN PAIN AND FEVER 04/24/22 [History Last Taken 04/13/22 19:31] gabapentin 300 mg capsule 300 mg PO BID NERVE PAIN 04/24/22 [History Last Taken 04/23/22 17:33] melatonin 10 mg capsule 10 mg PO QHS SLEEP 04/24/22 [History Last Taken 04/23/22 21:52] menthol 0.44 %-zinc oxide 20.6 % topical ointment (Calmoseptine) 1 applic topical BID 04/24/22 [History Last Taken 04/23/22 21:53] metoprolol tartrate 50 mg tablet 50 mg PO BID HEART 04/24/22 [History Last Taken 04/23/22 17:34] potassium chloride 20 mEq tablet,extended release 20 meq PO DAILY SUPPLEMENT 04/24/22 [History Last Taken 04/23/22 08:23] sennosides 8.6 mg-docusate sodium 50 mg tablet (Senna with Docusate Sodium) 1 tab-cap PO BID 04/24/22 [History Last Taken 04/22/22 17:29] vancomycin 1.25 gram/250 mL in 0.9 % sodium chloride intravenous 1 g IV Q12H INFECTION 04/24/22 [History Last Taken 04/24/22 02:13] Allergy/AdvReac Type Severity Reaction Status Date / Time hydroxychloroquine Allergy Severe Shortness Verified 04/23/22 03:04 of breath metformin AdvReac Severe Diarrhea Verified 04/23/22 03:04 methotrexate AdvReac Severe Other Verified 04/23/22 03:04 Sulfa (Sulfonamide AdvReac Intermediate Other Verified 04/23/22 03:04 Antibiotics) Family History Father Diabetes Heart disease Hypertension CVA (cerebral vascular accident) Hyperlipidemia CAD (coronary artery disease) Brother Hypertension Hyperlipidemia Sister THYROID Mother Uterine cancer Surgical History History of appendectomy History of back surgery History of cardioversion (01/15/18) History of left heart catheterization History of mitral valve replacement with bioprosthetic valve (04/23/17) History of radiofrequency ablation (RFA) for complex left atrial arrhythmia (04/25/17) History of right and left heart catheterization (02/25/17) History of total left knee replacement History of total right knee replacement History of transesophageal echocardiography (NEELA) (01/15/18) Social History adopted: No household members: other details: is in a residential and she is currently living alone housing: house number of children: 2 current occupational status: retired Smoking Status: Former smoker quit date: 06/08/01 Tobacco: How many years used: 25 how long ago did patient quit smokin years ago- about 2006? alcohol intake: current details: rare occasions substance use type: does not use Lab / Micro Data Result Diagrams: 04/27/22 06:01 04/29/22 06:01
[2022-04-28 11:07] LABS: Anion Gap 7 (5-15); BUN 27 mg/dL (7-18); BUN/Creat Ratio 9.3 RATIO (10-20); Calcium,Total 9.3 mg/dL (8.5-10.1); Chloride 109 mmol/L (98-107); Creatinine, Serum 2.89 mg/dL (0.55-1.02); EST Glomerular Filtration Rate 17 mL/min (>60); Est Glom Filt Rate - Afr Amer 20 mL/min (>60); Estimated Creatinine Clearance 14.75 ml/min; Glucose 142 mg/dL (74-106); Potassium 4.6 mmol/L (3.5-5.1); Sodium Level 136 mmol/L (136-145)
--- NOTE | 2022-04-28 11:15 | US_ITS ---
HISTORY: KATHY. TECHNIQUE: Ramos scale and color doppler images were obtained of the kidneys. 67 images. COMPARISON: None. FINDINGS: RIGHT KIDNEY: 11.6 cm in length with a cortical thickness of 2.1 cm. Echogenicity unremarkable. No hydronephrosis. No gross renal mass demonstrated. LEFT KIDNEY: 11.4 cm in length with a cortical thickness of 2.1 cm. Echogenicity unremarkable. No hydronephrosis. 1 x 1 x 1.7 cm cyst. URINARY BLADDER: Unremarkable at 127 cc with a wall thickness of 4 mm. Right ureteral jet visualized. US/Kidney and Bladder IMPRESSION: No evidence of hydronephrosis. Small left renal cyst. Electronically Signed: Tracie Brandon MD at 15:41 EST ,
[2022-04-28] MEDS: Insulin Lispro 100 UNIT/ML INSULN.PEN SC ×2 (11:29→16:31)
[2022-04-28 12:01] LABS: Bedside Glucose 167 mg/dL (74-106)
[2022-04-28 16:55] LABS: Bedside Glucose 156 mg/dL (74-106)
[2022-04-28] MEDS: Atorvastatin Calcium 40 MG Tablet PO (21:21)
[2022-04-28] MEDS: MELATONIN 10 MG TABLET PO (21:21)
[2022-04-28 21:55] LABS: Bedside Glucose 134 mg/dL (74-106)
[2022-04-29] VITALS (13 sets, daily range): BP systolic 103–148; BP diastolic 64–89; PULSE 56–82; RESP 14–18; TEMP 36.5–37; O2SAT 94–96
[2022-04-29] MEDS: Levothyroxine 100 MCG Tablet PO (06:30)
[2022-04-29 06:42] LABS: Anion Gap 7 (5-15); BUN 28 mg/dL (7-18); Calcium,Total 9.6 mg/dL (8.5-10.1); Chloride 109 mmol/L (98-107); EST Glomerular Filtration Rate 16 mL/min (>60); Est Glom Filt Rate - Afr Amer 19 mL/min (>60); Estimated Creatinine Clearance 13.75 ml/min; Glucose 122 mg/dL (74-106); Potassium 4.6 mmol/L (3.5-5.1); Sodium Level 134 mmol/L (136-145)
[2022-04-29 06:46] LABS: Vancomycin, Random Level 24.3 ug/mL (0.0-15.0)
[2022-04-29 07:05] LABS: Bedside Glucose 126 mg/dL (74-106)
--- NOTE | 2022-04-29 08:06 | PHA.PHARE_ITS ---
Consult Pharmacy has been consulted to manage selected antiobiotic: Vancomycin Type of Consult: Follow-up Prior Doses of Antibiotics Received/Current Regimen: received 1000mg IV x1 yesterday at 09:18 Labs: Sodium 134 mmol/L (136-145) L 04/29/22 06:01 Potassium 4.6 mmol/L (3.5-5.1) 04/29/22 06:01 Chloride 109 mmol/L (98-107) H 04/29/22 06:01 Carbon Dioxide 18.0 mmol/L (21.0-32.0) L 04/29/22 06:01 Anion Gap 7 (5-15) 04/29/22 06:01 BUN 28 mg/dL (7-18) H 04/29/22 06:01 Creatinine 3.10 mg/dL (0.55-1.02) H 04/29/22 06:01 Est GFR (MDRD) Af Amer 19 mL/min (>60) L 04/29/22 06:01 Est GFR (MDRD) Non-Af 16 mL/min (>60) L 04/29/22 06:01 BUN/Creatinine Ratio 9.0 RATIO (10-20) L 04/29/22 06:01 Glucose 122 mg/dL (74-106) H 04/29/22 06:01 Vancomycin Trough 17.5 ug/mL (5.0-15.0) H 04/28/22 05:46 Random Vancomycin 24.3 ug/mL (0.0-15.0) H 04/29/22 06:01 Microbiology: Microbiology 04/24/22 13:25 Mucosa - Nose Respiratory Panel (PCR) - Final 04/24/22 11:50 Nasal Secretion SARS-CoV-2 & FLU Antigen (Rapid) - Final Weight used for dosin.1 kg Estimated Creatinine Clearance: 18.3ml/min Goal Trough: 15-20 mcg/mL Pharmacy Plan for Drug Dosing: The vanc random level drawn at 06:01 today (approximately 21 hours after the dose yesterday) came back as 24.3. Since this is above the goal range of 15- 20, will not need another dose today. Given the patient's recent history of the vanc level remaining elevated for a few days after a dose is given and noting that the patient's SCr continues to rise (now at 3.10 today), will wait for another 48 hours to get another vanc random level. The patient's CrCl of 18.3 ml/min was calculated using an adjusted body weight. Pharmacy Service will continue to monitor and adjust dosing as required. Follow-Up Labs: Trough Vancomycin - random Labs to be done on [date and time ordered]: 05/01/22 0600
--- NOTE | 2022-04-29 08:22 | PN.HOSP_ITS ---
Subjective Subjective Breathing well. Denies any complaints. Objective Data Objective Data Vital Signs: Vital Signs Temp Pulse Resp BP Pulse Ox O2 Del Method O2 Flow Rate 36.5 C L 77 16 135/81 H 94 Room Air 1.5 04/29/22 03:26 04/29/22 06:59 04/29/22 03:26 04/29/22 03:26 04/29/22 03:26 04/29/22 03:41 04/27/22 11:14 Oxygen Flow Rate (L/min) 1.5 Oxygen Delivery Method Room Air Weight: 100.1 kg Body Mass Index (BMI) 37.2 Intake & Output: Intake and Output for Last 24 Hours 04/27/22 04/28/22 04/29/22 23:59 23:59 23:59 Intake Total 2706.67 / 2706.67 920 / 920 Output Total 930 / 1205 1325 / 1325 600 / 600 Balance 1776.67 / 1501.67 -405 / -405 -600 / -600 Lab / Micro Data Result Diagrams: 04/27/22 06:01 04/29/22 06:01 Labs: Laboratory Results - last 24 hr 04/28/22 05:46: Sodium 136, Potassium 4.6, Chloride 109 H, Carbon Dioxide 20.0 L , Anion Gap 7, BUN 27 H, Creatinine 2.89 H, Estim Creat Clear Calc 14.75, Est GFR (MDRD) Af Amer 20 L, Est GFR (MDRD) Non-Af 17 L, BUN/Creatinine Ratio 9.3 L, Glucose 142 H, Calcium 9.3 04/28/22 11:28: POC Glucose 167 H 04/28/22 16:31: POC Glucose 156 H 04/28/22 21:17: POC Glucose 134 H 04/29/22 06:01: Random Vancomycin 24.3 H 04/29/22 06:01: Sodium 134 L, Potassium 4.6, Chloride 109 H, Carbon Dioxide 18.0 L, Anion Gap 7, BUN 28 H, Creatinine 3.10 H, Estim Creat Clear Calc 13.75, Est GFR (MDRD) Af Amer 19 L, Est GFR (MDRD) Non-Af 16 L, BUN/Creatinine Ratio 9.0 L, Glucose 122 H, Calcium 9.6 04/29/22 06:32: POC Glucose 126 H Micro: Microbiology 04/24/22 13:25 Mucosa - Nose Respiratory Panel (PCR) - Final 04/24/22 11:50 Nasal Secretion SARS-CoV-2 & FLU Antigen (Rapid) - Final Radiography Diagnostic Testing: Radiology Impression Renal Ultrasound 04/28/22 11:15 IMPRESSION: No evidence of hydronephrosis. Small left renal cyst. Electronically Signed: Tracie Brandon MD at 15:41 EST , Physical Exam Const alert and no apparent distress HEENT head/scalp atraumatic Resp normal respiratory effort, no retractions, no use of accessory muscles and clear to auscultation bilaterally Cardio regular rate, regular rhythm, S1 normal heart sound and S2 normal heart sound GI normal to inspection, nondistended, normoactive bowel sounds Extremity Extremity Narrative: Left elbow incision clean and intact. Neuro oriented x3 Assessment & Plan Assessment/Plan (1) 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: PLAN: #Acute hypoxemia secondary to acute on chronic exacerbation of heart failure with reduced ejection fraction combined with chronic diastolic heart failure-improving X-ray does appear to have possible interstitial edema and is worse than x-ray 04/20 Echo in September 2021 with EF of 40%, mild global left ventricular systolic dy sfunction with left atrium moderate enlargement, 2+ tricuspid valve insufficiency, evidence of diastolic dysfunction, and RVSP of 34 BNP 359 I's and O's Daily weights Troponin 11 2 L fluid restriction 04/25: Breathing does seem to be improving, got small dose of IV Lasix but creatinine doubled. Daily weights. A.m. chest x-ray read as similar yesterday though appears on film to have decrease in interstitial markings 04/26: Appears dry and FeNa low, holding Lasix, fluids 04/27: Breathing well (2) KATHY (acute kidney injury): PLAN: #KATHY-continues to worsen Nonoliguric urine studies suggest prerenal Lasix and Entresto held Gabapentin decreased Very gentle fluid Vancomycin trough elevated, possibly contributor, doses held with plan to repeat level per pharmacy 04/27: Did not respond to fluids, given potassium increase with worsened creatinine, slight acidosis, calcium that down trended we will check CK. If within normal limits will consider consulting nephrology. 04/28: again worse. Did discuss with nephrology fellow is likely a culmination of hypertension, furosemide and vancomycin. (3) Postoperative seroma: PLAN: Reviewed records from [facility] and also notes from Dr. Cummings on the . [place] the patient had a postoperative seroma with draining sinus tact that it stopped. Patient did have a culture that grew out Staphylococcus hemolyticus. Given his benign appearance of her elbow, will discontinue antibiotics altogether. Patient had been put on vancomycin. [facility] PLAN: Plan chronic conditions: * Atrial fibrillation: Continue amiodarone, Eliquis, Cardizem * Rheumatoid arthritis Continue leflunomide. 04/25: Prednisone had previously been held, likely due to infection. * Type 2 diabetes mellitus. Glucose checks, sliding scale insulin. 04/25: Persistently elevated, will add long-acting * History of CVA. aspirin, statin * Hypothyroidism: Continue levothyroxine. Last TSH in 06.25 * Normocytic anemia Appears to be at baseline #DVT ppx: On Eliquis Greater than 35 minutes of which greater than 50% of the time was discussed with the patient at bedside but also reviewing records through [facility]. Charges/Coding Visit Charges Inpatient E&M: 39059 [facility] L3
[2022-04-29] MEDS: Insulin Glargine-YFGN 100 UNIT/ML Pen SC (09:27)
[2022-04-29] MEDS: Metoprolol Tartrate 50 MG Tablet PO ×2 (09:27→21:37)
[2022-04-29] MEDS: Gabapentin 100 MG Capsule PO ×2 (09:27→21:37)
[2022-04-29] MEDS: Aspirin E.C. 81 MG Tablet PO (09:27)
[2022-04-29] MEDS: Pantoprazole Sodium 40 MG Tablet PO (09:27)
[2022-04-29] MEDS: Amiodarone 200 MG Tablet PO (09:27)
[2022-04-29] MEDS: APIXABAN 5 MG TABLET PO ×2 (09:27→21:37)
[2022-04-29] MEDS: Insulin Lispro 100 UNIT/ML INSULN.PEN SC ×3 (12:23→21:41)
[2022-04-29] MEDS: dilTIAZem CD 120 MG Capsule PO (12:23)
--- NOTE | 2022-04-29 12:42 | PN.RENAL_ITS ---
Documented by User: OLGA Hernandez 04/29/22 12:51 Subjective Subjective Following for KATHY Patient resting in bed. No complaints. No overnight events. Denies any nausea or vomiting. Denies diarrhea today. Objective Data Objective Data Vital Signs: Vital Signs Temp Pulse Resp BP Pulse Ox O2 Del Method O2 Flow Rate 98.6 F 77 16 142/89 H 94 Room Air 1.5 04/29/22 09:00 04/29/22 12:22 04/29/22 09:00 04/29/22 12:22 04/29/22 09:00 04/29/22 10:00 04/27/22 11:14 Oxygen Flow Rate (L/min) 1.5 Oxygen Delivery Method Room Air Weight: 100.1 kg Body Mass Index (BMI) 37.2 Intake & Output: Intake and Output for Last 24 Hours 04/27/22 04/28/22 04/29/22 23:59 23:59 23:59 Intake Total 2706.67 / 2706.67 920 / 920 Output Total 930 / 1205 1325 / 1325 1100 / 1100 Balance 1776.67 / 1501.67 -405 / -405 -1100 / -1100 Lab / Micro Data Result Diagrams: 04/27/22 06:01 04/29/22 06:01 Labs: Laboratory Results - last 24 hr 04/28/22 16:31: POC Glucose 156 H 04/28/22 21:17: POC Glucose 134 H 04/29/22 06:01: Random Vancomycin 24.3 H 04/29/22 06:01: Sodium 134 L, Potassium 4.6, Chloride 109 H, Carbon Dioxide 18.0 L, Anion Gap 7, BUN 28 H, Creatinine 3.10 H, Estim Creat Clear Calc 13.75, Est GFR (MDRD) Af Amer 19 L, Est GFR (MDRD) Non-Af 16 L, BUN/Creatinine Ratio 9.0 L, Glucose 122 H, Calcium 9.6 04/29/22 06:32: POC Glucose 126 H Micro: Microbiology 04/24/22 13:25 Mucosa - Nose Respiratory Panel (PCR) - Final 04/24/22 11:50 Nasal Secretion SARS-CoV-2 & FLU Antigen (Rapid) - Final Radiography Diagnostic Testing: Radiology Impression Renal Ultrasound 04/28/22 11:15 IMPRESSION: No evidence of hydronephrosis. Small left renal cyst. Electronically Signed: Tracie Brandon MD at 15:41 EST , Physical Exam Narrative Const: Alert and oriented x3, no apparent distress Cardio: S1, S2, rhythm irregular, rate controlled Respiratory: Lung sounds clear anteriorly and posteriorly. No wheezes, rhonchi or rales noted Extremities: No pitting edema noted bilateral lower legs or feet. Trace edema hands/fingers pure-wick in place with clear yellow urine in catheter Assessment & Plan Assessment/Plan (1) KATHY (acute kidney injury): (2) Olecranon bursitis of left elbow: (3) Postoperative seroma: (4) 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: PLAN: Plan -Nonoliguric euvolemic KATHY with normal baseline Creatinine of ~0.8 mg/dL. SCr began to rise on 04/24. Today SCr 3.10mg/dL. UA was negative for blood. CK 24. Entresto and furosemide discontinued on 04/25 and patient received small fluid bolus challenge on 04/26. KATHY likely prerenal possibly from antibiotics (zosyn and vanco), volume depletion from diarrhea with concurrent diuretic and ARB use. Last vanco dose 04/28. Random vanco level from today elevated at 24.3. Renal US no hydro. 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 Will hold off on any IVF today. Encouraged patient to increase solute/fluid intake. BPs acceptable but to note BPs were low on April 25 which may have contributed to decrease effective renal perfusion. -Please continue holding Vanco, lasix and entresto. Patient has history of heart failure but appears compensated at this time. Documented by User: Dr. Filipe Fontanez MD 04/29/22 18:50 Objective Data Lab / Micro Data Result Diagrams: 04/27/22 06:01 04/29/22 06:01 Assessment & Plan Assessment/Plan (1) KATHY (acute kidney injury): (2) Olecranon bursitis of left elbow: (3) Postoperative seroma: (4) 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: PLAN: Plan -Nonoliguric euvolemic KATHY with normal baseline Creatinine of ~0.8 mg/dL. SCr began to rise on 04/24. Today SCr 3.10mg/dL. UA was negative for blood. CK 24. Entresto and furosemide discontinued on 04/25 and patient received small fluid bolus challenge on 04/26. KATHY likely prerenal possibly from antibiotics (zosyn and vanco), volume depletion from diarrhea with concurrent diuretic and ARB use. Last vanco dose 04/28. Random vanco level from today elevated at 24.3. Renal US no hydro. 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 Will hold off on any IVF today. Encouraged patient to increase solute/fluid intake. BPs acceptable but to note BPs were low on April 25 which may have contributed to decrease effective r enal perfusion. -Please continue holding Vanco, lasix and entresto. Patient has history of heart failure but appears compensated at this time. Nephrology attending addendum: Patient seen and examined. AUTOMATIC BANDSAW TENDER's assessment and plans reflects my independent evaluation and management plan. Although there is some rising serum creatinine, the patient is not severely acidotic or hyperkalemic. She is nonoliguric. No need for kidney replacement therapy today. Agree with holding Entresto and furosemide. Recheck renal function, volume status, and electrolytes again tomorrow.
[2022-04-29 12:45] LABS: Bedside Glucose 181 mg/dL (74-106)
[2022-04-29 17:35] LABS: Bedside Glucose 152 mg/dL (74-106)
[2022-04-29] MEDS: MELATONIN 10 MG TABLET PO (21:37)
[2022-04-29] MEDS: Atorvastatin Calcium 40 MG Tablet PO (21:37)
[2022-04-30 03:00] VITALS: BP 129/70; PULSE 61; PULSE 74; RESP 17; TEMP 37.1; O2SAT 98
[2022-04-30 03:22] VITALS: BP 129/70; PULSE 61; RESP 17; TEMP 37.1; O2SAT 98
[2022-04-30 03:31] LABS: Bedside Glucose 193 mg/dL (74-106)
[2022-04-30] MEDS: Levothyroxine 100 MCG Tablet PO (06:28)
[2022-04-30 06:36] LABS: ALB/GLOB Ratio 0.4 RATIO (0.9-2.4); AST(SGOT) 15 U/L (15-37); Alanine Aminotransfer ALT/SGPT 14 U/L (13-56); Albumin, Serum 1.6 g/dL (3.2-5.0); Alkaline Phosphatase 173 U/L (45-117); Anion Gap 7 (5-15); BUN 28 mg/dL (7-18); BUN/Creat Ratio 9.1 RATIO (10-20); Calcium,Total 9.4 mg/dL (8.5-10.1); Chloride 108 mmol/L (98-107); Creatinine, Serum 3.09 mg/dL (0.55-1.02); EST Glomerular Filtration Rate 16 mL/min (>60); Est Glom Filt Rate - Afr Amer 19 mL/min (>60); Estimated Creatinine Clearance 13.79 ml/min; Globulin 3.9 g/dL (2.2-4.2); Glucose 138 mg/dL (74-106); Potassium 4.5 mmol/L (3.5-5.1); Protein, Total 5.5 g/dL (6.4-8.2); Sodium Level 135 mmol/L (136-145)
[2022-04-30 07:00] VITALS: PULSE 76
--- NOTE | 2022-04-30 08:02 | PCM.PN.HOSP ---
Subjective Subjective Feels well. Objective Data Objective Data Vital Signs: Vital Signs Temp Pulse Resp BP Pulse Ox O2 Del Method O2 Flow Rate 37.1 C 76 17 129/70 H 98 Room Air 1.5 04/30/22 03:22 04/30/22 07:00 04/30/22 03:22 04/30/22 03:22 04/30/22 03:22 04/30/22 03:22 04/27/22 11:14 Oxygen Flow Rate (L/min) 1.5 Oxygen Delivery Method Room Air Weight: 100.6 kg Body Mass Index (BMI) 37.2 Intake & Output: Intake and Output for Last 24 Hours 04/28/22 04/29/22 04/30/22 23:59 23:59 23:59 Intake Total 920 / 920 275 / 275 375 / 375 Output Total 1325 / 1325 1900 / 1900 180 / 180 Balance -405 / -405 -1625 / -1625 195 / 195 Lab / Micro Data Result Diagrams: 04/27/22 06:01 04/30/22 05:06 Labs: Laboratory Results - last 24 hr 04/29/22 12:22: POC Glucose 181 H 04/29/22 17:13: POC Glucose 152 H 04/29/22 21:41: POC Glucose 193 H 04/30/22 05:06: Sodium 135 L, Potassium 4.5, Chloride 108 H, Carbon Dioxide 20.0 L, Anion Gap 7, BUN 28 H, Creatinine 3.09 H, Estim Creat Clear Calc 13.79, Est GFR (MDRD) Af Amer 19 L, Est GFR (MDRD) Non-Af 16 L, BUN/Creatinine Ratio 9.1 L, Glucose 138 H, Calcium 9.4, Total Bilirubin 0.30, AST 15, ALT 14, Alkaline Phosphatase 173 H, Total Protein 5.5 L, Albumin 1.6 L, Globulin 3.9, Albumin/Globulin Ratio 0.4 L Micro: Microbiology 04/24/22 13:25 Mucosa - Nose Respiratory Panel (PCR) - Final 04/24/22 11:50 Nasal Secretion SARS-CoV-2 & FLU Antigen (Rapid) - Final Physical Exam Const alert and no apparent distress Neck no lymphadenopathy Resp normal respiratory effort, no retractions, no use of accessory muscles and clear to auscultation bilaterally Cardio regular rate, regular rhythm, S1 normal heart sound and S2 normal heart sound GI normal to inspection, nondistended, normoactive bowel sounds Extremity Extremity Narrative: Edema in upper and lower extremities. Left elbow incision is clean but proximally, there is no opening but without any erythema. Assessment & Plan Assessment/Plan (1) 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: PLAN: Stable at this time Echo in September 2021 with EF of 40%, mild global left ventricular systolic dysfunction with left atrium moderate enlargement, 2+ tricuspid valve insufficiency, evidence of diastolic dysfunction, and RVSP of 34 BNP 359 I's and O's Daily weights Troponin 11 2 L fluid restriction 04/25: Breathing does seem to be improving, got small dose of IV Lasix but creatinine doubled. Daily weights. A.m. chest x-ray read as similar yesterday though appears on film to have decrease in interstitial markings 04/26: Appears dry and FeNa low, holding Lasix, fluids 04/27: Breathing well (2) KATHY (acute kidney injury): PLAN: Creatinine stable today. Nonoliguric urine studies suggest prerenal Lasix and Entresto held Gabapentin decreased Very gentle fluid Vancomycin trough elevated, possibly contributor, doses held with plan to repeat level per pharmacy 04/27: Did not respond to fluids, given potassium increase with worsened creatinine, slight acidosis, calcium that down trended we will check CK. If within normal limits will consider consulting nephrology. 04/28: again worse. Did discuss with nephrology fellow is likely a culmination of hypertension, furosemide and vancomycin. Follow-up with nephrology as outpatient (3) Postoperative seroma: PLAN: Reviewed records from [facility] and also notes from Dr. Cummings on the . [place] the patient had a postoperative seroma with draining sinus tact that it stopped. Patient did have a culture that grew out Staphylococcus hemolyticus. Given his benign appearance of her elbow, will discontinue antibiotics altogether. Patient had been put on vancomycin. I did review through [facility] records. Follow-up with orthopedics as outpatient We will discontinue antibiotics as there is no clear infection at this time. PLAN: Plan chronic conditions: Atrial fibrillation: Continue amiodarone, Eliquis, Cardizem Rheumatoid arthritis Continue leflunomide. 04/25: Prednisone had previously been held, likely due to infection. Type 2 diabetes mellitus. Glucose checks, sliding scale insulin. 04/25: Persistently elevated, will add long-acting History of CVA. aspirin, statin Hypothyroidism: Continue levothyroxine. Last TSH in March 08. Normocytic anemia Appears to be at baseline #DVT ppx: On Eliquis Disposition: Patient to go to [facility].
[2022-04-30 08:24] VITALS: BP 133/87; PULSE 72; RESP 18; TEMP 37.1; O2SAT 95
[2022-04-30] MEDS: Aspirin E.C. 81 MG Tablet PO (08:28)
[2022-04-30 08:30] VITALS: BP 133/87; PULSE 72; RESP 18; TEMP 37.1; O2SAT 95
[2022-04-30 08:35] LABS: Bedside Glucose 143 mg/dL (74-106)
--- NOTE | 2022-04-30 09:18 | WOUNDNOTE ---
wound photo: left elbow
--- NOTE | 2022-04-30 10:10 | TREXTCAR_ITS ---
Diet Diet Order/Speech Therapy: 04/26/22 11:14 Diet: Cardiac: Calorie-Controlled Food consistency:: Regular Liquid Consistency:: Regular/Thin Dietary Modifications:: Consistent Carbohydrate Sodium Restricted Is pt able to select menu?: No Fluid restriction:: 2000 mL How many daily calories?: 1600 calorie Routine Orders/Code Status Routine Lab Work: CBC (weekly) and BMP (Mondays and Wednesdays. ) Code Status: Full Code Wound(s) Left Elbow: Wound Type: healed incision with 2 small puncture sites Dressing Change: dry dressing Right posterior thigh: Wound Type: 2 scabs Coccyx: Wound Type: Pressure Injury beth buttocks: Wound Type: Pressure Injury Therapies Weight Bearing: Full weight bearing Physical Therapy: Eval and Treat Occupational Therapy: Eval and Treat Problem/Diagnosis (1) 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: Status: Acute Code(s): I50.40 - Unspecified combined systolic (congestive) and diastolic (congestive) heart failure Plan: Stable at this time Echo in September 2021 with EF of 40%, mild global left ventricular systolic dysfunction with left atrium moderate enlargement, 2+ tricuspid valve insufficiency, evidence of diastolic dysfunction, and RVSP of 34 BNP 359 I's and O's Daily weights Troponin 11 2 L fluid restriction 04/25: Breathing does seem to be improving, got small dose of IV Lasix but creatinine doubled. Daily weights. A.m. chest x-ray read as similar yesterday though appears on film to have decrease in interstitial markings 04/26: Appears dry and FeNa low, holding Lasix, fluids 04/27: Breathing well (2) KATHY (acute kidney injury): Status: Acute Code(s): N17.9 - Acute kidney failure, unspecified Plan: Creatinine stable today. Nonoliguric urine studies suggest prerenal Lasix and Entresto held Gabapentin decreased Very gentle fluid Vancomycin trough elevated, possibly contributor, doses held with plan to repeat level per pharmacy 04/27: Did not respond to fluids, given potassium increase with worsened creatinine, slight acidosis, calcium that down trended we will check CK. If within normal limits will consider consulting nephrology. 04/28: again worse. Did discuss with nephrology fellow is likely a culmination of hypertension, furosemide and vancomycin. Follow-up with nephrology as outpatient (3) Postoperative seroma: Status: Acute Plan: Reviewed records from [facility] and also notes from Dr. Cummings on the . [place] the patient had a postoperative seroma with draining sinus tact that it stopped. Patient did have a culture that grew out Staphylococcus hemolyticus. Given his benign appearance of her elbow, will discontinue anti biotics altogether. Patient had been put on vancomycin. I did review through [facility] records. Follow-up with orthopedics as outpatient We will discontinue antibiotics as there is no clear infection at this time. Plan chronic conditions: * Atrial fibrillation: Continue amiodarone, Eliquis, Cardizem * Rheumatoid arthritis Continue leflunomide. 04/25: Prednisone had previously been held, likely due to infection. * Type 2 diabetes mellitus. Glucose checks, sliding scale insulin. 04/25: Persistently elevated, will add long-acting * History of CVA. aspirin, statin * Hypothyroidism: Continue levothyroxine. Last TSH in 06.25 * Normocytic anemia Appears to be at baseline #DVT ppx: On Eliquis Disposition: Patient to go to assisted facility. Allergies/Procedures Done in Hospital Allergies hydroxychloroquine Allergy (Severe, Verified 04/23/22 03:04) Shortness of breath metformin Adverse Reaction (Severe, Verified 04/23/22 03:04) Diarrhea methotrexate Adverse Reaction (Severe, Verified 04/23/22 03:04) Other PASSES OUT Sulfa (Sulfonamide Antibiotics) Adverse Reaction (Intermediate, Verified 04/23/22 03:04) Other BLISTERS Procedures: None Type of Care/Length of Stay Estimated LOS: Convalescent Care Less Than 30 days Type of Care Needed: Skilled Rehab Potential: Fair Prognosis: Good Additional Orders/Day of Discharge Day of Discharge: 04/30/22 Dietary and Speech Recommendations Dietitian Recommendations/Changes: Will change diet to 1600 calorie/consistent carbohydrate; cardiac/sodium-restricted diet with 2L FR per day as per physician order. ONS as needed if PO fails at meals, will defer for now. Diet education as pt willing; suspect continued dietary noncompliance especially given multiple diet instruction. Discharge Plan Admission Admit Date/Time: 04/24/22 11:16 Primary Reason for Your Visit: congestive heart failure. KATHY Attending Provider: Pacheco Robbins Primary Care Provider: Grayson Newton Consulting Providers: Filipe Fontanez ; Mary Beth Kraft Discharge Orders/Prescriptions Prescriptions: New gabapentin 100 mg Capsule 100 mg PO BID Qty: 0 0RF furosemide 20 mg tablet 20 mg PO DAILY Qty: 30 0RF Rx Instructions: start 05/05/2022 Continued prednisone 5 mg tablet 7.5 mg PO QAM loratadine [Allergy Relief (loratadine)] 10 mg tablet 10 mg PO DAILY nystatin 100,000 unit/gram powder 1 applic topical TID PRN (Reason: rash) Qty: 60 1RF pantoprazole 40 mg tablet,delayed release (DR/EC) 40 mg PO DAILY Qty: 90 3RF aspirin 81 MG tablet,delayed release (DR/EC) 81 mg PO DAILY leflunomide 10 mg tablet 10 mg PO QODAY diltiazem HCl 120 mg capsule,extended release 24hr 120 mg PO DAILY omega-3 fatty acids 1,000 mg Capsule 2,000 mg PO BID amiodarone 200 mg Tablet 200 mg PO DAILY levothyroxine [Synthroid] 100 mcg tablet 100 mcg PO DAILY Eliquis 5 mg tablet 5 mg PO BID acetaminophen 500 mg Tablet 1,000 mg PO Q8H PRN (Reason: PAIN AND FEVER) sennosides-docusate sodium [Senna with Docusate Sodium] 8.6-50 mg Tablet 1 tab-cap PO BID metoprolol tartrate 50 mg Tablet 50 mg PO BID menthol-zinc oxide [Calmoseptine] 0.44-20.6 % Ointment 1 applic TOPICAL BID melatonin 10 mg Capsule 10 mg PO QHS atorvastatin 40 mg tablet 40 mg PO QHS Qty: 90 3RF dulaglutide 1.5 mg/0.5 mL pen injector 1.5 mg subcut QWEEK Qty: 2 3RF Discontinued Entresto 24-26 mg tablet 1 tab PO BID gabapentin 300 mg Capsule 300 mg PO BID vancomycin in 0.9 % sodium chl 1.25 gram/250 mL Solution 1 g IV Q12H potassium chloride 20 mEq Tablet Extended Release 20 meq PO DAILY No Action hydrocodone-acetaminophen 5-325 mg tablet 1 tab PO Q8H PRN (Reason: Pain) Referrals / Follow Up: Ceci Cuello DO [Med Staff - Consulting] - Within 2 Weeks Grayson Newton MD [Primary Care Provider] - Within 2 Weeks Disposition Disposition (needs filled in before D/C Order can be placed): Retirement Facility
[2022-04-30 10:15] VITALS: PULSE 72
[2022-04-30] MEDS: APIXABAN 5 MG TABLET PO (10:15)
[2022-04-30] MEDS: Metoprolol Tartrate 50 MG Tablet PO (10:15)
[2022-04-30] MEDS: Insulin Glargine-YFGN 100 UNIT/ML Pen SC (10:16)
[2022-04-30] MEDS: Loratadine 10 MG Tablet PO (10:16)
[2022-04-30] MEDS: dilTIAZem CD 120 MG Capsule PO (10:16)
[2022-04-30] MEDS: Pantoprazole Sodium 40 MG Tablet PO (10:16)
[2022-04-30] MEDS: Gabapentin 100 MG Capsule PO (10:16)
[2022-04-30] MEDS: Amiodarone 200 MG Tablet PO (10:16)
[2022-04-30] MEDS: Leflunomide 10 MG TABLET PO (10:16)
--- NOTE | 2022-04-30 10:21 | PCM.DC.SUM ---
Providers Date of Admission: 04/24/22 Primary Care Physician: Dr. 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 Daily weights. A.m. chest x-ray read as similar yesterday though appears on film to have decrease in interstitial markings 04/26: Appears dry and FeNa low, holding Lasix, fluids 04/27: Breathing well (2) KATHY (acute kidney injury): Status: Acute Code(s): N17.9 - Acute kidney failure, unspecified Plan: Creatinine stable today. Nonoliguric urine studies suggest prerenal Lasix and Entresto held Gabapentin decreased Very gentle fluid Vancomycin trough elevated, possibly contributor, doses held with plan to repeat level per pharmacy 04/27: Did not respond to fluids, given potassium increase with worsened creatinine, slight acidosis, calcium that down trended we will check CK. If within normal limits will consider consulting nephrology. 04/28: again worse. Did discuss with nephrology fellow is likely a culmination of hypertension, furosemide and vancomycin. Follow-up with nephrology as outpatient. Patient tells me that she has seen Dr. Cuello in the past and would like to follow-up with her as outpatient. (3) Postoperative seroma: Status: Acute Plan: Reviewed records from [facility] and also notes from Dr. Cummings on the . [place] the patient had a postoperative seroma with draining sinus tact that it stopped. Patient did have a culture that grew out Staphylococcus hemolyticus. Given his benign appearance of her elbow, will discontinue antibiotics altogether. Patient had been put on vancomycin. [facility] Follow-up with orthopedics as outpatient We will discontinue antibiotics as there is no clear infection at this time. Plan chronic conditions: Atrial fibrillation: Continue amiodarone, Eliquis, Cardizem Rheumatoid arthritis Continue leflunomide. 04/25: Prednisone had previously been held, likely due to infection. Type 2 diabetes mellitus. Glucose checks, sliding scale insulin. 04/25: Persistently elevated, will add long-acting History of CVA. aspirin, statin Hypothyroidism: Continue levothyroxine. Last TSH in 06.25 Normocytic anemia Appears to be at baseline #DVT ppx: On Eliquis Disposition: Patient to go to senior care facility. Medications at Discharge Home Medications aspirin 81 mg tablet,delayed release 81 mg PO DAILY heart health 05/24/19 leflunomide 10 mg tablet 10 mg PO QODAY arthritis 09/04/21 loratadine 10 mg tablet (Allergy Relief (loratadine)) 10 mg PO DAILY allergies 10/18/21 atorvastatin 40 mg tablet 40 mg PO QHS cholesterol #90 tabs 11/11/21 nystatin 100,000 unit/gram topical powder 1 applic topical TID PRN rash #60 grams 01/02/22 pantoprazole 40 mg tablet,delayed release 40 mg PO DAILY reflux #90 tabs 01/02/22 prednisone 5 mg tablet 7.5 mg PO QAM steroid 01/31/22 dulaglutide 1.5 mg/0.5 mL subcutaneous pen injector 1.5 mg (0.5 mL) subcut QWEEK diabetes #2 mL 03/12/22 amiodarone 200 mg tablet 200 mg PO DAILY arrythmia 04/02/22 diltiazem HCl 120 mg capsule,extended release 24 hr 120 mg PO DAILY heart 04/02/22 hydrocodone-acetaminophen 5-325mg 5mg-325mg 1 tab PO Q8H PRN Pain 04/02/22 omega-3 fatty acids 1,000 mg capsule 2,000 mg PO BID supplement 04/02/22 apixaban 5 mg tablet (Eliquis) 5 mg PO BID blood thinner 04/05/22 levothyroxine 100 mcg tablet (Synthroid) 100 mcg PO DAILY supplement 04/05/22 acetaminophen 500 mg tablet 1,000 mg PO Q8H PRN PAIN AND FEVER 04/24/22 melatonin 10 mg capsule 10 mg PO QHS SLEEP 04/24/22 menthol 0.44 %-zinc oxide 20.6 % topical ointment (Calmoseptine) 1 applic topical BID 04/24/22 metoprolol tartrate 50 mg tablet 50 mg PO BID HEART 04/24/22 sennosides 8.6 mg-docusate sodium 50 mg tablet (Senna with Docusate Sodium) 1 tab-cap PO BID 04/24/22 furosemide 20 mg tablet 20 mg PO DAILY #30 tabs 04/30/22 gabapentin 100 mg capsule 100 mg PO BID #0 caps 04/30/22 Hospital Course Operations None Procedures None Summary of Care Provided Minutes Spent on Discharge: 35 Weight / BMI Weight Weight: 100.6 kg Body Mass Index (BMI) 37.2 ABG / Lab / Microbiology Data Result Diagrams: 04/27/22 06:01 04/30/22 05:06 Laboratory: Laboratory Results - last 24 hr 04/29/22 12:22: POC Glucose 181 H 04/29/22 17:13: POC Glucose 152 H 04/29/22 21:41: POC Glucose 193 H 04/30/22 05:06: Sodium 135 L, Potassium 4.5, Chloride 108 H, Carbon Dioxide 20.0 L, Anion Gap 7, BUN 28 H, Creatinine 3.09 H, Estim Creat Clear Calc 13.79, Est GFR (MDRD) Af Amer 19 L, Est GFR (MDRD) Non-Af 16 L, BUN/Creatinine Ratio 9.1 L, Glucose 138 H, Calcium 9.4, Total Bilirubin 0.30, AST 15, ALT 14, Alkaline Phosphatase 173 H, Total Protein 5.5 L, Albumin 1.6 L, Globulin 3.9, Albumin/Globulin Ratio 0.4 L 04/30/22 06:27: POC Glucose 143 H Microbiology: Microbiology 04/30/22 09:00 Nasal Secretion SARS-CoV-2 Antigen (Rapid) - Final 04/24/22 13:25 Mucosa - Nose Respiratory Panel (PCR) - Final 04/24/22 11:50 Nasal Secretion SARS-CoV-2 & FLU Antigen (Rapid) - Final Meaningful Use Info Meaningful Use Diagnoses (Choose all that apply): CHF CHF TAMMIE/ARB ordered at discharge?: No Reason TAMMIE/ARB not ordered?: Worsening renal disease Documented LVEF (%): 40 Discharge Plan Admission Admit Date/Time: 04/24/22 11:16 Primary Reason for Your Visit: congestive heart failure. KATHY Attending Provider: Pacheco Robbins Primary Care Provider: Grayson Nweton Consulting Providers: Filipe Fontanez ; Mary Beth Kraft Discharge Orders/Prescriptions Prescriptions: New gabapentin 100 mg Capsule 100 mg PO BID Qty: 0 0RF furosemide 20 mg tablet 20 mg PO DAILY Qty: 30 0RF Rx Instructions: start 05/05/2022 Continued prednisone 5 mg tablet 7.5 mg PO QAM loratadine [Allergy Relief (loratadine)] 10 mg tablet 10 mg PO DAILY nystatin 100,000 unit/gram powder 1 applic topical TID PRN (Reason: rash) Qty: 60 1RF pantoprazole 40 mg tablet,delayed release (DR/EC) 40 mg PO DAILY Qty: 90 3RF aspirin 81 MG tablet,delayed release (DR/EC) 81 mg PO DAILY leflunomide 10 mg tablet 10 mg PO QODAY diltiazem HCl 120 mg capsule,extended release 24hr 120 mg PO DAILY omega-3 fatty acids 1,000 mg Capsule 2,000 mg PO BID amiodarone 200 mg Tablet 200 mg PO DAILY levothyroxine [Synthroid] 100 mcg tablet 100 mcg PO DAILY Eliquis 5 mg tablet 5 mg PO BID acetaminophen 500 mg Tablet 1,000 mg PO Q8H PRN (Reason: PAIN AND FEVER) sennosides-docusate sodium [Senna with Docusate Sodium] 8.6-50 mg Tablet 1 tab-cap PO BID metoprolol tartrate 50 mg Tablet 50 mg PO BID menthol-zinc oxide [Calmoseptine] 0.44-20.6 % Ointment 1 applic TOPICAL BID melatonin 10 mg Capsule 10 mg PO QHS atorvastatin 40 mg tablet 40 mg PO QHS Qty: 90 3RF dulaglutide 1.5 mg/0.5 mL pen injector 1.5 mg subcut QWEEK Qty: 2 3RF Discontinued Entresto 24-26 mg tablet 1 tab PO BID gabapentin 300 mg Capsule 300 mg PO BID vancomycin in 0.9 % sodium chl 1.25 gram/250 mL Solution 1 g IV Q12H potassium chloride 20 mEq Tablet Extended Release 20 meq PO DAILY No Action hydrocodone-acetaminophen 5-325 mg tablet 1 tab PO Q8H PRN (Reason: Pain) Referrals / Follow Up: Ceci Cuello DO [Med Staff - Consulting] - Within 2 Weeks Grayson Newton MD [Primary Care Provider] - Within 2 Weeks [facility] [Provider Group] - Within 1 Month Disposition Disposition (needs filled in before D/C Order can be placed): Group Home Facility Charges/Coding Visit Charges Inpatient E&M: 91132 Disch Hosp
--- NOTE | 2022-04-30 11:06 | CASEMGMT ---
EVER spoke with patient and let her know she is going to be going back to TCU today. EVER asked patient if she would like EVER to call family. Patient asked EVER to call her sister Cynthia. EVER called Cynthia and let her know that patient will be going back to [facility] TCU today. She thanked EVER for the update. Plan: d/c back to [facility] TCU under skilled level of care. Karuna FERRARI
--- NOTE | 2022-04-30 11:07 | PHA.DC.MR ---
Pharmacy Service has performed discharge medication reconciliation for this patient. The patient's discharge medication list was reviewed for discrepancies and discrepancies were resolved. Home Medications aspirin 81 mg tablet,delayed release 81 mg PO DAILY heart health 05/24/19 leflunomide 10 mg tablet 10 mg PO QODAY arthritis 09/04/21 loratadine 10 mg tablet (Allergy Relief (loratadine)) 10 mg PO DAILY allergies 10/18/21 atorvastatin 40 mg tablet 40 mg PO QHS cholesterol #90 tabs 11/11/21 nystatin 100,000 unit/gram topical powder 1 applic topical TID PRN rash #60 grams 01/02/22 pantoprazole 40 mg tablet,delayed release 40 mg PO DAILY reflux #90 tabs 01/02/22 prednisone 5 mg tablet 7.5 mg PO QAM steroid 01/31/22 dulaglutide 1.5 mg/0.5 mL subcutaneous pen injector 1.5 mg (0.5 mL) subcut QWEEK diabetes #2 mL 03/12/22 amiodarone 200 mg tablet 200 mg PO DAILY arrythmia 04/02/22 diltiazem HCl 120 mg capsule,extended release 24 hr 120 mg PO DAILY heart 04/02/22 hydrocodone-acetaminophen 5-325mg 5mg-325mg 1 tab PO Q8H PRN Pain 04/02/22 omega-3 fatty acids 1,000 mg capsule 2,000 mg PO BID supplement 04/02/22 apixaban 5 mg tablet (Eliquis) 5 mg PO BID blood thinner 04/05/22 levothyroxine 100 mcg tablet (Synthroid) 100 mcg PO DAILY supplement 04/05/22 acetaminophen 500 mg tablet 1,000 mg PO Q8H PRN PAIN AND FEVER 04/24/22 melatonin 10 mg capsule 10 mg PO QHS SLEEP 04/24/22 menthol 0.44 %-zinc oxide 20.6 % topical ointment (Calmoseptine) 1 applic topical BID 04/24/22 metoprolol tartrate 50 mg tablet 50 mg PO BID HEART 04/24/22 sennosides 8.6 mg-docusate sodium 50 mg tablet (Senna with Docusate Sodium) 1 tab-cap PO BID 04/24/22 furosemide 20 mg tablet 20 mg PO DAILY #30 tabs 04/30/22 gabapentin 100 mg capsule 100 mg PO BID #0 caps 04/30/22
[2022-04-30] MEDS: Insulin Lispro 100 UNIT/ML INSULN.PEN SC (11:08)
[2022-04-30 11:16] LABS: Bedside Glucose 188 mg/dL (74-106)
--- NOTE | 2022-04-30 11:17 | NURSING ---
Report given to Claire RN in TCU
== END 2022-04-30 11:34 | DRG 291 ==
LOC: ED 08:21 → PCU 10:32
PROVIDERS: Nurse Practitioner Adult Health; Admitting Provider Internal Medicine; Emergency Provider Student in an Organized Health Care Education/Training Program; PCP Internal Medicine
DX: I11.0 Hypertensive heart disease with heart failure (principal); I50.43 Acute on chronic combined systolic (congestive) and diastolic (congestive) heart failure; I48.11 Longstanding persistent atrial fibrillation; N17.9 Acute kidney failure, unspecified; L76.32 Postprocedural hematoma of skin and subcutaneous tissue following other procedure; I42.8 Other cardiomyopathies; Z79.01 Long term (current) use of anticoagulants; E11.9 Type 2 diabetes mellitus without complications; M06.9 Rheumatoid arthritis, unspecified; E03.9 Hypothyroidism, unspecified; E78.5 Hyperlipidemia, unspecified; M70.22 Olecranon bursitis, left elbow; R09.02 Hypoxemia; D17.22 Benign lipomatous neoplasm of skin and subcutaneous tissue of left arm; R41.0 Disorientation, unspecified; Z79.82 Long term (current) use of aspirin; Z79.52 Long term (current) use of systemic steroids; Z20.822 Contact with and (suspected) exposure to COVID-19; Z87.891 Personal history of nicotine dependence; Z86.73 Personal history of transient ischemic attack (TIA), and cerebral infarction without residual deficits
CPT/HCPCS: 36415; 70450; 71045; 73223; 76770; 80048; 80053; 80061; 80202; 81001; 82436; 82550; 82570; 82803; 82962; 83605; 83735; 83880; 84133; 84145; 84300; 84484; 84540; 85025; 87426; 87428; 87633; 93005; 96374; 96375; 97110; 97162; 97166; 97530; 97535; 99251; 99282; 99283; A9575; J7030; J7040; J7050; A4216; G0463; J1940

== ENCOUNTER 2022-04-30 11:41 | Inpatient (IN) | payer MEDICARE, OTHER, SELFPAY ==
[2022-04-30 11:50] VITALS: BP 145/75; PULSE 88; RESP 16; TEMP 36.2; O2SAT 95; BMI 37.5
--- NOTE | 2022-04-30 13:27 | CASEMGMT ---
Social Work BIMS (04/22) and PHQ-9 (01/01) completed for MDS assessment. Malissa Bell MSW PASTRY SUPERVISOR
--- NOTE | 2022-04-30 15:47 | NURSING ---
Residential Building Inspector Note; Activity Asset: Complete
[2022-04-30] MEDS: Gabapentin 100 MG Capsule PO (18:32)
[2022-04-30] MEDS: APIXABAN 5 MG TABLET PO (18:33)
[2022-04-30] MEDS: Omega-3 Acid Ethyl Esters 1 GM Capsule 2 GM PO (18:33)
[2022-04-30 18:35] VITALS: BP 145/75; PULSE 88
[2022-04-30] MEDS: Metoprolol Tartrate 50 MG Tablet PO (18:35)
[2022-04-30] MEDS: Atorvastatin Calcium 40 MG Tablet PO (20:04)
[2022-04-30] MEDS: MELATONIN 10 MG TABLET PO (20:04)
[2022-04-30] MEDS: Menthol/Lanolin/Calamine/Znox 113 GM Tube 1 APPLIC TOPICAL (20:04)
[2022-04-30] MEDS: 0.9% Saline Lock 10 ML Syringe IV (20:05)
--- NOTE | 2022-04-30 20:17 | HP.PCM_ITS ---
HPI - General General Date of Admission: 04/30/22 Date of Service: 04/30/22 Chief Complaint: Here for rehabilitation. HPI Narrative 04/24/2022 MARIA ISABEL LOPEZ, is a 76 Female who presents to [facility] Emergency Department from TCU with fever, hypoxia, encephalopathy. 04/24/2022 Admit to Hospital. Diuresis for acute on chronic systolic congestive heart failure. Vancomycin IV for left olecranon staph infection. 04/25/2022 Breathing better. Bilateral upper extremity persists. Lasix IV given but creatinine doubled. Hold Lasix, Entresto, decrease gabapentin for acute kidney injury. 04/26/2022 Hungry, thirsty, swelling improved, breathing improved. Hold Lasix, gentle 250cc IV fluids. 04/27/2022 Thirsty, eating well, breathing well. 04/28/2022 Breathing okay. Kidneys worse, Nephrology consulted. Vancomycin IV left olecranon infection. 04/29/2022 Breathing well. Stop Vancomycin, left elbow seroma. 04/30/2022 Feels well. Lasix, Entresto held, gabapentin decreased, gentle IV fluids for acute kidney injury. 04/30/2022 Admit to TCU with debility, here for rehabilitation, strengthening, prior to disposition determination. [facility] Medical History Cerebrovascular accident (CVA) Chronic combined systolic and diastolic CHF (congestive heart failure) Chronic pain Diabetes mellitus type 2, uncontrolled Draining cutaneous sinus tract Essential hypertension Fibromyalgia GERD (gastroesophageal reflux disease) HFrEF (heart failure with reduced ejection fraction) Hypercalcemia Hyperlipidemia Hypothyroidism Lipoma of left upper extremity Localized swelling of left forearm Longstanding persistent atrial fibrillation Lupus Morbid obesity Non-ischemic cardiomyopathy Nonalcoholic fatty liver disease Nonrheumatic mitral valve stenosis with insufficiency Olecranon bursitis of left elbow K[place]INA (obstructive sleep apnea) Osteoarthritis Osteoporosis Preoperative evaluation to rule out surgical contraindication Radicular pain of left lower extremity Rheumatoid arthritis RLS (restless legs syndrome) Seroma after procedure Seroma after procedure Smoldering multiple myeloma (SMM) Steroid dependence Stroke Home Medications aspirin 81 mg tablet,delayed release 81 mg PO DAILY heart health 05/24/19 [History Last Taken Unknown] leflunomide 10 mg tablet 10 mg PO QODAY arthritis 09/04/21 [History Last Taken Unknown] loratadine 10 mg tablet (Allergy Relief (loratadine)) 10 mg PO DAILY allergies 10/18/21 [History Last Taken 04/23/22 08:27] atorvastatin 40 mg tablet 40 mg PO QHS cholesterol #90 tabs 11/11/21 [Rx Last Taken 04/23/22 21:52] nystatin 100,000 unit/gram topical powder 1 applic topical TID PRN rash #60 grams 01/02/22 [Rx Last Taken 04/23/22 21:56] pantoprazole 40 mg tablet,delayed release 40 mg PO DAILY reflux #90 tabs 01/02/22 [Rx Last Taken 04/23/22 08:21] prednisone 5 mg tablet 7.5 mg PO QAM steroid 01/31/22 [History Last Taken 04/10/22 09:20] dulaglutide 1.5 mg/0.5 mL subcutaneous pen injector 1.5 mg (0.5 mL) subcut QWEEK diabetes #2 mL 03/12/22 [Rx Last Taken Unknown] amiodarone 200 mg tablet 200 mg PO DAILY arrythmia 04/02/22 [History Last Taken 04/20/22 09:13] diltiazem HCl 120 mg capsule,extended release 24 hr 120 mg PO DAILY heart 04/02/22 [History Last Taken 04/23/22 08:28] hydrocodone-acetaminophen 5-325mg 5mg-325mg 1 tab PO Q8H PRN Pain 04/02/22 [History Last Taken 04/21/22 20:50] omega-3 fatty acids 1,000 mg capsule 2,000 mg PO BID supplement 04/02/22 [History Last Taken Unknown] apixaban 5 mg tablet (Eliquis) 5 mg PO BID blood thinner 04/05/22 [History Last Taken 04/23/22 17:33] levothyroxine 100 mcg tablet (Synthroid) 100 mcg PO DAILY THYROID 04/05/22 [History Last Taken 04/23/22 08:21] acetaminophen 500 mg tablet 1,000 mg PO Q8H PRN PAIN AND FEVER 04/24/22 [History Last Taken 04/13/22 19:31] melatonin 10 mg capsule 10 mg PO QHS SLEEP 04/24/22 [History Last Taken 04/23/22 21:52] menthol 0.44 %-zinc oxide 20.6 % topical ointment (Calmoseptine) 1 applic topical BID SKIN PROTECTANT 04/24/22 [History Last Taken 04/23/22 21:53] metoprolol tartrate 50 mg tablet 50 mg PO BID BP 04/24/22 [History Last Taken 04/23/22 17:34] sennosides 8.6 mg-docusate sodium 50 mg tablet (Senna with Docusate Sodium) 1 tab-cap PO BID STOOL SOFTENER 04/24/22 [History Last Taken 04/22/22 17:29] furosemide 20 mg tablet 20 mg PO DAILY WATER PILL FOR SWELLING 04/30/22 [History Last Taken Unknown] gabapentin 100 mg capsule 100 mg PO BID NERVE PAIN 04/30/22 [History Last Taken Unknown] Allergy/AdvReac Type Severity Reaction Status Date / Time hydroxychloroquine Allergy Severe Shortness Verified 04/23/22 03:04 of breath metformin AdvReac Severe Diarrhea Verified 04/23/22 03:04 methotrexate AdvReac Severe Other Verified 04/23/22 03:04 Sulfa (Sulfonamide AdvReac Intermediate Other Verified 04/23/22 03:04 Antibiotics) Family History Father Diabetes Heart disease Hypertension CVA (cerebral vascular accident) Hyperlipidemia CAD (coronary artery disease) Brother Hypertension Hyperlipidemia Sister THYROID Mother Uterine cancer Surgical History History of appendectomy History of back surgery History of cardioversion (01/15/18) History of left heart catheterization History of mitral valve replacement with bioprosthetic valve (04/23/17) History of radiofrequency ablation (RFA) for complex left atrial arrhythmia (04/25/17) History of right and left heart catheterization (02/25/17) History of total left knee replacement History of total right knee replacement History of transesophageal echocardiography (NEELA) (01/15/18) Social History adopted: No household members: other details: is in a group home and she is currently living alone housing: house number of children: 2 current occupational status: retired Smoking Status: Former smoker quit date: 06/08/01 Tobacco: How many years used: 25 how long ago did patient quit smokin years ago- about 2006? alcohol intake: current details: rare occasions substance use type: does not use ROS Constitutional Constitutional: Denies chills, fever(s) or weight gain ENT HEENT: Denies headache(s), nasal congestion or nasal discharge Cardiovascular Cardiovascular: Denies chest pain or palpitations Respiratory/Chest Respiratory/Chest: Denies cough, excessive phlegm production or shortness of breath with exertion Gastrointestinal Gastrointestinal: Denies abdominal pain, nausea or vomiting Genitourinary Genitourinary: Denies dysuria Musculoskeletal Musculoskeletal: Denies joint pain or joint swelling Integumentary Integumentary: Denies rash or wounds Neurologic Neurologic: Denies focal weakness, numbness or tingling Psychiatric Psychiatric: Denies anxiety, auditory hallucinations, depression, homicidal ideation or suicidal ideation Vital Signs Vital Signs Vital Signs: 04/30/22 11:50 04/30/22 11:50 04/30/22 18:35 Temperature 97.2 F L Temperature Source Temporal Pulse Rate 88 88 Pulse Rhythm Regular Respiratory Rate 16 Respiratory Effort Normal Blood Pressure 145/75 H 145/75 H Blood Pressure Mean 98 Blood Pressure Source Monitor Blood Pressure Position Semi-Fowlers Blood Pressure Location Right Arm Pulse Ox 95 Oxygen Delivery Method Room Air Room Air Weight Weight: 99.337 kg Body Mass Index (BMI) 37.5 Physical Exam Const alert General Appearance: cooperative HEENT normocephalic Eyes PERRL and EOMs intact bilaterally Neck supple, no JVD and no carotid bruits Resp normal respiratory effort, normal air movement and clear to auscultation bilaterally Cardio regular rate and regular rhythm GI normal to inspection, nondistended, normoactive bowel sounds, non-tender and non-distended Extremity normal capillary refill Extremity Narrative: Non-pitting edema extremities. General Extremity: Negative for edema Skin no rashes or lesions noted General Skin Exam: no breakdown Psych affect normal Appearance: appropriate Assessment & Plan Assessment/Plan (1) Debility: (2) KATHY (acute kidney injury): (3) 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: (4) Acute respiratory failure with hypoxia: (5) Olecranon bursitis of left elbow: (6) Stroke: (7) Atrial fibrillation: (8) Rheumatoid arthritis: (9) Diabetes mellitus: (10) Hyperlipidemia: (11) Hypothyroidism: (12) Neuropathic pain: PLAN: Plan 76 year old female with below past medical history hospitalized for acute respiratory failure with hypoxia secondary to acute on chronic systolic congestive heart failure, complicated by acute kidney injury, left olecranon bursitis, admitted to TCU with debility, here for rehabilitation, strengthening, prior to disposition determination. * Debility - PT/OT. * Cognition - ST. * Pain - Tylenol 1000mg q8h prn, [facility] 5/325mg 1 tablet q8h prn. * Bowel - senna/colace 1 tablet bid. * Adult immunization - Administer pneumonia vaccine, covid19 vaccine, flu vaccine as appropriate. * DVT prophylaxis - Not necessary, already on Eliquis. * Atrial fibrillation - Metoprolol 50mg bid, Cardizem CD 120mg daily, Amiodarone 200mg daily, Eliquis 5mg bid. * Hyperlipidemia - Atorvastatin 40mg qhs, [place] 3 2gm bid. * Chronic systolic congestive heart failure - Metoprolol 50mg bid, Furosemide 20mg daily. * Acute kidney injury - Consult Nephrology to follow. * Neuropathic pain - Gabapentin 100mg bidcm. * Rheumatoid arthritis - Leflunomide 10mg every other day, Prednisone 7.5mg daily. * Hypothyroidism - Levothyroxine 100mcg daily. * Allergic Rhinitis - Loratadine 10mg daily. * Insomnia - Melatonin 10mg qhs prn. * Skin irritation - Calmoseptine topical bid. * Tinea Corporis - Nystatin powder topical tid prn. * GERD - Pantoprazole 40mg daily.
[2022-04-30 22:36] LABS: Bedside Glucose 144 mg/dL (74-106)
[2022-05-01] MEDS: Omega-3 Acid Ethyl Esters 1 GM Capsule 2 GM PO ×2 (05:59→17:35)
[2022-05-01] MEDS: dilTIAZem CD 120 MG Capsule PO (05:59)
[2022-05-01] MEDS: Amiodarone 200 MG Tablet PO (05:59)
[2022-05-01] MEDS: Loratadine 10 MG Tablet PO (05:59)
[2022-05-01] MEDS: Levothyroxine 100 MCG Tablet PO (05:59)
[2022-05-01 06:02] VITALS: BP 148/88; PULSE 81
[2022-05-01] MEDS: Metoprolol Tartrate 50 MG Tablet PO ×2 (06:02→17:35)
[2022-05-01] MEDS: Pantoprazole Sodium 40 MG Tablet PO (06:02)
[2022-05-01] MEDS: APIXABAN 5 MG TABLET PO ×2 (06:03→17:35)
[2022-05-01 06:14] LABS: Absolute Lymphocyte Count 1.32 X10^3/uL (0.83-4.51); Absolute Neutrophil Count 4.9 X10^3/uL (2.0-7.7); Basophil# 0.06 X10^3/uL; Basophil% 0.7 % (0-1); Eosinophil# 0.93 X10^3/uL; Eosinophils% 11.3 % (0-5); Hematocrit 29.1 % (37-47); Hemoglobin 9.2 g/dL (12.0-15.0); Lymphocyte # 1.32 X10^3/ul (0.83-4.51); Lymphocyte % 16.1 % (19-41); Mean Corp Hgb Conc 31.6 g/dL (32-36); Mean Corpuscular Hgb 29.3 pg (27.0-32.0); Mean Corpuscular Volume 92.7 fL (81-99); Mean Platelet Vol. 9.8 fl (6.2-12.0); Monocyte# 0.94 X10^3/uL; Monocyte% 11.4 % (0-10); NRBC Flagged by Analyzer 0 % (0-5); Neutrophil # 4.86 X10^3/uL (2.7-7.7); Neutrophil % 59.2 % (47-70); Platelet Count 370 K/mm3 (150-450); RBC Distribution Width CV 14.2 % (11.6-14.6); RBC Distribution Width SD 48.2 fl (35.1-43.9); Red Blood Count 3.14 M/mm3 (4.2-5.4); White Blood Count 8.2 K/mm3 (4.4-11.0)
[2022-05-01 06:33] LABS: Anion Gap 7 (5-15); BUN 28 mg/dL (7-18); BUN/Creat Ratio 9.3 RATIO (10-20); Calcium,Total 9.8 mg/dL (8.5-10.1); Chloride 108 mmol/L (98-107); EST Glomerular Filtration Rate 16 mL/min (>60); Est Glom Filt Rate - Afr Amer 20 mL/min (>60); Estimated Creatinine Clearance 14.21 ml/min; Glucose 135 mg/dL (74-106); Potassium 4.4 mmol/L (3.5-5.1); Sodium Level 135 mmol/L (136-145)
[2022-05-01 07:15] LABS: Bedside Glucose 133 mg/dL (74-106)
[2022-05-01] MEDS: Menthol/Lanolin/Calamine/Znox 113 GM Tube 1 APPLIC TOPICAL ×2 (07:42→17:37)
[2022-05-01] MEDS: predniSONE 5 MG Tablet 7.5 MG PO (07:45)
[2022-05-01] MEDS: Gabapentin 100 MG Capsule PO ×2 (07:45→17:37)
[2022-05-01] MEDS: Tuberculin,Purif.prot.deriv. 50 TU/ML Vial 0.1 ML ID (09:39)
[2022-05-01 11:15] LABS: Bedside Glucose 231 mg/dL (74-106)
[2022-05-01 15:31] VITALS: BP 153/86; PULSE 70; RESP 18; TEMP 36.2; O2SAT 95
[2022-05-01 17:15] LABS: Bedside Glucose 285 mg/dL (74-106)
[2022-05-01 17:35] VITALS: BP 152/76; PULSE 73
[2022-05-01] MEDS: Senna/Docusate Sodium 1 Tablet PO (17:36)
[2022-05-01] MEDS: MELATONIN 10 MG TABLET PO (20:59)
[2022-05-01] MEDS: Atorvastatin Calcium 40 MG Tablet PO (20:59)
[2022-05-01 22:00] VITALS: PULSE 73; RESP 18; O2SAT 96
[2022-05-02 01:15] LABS: Bedside Glucose 276 mg/dL (74-106)
[2022-05-02] MEDS: Menthol/Lanolin/Calamine/Znox 113 GM Tube 1 APPLIC TOPICAL ×2 (05:46→16:55)
[2022-05-02] MEDS: 0.9% Saline Lock 10 ML Syringe IV (05:47)
[2022-05-02] MEDS: Levothyroxine 100 MCG Tablet PO (05:48)
[2022-05-02] MEDS: Loratadine 10 MG Tablet PO (05:48)
[2022-05-02] MEDS: Leflunomide 10 MG TABLET PO (05:48)
[2022-05-02] MEDS: Pantoprazole Sodium 40 MG Tablet PO (05:48)
[2022-05-02] MEDS: dilTIAZem CD 120 MG Capsule PO (05:48)
[2022-05-02 05:49] VITALS: BP 168/81; PULSE 69
[2022-05-02] MEDS: Senna/Docusate Sodium 1 Tablet PO (05:49)
[2022-05-02] MEDS: Metoprolol Tartrate 50 MG Tablet PO ×2 (05:49→16:53)
[2022-05-02] MEDS: Omega-3 Acid Ethyl Esters 1 GM Capsule 2 GM PO ×2 (05:49→16:55)
[2022-05-02] MEDS: Amiodarone 200 MG Tablet PO (05:53)
[2022-05-02] MEDS: APIXABAN 5 MG TABLET PO ×2 (06:03→16:53)
[2022-05-02 06:51] LABS: Bedside Glucose 184 mg/dL (74-106)
[2022-05-02] MEDS: Gabapentin 100 MG Capsule PO ×2 (08:03→16:52)
[2022-05-02] MEDS: predniSONE 5 MG Tablet 7.5 MG PO (08:04)
[2022-05-02 09:52] VITALS: PULSE 87; RESP 16; O2SAT 97
[2022-05-02 11:40] LABS: Bedside Glucose 267 mg/dL (74-106)
[2022-05-02 16:00] VITALS: BP 168/81; PULSE 75; RESP 16; TEMP 36.3; O2SAT 94
[2022-05-02 16:26] LABS: Bedside Glucose 319 mg/dL (74-106)
[2022-05-02 16:49] VITALS: BP 178/97; PULSE 75
[2022-05-02 16:53] VITALS: PULSE 75
[2022-05-02] MEDS: Atorvastatin Calcium 40 MG Tablet PO (20:23)
[2022-05-02] MEDS: MELATONIN 10 MG TABLET PO (20:23)
[2022-05-02 21:46] LABS: Bedside Glucose 288 mg/dL (74-106)
[2022-05-03 05:06] VITALS: BP 137/72; PULSE 58
[2022-05-03] MEDS: Loratadine 10 MG Tablet PO (05:06)
[2022-05-03] MEDS: Amiodarone 200 MG Tablet PO (05:06)
[2022-05-03] MEDS: Pantoprazole Sodium 40 MG Tablet PO (05:06)
[2022-05-03] MEDS: Metoprolol Tartrate 50 MG Tablet PO ×2 (05:06→17:25)
[2022-05-03] MEDS: Omega-3 Acid Ethyl Esters 1 GM Capsule 2 GM PO ×2 (05:06→17:24)
[2022-05-03] MEDS: Levothyroxine 100 MCG Tablet PO (05:06)
[2022-05-03] MEDS: APIXABAN 5 MG TABLET PO ×2 (05:06→17:27)
[2022-05-03] MEDS: dilTIAZem CD 120 MG Capsule PO (05:07)
[2022-05-03] MEDS: Menthol/Lanolin/Calamine/Znox 113 GM Tube 1 APPLIC TOPICAL ×2 (05:09→17:29)
[2022-05-03 06:50] LABS: Bedside Glucose 206 mg/dL (74-106)
[2022-05-03] MEDS: predniSONE 5 MG Tablet 7.5 MG PO (07:58)
[2022-05-03] MEDS: Gabapentin 100 MG Capsule PO ×2 (07:58→17:24)
[2022-05-03 16:41] LABS: Bedside Glucose 298 mg/dL (74-106)
[2022-05-03 17:25] VITALS: BP 177/95; PULSE 65
[2022-05-03 17:30] VITALS: PULSE 70; RESP 18; TEMP 36.2; O2SAT 95
[2022-05-03] MEDS: Insulin Lispro 100 UNIT/ML INSULN.PEN 10 UNIT SC (17:54)
[2022-05-03 21:45] VITALS: PULSE 75; RESP 16; O2SAT 96
[2022-05-03 21:56] LABS: Bedside Glucose 281 mg/dL (74-106)
[2022-05-03] MEDS: MELATONIN 10 MG TABLET PO (22:01)
[2022-05-03] MEDS: Atorvastatin Calcium 40 MG Tablet PO (22:01)
[2022-05-04] MEDS: Menthol/Lanolin/Calamine/Znox 113 GM Tube 1 APPLIC TOPICAL ×2 (04:58→17:38)
[2022-05-04] MEDS: Loratadine 10 MG Tablet PO (04:58)
[2022-05-04 04:59] VITALS: BP 157/90; PULSE 61
[2022-05-04] MEDS: Senna/Docusate Sodium 1 Tablet PO (04:59)
[2022-05-04] MEDS: APIXABAN 5 MG TABLET PO ×2 (04:59→17:38)
[2022-05-04] MEDS: Amiodarone 200 MG Tablet PO (04:59)
[2022-05-04] MEDS: Leflunomide 10 MG TABLET PO (04:59)
[2022-05-04] MEDS: Levothyroxine 100 MCG Tablet PO (04:59)
[2022-05-04] MEDS: Pantoprazole Sodium 40 MG Tablet PO (04:59)
[2022-05-04] MEDS: Omega-3 Acid Ethyl Esters 1 GM Capsule 2 GM PO ×2 (04:59→17:38)
[2022-05-04] MEDS: Metoprolol Tartrate 50 MG Tablet PO ×2 (04:59→17:38)
[2022-05-04] MEDS: dilTIAZem CD 120 MG Capsule PO (05:03)
[2022-05-04 06:22] LABS: Anion Gap 8 (5-15); BUN 31 mg/dL (7-18); BUN/Creat Ratio 11.4 RATIO (10-20); Calcium,Total 9.2 mg/dL (8.5-10.1); Chloride 107 mmol/L (98-107); Creatinine, Serum 2.72 mg/dL (0.55-1.02); EST Glomerular Filtration Rate 18 mL/min (>60); Est Glom Filt Rate - Afr Amer 22 mL/min (>60); Estimated Creatinine Clearance 15.67 ml/min; Glucose 216 mg/dL (74-106); Potassium 4.4 mmol/L (3.5-5.1); Sodium Level 136 mmol/L (136-145)
[2022-05-04] MEDS: Gabapentin 100 MG Capsule PO ×2 (08:48→17:38)
[2022-05-04] MEDS: predniSONE 5 MG Tablet 7.5 MG PO (08:53)
[2022-05-04] MEDS: Insulin Lispro 100 UNIT/ML INSULN.PEN 10 UNIT SC ×3 (08:53→17:37)
[2022-05-04 09:47] VITALS: PULSE 62; RESP 18; O2SAT 94
[2022-05-04 11:45] LABS: Bedside Glucose 220 mg/dL (74-106)
[2022-05-04 14:20] VITALS: BP 154/64; PULSE 71; RESP 18; TEMP 36.6; O2SAT 96
[2022-05-04 17:06] LABS: Bedside Glucose 192 mg/dL (74-106)
[2022-05-04 17:38] VITALS: PULSE 71
[2022-05-04 21:46] LABS: Bedside Glucose 200 mg/dL (74-106)
[2022-05-04] MEDS: MELATONIN 10 MG TABLET PO (21:49)
[2022-05-04] MEDS: Insulin Glargine-YFGN 100 UNIT/ML Pen 20 UNIT SC (21:49)
[2022-05-04] MEDS: Atorvastatin Calcium 40 MG Tablet PO (21:49)
[2022-05-05 04:05] LABS: Bedside Glucose 213 mg/dL (74-106)
[2022-05-05] MEDS: Levothyroxine 100 MCG Tablet PO (05:05)
[2022-05-05 05:06] VITALS: BP 147/94; PULSE 76
[2022-05-05] MEDS: Loratadine 10 MG Tablet PO (05:06)
[2022-05-05] MEDS: Pantoprazole Sodium 40 MG Tablet PO (05:06)
[2022-05-05] MEDS: Omega-3 Acid Ethyl Esters 1 GM Capsule 2 GM PO ×2 (05:06→17:10)
[2022-05-05] MEDS: Senna/Docusate Sodium 1 Tablet PO (05:06)
[2022-05-05] MEDS: Metoprolol Tartrate 50 MG Tablet PO ×2 (05:06→17:09)
[2022-05-05] MEDS: Nystatin Powder 15gm Bottle 1 APPLIC TOPICAL (05:06)
[2022-05-05] MEDS: Furosemide 20 MG Tablet PO (05:06)
[2022-05-05] MEDS: APIXABAN 5 MG TABLET PO ×2 (05:06→17:09)
[2022-05-05] MEDS: dilTIAZem CD 120 MG Capsule PO (05:06)
[2022-05-05] MEDS: Menthol/Lanolin/Calamine/Znox 113 GM Tube 1 APPLIC TOPICAL ×2 (05:06→17:08)
[2022-05-05 06:04] LABS: Anion Gap 8 (5-15); BUN 34 mg/dL (7-18); BUN/Creat Ratio 12.8 RATIO (10-20); Calcium,Total 9.3 mg/dL (8.5-10.1); Chloride 109 mmol/L (98-107); Creatinine, Serum 2.65 mg/dL (0.55-1.02); EST Glomerular Filtration Rate 19 mL/min (>60); Est Glom Filt Rate - Afr Amer 23 mL/min (>60); Estimated Creatinine Clearance 16.08 ml/min; Glucose 169 mg/dL (74-106); Potassium 4.3 mmol/L (3.5-5.1); Sodium Level 139 mmol/L (136-145)
[2022-05-05 06:56] LABS: Bedside Glucose 163 mg/dL (74-106)
[2022-05-05] MEDS: Insulin Lispro 100 UNIT/ML INSULN.PEN 10 UNIT SC ×3 (07:45→17:08)
[2022-05-05] MEDS: Amiodarone 200 MG Tablet PO (07:46)
[2022-05-05] MEDS: Gabapentin 100 MG Capsule PO ×2 (07:46→17:08)
[2022-05-05] MEDS: predniSONE 5 MG Tablet 7.5 MG PO (07:46)
--- NOTE | 2022-05-05 09:02 | NURSING ---
Spoke with staff at nephrology office, updated on consult.
--- NOTE | 2022-05-05 10:25 | PHA.CONS_ITS ---
TCU RX Drug Regimen Review Subjective: TCU Admission. 76 YOF presented to the ER from TCU with fever, hypoxia and encephalopathy. Hospitalized for acute respiratory failure with hypoxia secondary to acute on chronic systolic congestive heart failure, complicated by acute kidney injury, left olecranon bursitis. Admitted to TCU with debility for strengthening and rehabilitation. Objective: Allergies hydroxychloroquine Allergy (Severe, Verified 04/23/22 03:04) Shortness of breath metformin Adverse Reaction (Severe, Verified 04/23/22 03:04) Diarrhea methotrexate Adverse Reaction (Severe, Verified 04/23/22 03:04) Other PASSES OUT Sulfa (Sulfonamide Antibiotics) Adverse Reaction (Intermediate, Verified 04/23/22 03:04) Other BLISTERS Current Medications Generic Name Dose Route Start Last Admin Trade Name Freq PRN Reason Stop Dose Admin Acetaminophen 1,000 mg 04/30/22 11:54 Acetaminophen 500 Mg Tablet PO Q8H PRN PAIN 1-10 AND FEVER Hydrocodone Bitart/Acetaminophen 1 tablet 04/30/22 11:54 Hydrocodone Bitartrate/Apap 5/325 Tablet PO Q8H PRN Pain 1-10 Amiodarone HCl 200 mg 05/05/22 08:00 05/05/22 07:46 Amiodarone 200 Mg Tablet PO 200 mg DAILYCM HARITHA Administration Apixaban 5 mg 04/30/22 18:00 05/05/22 05:06 Apixaban 5 Mg Tablet PO 5 mg BID HARITHA Administration Atorvastatin Calcium 40 mg 04/30/22 22:00 05/04/22 21:49 Atorvastatin Calcium 40 Mg Tablet PO 40 mg QHS HARITHA Administration Calamine/Phenol 1 applic 04/30/22 18:00 05/05/22 05:06 Menthol/Lanolin/Calamine/Znox 113 Gm Tube TOPICAL 1 applic BID HARITHA Administration Protocol Dextrose 0 gm 05/03/22 17:40 Dextrose 50%-Water 25 Gm/50 Ml Disp.Syrin IV X1 PRN Hypoglycemia Protocol Diltiazem HCl 120 mg 05/01/22 06:00 05/05/22 05:06 Diltiazem Cd 120 Mg Capsule PO 120 mg DAILY HRAITHA Administration Furosemide 20 mg 05/05/22 06:00 05/05/22 05:06 Furosemide 20 Mg Tablet PO 20 mg DAILY HARITHA Administration Gabapentin 100 mg 04/30/22 17:00 05/05/22 07:46 Gabapentin 100 Mg Capsule PO 100 mg BIDCM HARITHA Administration Glucagon 1 mg 05/03/22 17:40 Glucagon 1 Mg/Ml Syringe IM X1 PRN Hypoglycemia Insulin Glargine 20 unit 05/04/22 22:00 05/04/22 21:49 Insulin Glargine-Yfgn 100 Unit/Ml Pen SC 20 unit QHS HARITHA Administration Insulin Human Lispro 10 unit 05/04/22 06:45 05/05/22 07:45 Insulin Lispro 100 Unit/Ml Insuln.Pen SC 10 units TIDAC HARITHA Administration Leflunomide 10 mg 05/02/22 06:00 05/04/22 04:59 Leflunomide 10 Mg Tablet PO 10 mg QODAY@0600 HARITHA Administration Levothyroxine Sodium 100 mcg 05/01/22 06:00 05/05/22 05:05 Levothyroxine 100 Mcg Tablet PO 100 mcg DAILY HARITHA Administration Loratadine 10 mg 05/07/22 10:00 Loratadine 10 Mg Tablet PO QODAY HARITHA Melatonin 10 mg 04/30/22 22:00 05/04/22 21:49 Melatonin 10 Mg Tablet PO 10 mg QHS HARITHA Administration Metoprolol Tartrate 50 mg 04/30/22 18:00 05/05/22 05:06 Metoprolol Tartrate 50 Mg Tablet PO 50 mg BID HARITHA Administration Nystatin 1 applic 04/30/22 11:54 05/05/22 05:06 Nystatin Powder 15gm Bottle TOPICAL 1 applic TID PRN Administration rash Protocol [id number] Ethyl Esters 2 gm 04/30/22 18:00 05/05/22 05:06 [place]-3 Acid Ethyl Esters 1 Gm Capsule PO 2 gm BID HARITHA Administration Pantoprazole Sodium 40 mg 05/01/22 06:00 05/05/22 05:06 Pantoprazole Sodium 40 Mg Tablet PO 40 mg DAILY HARITHA Administration Prednisone 7.5 mg 05/01/22 08:00 05/05/22 07:46 Pred[facility]one 5 Mg [facility] Senna/Docusate Sodium 1 tablet 04/30/22 18:00 05/05/22 05:06 Senna/Docusate Sodium 1 Tablet PO 1 tablet BID HARITHA Administration Sodium Chloride 10 - 40 ml 04/30/22 12:10 05/02/22 05:47 0.9% Saline Lock 10 Ml Syringe IV 10 ml UD PRN Administration SALINE FLUSH Problem List (Last Reviewed 04/30/22 @ 20:[address] Meir Mistry MD) Neuropathic pain (Acute) Hypothyroidism (Acute) Hyperlipidemia (Acute) Diabetes mellitus (Acute) Rheumatoid arthritis (Acute) Atrial fibrillation (Acute) Stroke (Acute) Acute respiratory failure with hypoxia (Acute) Debility (Acute) Vital Signs Temp Pulse Resp BP Pulse Ox O2 Del Method 97.9 F 76 18 147/94 H 96 Room Air 05/04/22 14:20 05/05/22 05:06 05/04/22 14:20 05/05/22 05:06 05/04/22 14:20 05/04/22 14:20 Oxygen Delivery Method Room Air Weight: 96.8 kg Body Mass Index (BMI) 37.5 Sodium 139 mmol/L (136-145) 05/05/22 05:15 Potassium 4.3 mmol/L (3.5-5.1) 05/05/22 05:15 Chloride 109 mmol/L (98-107) H 05/05/22 05:15 Carbon Dioxide 22.0 mmol/L (21.0-32.0) 05/05/22 05:15 Anion Gap 8 (5-15) 05/05/22 05:15 BUN 34 mg/dL (7-18) H 05/05/22 05:15 Creatinine 2.65 mg/dL (0.55-1.02) H 05/05/22 05:15 Est GFR (MDRD) Af Amer 23 mL/min (>60) L 05/05/22 05:15 Est GFR (MDRD) Non-Af 19 mL/min (>60) L 05/05/22 05:15 BUN/Creatinine Ratio 12.8 RATIO (10-20) 05/05/22 05:15 Glucose 169 mg/dL (74-106) H 05/05/22 05:15 Assessment/Plan: 1. Pain/fever: acetaminophen 1000mg PO Q8H RPN pain 1-10/fever and [place] 5/325mg 1T PO Q8H PRN pain 1-10. Resident has not received any doses so far. Please continue to monitor for increased pain and PRN usage. 2. Bowel: senna/docusate 1T PO BID. Please continue to monitor for constipation. Please consider changing to BID PRN constipation. Resident has refused 6/10 doses. Thanks. Last documented bowel movement was 05/02. 3. Atrial fibrillation/CHF: metoprolol tartrate 50mg PO BID, diltiazem CD 120mg PO daily, amiodarone 200mg PO DAILYCM, apixaban 5mg PO BID and furosemide 20mg PO daily. Please continue to monitor BP (last 147/94), HR (last 76), potassium (last 4.3mmol/L), sodium (last 139mmol/L), S/S of bleeding, renal function, and hemoglobin (last 9.2g/dL). 4. Hyperlipidemia: atorvastatin 40mg PO QHS and omega 3 2gm PO BID. Please continue to monitor lipid panel (last 04/25/22), LFTs (last 04/30/22) and muscle pain. 5. GERD: pantoprazole 40mg PO daily. Please continue to monitor for S/S of GERD and diarrhea (BEERs list due to increased risk of C. diff infection. 6. Diabetes mellitus: insulin glargine 20units SC QHS and insulin lispro 10units SC TIDAC. Please continue to monitor hemoglobin A1c (last 7.9% 04/03/22), gluco se (last 163mg/dL) and S/S of hypoglycemia. 7. Rheumatoid arthritis: leflunomide 10mg PO daily and prednisone 7.5mg PO daily. Please continue to monitor for S/S of RA/infection, rash and BP. 8. Hypothyroidism: levothyroxine 100mcg PO daily. Please continue to monitor TSH (last 04/03/22) and S/S of hypo/hyperthyroidism. 9. Allergic rhinitis: loratadine 10mg PO every other day. Please continue to monitor for S/S of allergies and renal function. Dose changed per policy to every other day due to CrCl of 21 mL/min using adjusted body weight. 10. Insomnia: melatonin 10mg PO QHS. Please continue to monitor for excessive drowsiness. Assessment/Plan for indications treated with psychotropic medications: 1. Diabetic neuropathy: gabapentin 100mg PO BID. Please continue to monitor for S/S of confusion, renal function (BEERs medication) and falls/fractures (BEERs medication.) GDR not appropriate as this medication is being used for neuropathy, however, based on CrCl of 21 mL/min using adjusted body weight the recommended dose is 200-700mg in one dose. Please consider changing to 200mg PO once daily to decrease the risk of falls. Thanks. Medical chart and medication regimen reviewed. The following medication irregularities or issues were identified: *1. Gabapentin 100mg PO BID. GDR not appropriate as this medication is being used for neuropathy, however, based on CrCl of 21 mL/min using adjusted body weight the recommended dose is 200-700mg in one dose. Please consider changing to 200mg PO once daily to decrease the risk of falls. Thanks. *2. Senna/docusate 1T PO BID. Please consider changing to BID PRN constipation. Resident has refused / doses. Thanks. Last documented bowel movement was 05/02. Date of Note:: 05/05/22
[2022-05-05 11:11] LABS: Bedside Glucose 169 mg/dL (74-106)
[2022-05-05 14:10] VITALS: BP 164/84; PULSE 72; RESP 18; TEMP 36.3; O2SAT 96
--- NOTE | 2022-05-05 16:39 | PN.RENAL_ITS ---
Subjective Subjective Following for KATHY Denies any complaints. Denies any recent nausea or vomiting. Objective Data Objective Data Vital Signs: Vital Signs Temp Pulse Resp BP Pulse Ox O2 Del Method 97.4 F L 72 18 164/84 H 96 Room Air 05/05/22 14:10 05/05/22 14:10 05/05/22 14:10 05/05/22 14:10 05/05/22 14:10 05/05/22 14:10 Oxygen Delivery Method Room Air Weight: 96.8 kg Body Mass Index (BMI) 37.5 Intake & Output: Intake and Output for Last 24 Hours 05/03/22 05/04/22 05/05/22 23:59 23:59 23:59 Intake Total 840 / 840 600 / 600 720 / 720 Output Total 800 / 800 1450 / 1450 1850 / 1850 Balance 40 / 40 -850 / -850 -1130 / -1130 Lab / Micro Data Result Diagrams: 05/01/22 05:55 05/05/22 05:15 Labs: Laboratory Results - last 24 hr 05/04/22 06:23: POC Glucose 213 H 05/04/22 16:36: POC Glucose 192 H 05/04/22 21:17: POC Glucose 200 H 05/05/22 05:15: Sodium 139, Potassium 4.3, Chloride 109 H, Carbon Dioxide 22.0, Anion Gap 8, BUN 34 H, Creatinine 2.65 H, Estim Creat Clear Calc 16.08, Est GFR (MDRD) Af Amer 23 L, Est GFR (MDRD) Non-Af 19 L, BUN/Creatinine Ratio 12.8, Glucose 169 H, Calcium 9.3 05/05/22 06:29: POC Glucose 163 H 05/05/22 10:40: POC Glucose 169 H Micro: Microbiology 05/04/22 06:51 Nasal Secretion SARS-CoV-2 Antigen (Rapid) - Final 05/02/22 06:00 Nasal Secretion SARS-CoV-2 Antigen (Rapid) - Final Physical Exam Narrative Const: Alert and oriented x3, no apparent distress Cardio: S1, S2, rhythm irregular, rate controlled Respiratory: Lung sounds clear anteriorly and posteriorly.? No wheezes, rhonchi or rales noted Extremities: Trace edema noted bilateral lower legs. Assessment & Plan Assessment/Plan (1) KATHY (acute kidney injury): PLAN: Plan -Nonoliguric euvolemic KATHY with normal baseline Creatinine of ~0.8 mg/dL.? SCr began to rise on 04/24.? SCr peaked 3.10mg/dL on 04/29. Renal function improving and today SCr 2.65mg/dL. ? UA was negative for blood. CK 24.? Entresto and furosemide discontinued on 04/25 and patient received small fluid bolus challenge on 04/26.? KATHY likely prerenal possibly from antibiotics (zosyn and vanco), volume depletion from diarrhea with concurrent diuretic and ARB use.? Last vanco dose 04/28. Random vanco level from 04/29 elevated at 24.3.? Renal US no hydro. 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 Patient does not need IVF at this time. She was restarted back on low dose lasix 20mg daily today. ? Encouraged patient to increase solute/fluid intake.? BPs acceptable but to note BPs were low on April 25 which may have contributed to decrease effective renal perfusion.? -Please continue holding Vanco and entresto. Patient has history of heart failure but appears compensated at this time. - will check BMP later in the week
[2022-05-05 17:05] LABS: Bedside Glucose 181 mg/dL (74-106)
[2022-05-05 17:09] VITALS: BP 164/84; PULSE 72
--- NOTE | 2022-05-05 17:39 | CASEMGMT ---
Social Work See attached assessment for completed details. This clinical social work aide met with patient in room. Introduced self and clinical social work aide role. Patient agreeable to speak with this clinical social work aide. Patient states plans to return to home alone. This clinical social work aide communicating patient insurance benefit and encouraged patient to reach out to secondary insurance in the event that patient still requires skilled care past 21 days to inquire about coverage of co-pay. Patient with previous TCU stay, patient confirms that last MOLST form completed on 04/08/2022 still stands a Full Code. Social Work to continue to follow as needed. Mita Wells MSW, VEGA-S
[2022-05-05] MEDS: MELATONIN 10 MG TABLET PO (20:01)
[2022-05-05] MEDS: Atorvastatin Calcium 40 MG Tablet PO (20:01)
[2022-05-05 20:06] VITALS: PULSE 74; RESP 14; O2SAT 95
[2022-05-05 21:45] LABS: Bedside Glucose 142 mg/dL (74-106)
[2022-05-05] MEDS: Insulin Glargine-YFGN 100 UNIT/ML Pen 20 UNIT SC (21:48)
[2022-05-06] MEDS: Omega-3 Acid Ethyl Esters 1 GM Capsule 2 GM PO ×2 (05:37→17:15)
[2022-05-06] MEDS: APIXABAN 5 MG TABLET PO ×2 (05:37→17:14)
[2022-05-06] MEDS: Pantoprazole Sodium 40 MG Tablet PO (05:37)
[2022-05-06] MEDS: Leflunomide 10 MG TABLET PO (05:37)
[2022-05-06] MEDS: Furosemide 20 MG Tablet PO (05:37)
[2022-05-06] MEDS: Levothyroxine 100 MCG Tablet PO (05:37)
[2022-05-06 05:39] VITALS: BP 168/77; PULSE 64
[2022-05-06] MEDS: Metoprolol Tartrate 50 MG Tablet PO ×2 (05:39→17:15)
[2022-05-06] MEDS: dilTIAZem CD 120 MG Capsule PO (05:39)
[2022-05-06] MEDS: Menthol/Lanolin/Calamine/Znox 113 GM Tube 1 APPLIC TOPICAL ×2 (05:44→17:13)
[2022-05-06 06:36] LABS: Anion Gap 6 (5-15); BUN 35 mg/dL (7-18); BUN/Creat Ratio 14.3 RATIO (10-20); Calcium,Total 9.7 mg/dL (8.5-10.1); Chloride 109 mmol/L (98-107); Creatinine, Serum 2.45 mg/dL (0.55-1.02); EST Glomerular Filtration Rate 20 mL/min (>60); Est Glom Filt Rate - Afr Amer 25 mL/min (>60); Glucose 98 mg/dL (74-106); Potassium 3.7 mmol/L (3.5-5.1); Sodium Level 139 mmol/L (136-145)
[2022-05-06] MEDS: Amiodarone 200 MG Tablet PO (08:31)
[2022-05-06] MEDS: Insulin Lispro 100 UNIT/ML INSULN.PEN 10 UNIT SC ×3 (08:31→17:12)
[2022-05-06] MEDS: predniSONE 5 MG Tablet 7.5 MG PO (08:32)
[2022-05-06] MEDS: Gabapentin 100 MG Capsule PO ×2 (08:36→17:13)
[2022-05-06 09:35] VITALS: PULSE 74
[2022-05-06 12:14] LABS: Bedside Glucose 120 mg/dL (74-106)
[2022-05-06 12:14] LABS: Bedside Glucose 102 mg/dL (74-106)
[2022-05-06 13:25] VITALS: BP 140/80; PULSE 64; RESP 16; TEMP 36.2; O2SAT 95
--- NOTE | 2022-05-06 13:47 | WOUNDNOTE ---
wound photo: left elbow
[2022-05-06 17:05] LABS: Bedside Glucose 139 mg/dL (74-106)
[2022-05-06 17:15] VITALS: BP 146/96; PULSE 77
[2022-05-06] MEDS: Insulin Glargine-YFGN 100 UNIT/ML Pen 20 UNIT SC (21:44)
[2022-05-06] MEDS: Atorvastatin Calcium 40 MG Tablet PO (21:44)
[2022-05-06] MEDS: MELATONIN 10 MG TABLET PO (21:44)
[2022-05-06 21:50] LABS: Bedside Glucose 210 mg/dL (74-106)
[2022-05-07 05:50] VITALS: BP 157/93; PULSE 65; RESP 18; TEMP 36.3; O2SAT 95
[2022-05-07 05:57] VITALS: BP 157/93; PULSE 65
[2022-05-07] MEDS: dilTIAZem CD 120 MG Capsule PO (05:57)
[2022-05-07] MEDS: APIXABAN 5 MG TABLET PO ×2 (05:57→17:22)
[2022-05-07] MEDS: Metoprolol Tartrate 50 MG Tablet PO ×2 (05:57→17:22)
[2022-05-07] MEDS: Pantoprazole Sodium 40 MG Tablet PO (05:57)
[2022-05-07] MEDS: Furosemide 20 MG Tablet PO (05:57)
[2022-05-07] MEDS: Omega-3 Acid Ethyl Esters 1 GM Capsule 2 GM PO ×2 (05:57→17:22)
[2022-05-07] MEDS: Menthol/Lanolin/Calamine/Znox 113 GM Tube 1 APPLIC TOPICAL ×2 (05:57→17:21)
[2022-05-07] MEDS: Levothyroxine 100 MCG Tablet PO (05:57)
[2022-05-07 06:11] LABS: Anion Gap 7 (5-15); BUN 38 mg/dL (7-18); BUN/Creat Ratio 16.8 RATIO (10-20); Calcium,Total 9.2 mg/dL (8.5-10.1); Chloride 108 mmol/L (98-107); Creatinine, Serum 2.26 mg/dL (0.55-1.02); EST Glomerular Filtration Rate 22 mL/min (>60); Est Glom Filt Rate - Afr Amer 27 mL/min (>60); Estimated Creatinine Clearance 18.86 ml/min; Glucose 130 mg/dL (74-106); Potassium 3.7 mmol/L (3.5-5.1); Sodium Level 140 mmol/L (136-145)
[2022-05-07 06:41] LABS: Bedside Glucose 115 mg/dL (74-106)
[2022-05-07 08:12] VITALS: BP 176/95; PULSE 72
[2022-05-07] MEDS: Gabapentin 100 MG Capsule PO ×2 (08:13→17:21)
[2022-05-07] MEDS: predniSONE 5 MG Tablet 7.5 MG PO (08:14)
[2022-05-07] MEDS: Amiodarone 200 MG Tablet PO (08:15)
[2022-05-07] MEDS: Insulin Lispro 100 UNIT/ML INSULN.PEN 10 UNIT SC ×3 (08:15→18:01)
--- NOTE | 2022-05-07 08:40 | NURSING ---
Live Ammunition Inspector Note; MDS Complete
--- NOTE | 2022-05-07 09:47 | PCM.PN.REN ---
Subjective Subjective Following for KATHY Sitting in chair. Denies complaints. No dysuria. Reports appetite has improved. Objective Data Objective Data Vital Signs: Vital Signs Temp Pulse Resp BP Pulse Ox O2 Del Method 97.3 F L 72 18 176/95 H 95 Room Air 05/07/22 05:50 05/07/22 08:12 05/07/22 05:50 05/07/22 08:12 05/07/22 05:50 05/07/22 05:50 Oxygen Delivery Method Room Air Weight: 95.164 kg Body Mass Index (BMI) 37.5 Intake & Output: Intake and Output for Last 24 Hours 05/05/22 05/06/22 05/07/22 23:59 23:59 23:59 Intake Total 1100 / 1100 960 / 960 Output Total 1850 / 1850 475 / 475 600 / 600 Balance -750 / -750 485 / 485 -600 / -600 Lab / Micro Data Result Diagrams: 05/01/22 05:55 05/07/22 05:26 Labs: Laboratory Results - last 24 hr 05/06/22 06:07: POC Glucose 102 05/06/22 11:01: POC Glucose 120 H 05/06/22 16:42: POC Glucose 139 H 05/06/22 21:14: POC Glucose 210 H 05/07/22 05:26: Sodium 140, Potassium 3.7, Chloride 108 H, Carbon Dioxide 25.0, Anion Gap 7, BUN 38 H, Creatinine 2.26 H, Estim Creat Clear Calc 18.86, Est GFR (MDRD) Af Amer 27 L, Est GFR (MDRD) Non-Af 22 L, BUN/Creatinine Ratio 16.8, Glucose 130 H, Calcium 9.2 05/07/22 06:06: POC Glucose 115 H Micro: Microbiology 05/04/22 06:51 Nasal Secretion SARS-CoV-2 Antigen (Rapid) - Final 05/02/22 06:00 Nasal Secretion SARS-CoV-2 Antigen (Rapid) - Final Physical Exam Narrative Const: Alert and oriented x3, no apparent distress Cardio: S1, S2, rhythm irregular, rate controlled Respiratory: Lung sounds clear anteriorly and posteriorly.? No wheezes, rhonchi or rales noted GI: Abdomen soft, NT, +BS Extremities: Trace edema noted bilateral lower legs. Assessment & Plan Assessment/Plan (1) KATHY (acute kidney injury): PLAN: Plan -Nonoliguric euvolemic KATHY with normal baseline Creatinine of ~0.8 mg/dL.? SCr began to rise on 04/24.? SCr peaked 3.10mg/dL on 04/29. Renal function improving and today SCr 2.26mg/dL. ? UA was negative for blood. CK 24.? Entresto and furosemide discontinued on 04/25 and patient received small fluid bolus challenge on 04/26.? KATHY likely prerenal possibly from antibiotics (zosyn and vanco), volume depletion from diarrhea with concurrent diuretic and ARB use.? Last vanco dose 04/28. Random vanco level from 04/29 elevated at 24.3.? Renal US no hydro. 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 Patient does not need IVF at this time. She was restarted back on low dose lasix 20mg daily. Ok to continue lasix as ordered. ? Encouraged patient to increase solute/fluid intake.? BPs acceptable but to note BPs were low on April 25 which may have contributed to decrease effective renal perfusion.? -Please continue holding Vanco and entresto. Patient has history of heart failure but appears compensated at this time. - can check BMP later in the week to early next week.
--- NOTE | 2022-05-07 09:55 | CASEMGMT ---
Addendum entered by Malissa Bell 05/07/22 11:24: [facility] is able to accept pt. Sister still in room with pt and SW updated both parties. SW to continue to follow. Original Note: Social Work IDT met with patient, brother and sister for care plan meeting. Discussed patient's progress in PT/OT/SN. Educated to Medicare benefit. Pt readmitted on day . Pt lives at home alone. IDT recommending an alternate DC plan - recommending a SNF. Pt's cognition and physically abilities are requiring assistance. Unsure if that will improve. Pt fatigues quickly. Discussed alternate plan as brother and sister stated they cannot provide daily care. SW offered SNF list with quality and resource data. Family would like pt in [facility] and interested in [facility] SNF. SW made referral via [facility]. SW to continue to follow for DC planning. QUANG Jo CLINICAL RESEARCH TECH
[2022-05-07] MEDS: Loratadine 10 MG Tablet PO (10:53)
[2022-05-07 11:36] LABS: Bedside Glucose 149 mg/dL (74-106)
[2022-05-07 14:19] VITALS: BP 154/80; PULSE 68; RESP 16; TEMP 36.2; O2SAT 96
[2022-05-07 16:45] LABS: Bedside Glucose 170 mg/dL (74-106)
[2022-05-07 17:22] VITALS: BP 145/64; PULSE 65
[2022-05-07 21:05] VITALS: PULSE 72; RESP 14; O2SAT 97
[2022-05-07] MEDS: MELATONIN 10 MG TABLET PO (21:32)
[2022-05-07] MEDS: Atorvastatin Calcium 40 MG Tablet PO (21:32)
[2022-05-07 21:41] LABS: Bedside Glucose 182 mg/dL (74-106)
[2022-05-07] MEDS: Insulin Glargine-YFGN 100 UNIT/ML Pen 20 UNIT SC (21:43)
[2022-05-08 05:58] LABS: Absolute Lymphocyte Count 1.95 X10^3/uL (0.83-4.51); Absolute Neutrophil Count 7.9 X10^3/uL (2.0-7.7); Basophil# 0.16 X10^3/uL; Basophil% 1.3 % (0-1); Eosinophil# 0.43 X10^3/uL; Eosinophils% 3.5 % (0-5); Hematocrit 31.7 % (37-47); Hemoglobin 9.9 g/dL (12.0-15.0); Lymphocyte # 1.95 X10^3/ul (0.83-4.51); Lymphocyte % 15.9 % (19-41); Mean Corp Hgb Conc 31.2 g/dL (32-36); Mean Corpuscular Hgb 28.9 pg (27.0-32.0); Mean Corpuscular Volume 92.4 fL (81-99); Mean Platelet Vol. 10.4 fl (6.2-12.0); Monocyte# 1.62 X10^3/uL; Monocyte% 13.2 % (0-10); NRBC Flagged by Analyzer 0 % (0-5); Neutrophil # 7.93 X10^3/uL (2.7-7.7); Neutrophil % 64.6 % (47-70); POSITIVE DIFFERENTIAL YES; Platelet Count 394 K/mm3 (150-450); RBC Distribution Width CV 14.6 % (11.6-14.6); RBC Distribution Width SD 49.5 fl (35.1-43.9); Red Blood Count 3.43 M/mm3 (4.2-5.4); White Blood Count 12.3 K/mm3 (4.4-11.0)
[2022-05-08 06:18] LABS: Differential Indicated SCAN CRITERIA MET
[2022-05-08 06:23] VITALS: BP 155/77; PULSE 79
[2022-05-08] MEDS: Metoprolol Tartrate 50 MG Tablet PO ×2 (06:23→17:35)
[2022-05-08] MEDS: Pantoprazole Sodium 40 MG Tablet PO (06:23)
[2022-05-08] MEDS: Levothyroxine 100 MCG Tablet PO (06:23)
[2022-05-08] MEDS: APIXABAN 5 MG TABLET PO ×2 (06:23→17:36)
[2022-05-08] MEDS: dilTIAZem CD 120 MG Capsule PO (06:23)
[2022-05-08] MEDS: Furosemide 20 MG Tablet PO (06:23)
[2022-05-08] MEDS: Omega-3 Acid Ethyl Esters 1 GM Capsule 2 GM PO ×2 (06:23→17:35)
[2022-05-08] MEDS: Leflunomide 10 MG TABLET PO (06:24)
[2022-05-08] MEDS: Menthol/Lanolin/Calamine/Znox 113 GM Tube 1 APPLIC TOPICAL ×2 (06:36→17:37)
[2022-05-08 06:45] LABS: Bedside Glucose 92 mg/dL (74-106)
[2022-05-08] MEDS: predniSONE 5 MG Tablet 7.5 MG PO (08:00)
[2022-05-08] MEDS: Gabapentin 100 MG Capsule PO ×2 (08:01→17:37)
[2022-05-08] MEDS: Amiodarone 200 MG Tablet PO (08:01)
[2022-05-08 11:26] LABS: Bedside Glucose 169 mg/dL (74-106)
[2022-05-08] MEDS: Insulin Lispro 100 UNIT/ML INSULN.PEN 7 UNIT SC ×2 (11:50→17:36)
[2022-05-08 13:41] VITALS: BP 143/55; PULSE 77; RESP 16; TEMP 36.3; O2SAT 97
[2022-05-08 14:32] LABS: Pathologist Review Reviewed
--- NOTE | 2022-05-08 15:57 | NURSING ---
This nurse along with a CONSTRUCTION EQUIPMENT MECHANIC HELPER was getting patient off toilet in room, while attempting to clean patient, patients knee began to buckle and patient was lowered to floor. Patient denies pain and did not hit head. Patient was lifted off floor with gait belt and assistance of four staff members. Patient was placed in bed and is resting now.
[2022-05-08 16:04] VITALS: BP 141/69; PULSE 83; RESP 20; O2SAT 96
[2022-05-08 17:06] LABS: Bedside Glucose 249 mg/dL (74-106)
[2022-05-08 17:35] VITALS: BP 163/66; PULSE 74
[2022-05-08] MEDS: MELATONIN 10 MG TABLET PO (23:06)
[2022-05-08] MEDS: Atorvastatin Calcium 40 MG Tablet PO (23:06)
[2022-05-08] MEDS: Insulin Glargine-YFGN 100 UNIT/ML Pen 20 UNIT SC (23:07)
[2022-05-09] VITALS (7 sets, daily range): BP systolic 156–180; BP diastolic 77–97; PULSE 60–71; RESP 16–20; TEMP 36.4–36.9; O2SAT 93–95
[2022-05-09 01:16] LABS: Bedside Glucose 205 mg/dL (74-106)
[2022-05-09] MEDS: APIXABAN 5 MG TABLET PO ×2 (05:14→18:16)
[2022-05-09] MEDS: Furosemide 20 MG Tablet PO (05:14)
[2022-05-09] MEDS: dilTIAZem CD 120 MG Capsule PO (05:14)
[2022-05-09] MEDS: Menthol/Lanolin/Calamine/Znox 113 GM Tube 1 APPLIC TOPICAL ×2 (05:14→18:17)
[2022-05-09] MEDS: Metoprolol Tartrate 50 MG Tablet PO ×2 (05:16→18:16)
[2022-05-09] MEDS: Levothyroxine 100 MCG Tablet PO (05:16)
[2022-05-09] MEDS: Omega-3 Acid Ethyl Esters 1 GM Capsule 2 GM PO ×2 (05:17→18:16)
[2022-05-09] MEDS: Pantoprazole Sodium 40 MG Tablet PO (05:17)
[2022-05-09 06:41] LABS: Bedside Glucose 107 mg/dL (74-106)
[2022-05-09] MEDS: predniSONE 5 MG Tablet 7.5 MG PO (09:04)
[2022-05-09] MEDS: Amiodarone 200 MG Tablet PO (09:04)
[2022-05-09] MEDS: Insulin Lispro 100 UNIT/ML INSULN.PEN 7 UNIT SC ×3 (09:04→18:16)
[2022-05-09] MEDS: Loratadine 10 MG Tablet PO (09:04)
[2022-05-09] MEDS: Gabapentin 100 MG Capsule PO ×2 (09:07→18:16)
[2022-05-09 11:25] LABS: Bedside Glucose 113 mg/dL (74-106)
[2022-05-09 16:55] LABS: Bedside Glucose 135 mg/dL (74-106)
[2022-05-09 21:21] LABS: Bedside Glucose 105 mg/dL (74-106)
[2022-05-09] MEDS: MELATONIN 10 MG TABLET PO (21:34)
[2022-05-09] MEDS: Atorvastatin Calcium 40 MG Tablet PO (21:35)
[2022-05-09] MEDS: hydrALAZINE 25 MG Tablet PO (22:22)
[2022-05-09 22:24] LABS: Bacteria 0 SEEN /hpf (None Seen); Mucous, Urine 0 SEEN /hpf (<or=2+); Squamous Epithelial Cells - UA 0 SEEN /hpf (5-10)
[2022-05-09 22:30] LABS: Color, Urine Yellow (Yellow); Glucose, Dipstick Normal (Normal); Ketone-Dipstick Negative (Negative); Leukocyte Esterase-Dipstick 500 /ul (Negative); Nitrite-Dipstick Negative (Negative); Occult Blood-Urine 50 /ul (Negative); Protein-Dipstick 100 mg/dl (Negative); Urine Bilirubin Dipstick Negative (Negative); Urine Clarity Clear (Clear); Urine Urobilinogen Normal (Normal)
--- NOTE | 2022-05-09 22:36 | NURSING ---
Addendum entered by Bisi Anders 05/09/22 23:00: Updated Dr Mistry of UA results, orders for Macrobid 100mg BID x7 days. Original Note: 2144-Patient's BP elevated, she denies any pain or concerns, resting comfortably in bed. She is confused, can't tell RN where she is or her birthday. Follows commands, equal carriage dogger, PERRLA, she says she tired. Vitals stable other than BP. Updated Dr Mistry on BP, mental status, and concern her sugar will drop overnight if PM insulin given. Order for hyralazine x1, UA w/ culture, and to discontinue all insulin orders. 2214-Straight cath done for UA. Patient a bit more alert, can tell RN her birthday. Hydralazine given.
[2022-05-09 22:38] LABS: White Blood Cells 5-10 SEEN /hpf (0-5)
[2022-05-09 22:39] LABS: Red Blood Cells-Urine 0-5 SEEN /hpf (0-5); Yeast-Urine RARE /hpf (None Seen)
[2022-05-09] MEDS: Nitrofurantoin Macrocrystals 100 MG Capsule PO (23:47)
[2022-05-10] VITALS (8 sets, daily range): BP systolic 143–185; BP diastolic 68–114; PULSE 69–94; RESP 16; TEMP 37.4; O2SAT 92–94
--- NOTE | 2022-05-10 05:15 | NURSING ---
Was reported to this nurse that patient had not voided since straight cath urine specimen. Bladder scanned at 483. straight cath for 490
[2022-05-10] MEDS: Menthol/Lanolin/Calamine/Znox 113 GM Tube 1 APPLIC TOPICAL ×2 (05:38→16:57)
[2022-05-10] MEDS: dilTIAZem CD 120 MG Capsule PO (05:39)
[2022-05-10] MEDS: Leflunomide 10 MG TABLET PO (05:40)
[2022-05-10] MEDS: APIXABAN 5 MG TABLET PO ×2 (05:40→16:57)
[2022-05-10] MEDS: Furosemide 20 MG Tablet PO (05:40)
[2022-05-10] MEDS: Nitrofurantoin Macrocrystals 100 MG Capsule PO (05:41)
[2022-05-10] MEDS: Metoprolol Tartrate 50 MG Tablet PO ×2 (05:41→16:57)
[2022-05-10] MEDS: Omega-3 Acid Ethyl Esters 1 GM Capsule 2 GM PO ×2 (05:41→16:56)
[2022-05-10] MEDS: Levothyroxine 100 MCG Tablet PO (05:42)
[2022-05-10] MEDS: Pantoprazole Sodium 40 MG Tablet PO (05:42)
[2022-05-10 06:36] LABS: Bedside Glucose 95 mg/dL (74-106)
[2022-05-10] MEDS: Acetaminophen 500 MG Tablet 1000 MG PO (06:59)
[2022-05-10] MEDS: predniSONE 5 MG Tablet 7.5 MG PO (08:06)
[2022-05-10] MEDS: Amiodarone 200 MG Tablet PO (08:06)
[2022-05-10] MEDS: Gabapentin 100 MG Capsule PO ×2 (08:06→16:57)
--- NOTE | 2022-05-10 08:15 | VDUE_ITS ---
Reason For Study: Swelling Right Proximal Left Proximal Right subclavian vein is spontaneous, widely Left jugular vein is spontaneous, widely patent, phasic, with no intraluminal patent, phasic, with no intraluminal echogenicity noted. echogenicity noted. Left subclavian vein is spontaneous, widely patent, phasic, with no intraluminal echogenicity noted. Mixed echoes noted in Lt shoulder rotator cuff. Possible trauma tear or injury. No vascular flow seen in pulsed wave or color doppler. Left Arm Left axillary vein is spontaneous, patent, phasic, competent, compressible and demonstrates augmentation. Left brachial vein is compressible. Left cephalic vein is compressible. Left basilic vein is compressible. Left Lower Arm Left radial vein is compressible. Left ulnar vein is compressible. VL/Venous Duplex US, Unilateral Interpretation Summary No evidence for acute deep venous thrombosis[left] upper extremity with patent and compressible cephalic and basilic veins. At the left shoulder there is mixed echogenic patte rn possibly within the rotator cuff. Clinical correlation would be pertinent Normal flow patterns right subclavian vein Ordering Physician: Meir Mistry Chi Referring Physician: Grayson Newton Performed By: Rashad Mast RVT ???
[2022-05-10] MEDS: hydrALAZINE 50 MG Tablet PO ×3 (08:28→21:17)
--- NOTE | 2022-05-10 09:56 | NURSING ---
Pt Blood Pressure this AM 185/[address] Mistry updated on increased BP, pt needing to be straight cahted for 490 ml and c/o of pain and swelling to left arm. N.O. for Hydralazine 50mg TID, Insert Pearce cath, Compress Left arm with TAMMIE wrap and order Doppler to LUE. Let Dr. Mistry know Doppler will not be done till Thursday per Dr. Mistry that is fine. Orders read back.
--- NOTE | 2022-05-10 09:59 | NURSING ---
Rechecked BP 151/85 Pulse 79. Inserted Pearce cath per order. Sterile technique used and 400 ml of cloudy yellow urine emptied.
[2022-05-10 11:50] LABS: Bedside Glucose 149 mg/dL (74-106)
--- NOTE | 2022-05-10 13:11 | RAD_ITS ---
STUDY: X-RAY CHEST REASON FOR EXAM: Female, 76 years old. Febrile, Lethargy TECHNIQUE: PA and lateral views of the chest. COMPARISON: 04/25/2022 FINDINGS: Status post median sternotomy with a left atrial appendage closure device. Poor inspiration with some bibasilar atelectasis. There is no demonstrated pleural abnormality. There is moderate cardiac enlargement. Normal mediastinum and blanca. Normal visualized pulmonary arteries. Normal visualized aortic arch and descending thoracic aorta. Normal visualized thoracic spine. Normal visualized ribs, clavicles, and shoulders. There is no demonstrated abnormality of the visualized soft tissue structures of the upper abdomen. RAD/Chest PA and Lateral IMPRESSION: Poor inspiration with some bibasilar atelectasis. Electronically Signed: Ishan London MD at 14:58 EST ,
--- NOTE | 2022-05-10 13:33 | MDS.RN ---
Pt c/o of increased tiredness and pt falling asleep during conversation. Pt refused Breakfast and Lunch. Temp 99.3 BP 179/88 Pulse 86 SpO2 94% RA. Dr. Mistry updated N.O. for Respiratory panel, Covid test, Chest X ray BMP Urinalysis and CBC.
[2022-05-10 13:49] LABS: Absolute Lymphocyte Count 1.02 X10^3/uL (0.83-4.51); Absolute Neutrophil Count 17.7 X10^3/uL (2.0-7.7); Basophil# 0.14 X10^3/uL; Basophil% 0.6 % (0-1); Eosinophil# 0.12 X10^3/uL; Eosinophils% 0.5 % (0-5); Hematocrit 31.1 % (37-47); Lymphocyte # 1.02 X10^3/ul (0.83-4.51); Lymphocyte % 4.7 % (19-41); Mean Corp Hgb Conc 32.2 g/dL (32-36); Mean Corpuscular Hgb 29.2 pg (27.0-32.0); Mean Corpuscular Volume 90.7 fL (81-99); Mean Platelet Vol. 10.4 fl (6.2-12.0); Monocyte# 2.66 X10^3/uL; Monocyte% 12.2 % (0-10); NRBC Flagged by Analyzer 0 % (0-5); Neutrophil # 17.72 X10^3/uL (2.7-7.7); Neutrophil % 81.1 % (47-70); POSITIVE DIFFERENTIAL YES; Platelet Count 322 K/mm3 (150-450); RBC Distribution Width CV 14.7 % (11.6-14.6); RBC Distribution Width SD 49.1 fl (35.1-43.9); Red Blood Count 3.43 M/mm3 (4.2-5.4); White Blood Count 21.9 K/mm3 (4.4-11.0)
[2022-05-10 13:50] LABS: Differential Indicated SCAN CRITERIA MET
[2022-05-10 14:00] LABS: Anion Gap 6 (5-15); BUN 37 mg/dL (7-18); BUN/Creat Ratio 19.4 RATIO (10-20); Calcium,Total 8.7 mg/dL (8.5-10.1); Chloride 105 mmol/L (98-107); Creatinine, Serum 1.91 mg/dL (0.55-1.02); EST Glomerular Filtration Rate 27 mL/min (>60); Est Glom Filt Rate - Afr Amer 33 mL/min (>60); Estimated Creatinine Clearance 22.31 ml/min; Glucose 168 mg/dL (74-106); Potassium 3.6 mmol/L (3.5-5.1); Sodium Level 137 mmol/L (136-145)
[2022-05-10 14:29] LABS: Platelet Estimate ADEQUATE (ADEQ)
[2022-05-10 14:30] LABS: Hypochromasia RARE
[2022-05-10 15:23] LABS: Bacteria 0 SEEN /hpf (None Seen); Mucous, Urine 0 SEEN /hpf (<or=2+); Red Blood Cells-Urine 0 SEEN /hpf (0-5); Squamous Epithelial Cells - UA 0 SEEN /hpf (5-10)
[2022-05-10 15:30] LABS: Color, Urine Yellow (Yellow); Glucose, Dipstick Normal (Normal); Ketone-Dipstick 5 mg/dl (Negative); Leukocyte Esterase-Dipstick 500 /ul (Negative); Nitrite-Dipstick Negative (Negative); Occult Blood-Urine 150 /ul (Negative); Protein-Dipstick 100 mg/dl (Negative); Urine Bilirubin Dipstick Negative (Negative); Urine Clarity Cloudy (Clear); Urine Urobilinogen Normal (Normal)
[2022-05-10 16:36] LABS: White Blood Cells >100 SEEN /hpf (0-5)
[2022-05-10] MEDS: Senna/Docusate Sodium 1 Tablet PO (16:56)
[2022-05-10] MEDS: 0.9% Saline Lock 10 ML Syringe IV (16:58)
[2022-05-10 17:00] LABS: Bedside Glucose 157 mg/dL (74-106)
[2022-05-10] MEDS: Atorvastatin Calcium 40 MG Tablet PO (21:18)
[2022-05-10] MEDS: MELATONIN 10 MG TABLET PO (21:18)
[2022-05-10 22:00] LABS: Bedside Glucose 149 mg/dL (74-106)
[2022-05-11] VITALS (7 sets, daily range): BP systolic 134–155; BP diastolic 60–78; PULSE 72–98; RESP 16–18; TEMP 36.9; O2SAT 94–95
[2022-05-11] MEDS: Levothyroxine 100 MCG Tablet PO (04:51)
[2022-05-11] MEDS: Metoprolol Tartrate 50 MG Tablet PO ×2 (04:51→17:38)
[2022-05-11] MEDS: Pantoprazole Sodium 40 MG Tablet PO (04:51)
[2022-05-11] MEDS: Omega-3 Acid Ethyl Esters 1 GM Capsule 2 GM PO ×2 (04:52→17:39)
[2022-05-11] MEDS: Senna/Docusate Sodium 1 Tablet PO (04:52)
[2022-05-11] MEDS: dilTIAZem CD 120 MG Capsule PO (04:52)
[2022-05-11] MEDS: Furosemide 20 MG Tablet PO (04:52)
[2022-05-11] MEDS: hydrALAZINE 50 MG Tablet PO ×3 (04:52→22:23)
[2022-05-11] MEDS: Menthol/Lanolin/Calamine/Znox 113 GM Tube 1 APPLIC TOPICAL ×2 (04:53→17:40)
[2022-05-11] MEDS: APIXABAN 5 MG TABLET PO ×2 (04:53→17:38)
[2022-05-11] MEDS: Acetaminophen 500 MG Tablet 1000 MG PO (05:08)
--- NOTE | 2022-05-11 05:10 | NURSING ---
Patient c/o headache this morning. Tylenol administered as ordered prn for pain. Left arm rewrapped with mo wrap for edema. IV running in right arm without issue. Will continue to monitor.
[2022-05-11 06:55] LABS: Bedside Glucose 112 mg/dL (74-106)
[2022-05-11] MEDS: predniSONE 5 MG Tablet 7.5 MG PO (08:51)
[2022-05-11] MEDS: Loratadine 10 MG Tablet PO (08:52)
[2022-05-11] MEDS: Gabapentin 100 MG Capsule PO ×2 (08:52→17:39)
[2022-05-11] MEDS: Amiodarone 200 MG Tablet PO (08:52)
[2022-05-11 11:51] LABS: Bedside Glucose 151 mg/dL (74-106)
[2022-05-11 13:33] LABS: Absolute Lymphocyte Count 0.78 X10^3/uL (0.83-4.51); Absolute Neutrophil Count 15.3 X10^3/uL (2.0-7.7); Basophil# 0.17 X10^3/uL; Basophil% 0.9 % (0-1); Eosinophil# 0.17 X10^3/uL; Eosinophils% 0.9 % (0-5); Hematocrit 30.3 % (37-47); Hemoglobin 9.7 g/dL (12.0-15.0); Lymphocyte # 0.78 X10^3/ul (0.83-4.51); Lymphocyte % 4.3 % (19-41); Mean Corpuscular Hgb 29.1 pg (27.0-32.0); Mean Platelet Vol. 10.8 fl (6.2-12.0); Monocyte# 1.43 X10^3/uL; NRBC Flagged by Analyzer 0 % (0-5); Neutrophil # 15.25 X10^3/uL (2.7-7.7); Neutrophil % 85.1 % (47-70); Platelet Count 274 K/mm3 (150-450); RBC Distribution Width CV 14.8 % (11.6-14.6); RBC Distribution Width SD 49.2 fl (35.1-43.9); Red Blood Count 3.33 M/mm3 (4.2-5.4); White Blood Count 17.9 K/mm3 (4.4-11.0)
[2022-05-11 13:48] LABS: Anion Gap 10 (5-15); BUN 37 mg/dL (7-18); Chloride 105 mmol/L (98-107); Creatinine, Serum 2.06 mg/dL (0.55-1.02); EST Glomerular Filtration Rate 25 mL/min (>60); Est Glom Filt Rate - Afr Amer 30 mL/min (>60); Estimated Creatinine Clearance 20.69 ml/min; Glucose 239 mg/dL (74-106); Potassium 3.6 mmol/L (3.5-5.1); Sodium Level 136 mmol/L (136-145)
[2022-05-11 17:51] LABS: Bedside Glucose 255 mg/dL (74-106)
[2022-05-11 21:40] LABS: Bedside Glucose 221 mg/dL (74-106)
[2022-05-11] MEDS: Atorvastatin Calcium 40 MG Tablet PO (22:23)
[2022-05-11] MEDS: MELATONIN 10 MG TABLET PO (22:23)
[2022-05-12 05:27] VITALS: BP 144/77; PULSE 82
[2022-05-12] MEDS: hydrALAZINE 50 MG Tablet PO ×3 (05:27→20:29)
[2022-05-12] MEDS: Levothyroxine 100 MCG Tablet PO (05:27)
[2022-05-12] MEDS: Omega-3 Acid Ethyl Esters 1 GM Capsule 2 GM PO ×2 (05:27→16:23)
[2022-05-12] MEDS: Metoprolol Tartrate 50 MG Tablet PO ×2 (05:27→16:24)
[2022-05-12] MEDS: Furosemide 20 MG Tablet PO (05:27)
[2022-05-12] MEDS: Pantoprazole Sodium 40 MG Tablet PO (05:27)
[2022-05-12] MEDS: dilTIAZem CD 120 MG Capsule PO (05:28)
[2022-05-12] MEDS: Leflunomide 10 MG TABLET PO (05:28)
[2022-05-12] MEDS: APIXABAN 5 MG TABLET PO ×2 (05:28→16:23)
[2022-05-12] MEDS: Menthol/Lanolin/Calamine/Znox 113 GM Tube 1 APPLIC TOPICAL (05:31)
[2022-05-12 06:36] LABS: Anion Gap 9 (5-15); BUN 36 mg/dL (7-18); BUN/Creat Ratio 17.6 RATIO (10-20); Calcium,Total 8.4 mg/dL (8.5-10.1); Chloride 105 mmol/L (98-107); Creatinine, Serum 2.04 mg/dL (0.55-1.02); EST Glomerular Filtration Rate 25 mL/min (>60); Est Glom Filt Rate - Afr Amer 31 mL/min (>60); Estimated Creatinine Clearance 20.89 ml/min; Glucose 136 mg/dL (74-106); Potassium 2.9 mmol/L (3.5-5.1); Sodium Level 139 mmol/L (136-145)
[2022-05-12 06:41] LABS: Bedside Glucose 143 mg/dL (74-106)
[2022-05-12] MEDS: Amiodarone 200 MG Tablet PO (08:03)
[2022-05-12] MEDS: predniSONE 5 MG Tablet 7.5 MG PO (08:03)
[2022-05-12] MEDS: HYDROcodone Bitartrate/Apap 5/325 Tablet PO (08:04)
[2022-05-12] MEDS: Potassium Chloride Oral Tablet 20 MEQ 40 MEQ PO (08:04)
[2022-05-12] MEDS: Gabapentin 100 MG Capsule PO ×2 (08:06→16:23)
[2022-05-12 08:12] LABS: Absolute Lymphocyte Count 1.22 X10^3/uL (0.83-4.51); Absolute Neutrophil Count 11.9 X10^3/uL (2.0-7.7); Basophil# 0.12 X10^3/uL; Basophil% 0.8 % (0-1); Eosinophil# 0.34 X10^3/uL; Eosinophils% 2.2 % (0-5); Hematocrit 31.8 % (37-47); Hemoglobin 10.1 g/dL (12.0-15.0); Lymphocyte # 1.22 X10^3/ul (0.83-4.51); Lymphocyte % 7.8 % (19-41); Mean Corp Hgb Conc 31.8 g/dL (32-36); Mean Corpuscular Volume 91.4 fL (81-99); Mean Platelet Vol. 10.8 fl (6.2-12.0); Monocyte# 1.92 X10^3/uL; Monocyte% 12.3 % (0-10); NRBC Flagged by Analyzer 0 % (0-5); Neutrophil # 11.88 X10^3/uL (2.7-7.7); Neutrophil % 76.2 % (47-70); POSITIVE DIFFERENTIAL YES; Platelet Count 267 K/mm3 (150-450); RBC Distribution Width CV 14.9 % (11.6-14.6); RBC Distribution Width SD 50.4 fl (35.1-43.9); Red Blood Count 3.48 M/mm3 (4.2-5.4); White Blood Count 15.6 K/mm3 (4.4-11.0)
[2022-05-12 08:14] LABS: Differential Indicated SCAN CRITERIA MET
[2022-05-12 09:27] VITALS: PULSE 71; RESP 18; O2SAT 93
[2022-05-12] MEDS: 0.9% Saline Lock 10 ML Syringe IV (10:34)
--- NOTE | 2022-05-12 10:51 | WOUNDNOTE ---
JESUS Marie had changed the dressing to the left elbow. states there was minimal drainage noted today. will monitor as needed.
[2022-05-12 11:21] LABS: Bedside Glucose 226 mg/dL (74-106)
[2022-05-12 14:03] VITALS: PULSE 74
[2022-05-12 14:20] LABS: Pathologist Review Reviewed
[2022-05-12 15:22] VITALS: BP 119/74; PULSE 77; RESP 14; TEMP 36; O2SAT 94
[2022-05-12 16:24] VITALS: PULSE 77
[2022-05-12 17:26] LABS: Bedside Glucose 271 mg/dL (74-106)
[2022-05-12 20:29] VITALS: BP 155/81; PULSE 73
[2022-05-12] MEDS: MELATONIN 10 MG TABLET PO (20:29)
[2022-05-12] MEDS: Atorvastatin Calcium 40 MG Tablet PO (20:29)
[2022-05-12 22:06] LABS: Bedside Glucose 259 mg/dL (74-106)
[2022-05-13] VITALS (8 sets, daily range): BP systolic 121–167; BP diastolic 65–86; PULSE 72–94; RESP 16–18; TEMP 36.2; O2SAT 95
[2022-05-13] MEDS: hydrALAZINE 50 MG Tablet PO ×3 (04:46→21:22)
[2022-05-13] MEDS: Omega-3 Acid Ethyl Esters 1 GM Capsule 2 GM PO ×2 (04:46→18:12)
[2022-05-13] MEDS: Furosemide 20 MG Tablet PO (04:47)
[2022-05-13] MEDS: Metoprolol Tartrate 50 MG Tablet PO ×2 (04:47→18:12)
[2022-05-13] MEDS: APIXABAN 5 MG TABLET PO ×2 (04:47→18:12)
[2022-05-13] MEDS: dilTIAZem CD 120 MG Capsule PO (04:47)
[2022-05-13] MEDS: Pantoprazole Sodium 40 MG Tablet PO (04:48)
[2022-05-13] MEDS: Levothyroxine 100 MCG Tablet PO (04:48)
[2022-05-13] MEDS: Menthol/Lanolin/Calamine/Znox 113 GM Tube 1 APPLIC TOPICAL ×2 (04:50→18:12)
[2022-05-13 06:06] LABS: Anion Gap 9 (5-15); BUN 34 mg/dL (7-18); BUN/Creat Ratio 17.3 RATIO (10-20); Calcium,Total 8.5 mg/dL (8.5-10.1); Chloride 106 mmol/L (98-107); Creatinine, Serum 1.97 mg/dL (0.55-1.02); EST Glomerular Filtration Rate 26 mL/min (>60); Est Glom Filt Rate - Afr Amer 32 mL/min (>60); Estimated Creatinine Clearance 21.63 ml/min; Glucose 161 mg/dL (74-106); Potassium 3.2 mmol/L (3.5-5.1); Sodium Level 139 mmol/L (136-145)
[2022-05-13 06:36] LABS: Bedside Glucose 141 mg/dL (74-106)
[2022-05-13] MEDS: Potassium Chloride Oral Tablet 20 MEQ PO ×2 (08:05→18:11)
[2022-05-13] MEDS: Gabapentin 100 MG Capsule PO ×2 (08:05→18:10)
[2022-05-13] MEDS: predniSONE 5 MG Tablet 7.5 MG PO (08:06)
[2022-05-13] MEDS: Amiodarone 200 MG Tablet PO (08:06)
[2022-05-13] MEDS: Potassium Chloride Oral Tablet 20 MEQ 40 MEQ PO (10:26)
[2022-05-13] MEDS: Loratadine 10 MG Tablet PO (10:30)
[2022-05-13 12:06] LABS: Bedside Glucose 236 mg/dL (74-106)
--- NOTE | 2022-05-13 13:35 | RAD_ITS ---
STUDY: X-RAY CHEST REASON FOR EXAM: Female, 76 years old. cough,rhonci TECHNIQUE: XR Chest 2 Views COMPARISON: 3 days ago. FINDINGS: There is atherosclerotic calcification of the aortic arch with tortuosity. There are diffuse degenerative changes of the visualized thoracic spine. There is degenerative osteoarthritis of the bilateral shoulders. There is no demonstrated pleural abnormality. There are multiple median sternotomy wires. There is an atrial appendage device noted. There is borderline cardiomegaly. Normal mediastinum and blanca. Normal visualized pulmonary arteries. There is no demonstrated abnormality of the visualized soft tissue structures of the upper abdomen. RAD/Chest PA and Lateral IMPRESSION: There are no acute findings. Electronically Signed: Brian Nguyen MD at 17:16 EST ,
--- NOTE | 2022-05-13 13:36 | NURSING ---
Patient complaining of cough, lungs sound course with rhonchi. Updated Dr. Mistry, order for mucinex and cxray.
--- NOTE | 2022-05-13 15:08 | MDS.RN ---
Information for the mds was obtained from review of the clinical record, interview of resident, staff, and direct observation of resident's care.
--- NOTE | 2022-05-13 15:54 | CASEMGMT ---
Addendum entered by Malissa Bell 05/14/22 12:03: PASRR completed. [facility] for [facility]. Sent DC paperwork via [facility]. Original Note: Social Work IDT discussed setting DC date for pt to transfer skilled to SNF. SW spoke with [facility] via [employer] to inquire about transfer. SNF is able to accept on 05/16. SW spoke with pt whom is agreeable. SW left message with sister's on DC date and plan. Will complete PASRR and schedule transport. Plan: DC 05/16 to [facility] SNF, skilled. QUANG JoW
[2022-05-13 17:01] LABS: Bedside Glucose 348 mg/dL (74-106)
--- NOTE | 2022-05-13 17:08 | DS.PCM_ITS ---
Providers Date of Admission: 04/30/22 Primary Care Physician: Dr. Grayson Newton MD Consultations 04/30/22 12:05 Consult: Onc/Wound/environmental aide Routine Comment: Reason for Consult:: LEFT ELBOW DRNG SINUS TRACT & PRESSURE INJURY BUTTOCKS 04/30/22 16:50 Consult: Nephrology Routine Consulting Provider: Shane Solitario Reason for Consult: Acute on chronic kidney disease EMERGENT Consult: No MD Notified: Yes Date Notified: 05/05/22 Time Notified: 16:50 Method of Notification: Verbal Reason For Visit: CHF/HYPOXIA Diagnosis Discharge Diagnosis (1) KATHY (acute kidney injury): Status: Acute Code(s): N17.9 - Acute kidney failure, unspecified Plan 76 year old female with below past medical history hospitalized for acute respiratory failure with hypoxia secondary to acute on chronic systolic congestive heart failure, complicated by acute kidney injury, left olecranon bur sitis, admitted to TCU with debility, here for rehabilitation, strengthening, prior to disposition determination. * Debility - PT/OT. * Cognition - ST. * Pain - Tylenol 1000mg q8h prn, [place] 5/325mg 1 tablet q8h prn. * Bowel - senna/colace 1 tablet bid. * Adult immunization - Administer pneumonia vaccine, covid19 vaccine, flu vaccine as appropriate. * DVT prophylaxis - Not necessary, already on Eliquis. * Atrial fibrillation - Metoprolol 50mg bid, Cardizem CD 120mg daily, Amiodarone 200mg daily, Eliquis 5mg bid. * Hyperlipidemia - Atorvastatin 40mg qhs, [place] 3 2gm bid. * Chronic systolic congestive heart failure - Metoprolol 50mg bid, Furosemide 20mg daily. * Acute kidney injury - Consult Nephrology to follow. * Neuropathic pain - Gabapentin 100mg bidcm. * Rheumatoid arthritis - Leflunomide 10mg every other day, Prednisone 7.5mg daily. * Hypothyroidism - Levothyroxine 100mcg daily. * Allergic Rhinitis - Loratadine 10mg daily. * Insomnia - Melatonin 10mg qhs prn. * Skin irritation - Calmoseptine topical bid. * Tinea Corporis - Nystatin powder topical tid prn. * GERD - Pantoprazole 40mg daily. Medications at Discharge Home Medications leflunomide 10 mg tablet 10 mg PO QODAY arthritis 03/30/22 loratadine 10 mg tablet (Allergy Relief (loratadine)) 10 mg PO DAILY allergies 10/18/21 atorvastatin 40 mg tablet 40 mg PO QHS cholesterol #90 tabs 11/11/21 nystatin 100,000 unit/gram topical powder 1 applic topical TID PRN rash #60 grams 01/02/22 pantoprazole 40 mg tablet,delayed release 40 mg PO DAILY reflux #90 tabs 01/02/22 prednisone 5 mg tablet 7.5 mg PO QAM steroid 01/31/22 dulaglutide 1.5 mg/0.5 mL subcutaneous pen injector 1.5 mg (0.5 mL) subcut QWEEK diabetes #2 mL 03/12/22 diltiazem HCl 120 mg capsule,extended release 24 hr 120 mg PO DAILY heart 04/02/22 apixaban 5 mg tablet (Eliquis) 5 mg PO BID blood thinner 04/05/22 levothyroxine 100 mcg tablet (Synthroid) 100 mcg PO DAILY THYROID 04/05/22 acetaminophen 500 mg tablet 1,000 mg PO Q8H PRN PAIN AND FEVER 04/24/22 melatonin 10 mg capsule 10 mg PO QHS SLEEP 04/24/22 menthol 0.44 %-zinc oxide 20.6 % topical ointment (Calmoseptine) 1 applic topical BID SKIN PROTECTANT 04/24/22 metoprolol tartrate 50 mg tablet 50 mg PO BID BP 04/24/22 furosemide 20 mg tablet 20 mg PO DAILY WATER PILL FOR SWELLING 04/30/22 gabapentin 100 mg capsule 100 mg PO BID NERVE PAIN 04/30/22 fluconazole 100 mg tablet 100 mg PO DAILY 11 days #0 tabs 05/13/22 hydralazine 50 mg tablet 50 mg PO TID #0 tabs 05/13/22 hydrocodone-acetaminophen 5-325mg 5mg-325mg 1 tab PO Q8H PRN Pain 1-10 3 days #9 tabs 05/13/22 potassium chloride 20 mEq tablet,extended release(part/cryst) (Klor-Con M) 20 meq PO BIDCM #0 tabs 05/13/22 sennosides 8.6 mg-docusate sodium 50 mg tablet (Stool Softener-Stimulant Laxative) 1 tab PO BID #0 tabs 05/13/22 Hospital Course Operations None Procedures None Summary of Care Provided Minutes Spent on Discharge: 35 Hospital Course: 76 year old female with below past medical history hospitalized for acute respiratory failure with hypoxia secondary to acute on chronic systolic conge stive heart failure, complicated by acute kidney injury, left olecranon bursitis, admitted to TCU with debility, here for rehabilitation, strengthening, prior to disposition determination. 05/10/2022 Urine culture grew > 100,000 Yeast, treat Yeast UTI with fluconazole 100mg daily x 14 days. Discharge to [facility] 05/16/2022, Skilled. Physical Exam Const alert General Appearance: cooperative HEENT normocephalic Eyes PERRL and EOMs intact bilaterally Neck supple, no JVD and no carotid bruits Resp normal respiratory effort, normal air movement and clear to auscultation bilaterally Cardio regular rate and regular rhythm GI normal to inspection, nondistended, normoactive bowel sounds, non-tender and non-distended Extremity normal capillary refill General Extremity: Negative for edema Skin no rashes or lesions noted General Skin Exam: no breakdown Psych affect normal Appearance: appropriate Weight / BMI Weight Weight: 89.267 kg Body Mass Index (BMI) 37.5 ABG / Lab / Microbiology Data Result Diagrams: 05/12/22 08:05 05/13/22 05:22 Laboratory: Laboratory Results - last 24 hr 05/12/22 16:37: POC Glucose 271 H 05/12/22 21:39: POC Glucose 259 H 05/13/22 05:22: Sodium 139, Potassium 3.2 L, Chloride 106, Carbon Dioxide 24.0, Anion Gap 9, BUN 34 H, Creatinine 1.97 H, Estim Creat Clear Calc 21.63, Est GFR (MDRD) Af Amer 32 L, Est GFR (MDRD) Non-Af 26 L, BUN/Creatinine Ratio 17.3, Glucose 161 H, Calcium 8.5 05/13/22 06:06: POC Glucose 141 H 05/13/22 10:43: POC Glucose 236 H 05/13/22 16:32: POC Glucose 348 H Microbiology: Microbiology 05/13/22 15:45 Nasal Secretion SARS-CoV-2 Antigen (Rapid) - Final 05/10/22 15:00 Urine Catheter - Pearce Urine Culture - Final Yeast, not Martha albicans 05/10/22 15:55 Blood Culture (Wb) - Right Wrist Blood Culture - Preliminary No growth in 48 hours. 05/10/22 15:40 Blood Culture (Wb) - Right Wrist Blood Culture - Preliminary No growth in 48 hours. 05/09/22 22:00 Urine Catheter - Catheter Urine Culture - Final Culture exhibits no growth. 05/10/22 13:45 Mucosa - Nasopharyngeal Respiratory Panel (PCR) - Final 05/04/22 06:51 Nasal Secretion SARS-CoV-2 Antigen (Rapid) - Final 05/02/22 06:00 Nasal Secretion SARS-CoV-2 Antigen (Rapid) - Final D/C Instructions Discharge Diet: No restrictions Discharge Activity: Return to Normal Activity, May Shower and Use Walker Weight Bearing Status: Weight bearing as tolerated Call your doctor if you observe: Fever of 101 or Higher, Inability to urinate, Inability to have a bowel movement, Shortness of breath, Dizziness, Fainting spells, Swelling in the ankles, Chest pain and Uncontrolled pain Additional Instructions: Discharge to [facility] 05/16/2022, Skilled. Please Follow Up With: Ceci Cuello MD When: As scheduled. Meaningful Use Info Meaningful Use Diagnoses (Choose all that apply): None applicable Discharge Plan Admission Admit Date/Time: 04/30/22 11:41 Primary Reason for Your Visit: Debility. Attending Provider: Meir Mistry Chi Primary Care Provider: Grayson Newton Consulting Providers: Shane Solitario Instructions Additional Instructions / Restrictions: Discharge to [facility] 05/16/2022, Skilled. Discharge Orders/Prescriptions Prescriptions: New hydrocodone-acetaminophen 5-325 mg Tablet 1 tab PO Q8H PRN (Reason: Pain 1-10) 3 Days Qty: 9 0RF sennosides-docusate sodium [Stool Softener-Stimulant Laxat] 8.6-50 mg Tablet 1 tab PO BID Qty: 0 0RF fluconazole 100 mg Tablet 100 mg PO DAILY 11 Days Qty: 0 0RF potassium chloride [Klor-Con M20] 20 mEq Tablet,Er Particles/Crystals 20 meq PO BIDCM Qty: 0 0RF hydralazine 50 mg Tablet 50 mg PO TID Qty: 0 0RF Continued prednisone 5 mg tablet 7.5 mg PO QAM loratadine [Allergy Relief (loratadine)] 10 mg tablet 10 mg PO DAILY nystatin 100,000 unit/gram powder 1 applic topical TID PRN (Reason: rash) Qty: 60 1RF pantoprazole 40 mg tablet,delayed release (DR/EC) 40 mg PO DAILY Qty: 90 3RF leflunomide 10 mg tablet 10 mg PO QODAY diltiazem HCl 120 mg capsule,extended release 24hr 120 mg PO DAILY levothyroxine [Synthroid] 100 mcg tablet 100 mcg PO DAILY Eliquis 5 mg tablet 5 mg PO BID acetaminophen 500 mg Tablet 1,000 mg PO Q8H PRN (Reason: PAIN AND FEVER) metoprolol tartrate 50 mg Tablet 50 mg PO BID menthol-zinc oxide [Calmoseptine] 0.44-20.6 % Ointment 1 applic TOPICAL BID melatonin 10 mg Capsule 10 mg PO QHS furosemide 20 mg tablet 20 mg PO DAILY Rx Instructions: start 05/05/2022 gabapentin 100 mg capsule 100 mg PO BID atorvastatin 40 mg tablet 40 mg PO QHS Qty: 90 3RF dulaglutide 1.5 mg/0.5 mL pen injector 1.5 mg subcut QWEEK Qty: 2 3RF Discontinued aspirin 81 MG tablet,delayed release (DR/EC) 81 mg PO DAILY hydrocodone-acetaminophen 5-325 mg tablet 1 tab PO Q8H PRN (Reason: Pain) omega-3 fatty acids 1,000 mg Capsule 2,000 mg PO BID amiodarone 200 mg Tablet 200 mg PO DAILY sennosides-docusate sodium [Senna with Docusate Sodium] 8.6-50 mg Tablet 1 tab-cap PO BID Referrals / Follow Up: [facility] [Other] (FOLLOW UP ON LEFT ELBOW SINUS TRACT S/P ANNEMARIE ERICKA) Grayson Newton MD [Primary Care Provider] - Disposition Disposition (needs filled in before D/C Order can be placed): Long-Term Facility
--- NOTE | 2022-05-13 17:14 | TREXTCAR_ITS ---
Diet Diet Order/Speech Therapy: 04/30/22 12:03 Diet: Cardiac: Calorie-Controlled Food consistency:: Regular Liquid Consistency:: Regular/Thin Is pt able to select menu?: Yes Fluid restriction:: 2000 mL How many daily calories?: 1600 calorie Routine Orders/Code Status Code Status: Full Code Wound(s) left elbow: Wound Type: Surgical Incision Dressing Change: Dry Sterile Dressing right buttock: Wound Type: moisture damage Dressing Change: Calmoseptine left buttock: Wound Type: moisture damage Dressing Change: Calmoseptine Therapies Weight Bearing: Weight bearing as tolerated Extremity Affected:: Bilateral Lower Physical Therapy: Eval and Treat Occupational Therapy: Eval and Treat Speech Therapy: Eval and Treat Problem/Diagnosis (1) KATHY (acute kidney injury): Status: Acute Code(s): N17.9 - Acute kidney failure, unspecified Plan 76 year old female with below past medical history hospitalized for acute respiratory failure with hypoxia secondary to acute on chronic systolic congestive heart failure, complicated by acute kidney injury, left olecranon bursitis, admitted to TCU with debility, here for rehabilitation, strengthening, prior to disposition determination. * Debility - PT/OT. * Cognition - ST. * Pain - Tylenol 1000mg q8h prn, [place] 5/325mg 1 tablet q8h prn. * Bowel - senna/colace 1 tablet bid. * Adult immunization - Administer pneumonia vaccine, covid19 vaccine, flu vaccine as appropriate. * DVT prophylaxis - Not necessary, already on Eliquis. * Atrial fibrillation - Metoprolol 50mg bid, Cardizem CD 120mg daily, Amiodarone 200mg daily, Eliquis 5mg bid. * Hyperlipidemia - Atorvastatin 40mg qhs, [place] 3 2gm bid. * Chronic systolic congestive heart failure - Metoprolol 50mg bid, Furosemide 20mg daily. * Acute kidney injury - Consult Nephrology to follow. * Neuropathic pain - Gabapentin 100mg bidcm. * Rheumatoid arthritis - Leflunomide 10mg every other day, Prednisone 7.5mg daily. * Hypothyroidism - Levothyroxine 100mcg daily. * Allergic Rhinitis - Loratadine 10mg daily. * Insomnia - Melatonin 10mg qhs prn. * Skin irritation - Calmoseptine topical bid. * Tinea Corporis - Nystatin powder topical tid prn. * GERD - Pantoprazole 40mg daily. Allergies/Procedures Done in Hospital Allergies hydroxychloroquine Allergy (Severe, Verified 04/23/22 03:04) Shortness of breath metformin Adverse Reaction (Severe, Verified 04/23/22 03:04) Diarrhea methotrexate Adverse Reaction (Severe, Verified 04/23/22 03:04) Other PASSES OUT Sulfa (Sulfonamide Antibiotics) Adverse Reaction (Intermediate, Verified 04/23/22 03:04) Other BLISTERS Procedures: None Type of Care/Length of Stay Estimated LOS: More Than 30 Days Type of Care Needed: Skilled Rehab Potential: Fair Prognosis: Fair Additional Orders/Day of Discharge Day of Discharge: 05/16/22 Dietary and Speech Recommendations Dietitian Recommendations/Changes: Will continue 1600 zach / Cardiac diet w/ fluid restriction as ordered - consider fluid restriction if medically indicated. Will monitor need for ONS pending continues po intake and wt trends. Speech Linguistic Eval Summary: Recalled current year 2022. Unable to count backwards from 20 despite cueing by MOBILITY SCOOTER REPAIRER - 20, 19, 18, 18, 20, 18, 16, 17. Unable to tell days of the week backwards despite cueing by MOBILITY SCOOTER REPAIRER. Pt. response Thursday, Thursday, Thursday, Thursday. Unable to repeat 5/6 digit forward, unable to repeat 2, 3 and 4 digit backward despite cueing. Able to repeat 7x girls names in 60s. Unable to complete judgement and arithmetic reasoning w/ response 1 hr 15 mins. Immediate recall 4/4, delayed recall 0/4 despite semantic and phonemic cueing. Extended processing time to complete visuospatial tasks. Follow Up Care Please Follow Up With: Ceci Cuello MD When: 2 weeks Discharge Plan Admission Admit Date/Time: 04/30/22 11:41 Primary Reason for Your Visit: Debility. Attending Provider: Meir Mistry Chi Primary Care Provider: Grayson Newton Consulting Providers: Shane Solitario Instructions Additional Instructions / Restrictions: Discharge to [facility] 05/16/2022, Skilled. Discharge Orders/Prescriptions Prescriptions: New hydrocodone-acetaminophen 5-325 mg Tablet 1 tab PO Q8H PRN (Reason: Pain 1-10) 3 Days Qty: 9 0RF sennosides-docusate sodium [Stool Softener-Stimulant Laxat] 8.6-50 mg Tablet 1 tab PO BID Qty: 0 0RF fluconazole 100 mg Tablet 100 mg PO DAILY 11 Days Qty: 0 0RF potassium chloride [Klor-Con M20] 20 mEq Tablet,Er Particles/Crystals 20 meq PO BIDCM Qty: 0 0RF hydralazine 50 mg Tablet 50 mg PO TID Qty: 0 0RF Continued prednisone 5 mg tablet 7.5 mg PO QAM loratadine [Allergy Relief (loratadine)] 10 mg tablet 10 mg PO DAILY nystatin 100,000 unit/gram powder 1 applic topical TID PRN (Reason: rash) Qty: 60 1RF pantoprazole 40 mg tablet,delayed release (DR/EC) 40 mg PO DAILY Qty: 90 3RF leflunomide 10 mg tablet 10 mg PO QODAY diltiazem HCl 120 mg capsule,extended release 24hr 120 mg PO DAILY levothyroxine [Synthroid] 100 mcg tablet 100 mcg PO DAILY Eliquis 5 mg tablet 5 mg PO BID acetaminophen 500 mg Tablet 1,000 mg PO Q8H PRN (Reason: PAIN AND FEVER) metoprolol tartrate 50 mg Tablet 50 mg PO BID menthol-zinc oxide [Calmoseptine] 0.44-20.6 % Ointment 1 applic TOPICAL BID melatonin 10 mg Capsule 10 mg PO QHS furosemide 20 mg tablet 20 mg PO DAILY Rx Instructions: start 05/05/2022 gabapentin 100 mg capsule 100 mg PO BID atorvastatin 40 mg tablet 40 mg PO QHS Qty: 90 3RF dulaglutide 1.5 mg/0.5 mL pen injector 1.5 mg subcut QWEEK Qty: 2 3RF Discontinued aspirin 81 MG tablet,delayed release (DR/EC) 81 mg PO DAILY hydrocodone-acetaminophen 5-325 mg tablet 1 tab PO Q8H PRN (Reason: Pain) omega-3 fatty acids 1,000 mg Capsule 2,000 mg PO BID amiodarone 200 mg Tablet 200 mg PO DAILY sennosides-docusate sodium [Senna with Docusate Sodium] 8.6-50 mg Tablet 1 tab-cap PO BID Referrals / Follow Up: [facility] [Other] (FOLLOW UP ON LEFT ELBOW SINUS TRACT S/P SURGERY) Grayson Newton MD [Primary Care Provider] - Disposition Disposition (needs filled in before D/C Order can be placed): Group Home Facility
[2022-05-13] MEDS: guaiFENesin 600 MG Tablet PO (18:13)
[2022-05-13] MEDS: Insulin Lispro 100 UNIT/ML INSULN.PEN 7 UNIT SC (18:15)
[2022-05-13] MEDS: Fluconazole 100 MG Tablet 200 MG PO (18:21)
[2022-05-13] MEDS: Atorvastatin Calcium 40 MG Tablet PO (21:22)
[2022-05-13] MEDS: MELATONIN 10 MG TABLET PO (21:22)
[2022-05-13 22:46] LABS: Bedside Glucose 247 mg/dL (74-106)
[2022-05-14] MEDS: Levothyroxine 100 MCG Tablet PO (04:57)
[2022-05-14 04:58] VITALS: BP 133/70; PULSE 85
[2022-05-14] MEDS: guaiFENesin 600 MG Tablet PO ×2 (04:58→17:16)
[2022-05-14] MEDS: Furosemide 20 MG Tablet PO (04:58)
[2022-05-14] MEDS: hydrALAZINE 50 MG Tablet PO ×3 (04:58→22:58)
[2022-05-14] MEDS: Metoprolol Tartrate 50 MG Tablet PO ×2 (04:58→17:15)
[2022-05-14] MEDS: Omega-3 Acid Ethyl Esters 1 GM Capsule 2 GM PO ×2 (04:58→17:15)
[2022-05-14] MEDS: APIXABAN 5 MG TABLET PO ×2 (04:58→17:16)
[2022-05-14] MEDS: Pantoprazole Sodium 40 MG Tablet PO (04:58)
[2022-05-14] MEDS: Fluconazole 100 MG Tablet PO (04:59)
[2022-05-14] MEDS: Leflunomide 10 MG TABLET PO (04:59)
[2022-05-14] MEDS: dilTIAZem CD 120 MG Capsule PO (04:59)
[2022-05-14] MEDS: Menthol/Lanolin/Calamine/Znox 113 GM Tube 1 APPLIC TOPICAL ×2 (05:02→17:16)
[2022-05-14 06:17] LABS: Anion Gap 5 (5-15); BUN 33 mg/dL (7-18); Calcium,Total 8.8 mg/dL (8.5-10.1); Chloride 111 mmol/L (98-107); Creatinine, Serum 1.94 mg/dL (0.55-1.02); EST Glomerular Filtration Rate 27 mL/min (>60); Est Glom Filt Rate - Afr Amer 32 mL/min (>60); Estimated Creatinine Clearance 21.97 ml/min; Glucose 150 mg/dL (74-106); Potassium 3.8 mmol/L (3.5-5.1); Sodium Level 141 mmol/L (136-145)
[2022-05-14 06:40] LABS: Bedside Glucose 136 mg/dL (74-106)
[2022-05-14] MEDS: Gabapentin 100 MG Capsule PO ×2 (08:13→17:16)
[2022-05-14] MEDS: predniSONE 5 MG Tablet 7.5 MG PO (08:13)
[2022-05-14] MEDS: Potassium Chloride Oral Tablet 20 MEQ PO ×2 (08:13→17:16)
[2022-05-14 09:29] LABS: Pathologist Review Reviewed
[2022-05-14 09:50] VITALS: PULSE 94; O2SAT 97
[2022-05-14 11:00] LABS: Bedside Glucose 215 mg/dL (74-106)
[2022-05-14] MEDS: 0.9% Saline Lock 10 ML Syringe IV (13:19)
[2022-05-14 13:23] VITALS: BP 153/93; PULSE 85
[2022-05-14 14:16] VITALS: BP 142/80; PULSE 69; RESP 16; TEMP 36.1; O2SAT 96
[2022-05-14 16:55] LABS: Bedside Glucose 254 mg/dL (74-106)
[2022-05-14 17:15] VITALS: BP 145/88; PULSE 91
--- NOTE | 2022-05-14 20:42 | NURSING ---
Addendum entered by Elidia Fletcher 05/14/22 20:47: PATIENT COMMUNICATIONS INTERN (SAUD) CONTACTED VIA TELEPHONE AT THIS TIME, NOTIFIED OF PATIENT TESTING POSITIVE FOR RSV AND DR. MISTRY AWARE WITH NEW ORDER FOR RESPIRATORY PRECAUTIONS. UPDATED ON PATIENT STATUS. PATIENT REP EXPRESSES THANKS FOR UPDATE WITH NO CONCERNS VOICED AT THIS TIME Original Note: Dr. Mistry contacted via telephone regarding positive for RSV A, patient afebrile, no c/o SOB, patient reports intermittent cough. Reviewed current medications and allergy list. Verbal order received for respiratory isolation, no other orders received at this time. Order repeated back.
[2022-05-14 21:50] LABS: Bedside Glucose 218 mg/dL (74-106)
[2022-05-14 22:58] VITALS: BP 174/94; PULSE 90
[2022-05-14] MEDS: Atorvastatin Calcium 40 MG Tablet PO (22:59)
[2022-05-14] MEDS: MELATONIN 10 MG TABLET PO (22:59)
[2022-05-15 05:48] LABS: Absolute Lymphocyte Count 1.31 X10^3/uL (0.83-4.51); Absolute Neutrophil Count 5.8 X10^3/uL (2.0-7.7); Basophil# 0.11 X10^3/uL; Basophil% 1.2 % (0-1); Eosinophil# 0.65 X10^3/uL; Eosinophils% 6.8 % (0-5); Hematocrit 29.1 % (37-47); Hemoglobin 8.9 g/dL (12.0-15.0); Lymphocyte # 1.31 X10^3/ul (0.83-4.51); Lymphocyte % 13.8 % (19-41); Mean Corp Hgb Conc 30.6 g/dL (32-36); Mean Corpuscular Hgb 28.4 pg (27.0-32.0); Mean Platelet Vol. 11.3 fl (6.2-12.0); Monocyte# 1.53 X10^3/uL; Monocyte% 16.1 % (0-10); NRBC Flagged by Analyzer 0 % (0-5); Neutrophil # 5.81 X10^3/uL (2.7-7.7); POSITIVE DIFFERENTIAL YES; Platelet Count 231 K/mm3 (150-450); RBC Distribution Width SD 50.9 fl (35.1-43.9); Red Blood Count 3.13 M/mm3 (4.2-5.4); White Blood Count 9.5 K/mm3 (4.4-11.0)
[2022-05-15 06:03] VITALS: BP 164/85; PULSE 86
[2022-05-15] MEDS: Metoprolol Tartrate 50 MG Tablet PO ×2 (06:03→17:46)
[2022-05-15] MEDS: hydrALAZINE 50 MG Tablet PO ×3 (06:03→22:13)
[2022-05-15] MEDS: Menthol/Lanolin/Calamine/Znox 113 GM Tube 1 APPLIC TOPICAL ×2 (06:04→17:45)
[2022-05-15] MEDS: guaiFENesin 600 MG Tablet PO ×2 (06:05→17:45)
[2022-05-15] MEDS: Fluconazole 100 MG Tablet PO (06:05)
[2022-05-15] MEDS: Pantoprazole Sodium 40 MG Tablet PO (06:05)
[2022-05-15] MEDS: Omega-3 Acid Ethyl Esters 1 GM Capsule 2 GM PO ×2 (06:05→17:45)
[2022-05-15] MEDS: Levothyroxine 100 MCG Tablet PO (06:05)
[2022-05-15] MEDS: APIXABAN 5 MG TABLET PO ×2 (06:05→17:45)
[2022-05-15] MEDS: dilTIAZem CD 120 MG Capsule PO (06:05)
[2022-05-15] MEDS: Furosemide 20 MG Tablet PO (06:05)
[2022-05-15 06:13] LABS: Anion Gap 7 (5-15); BUN 29 mg/dL (7-18); BUN/Creat Ratio 16.3 RATIO (10-20); Calcium,Total 8.8 mg/dL (8.5-10.1); Chloride 108 mmol/L (98-107); Creatinine, Serum 1.78 mg/dL (0.55-1.02); EST Glomerular Filtration Rate 30 mL/min (>60); Est Glom Filt Rate - Afr Amer 36 mL/min (>60); Estimated Creatinine Clearance 23.94 ml/min; Glucose 154 mg/dL (74-106); Potassium 3.8 mmol/L (3.5-5.1); Sodium Level 138 mmol/L (136-145)
[2022-05-15 06:25] LABS: Differential Indicated SCAN CRITERIA MET
[2022-05-15 06:33] LABS: Differential Comment SCANNED
[2022-05-15 06:50] LABS: Bedside Glucose 159 mg/dL (74-106)
[2022-05-15] MEDS: Loratadine 10 MG Tablet PO (08:52)
[2022-05-15] MEDS: Gabapentin 100 MG Capsule PO ×2 (08:52→17:45)
[2022-05-15] MEDS: predniSONE 5 MG Tablet 7.5 MG PO (08:52)
[2022-05-15] MEDS: Potassium Chloride Oral Tablet 20 MEQ PO ×2 (08:53→17:45)
--- NOTE | 2022-05-15 08:58 | CASEMGMT ---
Addendum entered by Malissa Bell 05/15/22 10:36: SNF is able to accept pt. Pt will complete her isolation days at [facility]. IDT and pt notified. BIMS () and PHQ-9 (10/02) completed for MDS assessment. Original Note: Social Work Notified by nursing that pt tested positive for RSV. SW updated [facility] to ensure DC tomorrow. Will await response. Malissa Bell, QUANG COMPUTER GRAPHIC DESIGNER
--- NOTE | 2022-05-15 09:14 | NURSING ---
Pearce Cath removed pt tolerated well and Tip of cath. intact.
[2022-05-15 12:05] LABS: Bedside Glucose 216 mg/dL (74-106)
[2022-05-15 13:10] VITALS: BP 115/72; PULSE 58
[2022-05-15] MEDS: Acetaminophen 500 MG Tablet 1000 MG PO (13:11)
[2022-05-15 16:00] VITALS: PULSE 90; RESP 16; TEMP 37.2; O2SAT 94
[2022-05-15 17:10] LABS: Bedside Glucose 267 mg/dL (74-106)
[2022-05-15 17:46] VITALS: BP 163/98; PULSE 103
[2022-05-15 22:13] VITALS: BP 160/90; PULSE 82
[2022-05-15] MEDS: Atorvastatin Calcium 40 MG Tablet PO (22:13)
[2022-05-15] MEDS: MELATONIN 10 MG TABLET PO (22:13)
[2022-05-15 22:15] VITALS: PULSE 82
[2022-05-15 22:15] LABS: Bedside Glucose 249 mg/dL (74-106)
[2022-05-16] MEDS: Pantoprazole Sodium 40 MG Tablet PO (06:05)
[2022-05-16] MEDS: Omega-3 Acid Ethyl Esters 1 GM Capsule 2 GM PO (06:05)
[2022-05-16] MEDS: APIXABAN 5 MG TABLET PO (06:06)
[2022-05-16] MEDS: guaiFENesin 600 MG Tablet PO (06:06)
[2022-05-16] MEDS: Levothyroxine 100 MCG Tablet PO (06:06)
[2022-05-16] MEDS: Furosemide 20 MG Tablet PO (06:06)
[2022-05-16] MEDS: Leflunomide 10 MG TABLET PO (06:07)
[2022-05-16] MEDS: Fluconazole 100 MG Tablet PO (06:07)
[2022-05-16] MEDS: dilTIAZem CD 120 MG Capsule PO (06:07)
[2022-05-16 06:30] VITALS: BP 183/101; PULSE 96
[2022-05-16] MEDS: hydrALAZINE 50 MG Tablet PO (06:30)
[2022-05-16] MEDS: Metoprolol Tartrate 50 MG Tablet PO (06:30)
[2022-05-16] MEDS: Menthol/Lanolin/Calamine/Znox 113 GM Tube 1 APPLIC TOPICAL (06:31)
[2022-05-16 06:45] LABS: Bedside Glucose 172 mg/dL (74-106)
[2022-05-16] MEDS: Acetaminophen 500 MG Tablet 1000 MG PO (06:56)
[2022-05-16] MEDS: predniSONE 5 MG Tablet 7.5 MG PO (08:54)
[2022-05-16] MEDS: Potassium Chloride Oral Tablet 20 MEQ PO (08:54)
[2022-05-16] MEDS: Gabapentin 100 MG Capsule PO (08:55)
[2022-05-16 09:10] VITALS: BP 107/44; PULSE 70; RESP 18; TEMP 36.6; O2SAT 95
[2022-05-16 09:11] VITALS: PULSE 70; RESP 18; O2SAT 95
--- NOTE | 2022-05-16 10:22 | NURSING ---
REPORT CALLED TO JOSE BRITO IN [place].
== END 2022-05-16 11:00 | disposition skilled nursing facility (03) | DRG 292 ==
PROVIDERS: Admitting Provider Family Medicine Geriatric Medicine; PCP Internal Medicine; Visit Provider Family Medicine Geriatric Medicine
DX: I11.0 Hypertensive heart disease with heart failure (principal); I48.11 Longstanding persistent atrial fibrillation; N17.9 Acute kidney failure, unspecified; B37.49 Other urogenital candidiasis; L89.311 Pressure ulcer of right buttock, stage 1; B97.4 Respiratory syncytial virus as the cause of diseases classified elsewhere; I42.8 Other cardiomyopathies; E11.42 Type 2 diabetes mellitus with diabetic polyneuropathy; L89.321 Pressure ulcer of left buttock, stage 1; E66.01 Morbid (severe) obesity due to excess calories; I50.42 Chronic combined systolic (congestive) and diastolic (congestive) heart failure; M06.9 Rheumatoid arthritis, unspecified; E03.9 Hypothyroidism, unspecified; K21.9 Gastro-esophageal reflux disease without esophagitis; M70.22 Olecranon bursitis, left elbow; M79.7 Fibromyalgia; E78.5 Hyperlipidemia, unspecified; G47.33 Obstructive sleep apnea (adult) (pediatric); B35.4 Tinea corporis; Z79.01 Long term (current) use of anticoagulants; Z79.52 Long term (current) use of systemic steroids; Z79.82 Long term (current) use of aspirin; Z87.891 Personal history of nicotine dependence; Z79.899 Other long term (current) drug therapy; Z68.37 Body mass index [BMI] 37.0-37.9, adult; Z23 Encounter for immunization
CPT/HCPCS: 0124A; 36415; 71046; 80048; 81001; 82962; 85025; 87040; 87086; 87088; 87633; 87635; 87811; 91312; 92507; 92523; 93971; 97110; 97116; 97162; 97166; 97530; 97535; 97802; J7050; A4216; U0003; U0005